=== PATIENT | female | born 1965 | race Hispanic/Latino ===

== ENCOUNTER 2018-09-07 14:42 | Emergency (ER) | payer SELFPAY ==
[2018-09-07] MEDS ORDERED: PREDNISONE 20 MG TABLET ONE (16:19)
[2018-09-07] MEDS ORDERED: DIPHENHYDRAMINE HCL 25 MG CAPSULE ONE (16:19)
[2018-09-07] MEDS ORDERED: FAMOTIDINE 20MG TAB 20 MG TAB ONE (16:19)
== END 2018-09-07 16:36 | disposition home or self-care (01) ==
LOC: EDH 14:42
DX: L25.9 Unspecified contact dermatitis, unspecified cause (principal); I10 Essential (primary) hypertension
CPT/HCPCS: 99284; Q0163

== ENCOUNTER 2018-09-09 21:36 | Emergency (ER) | payer SELFPAY ==
[2018-09-09] MEDS ORDERED: DEXAMETHASONE SOD PHOSPHATE 10MG/ML 1ML VIAL ONE (22:51)
== END 2018-09-09 23:24 | disposition home or self-care (01) ==
LOC: EDH 21:36
DX: L25.9 Unspecified contact dermatitis, unspecified cause (principal); I10 Essential (primary) hypertension; Z90.49 Acquired absence of other specified parts of digestive tract; Z98.51 Tubal ligation status
CPT/HCPCS: 96372; 99283; J1100

== ENCOUNTER 2019-02-10 00:59 | Emergency (ER) | payer SELFPAY ==
[2019-02-10 01:42] LABS: APPEARANCE,URINE Clear (CLEAR); BILIRUBIN,URINE Negative (NEGATIVE); COLOR,URINE Yellow (YELLOW); GLUCOSE, URINE (UA) Negative (NEGATIVE); KETONES,URINE Negative (NEGATIVE); LEUKOCYTE ESTERASE ,URINE Negative (NEGATIVE); NITRATE,URINE Negative (NEGATIVE); OCCULT BLOOD,URINE Negative (NEGATIVE); PH,URINE 6.5 (5.0-8.0); PROTEIN,URINE Negative (NEGATIVE)
[2019-02-10] MEDS ORDERED: LIDOCAINE HCL 2% VISCOUS 15 ML UDCUP ONE (02:09)
== END 2019-02-10 02:18 | disposition home or self-care (01) ==
LOC: EDH 00:59
DX: B37.3 Candidiasis of vulva and vagina (principal); I10 Essential (primary) hypertension; Z98.51 Tubal ligation status; Z90.49 Acquired absence of other specified parts of digestive tract; Z90.89 Acquired absence of other organs; Z98.890 Other specified postprocedural states
CPT/HCPCS: 81003

== ENCOUNTER 2019-02-27 20:01 | Emergency (ER) | payer SELFPAY ==
[2019-02-27] MEDS ORDERED: IBUPROFEN 600 MG TABLET ONE (20:35)
== END 2019-02-27 21:02 | disposition home or self-care (01) ==
LOC: EDH 20:01
DX: S83.8X2A Sprain of other specified parts of left knee, initial encounter (principal); I10 Essential (primary) hypertension; X50.0XXA Overexertion from strenuous movement or load, initial encounter; Y93.89 Activity, other specified; Y92.098 Other place in other non-institutional residence as the place of occurrence of the external cause; Y99.8 Other external cause status
CPT/HCPCS: 73562

== ENCOUNTER 2020-07-07 20:42 | Emergency (ER) | payer OTHER ==
[2020-07-07] MEDS ORDERED: HYDROCODONE/ACETAMINOPHEN 5/325 MG TAB ONE (22:41)
== END 2020-07-07 23:14 | disposition home or self-care (01) ==
LOC: EDH 20:42
DX: S20.219A Contusion of unspecified front wall of thorax, initial encounter (principal); I10 Essential (primary) hypertension; V49.49XA Driver injured in collision with other motor vehicles in traffic accident, initial encounter; Y93.89 Activity, other specified; Y92.488 Other paved roadways as the place of occurrence of the external cause; Y99.8 Other external cause status
CPT/HCPCS: 71045

== ENCOUNTER 2021-03-23 18:58 | Emergency (ER) | payer SELFPAY ==
[~2021-03-23] VITALS: Ht 157.5 cm; Wt 98.9 kg
[2021-03-23 21:14] LABS: BASOPHILS % (AUTO) 0.4 % (0.0-5.0); HEMATOCRIT 46.4 % (36-48); LYMPHOCYTES % (AUTO) 18.8 % (21.0-51.0); MEAN CORPUSCULAR HEMOGLOBIN 26.7 pg (27.0-33.0); MEAN CORPUSCULAR HGB CONC 31.9 g/dL (32.0-36.0); MEAN CORPUSCULAR VOLUME 83.8 fL (79-99); MONOCYTES % (AUTO) 4.8 % (3.0-13.0); NEUTROPHILS % (AUTO) 74.6 % (40.0-77.0); PLATELET COUNT (AUTO) 324 K/uL (130-400); RED BLOOD CELL COUNT(AUTO) 5.54 MIL/uL (4.00-5.50); RED CELL DISTRIBUTION WIDTH 13.8 % (11.0-15.5); WHITE BLOOD COUNT (AUTO) 14.1 K/uL (4.8-10.8)
[2021-03-23 21:24] LABS: CREATININE 0.8 mg/dL (0.5-1.5); POTASSIUM 4.1 mmol/L (3.5-5.1)
[2021-03-23 21:33] LABS: ALBUMIN 3.5 g/dL (3.5-5.0); BILIRUBIN,TOTAL 0.6 mg/dL (0.2-1.0); TOTAL PROTEIN, SERUM 8.8 g/dL (6.0-8.3)
[2021-03-23 22:00] VITALS: BP 128/82
[2021-03-23 22:15] LABS: APPEARANCE,URINE Clear (CLEAR); BILIRUBIN,URINE Negative (NEGATIVE); COLOR,URINE Yellow (YELLOW); GLUCOSE, URINE (UA) >=1000 mg/dL (NEGATIVE); KETONES,URINE 15 mg/dL (NEGATIVE); LEUKOCYTE ESTERASE ,URINE Small (NEGATIVE); NITRATE,URINE Negative (NEGATIVE); OCCULT BLOOD,URINE Negative (NEGATIVE); PH,URINE 7.5 (5.0-8.0); PROTEIN,URINE Negative (NEGATIVE)
[2021-03-23 22:27] LABS: BACTERIA,URINE None Seen /HPF (None Seen); RBC,URINE 0-1 /HPF (0-1); SQUAMOUS EPITHELIAL CELL,UR Moderate /HPF (0-2)
[2021-03-23] MEDS ORDERED: LIDOCAINE HCL 2% VISCOUS 15 ML UDCUP PO ONE (22:30)
[2021-03-23] MEDS ORDERED: MAG/ALUM/SIMETH 30 ML UDCUP PO ONE (22:30)
[2021-03-23] MEDS ORDERED: PANTOPRAZOLE 40 MG TAB DR PO SCH (22:30)
[2021-03-23] MEDS ORDERED: PANT40TA PO (22:49)
[2021-03-23] MEDS ORDERED: ONDA4TAB10 PO (22:49)
[2021-03-23] MEDS ORDERED: METO-296 PO (22:49)
[2021-03-23] MEDS ORDERED: DICY20TA2 PO (22:49)
== END 2021-03-23 23:07 | disposition home or self-care (01) ==
LOC: EDH 18:58
DX: K29.70 Gastritis, unspecified, without bleeding (principal); R10.13 Epigastric pain; I10 Essential (primary) hypertension; Z90.49 Acquired absence of other specified parts of digestive tract; Z98.890 Other specified postprocedural states
CPT/HCPCS: 36415; 74176; 80053; 81001; 83690; 84484; 85025

== ENCOUNTER 2021-04-19 10:59 | Inpatient (IN) | payer OTHER ==
[~2021-04-19] VITALS: Ht 162.6 cm; Wt 69.4 kg
[~2021-04-19 10:59] MED LIST: DICY20TA2 PO; METO-296 PO; ONDA4TAB10 PO; PANT40TA PO
[2021-04-19 11:50] LABS: BASOPHILS % (AUTO) 0.1 % (0.0-5.0); EOSINOPHILS % (AUTO) 0.1 % (0.0-8.0); HEMATOCRIT 43.2 % (36-48); LYMPHOCYTES % (AUTO) 7.2 % (21.0-51.0); MEAN CORPUSCULAR HEMOGLOBIN 26.2 pg (27.0-33.0); MEAN CORPUSCULAR HGB CONC 33.3 g/dL (32.0-36.0); MEAN CORPUSCULAR VOLUME 78.7 fL (79-99); MONOCYTES % (AUTO) 1.9 % (3.0-13.0); NEUTROPHILS % (AUTO) 90.4 % (40.0-77.0); PLATELET COUNT (AUTO) 156 K/uL (130-400); RED BLOOD CELL COUNT(AUTO) 5.49 MIL/uL (4.00-5.50); RED CELL DISTRIBUTION WIDTH 13.3 % (11.0-15.5); WHITE BLOOD COUNT (AUTO) 7.4 K/uL (4.8-10.8)
[2021-04-19 11:59] LABS: ALBUMIN 2.9 g/dL (3.5-5.0); CREATININE 0.9 mg/dL (0.5-1.5); POTASSIUM 3.4 mmol/L (3.5-5.1)
[2021-04-19 12:06] LABS: BILIRUBIN,TOTAL 0.8 mg/dL (0.2-1.0); TOTAL PROTEIN, SERUM 8.4 g/dL (6.0-8.3)
[2021-04-19 12:08] LABS: INR 0.99 (0.85-1.15); PROTHROMBIN TIME 10.8 SEC (9.6-11.6)
[2021-04-19 12:24] LABS: ABG BASE EXCESS 4.1 mmol/L (-2.0-3.0); ABG PCO2 28 mmHg (32-45)
[2021-04-19] MEDS ORDERED: INSULIN HUMULIN R 100 UNIT/ML 3ML IV ONE (12:30)
[2021-04-19] MEDS ORDERED: ACETAMINOPHEN WITH CODEINE 1 TAB TAB PO ONE (12:30)
[2021-04-19] MEDS ORDERED: 0.9%NACL 1000ML 1,000 ML IV SCH ×2 (12:30→18:30)
[2021-04-19] MEDS: ALBUTEROL INHALER 90MCG/INH IH PRN (13:09)
[2021-04-19 13:20] LABS: CRP QUANTITATIVE 239.5 mg/L (0.00-9.0)
[2021-04-19 14:00] VITALS: BP 130/82
[2021-04-19] MEDS ORDERED: PHARMACY COMMUNICATION**REMDESIVIR ORDER MISC SCH (14:30)
[2021-04-19] MEDS ORDERED: COMPOUND IV REFRIGERATED 1 EACH IVSOLN MISC PRN (15:00)
[2021-04-19 15:07] LABS: HEMOGLOBIN A1C 13.1 % (4.0-6.0)
[2021-04-19 15:19] LABS: APPEARANCE,URINE Clear (CLEAR); BILIRUBIN,URINE Negative (NEGATIVE); COLOR,URINE Yellow (YELLOW); GLUCOSE, URINE (UA) >=1000 mg/dL (NEGATIVE); KETONES,URINE Trace mg/dL (NEGATIVE); LEUKOCYTE ESTERASE ,URINE Trace (NEGATIVE); NITRATE,URINE Negative (NEGATIVE); OCCULT BLOOD,URINE Negative (NEGATIVE); PROTEIN,URINE Trace mg/dL (NEGATIVE)
[2021-04-19 15:21] LABS: SODIUM,URINE RANDOM 33 mmol/l (40-220)
[2021-04-19 15:31] LABS: BACTERIA,URINE Moderate /HPF (None Seen); RBC,URINE 0-1 /HPF (0-1)
[2021-04-19 15:32] LABS: SQUAMOUS EPITHELIAL CELL,UR Rare /HPF (0-2); YEAST,URINE BUDDING Rare /HPF (None Seen)
[2021-04-19] MEDS ORDERED: INSULIN GLARGINE 100 UNITS/ML 10 ML VIAL SQ ONE (16:00)
[2021-04-19] MEDS ORDERED: REMDESIVIR (EUA) 520 200 MG in 0.9% NACL 250ML 250 ML IV SCH (16:00)
[2021-04-19 17:15] VITALS: BP 132/80
[2021-04-19 17:32] LABS: CREATININE 0.6 mg/dL (0.5-1.5); POTASSIUM 3.4 mmol/L (3.5-5.1)
[2021-04-19] MEDS: INSULIN HUMULIN R 100 UNIT/ML 3ML SQ SCH (18:29)
[2021-04-19] MEDS ORDERED: DEXAMETHASONE SOD PHOSPHATE 4 MG/ML 1ML VIAL IVP SCH (18:30)
[2021-04-19] MEDS ORDERED: POTASSIUM CHLORIDE 20MEQ/100ML 100 ML IV PRN (18:30)
[2021-04-19] MEDS ORDERED: LIDOCAINE HCL-MPF 1% 2ML VIAL IV PRN (18:30)
[2021-04-19] MEDS ORDERED: MAGNESIUM 2GM PREMIX 50ML 50 ML IV PRN (18:30)
[2021-04-19 19:59] LABS: CREATININE 0.6 mg/dL (0.5-1.5); POTASSIUM 3.1 mmol/L (3.5-5.1)
[2021-04-19 20:00] VITALS: BP 130/74
[2021-04-19] MEDS ORDERED: 0.9%NACL 1000ML 1,000 ML IV ONE (20:00)
[2021-04-19] MEDS: ENOXAPARIN SODIUM 40 MG/0.4 ML SYRINGE SQ SCH (20:30)
[2021-04-19] MEDS ORDERED: FAMOTIDINE 20MG VIAL IV SCH (21:00)
[2021-04-19 22:59] LABS: CREATININE 0.5 mg/dL (0.5-1.5); POTASSIUM 3.2 mmol/L (3.5-5.1)
[2021-04-19 23:20] VITALS: BP 132/78
[2021-04-20] LABS: CHLORIDE,URINE RANDOM 53 mmol/L (110-250); POTASSIUM,URINE RANDOM 37 mmol/L (25-125); SODIUM,URINE RANDOM 33 mmol/l (40-220)
[2021-04-20] MEDS: INSULIN HUMULIN R 100 UNIT/ML 3ML SQ SCH ×8 (01:07→21:09)
[2021-04-20 03:37] VITALS: BP 129/61
[2021-04-20] MEDS: GUAIFENESIN SUGAR-FREE 100 MG/5 ML UDCUP PO PRN ×2 (03:37→10:49)
[2021-04-20] MEDS: REMDESIVIR LABS MISC SCH (06:00)
[2021-04-20 06:08] LABS: CREATININE 0.7 mg/dL (0.5-1.5)
[2021-04-20 08:00] VITALS: BP 114/68
[2021-04-20] MEDS ORDERED: ONDANSETRON 4MG INJ ONE (08:11)
[2021-04-20] MEDS ORDERED: ACETAMINOPHEN 500 MG TABLET ONE (08:11)
[2021-04-20] MEDS: PANTOPRAZOLE 40 MG TAB DR PO SCH (08:13)
[2021-04-20] MEDS: BARICITINIB (EUA) 2 MG TABLET PO SCH (08:13)
[2021-04-20] MEDS: ENOXAPARIN SODIUM 40 MG/0.4 ML SYRINGE SQ SCH ×2 (08:13→21:10)
[2021-04-20] MEDS ORDERED: ACETAMINOPHEN 500 MG TABLET PO ONE (08:30)
[2021-04-20] MEDS: ALBUTEROL INHALER 90MCG/INH IH PRN (08:45)
[2021-04-20 12:49] LABS: AMPHET/METH SCREEN,URINE NEGATIVE (NEGATIVE); BARBITURATE SCREEN, URINE NEGATIVE (NEGATIVE); BENZODIAZEPINES SCREEN,URINE NEGATIVE (NEGATIVE); CANNABINOID SCREEN,URINE NEGATIVE (NEGATIVE); COCAINE SCREEN,URINE NEGATIVE (NEGATIVE); OPIATE SCREEN,URINE POSITIVE (NEGATIVE); PHENCYCLIDINE SCREEN,URINE NEGATIVE (NEGATIVE)
[2021-04-20] MEDS: NYSTATIN 15 GM POWDER TP SCH ×2 (14:00→21:00)
[2021-04-20 14:30] LABS: CREATININE 0.7 mg/dL (0.5-1.5); POTASSIUM 3.5 mmol/L (3.5-5.1)
[2021-04-20 14:36] LABS: ALBUMIN 2.4 g/dL (3.5-5.0); BILIRUBIN,DIRECT 0.2 mg/dL (0.0-0.3); BILIRUBIN,TOTAL 0.6 mg/dL (0.2-1.0); TOTAL PROTEIN, SERUM 7.4 g/dL (6.0-8.3)
[2021-04-20] MEDS: TRAMADOL HCL 50 MG TABLET PO PRN (15:08)
[2021-04-20] MEDS ORDERED: ALBUTEROL INHALER 90MCG/INH IH PRN (15:30)
[2021-04-20] MEDS: REMDESIVIR (EUA) 520 100 MG in 0.9% NACL 250ML 250 ML IV SCH (16:25)
[2021-04-20] MEDS: LEVOFLOXACIN 500 MG TABLET PO SCH (16:25)
[2021-04-20] MEDS: DEXAMETHASONE SOD PHOSPHATE 4 MG/ML 1ML VIAL IVP SCH (17:39)
[2021-04-20 18:28] VITALS: BP 142/84
[2021-04-20 20:00] VITALS: BP 137/80
[2021-04-20 20:19] LABS: CREATININE 0.5 mg/dL (0.5-1.5); POTASSIUM 3.3 mmol/L (3.5-5.1)
[2021-04-20] MEDS ORDERED: INSULIN GLARGINE 100 UNITS/ML 10 ML VIAL SQ SCH (21:00)
[2021-04-20] MEDS: TEMAZEPAM 7.5 MG CAPSULE PO PRN (22:22)
[2021-04-20 22:45] LABS: CREATININE 0.6 mg/dL (0.5-1.5); POTASSIUM 3.4 mmol/L (3.5-5.1)
[2021-04-21] VITALS (9 sets, daily range): BP systolic 109–159; BP diastolic 48–86
[2021-04-21] MEDS: GUAIFENESIN SUGAR-FREE 100 MG/5 ML UDCUP PO PRN ×3 (02:02→15:44)
[2021-04-21] MEDS: TRAMADOL HCL 50 MG TABLET PO PRN ×2 (02:59→15:44)
[2021-04-21] MEDS: DEXAMETHASONE SOD PHOSPHATE 4 MG/ML 1ML VIAL IVP SCH ×2 (05:32→18:30)
[2021-04-21 06:05] LABS: ALBUMIN 2.4 g/dL (3.5-5.0); BILIRUBIN,TOTAL 0.5 mg/dL (0.2-1.0); CREATININE 0.6 mg/dL (0.5-1.5); MAGNESIUM 1.9 mg/dL (1.80-2.40); POTASSIUM 4.3 mmol/L (3.5-5.1); TOTAL PROTEIN, SERUM 7.5 g/dL (6.0-8.3)
[2021-04-21] MEDS: INSULIN HUMULIN R 100 UNIT/ML 3ML SQ SCH ×4 (08:36→20:49)
[2021-04-21] MEDS: LEVOFLOXACIN 500 MG TABLET PO SCH (08:47)
[2021-04-21] MEDS: PANTOPRAZOLE 40 MG TAB DR PO SCH (08:47)
[2021-04-21] MEDS: BARICITINIB (EUA) 2 MG TABLET PO SCH (08:47)
[2021-04-21] MEDS: ENOXAPARIN SODIUM 40 MG/0.4 ML SYRINGE SQ SCH ×2 (08:48→20:55)
[2021-04-21] MEDS ORDERED: LEVOFLOXACIN 500 MG TABLET PO SCH (09:00)
[2021-04-21] MEDS: NYSTATIN 15 GM POWDER TP SCH ×3 (10:03→20:55)
[2021-04-21] MEDS: ONDANSETRON 4MG INJ IVP PRN (15:44)
[2021-04-21] MEDS: REMDESIVIR (EUA) 520 100 MG in 0.9% NACL 250ML 250 ML IV SCH (16:00)
[2021-04-21] MEDS: REMDESIVIR LABS MISC SCH (16:00)
[2021-04-21] MEDS: INSULIN GLARGINE 100 UNITS/ML 10 ML VIAL SQ SCH (20:54)
[2021-04-21] MEDS: TEMAZEPAM 7.5 MG CAPSULE PO PRN (20:55)
[2021-04-21] MEDS: ACETAMINOPHEN 325 MG TAB PO PRN (20:56)
[2021-04-22 03:57] VITALS: BP 152/85
[2021-04-22] MEDS: TRAMADOL HCL 50 MG TABLET PO PRN ×2 (04:09→15:37)
[2021-04-22] MEDS: GUAIFENESIN SUGAR-FREE 100 MG/5 ML UDCUP PO PRN ×3 (04:09→21:12)
[2021-04-22 04:58] LABS: ALBUMIN 2.6 g/dL (3.5-5.0); BILIRUBIN,TOTAL 0.6 mg/dL (0.2-1.0); CREATININE 0.7 mg/dL (0.5-1.5); POTASSIUM 3.4 mmol/L (3.5-5.1); TOTAL PROTEIN, SERUM 7.7 g/dL (6.0-8.3)
[2021-04-22] MEDS: REMDESIVIR LABS MISC SCH (06:18)
[2021-04-22] MEDS: DEXAMETHASONE SOD PHOSPHATE 4 MG/ML 1ML VIAL IVP SCH (06:19)
[2021-04-22] MEDS: INSULIN HUMULIN R 100 UNIT/ML 3ML SQ SCH ×4 (06:21→21:00)
[2021-04-22] MEDS: KCL 20 MEQ ERTAB PO PRN ×2 (06:52→15:29)
[2021-04-22 07:51] VITALS: BP 156/80
[2021-04-22] MEDS: PANTOPRAZOLE 40 MG TAB DR PO SCH (09:07)
[2021-04-22] MEDS: LEVOFLOXACIN 500 MG TABLET PO SCH (09:07)
[2021-04-22] MEDS: ENOXAPARIN SODIUM 40 MG/0.4 ML SYRINGE SQ SCH ×2 (09:08→20:30)
[2021-04-22] MEDS: NYSTATIN 15 GM POWDER TP SCH ×3 (09:08→20:31)
[2021-04-22] MEDS: BARICITINIB (EUA) 2 MG TABLET PO SCH (10:30)
[2021-04-22] MEDS: ACETAMINOPHEN 325 MG TAB PO PRN ×2 (10:31→20:29)
[2021-04-22 11:51] VITALS: BP 129/84
[2021-04-22] MEDS: FLUOXETINE HCL 20 MG CAPSULE PO SCH (12:21)
[2021-04-22] MEDS: BUSPIRONE HCL 5 MG TABLET PO SCH ×3 (12:21→20:29)
[2021-04-22] MEDS: REMDESIVIR (EUA) 520 100 MG in 0.9% NACL 250ML 250 ML IV SCH (15:25)
[2021-04-22] MEDS: ONDANSETRON 4MG INJ IVP PRN (15:28)
[2021-04-22 16:17] VITALS: BP 117/78
[2021-04-22 19:39] VITALS: BP 157/74
[2021-04-22] MEDS: TEMAZEPAM 7.5 MG CAPSULE PO PRN (20:29)
[2021-04-22] MEDS: INSULIN GLARGINE 100 UNITS/ML 10 ML VIAL SQ SCH (20:31)
[2021-04-22 23:50] VITALS: BP 138/78
[2021-04-23 03:53] VITALS: BP 147/75
[2021-04-23] MEDS: GUAIFENESIN SUGAR-FREE 100 MG/5 ML UDCUP PO PRN ×3 (04:30→20:37)
[2021-04-23] MEDS: TRAMADOL HCL 50 MG TABLET PO PRN ×2 (04:40→17:05)
[2021-04-23 04:54] LABS: BASOPHILS % (AUTO) 0.3 % (0.0-5.0); EOSINOPHILS % (AUTO) 0.7 % (0.0-8.0); HEMATOCRIT 43.5 % (36-48); LYMPHOCYTES % (AUTO) 15.1 % (21.0-51.0); MEAN CORPUSCULAR HGB CONC 32.6 g/dL (32.0-36.0); MEAN CORPUSCULAR VOLUME 79.7 fL (79-99); MONOCYTES % (AUTO) 4.6 % (3.0-13.0); NEUTROPHILS % (AUTO) 78.6 % (40.0-77.0); PLATELET COUNT (AUTO) 279 K/uL (130-400); RED BLOOD CELL COUNT(AUTO) 5.46 MIL/uL (4.00-5.50); RED CELL DISTRIBUTION WIDTH 13.2 % (11.0-15.5); WHITE BLOOD COUNT (AUTO) 7.5 K/uL (4.8-10.8)
[2021-04-23 05:16] LABS: CRP QUANTITATIVE 30.3 mg/L (0.00-9.0)
[2021-04-23 05:27] LABS: ALBUMIN 2.5 g/dL (3.5-5.0); BILIRUBIN,TOTAL 0.5 mg/dL (0.2-1.0); CREATININE 0.7 mg/dL (0.5-1.5); POTASSIUM 3.7 mmol/L (3.5-5.1); TOTAL PROTEIN, SERUM 7.2 g/dL (6.0-8.3)
[2021-04-23] MEDS: REMDESIVIR LABS MISC SCH (06:00)
[2021-04-23] MEDS: INSULIN HUMULIN R 100 UNIT/ML 3ML SQ SCH ×4 (06:09→21:04)
[2021-04-23 08:00] VITALS: BP 130/76
[2021-04-23] MEDS: PANTOPRAZOLE 40 MG TAB DR PO SCH (08:31)
[2021-04-23] MEDS: FLUOXETINE HCL 20 MG CAPSULE PO SCH (08:31)
[2021-04-23] MEDS: BARICITINIB (EUA) 2 MG TABLET PO SCH (08:31)
[2021-04-23] MEDS: BUSPIRONE HCL 5 MG TABLET PO SCH ×3 (08:31→20:36)
[2021-04-23] MEDS: LEVOFLOXACIN 500 MG TABLET PO SCH (08:31)
[2021-04-23] MEDS: ENOXAPARIN SODIUM 40 MG/0.4 ML SYRINGE SQ SCH ×2 (08:32→20:38)
[2021-04-23] MEDS: DEXAMETHASONE SOD PHOSPHATE 4 MG/ML 1ML VIAL IVP SCH (08:32)
[2021-04-23] MEDS: NYSTATIN 15 GM POWDER TP SCH ×3 (08:32→20:38)
[2021-04-23] MEDS: PHARMACY COMMUNICATION MISC SCH ×5 (11:30→15:33)
[2021-04-23 11:47] VITALS: BP 156/86
[2021-04-23] MEDS ORDERED: PHARMACY COMMUNICATION MISC SCH (15:30)
[2021-04-23 16:16] VITALS: BP 136/75
[2021-04-23] MEDS: REMDESIVIR (EUA) 520 100 MG in 0.9% NACL 250ML 250 ML IV SCH (17:05)
[2021-04-23 19:39] VITALS: BP 130/74
[2021-04-23] MEDS: TEMAZEPAM 7.5 MG CAPSULE PO PRN (20:37)
[2021-04-23] MEDS: ACETAMINOPHEN 325 MG TAB PO PRN (20:39)
[2021-04-23] MEDS: INSULIN GLARGINE 100 UNITS/ML 10 ML VIAL SQ SCH (21:04)
[2021-04-23 23:29] VITALS: BP 135/83
[2021-04-24] MEDS: GUAIFENESIN SUGAR-FREE 100 MG/5 ML UDCUP PO PRN ×4 (00:36→18:37)
[2021-04-24 03:45] VITALS: BP 147/85
[2021-04-24 04:20] LABS: MEAN CORPUSCULAR HEMOGLOBIN 26.3 pg (27.0-33.0); MEAN CORPUSCULAR VOLUME 78.6 fL (79-99); RED BLOOD CELL COUNT(AUTO) 5.09 MIL/uL (4.00-5.50); WHITE BLOOD COUNT (AUTO) 8.5 K/uL (4.8-10.8)
[2021-04-24 04:21] LABS: BASOPHILS % (AUTO) 0.2 % (0.0-5.0); EOSINOPHILS % (AUTO) 1.1 % (0.0-8.0); LYMPHOCYTES % (AUTO) 12.6 % (21.0-51.0); MEAN CORPUSCULAR HGB CONC 33.5 g/dL (32.0-36.0); MONOCYTES % (AUTO) 3.2 % (3.0-13.0); NEUTROPHILS % (AUTO) 81.3 % (40.0-77.0); PLATELET COUNT (AUTO) 318 K/uL (130-400); RED CELL DISTRIBUTION WIDTH 13.1 % (11.0-15.5)
[2021-04-24] MEDS: TRAMADOL HCL 50 MG TABLET PO PRN (04:31)
[2021-04-24] MEDS: BENZONATATE 100 MG CAPSULE PO PRN (04:31)
[2021-04-24 04:34] LABS: ALBUMIN 2.5 g/dL (3.5-5.0); BILIRUBIN,TOTAL 0.6 mg/dL (0.2-1.0); CREATININE 0.6 mg/dL (0.5-1.5); TOTAL PROTEIN, SERUM 7.2 g/dL (6.0-8.3)
[2021-04-24 04:43] LABS: POTASSIUM 2.9 mmol/L (3.5-5.1)
[2021-04-24] MEDS: POTASSIUM CHLORIDE 10% ELIXIR 20 MEQ/15 ML UDCUP PO PRN (04:50)
[2021-04-24] MEDS: REMDESIVIR LABS MISC SCH (05:13)
[2021-04-24] MEDS: INSULIN HUMULIN R 100 UNIT/ML 3ML SQ SCH ×4 (05:13→20:51)
[2021-04-24] MEDS: FLUOXETINE HCL 20 MG CAPSULE PO SCH (06:47)
[2021-04-24 08:15] VITALS: BP 153/76
[2021-04-24] MEDS: DEXAMETHASONE SOD PHOSPHATE 4 MG/ML 1ML VIAL IVP SCH (09:02)
[2021-04-24] MEDS: LEVOFLOXACIN 500 MG TABLET PO SCH (09:02)
[2021-04-24] MEDS: BUSPIRONE HCL 5 MG TABLET PO SCH ×3 (09:03→20:46)
[2021-04-24] MEDS: BARICITINIB (EUA) 2 MG TABLET PO SCH (09:04)
[2021-04-24] MEDS: PANTOPRAZOLE 40 MG TAB DR PO SCH (09:04)
[2021-04-24] MEDS: ENOXAPARIN SODIUM 40 MG/0.4 ML SYRINGE SQ SCH (09:04)
[2021-04-24] MEDS: KCL 20 MEQ ERTAB PO PRN (09:04)
[2021-04-24] MEDS: NYSTATIN 15 GM POWDER TP SCH ×3 (09:05→21:38)
[2021-04-24 11:48] VITALS: BP 151/76
[2021-04-24] MEDS: REMDESIVIR (EUA) 520 100 MG in 0.9% NACL 250ML 250 ML IV SCH (14:46)
[2021-04-24] MEDS ORDERED: POTASSIUM CHLORIDE 10MEQ SR TAB PO STA (14:56)
[2021-04-24 15:14] LABS: CREATININE 0.5 mg/dL (0.5-1.5); MAGNESIUM 2.1 mg/dL (1.80-2.40); POTASSIUM 4.5 mmol/L (3.5-5.1)
[2021-04-24 15:59] VITALS: BP 138/76
[2021-04-24] MEDS ORDERED: NACL NASAL SPRAY 120 SPRAY/BOTTLE NS PRN (16:00)
[2021-04-24] MEDS: ALPRAZOLAM 1 MG TAB PO PRN (17:11)
[2021-04-24 19:56] VITALS: BP 149/87
[2021-04-24] MEDS: TRAZODONE HCL 50 MG TAB PO SCH (20:46)
[2021-04-24] MEDS: ENOXAPARIN SODIUM 100 MG/1 ML SQ SCH (20:47)
[2021-04-24] MEDS: INSULIN GLARGINE 100 UNITS/ML 10 ML VIAL SQ SCH (20:51)
[2021-04-24 23:36] VITALS: BP 123/69
[2021-04-25] MEDS: GUAIFENESIN SUGAR-FREE 100 MG/5 ML UDCUP PO PRN ×3 (00:48→16:28)
[2021-04-25 03:30] VITALS: BP 141/77
[2021-04-25 04:07] LABS: BASOPHILS % (AUTO) 0.3 % (0.0-5.0); EOSINOPHILS % (AUTO) 1.4 % (0.0-8.0); HEMATOCRIT 42.7 % (36-48); LYMPHOCYTES % (AUTO) 11.4 % (21.0-51.0); MEAN CORPUSCULAR HEMOGLOBIN 26.1 pg (27.0-33.0); MEAN CORPUSCULAR HGB CONC 32.8 g/dL (32.0-36.0); MEAN CORPUSCULAR VOLUME 79.7 fL (79-99); MONOCYTES % (AUTO) 3.5 % (3.0-13.0); NEUTROPHILS % (AUTO) 79.6 % (40.0-77.0); PLATELET COUNT (AUTO) 410 K/uL (130-400); RED BLOOD CELL COUNT(AUTO) 5.36 MIL/uL (4.00-5.50); RED CELL DISTRIBUTION WIDTH 13.5 % (11.0-15.5)
[2021-04-25 04:32] LABS: ALBUMIN 2.5 g/dL (3.5-5.0); BILIRUBIN,TOTAL 0.6 mg/dL (0.2-1.0); CREATININE 0.7 mg/dL (0.5-1.5); CRP QUANTITATIVE 174.1 mg/L (0.00-9.0); PHOSPHORUS 2.3 mg/dL (2.5-4.9); POTASSIUM 3.4 mmol/L (3.5-5.1); TOTAL PROTEIN, SERUM 7.4 g/dL (6.0-8.3)
[2021-04-25] MEDS: TRAMADOL HCL 50 MG TABLET PO PRN (05:10)
[2021-04-25] MEDS: REMDESIVIR LABS MISC SCH (06:00)
[2021-04-25] MEDS: INSULIN HUMULIN R 100 UNIT/ML 3ML SQ SCH ×4 (07:30→21:41)
[2021-04-25] MEDS: BUSPIRONE HCL 5 MG TABLET PO SCH ×3 (08:39→20:23)
[2021-04-25] MEDS: FLUOXETINE HCL 20 MG CAPSULE PO SCH (08:39)
[2021-04-25] MEDS: BARICITINIB (EUA) 2 MG TABLET PO SCH (08:39)
[2021-04-25] MEDS: PANTOPRAZOLE 40 MG TAB DR PO SCH (08:39)
[2021-04-25] MEDS: DEXAMETHASONE SOD PHOSPHATE 4 MG/ML 1ML VIAL IVP SCH (08:39)
[2021-04-25] MEDS: ENOXAPARIN SODIUM 100 MG/1 ML SQ SCH ×2 (08:40→20:24)
[2021-04-25] MEDS: NYSTATIN 15 GM POWDER TP SCH ×3 (08:40→20:24)
[2021-04-25] MEDS: KCL 20 MEQ ERTAB PO PRN ×2 (08:41→14:19)
[2021-04-25 08:59] VITALS: BP 107/59
[2021-04-25 12:26] VITALS: BP 146/79
[2021-04-25] MEDS: REMDESIVIR (EUA) 520 100 MG in 0.9% NACL 250ML 250 ML IV SCH (14:15)
[2021-04-25 16:30] VITALS: BP 139/74
[2021-04-25] MEDS: ACETAMINOPHEN 325 MG TAB PO PRN (17:29)
[2021-04-25 19:17] VITALS: BP 136/84
[2021-04-25] MEDS: SOLU-MEDROL 40MG VIAL IVP SCH (20:22)
[2021-04-25] MEDS: TRAZODONE HCL 50 MG TAB PO SCH (20:23)
[2021-04-25] MEDS ORDERED: GUAIFENESIN-CODEINE 5 ML SYRUP PO ONE (21:30)
[2021-04-25] MEDS: INSULIN GLARGINE 100 UNITS/ML 10 ML VIAL SQ SCH (21:41)
[2021-04-25] MEDS: TEMAZEPAM 7.5 MG CAPSULE PO PRN (21:50)
[2021-04-25 23:31] VITALS: BP 129/81
[2021-04-26 03:49] VITALS: BP 153/83
[2021-04-26] MEDS: REMDESIVIR LABS MISC SCH (06:00)
[2021-04-26] MEDS: INSULIN HUMULIN R 100 UNIT/ML 3ML SQ SCH ×4 (07:11→20:51)
[2021-04-26] MEDS: PANTOPRAZOLE 40 MG TAB DR PO SCH (07:57)
[2021-04-26] MEDS: BARICITINIB (EUA) 2 MG TABLET PO SCH (07:57)
[2021-04-26] MEDS: FLUOXETINE HCL 20 MG CAPSULE PO SCH (07:57)
[2021-04-26] MEDS: SOLU-MEDROL 40MG VIAL IVP SCH ×2 (07:58→21:23)
[2021-04-26] MEDS: BUSPIRONE HCL 5 MG TABLET PO SCH ×3 (07:58→21:22)
[2021-04-26] MEDS: NYSTATIN 15 GM POWDER TP SCH ×3 (07:58→21:24)
[2021-04-26] MEDS: ENOXAPARIN SODIUM 100 MG/1 ML SQ SCH ×2 (07:58→21:23)
[2021-04-26 08:00] VITALS: BP 148/80
[2021-04-26] MEDS: BENZONATATE 100 MG CAPSULE PO PRN (09:16)
[2021-04-26] MEDS: ALPRAZOLAM 1 MG TAB PO PRN ×2 (09:16→21:22)
[2021-04-26] MEDS: ACETAMINOPHEN 325 MG TAB PO PRN (09:16)
[2021-04-26 12:00] VITALS: BP 112/54
[2021-04-26 12:13] LABS: ALBUMIN 2.8 g/dL (3.5-5.0); BILIRUBIN,DIRECT 0.1 mg/dL (0.0-0.3); BILIRUBIN,TOTAL 0.4 mg/dL (0.2-1.0); TOTAL PROTEIN, SERUM 7.3 g/dL (6.0-8.3)
[2021-04-26] MEDS: REMDESIVIR (EUA) 520 100 MG in 0.9% NACL 250ML 250 ML IV SCH (13:45)
[2021-04-26 16:00] VITALS: BP 128/74
[2021-04-26] MEDS: GUAIFENESIN SUGAR-FREE 100 MG/5 ML UDCUP PO PRN (17:10)
[2021-04-26 19:43] VITALS: BP 130/96
[2021-04-26] MEDS: INSULIN GLARGINE 100 UNITS/ML 10 ML VIAL SQ SCH (20:50)
[2021-04-26] MEDS: TRAZODONE HCL 50 MG TAB PO SCH (21:22)
[2021-04-26] MEDS: GUAIFENESIN-CODEINE 5 ML SYRUP PO SCH (21:23)
[2021-04-26] MEDS: TEMAZEPAM 7.5 MG CAPSULE PO PRN (21:27)
[2021-04-26 23:16] VITALS: BP 148/72
[2021-04-27 04:14] LABS: BASOPHILS % (AUTO) 0.3 % (0.0-5.0); EOSINOPHILS % (AUTO) 0.5 % (0.0-8.0); HEMATOCRIT 44.6 % (36-48); LYMPHOCYTES % (AUTO) 6.3 % (21.0-51.0); MEAN CORPUSCULAR HEMOGLOBIN 25.9 pg (27.0-33.0); MEAN CORPUSCULAR HGB CONC 32.1 g/dL (32.0-36.0); MEAN CORPUSCULAR VOLUME 80.8 fL (79-99); MONOCYTES % (AUTO) 4.1 % (3.0-13.0); NEUTROPHILS % (AUTO) 87.2 % (40.0-77.0); PLATELET COUNT (AUTO) 537 K/uL (130-400); RED BLOOD CELL COUNT(AUTO) 5.52 MIL/uL (4.00-5.50); RED CELL DISTRIBUTION WIDTH 13.8 % (11.0-15.5); WHITE BLOOD COUNT (AUTO) 14.8 K/uL (4.8-10.8)
[2021-04-27 04:18] VITALS: BP 137/82
[2021-04-27 04:32] LABS: ALBUMIN 2.6 g/dL (3.5-5.0); BILIRUBIN,TOTAL 0.4 mg/dL (0.2-1.0); CREATININE 0.7 mg/dL (0.5-1.5); CRP QUANTITATIVE 39.1 mg/L (0.00-9.0); MAGNESIUM 2.3 mg/dL (1.80-2.40); PHOSPHORUS 3.9 mg/dL (2.5-4.9); POTASSIUM 4.6 mmol/L (3.5-5.1); TOTAL PROTEIN, SERUM 7.4 g/dL (6.0-8.3)
[2021-04-27 04:49] LABS: B-TYPE NATRIURETIC PEPTIDE 71 pg/mL (0-100)
[2021-04-27] MEDS: REMDESIVIR LABS MISC SCH (06:00)
[2021-04-27] MEDS: INSULIN HUMULIN R 100 UNIT/ML 3ML SQ SCH ×7 (06:41→21:32)
[2021-04-27] MEDS: GUAIFENESIN SUGAR-FREE 100 MG/5 ML UDCUP PO PRN ×2 (06:44→15:48)
[2021-04-27] MEDS ORDERED: DRONABINOL 2.5 MG CAP PO SCH (07:00)
[2021-04-27 08:00] VITALS: BP 135/68
[2021-04-27] MEDS: PANTOPRAZOLE 40 MG TAB DR PO SCH (09:01)
[2021-04-27] MEDS: ASCORBIC ACID 500 MG TAB PO SCH (09:01)
[2021-04-27] MEDS: BUSPIRONE HCL 5 MG TABLET PO SCH ×3 (09:01→20:10)
[2021-04-27] MEDS: METOPROLOL TARTRATE 25 MG TAB PO SCH ×2 (09:01→20:10)
[2021-04-27] MEDS: ZINC SULFATE 220 CAPSULE PO SCH (09:01)
[2021-04-27] MEDS: METOCLOPRAMIDE 5 MG TABLET PO SCH ×4 (09:01→20:10)
[2021-04-27] MEDS: FLUOXETINE HCL 20 MG CAPSULE PO SCH (09:01)
[2021-04-27] MEDS: BARICITINIB (EUA) 2 MG TABLET PO SCH (09:02)
[2021-04-27] MEDS: ENOXAPARIN SODIUM 100 MG/1 ML SQ SCH ×2 (09:03→20:11)
[2021-04-27] MEDS: SOLU-MEDROL 40MG VIAL IVP SCH ×2 (09:03→20:09)
[2021-04-27] MEDS: NYSTATIN 15 GM POWDER TP SCH ×4 (09:03→21:33)
[2021-04-27] MEDS: NEUTRA-PHOS PACKET 1 EACH PO SCH ×4 (09:05→21:30)
[2021-04-27] MEDS: ACETAMINOPHEN 325 MG TAB PO PRN (09:57)
[2021-04-27] MEDS: BENZONATATE 100 MG CAPSULE PO PRN (09:57)
[2021-04-27 11:45] VITALS: BP 138/71
[2021-04-27] MEDS: REMDESIVIR (EUA) 520 100 MG in 0.9% NACL 250ML 250 ML IV SCH (15:49)
[2021-04-27 16:00] VITALS: BP 136/79
[2021-04-27 19:58] VITALS: BP 136/70
[2021-04-27] MEDS: GUAIFENESIN-CODEINE 5 ML SYRUP PO SCH (20:09)
[2021-04-27] MEDS: TRAZODONE HCL 50 MG TAB PO SCH (20:10)
[2021-04-27] MEDS: INSULIN GLARGINE 100 UNITS/ML 10 ML VIAL SQ SCH (20:14)
[2021-04-27] MEDS: TEMAZEPAM 7.5 MG CAPSULE PO PRN (22:05)
[2021-04-27 23:49] VITALS: BP 115/65
[2021-04-28] MEDS: ALPRAZOLAM 1 MG TAB PO PRN ×2 (00:50→20:43)
[2021-04-28] MEDS ORDERED: HYDR25TA PO (00:58)
[2021-04-28 04:21] VITALS: BP 131/57
[2021-04-28 04:43] LABS: BASOPHILS % (AUTO) 0.3 % (0.0-5.0); EOSINOPHILS % (AUTO) 0.5 % (0.0-8.0); HEMATOCRIT 45.2 % (36-48); LYMPHOCYTES % (AUTO) 6.7 % (21.0-51.0); MEAN CORPUSCULAR HEMOGLOBIN 26.1 pg (27.0-33.0); MEAN CORPUSCULAR HGB CONC 31.9 g/dL (32.0-36.0); MEAN CORPUSCULAR VOLUME 81.9 fL (79-99); MONOCYTES % (AUTO) 5.6 % (3.0-13.0); NEUTROPHILS % (AUTO) 85.3 % (40.0-77.0); PLATELET COUNT (AUTO) 545 K/uL (130-400); RED BLOOD CELL COUNT(AUTO) 5.52 MIL/uL (4.00-5.50); RED CELL DISTRIBUTION WIDTH 13.9 % (11.0-15.5); WHITE BLOOD COUNT (AUTO) 11.9 K/uL (4.8-10.8)
[2021-04-28] MEDS: GUAIFENESIN SUGAR-FREE 100 MG/5 ML UDCUP PO PRN ×2 (04:52→18:48)
[2021-04-28 04:56] LABS: CRP QUANTITATIVE 25.6 mg/L (0.00-9.0)
[2021-04-28] MEDS: REMDESIVIR LABS MISC SCH (05:02)
[2021-04-28 05:09] LABS: ALBUMIN 2.6 g/dL (3.5-5.0); BILIRUBIN,TOTAL 0.3 mg/dL (0.2-1.0); CREATININE 0.7 mg/dL (0.5-1.5); POTASSIUM 4.5 mmol/L (3.5-5.1); TOTAL PROTEIN, SERUM 7.3 g/dL (6.0-8.3)
[2021-04-28] MEDS: METOCLOPRAMIDE 5 MG TABLET PO SCH ×2 (06:04→12:22)
[2021-04-28] MEDS: INSULIN HUMULIN R 100 UNIT/ML 3ML SQ SCH ×7 (06:20→20:33)
[2021-04-28 08:27] VITALS: BP 128/78
[2021-04-28] MEDS: NYSTATIN 15 GM POWDER TP SCH ×3 (09:00→20:34)
[2021-04-28] MEDS: BENZONATATE 100 MG CAPSULE PO PRN (10:46)
[2021-04-28] MEDS: ZINC SULFATE 220 CAPSULE PO SCH (10:46)
[2021-04-28] MEDS: METOPROLOL TARTRATE 25 MG TAB PO SCH ×2 (10:46→20:30)
[2021-04-28] MEDS: FLUOXETINE HCL 20 MG CAPSULE PO SCH (10:47)
[2021-04-28] MEDS: BUSPIRONE HCL 5 MG TABLET PO SCH ×2 (10:47→20:30)
[2021-04-28] MEDS: ENOXAPARIN SODIUM 100 MG/1 ML SQ SCH ×2 (10:47→20:31)
[2021-04-28] MEDS: ASCORBIC ACID 500 MG TAB PO SCH (10:47)
[2021-04-28] MEDS: SOLU-MEDROL 40MG VIAL IVP SCH ×2 (10:47→20:29)
[2021-04-28] MEDS: BARICITINIB (EUA) 2 MG TABLET PO SCH (10:47)
[2021-04-28] MEDS: PANTOPRAZOLE 40 MG TAB DR PO SCH (10:47)
[2021-04-28 11:25] VITALS: BP 141/80
[2021-04-28] MEDS: REMDESIVIR (EUA) 520 100 MG in 0.9% NACL 250ML 250 ML IV SCH (14:47)
[2021-04-28 15:20] VITALS: BP 139/80
[2021-04-28] MEDS: ACETAMINOPHEN 325 MG TAB PO PRN (16:57)
[2021-04-28 20:27] VITALS: BP 136/68
[2021-04-28] MEDS: GUAIFENESIN 600 MG TABLET.ER PO SCH (20:29)
[2021-04-28] MEDS: TRAZODONE HCL 50 MG TAB PO SCH (20:30)
[2021-04-28] MEDS: GUAIFENESIN-CODEINE 5 ML SYRUP PO SCH (20:31)
[2021-04-28] MEDS: INSULIN GLARGINE 100 UNITS/ML 10 ML VIAL SQ SCH (20:33)
[2021-04-28] MEDS: TEMAZEPAM 7.5 MG CAPSULE PO PRN (20:43)
[2021-04-28 23:48] VITALS: BP 140/69
[2021-04-29 03:59] VITALS: BP 151/76
[2021-04-29 04:18] LABS: BASOPHILS % (AUTO) 0.2 % (0.0-5.0); EOSINOPHILS % (AUTO) 0.2 % (0.0-8.0); HEMATOCRIT 44.7 % (36-48); LYMPHOCYTES % (AUTO) 7.9 % (21.0-51.0); MEAN CORPUSCULAR HEMOGLOBIN 26.2 pg (27.0-33.0); MEAN CORPUSCULAR VOLUME 81.9 fL (79-99); MONOCYTES % (AUTO) 5.2 % (3.0-13.0); NEUTROPHILS % (AUTO) 85.4 % (40.0-77.0); PLATELET COUNT (AUTO) 568 K/uL (130-400); RED BLOOD CELL COUNT(AUTO) 5.46 MIL/uL (4.00-5.50); RED CELL DISTRIBUTION WIDTH 14.1 % (11.0-15.5)
[2021-04-29 04:42] LABS: ALBUMIN 2.7 g/dL (3.5-5.0); BILIRUBIN,TOTAL 0.4 mg/dL (0.2-1.0); CREATININE 0.6 mg/dL (0.5-1.5); CRP QUANTITATIVE 20.5 mg/L (0.00-9.0); POTASSIUM 4.6 mmol/L (3.5-5.1); TOTAL PROTEIN, SERUM 7.5 g/dL (6.0-8.3)
[2021-04-29] MEDS: GUAIFENESIN SUGAR-FREE 100 MG/5 ML UDCUP PO PRN ×2 (04:46→17:50)
[2021-04-29] MEDS: BENZONATATE 100 MG CAPSULE PO PRN (04:46)
[2021-04-29] MEDS: INSULIN HUMULIN R 100 UNIT/ML 3ML SQ SCH ×7 (06:14→20:50)
[2021-04-29 07:38] VITALS: BP 132/84
[2021-04-29] MEDS: NYSTATIN 15 GM POWDER TP SCH ×3 (09:00→20:52)
[2021-04-29] MEDS: SOLU-MEDROL 40MG VIAL IVP SCH (09:38)
[2021-04-29] MEDS: GUAIFENESIN 600 MG TABLET.ER PO SCH ×2 (09:38→20:49)
[2021-04-29] MEDS: METOPROLOL TARTRATE 25 MG TAB PO SCH ×2 (09:38→20:49)
[2021-04-29] MEDS: ASCORBIC ACID 500 MG TAB PO SCH (09:43)
[2021-04-29] MEDS: BUSPIRONE HCL 5 MG TABLET PO SCH ×2 (09:43→20:49)
[2021-04-29] MEDS: BARICITINIB (EUA) 2 MG TABLET PO SCH (09:44)
[2021-04-29] MEDS: ENOXAPARIN SODIUM 100 MG/1 ML SQ SCH ×2 (09:44→20:50)
[2021-04-29] MEDS: FLUOXETINE HCL 20 MG CAPSULE PO SCH (09:44)
[2021-04-29] MEDS: ZINC SULFATE 220 CAPSULE PO SCH (09:44)
[2021-04-29] MEDS: ALPRAZOLAM 1 MG TAB PO PRN ×2 (09:44→20:48)
[2021-04-29] MEDS: PANTOPRAZOLE 40 MG TAB DR PO SCH (09:44)
[2021-04-29 11:56] VITALS: BP 104/62
[2021-04-29] MEDS ORDERED: PHARMACY COMMUNICATION MISC SCH (14:00)
[2021-04-29 15:46] VITALS: BP 102/63
[2021-04-29 20:07] VITALS: BP 136/75
[2021-04-29] MEDS: TEMAZEPAM 7.5 MG CAPSULE PO PRN (20:48)
[2021-04-29] MEDS: TRAZODONE HCL 50 MG TAB PO SCH (20:49)
[2021-04-29] MEDS: GUAIFENESIN-CODEINE 5 ML SYRUP PO SCH (20:49)
[2021-04-29] MEDS: INSULIN GLARGINE 100 UNITS/ML 10 ML VIAL SQ SCH (20:51)
[2021-04-29 23:43] VITALS: BP 116/74
[2021-04-30] MEDS: BENZONATATE 100 MG CAPSULE PO PRN (03:17)
[2021-04-30] MEDS: GUAIFENESIN SUGAR-FREE 100 MG/5 ML UDCUP PO PRN ×2 (03:17→14:15)
[2021-04-30 03:48] VITALS: BP 119/59
[2021-04-30] MEDS: INSULIN HUMULIN R 100 UNIT/ML 3ML SQ SCH ×7 (05:15→21:18)
[2021-04-30] MEDS: ACETAMINOPHEN 325 MG TAB PO PRN ×2 (06:33→14:18)
[2021-04-30 08:19] VITALS: BP 110/50
[2021-04-30] MEDS: FLUOXETINE HCL 20 MG CAPSULE PO SCH (11:00)
[2021-04-30] MEDS: ZINC SULFATE 220 CAPSULE PO SCH (11:00)
[2021-04-30] MEDS: BUSPIRONE HCL 5 MG TABLET PO SCH ×2 (11:00→21:10)
[2021-04-30] MEDS: ASCORBIC ACID 500 MG TAB PO SCH (11:00)
[2021-04-30] MEDS: GUAIFENESIN 600 MG TABLET.ER PO SCH ×2 (11:00→21:11)
[2021-04-30] MEDS: BARICITINIB (EUA) 2 MG TABLET PO SCH (11:00)
[2021-04-30] MEDS: ENOXAPARIN SODIUM 100 MG/1 ML SQ SCH (11:00)
[2021-04-30] MEDS: PANTOPRAZOLE 40 MG TAB DR PO SCH (11:00)
[2021-04-30] MEDS: METOPROLOL TARTRATE 25 MG TAB PO SCH ×2 (11:01→21:11)
[2021-04-30] MEDS: NYSTATIN 15 GM POWDER TP SCH ×3 (11:45→21:20)
[2021-04-30 11:48] VITALS: BP 90/49
[2021-04-30 16:15] VITALS: BP 97/53
[2021-04-30 20:41] VITALS: BP 96/53
[2021-04-30] MEDS ORDERED: ENOXAPARIN SODIUM 60 MG/0.6 ML SQ ONE (21:00)
[2021-04-30] MEDS: GUAIFENESIN-CODEINE 5 ML SYRUP PO SCH (21:10)
[2021-04-30] MEDS: TEMAZEPAM 7.5 MG CAPSULE PO PRN (21:11)
[2021-04-30] MEDS: TRAZODONE HCL 50 MG TAB PO SCH (21:11)
[2021-04-30] MEDS: ENOXAPARIN SODIUM 60 MG/0.6 ML SQ SCH (21:15)
[2021-04-30] MEDS: INSULIN GLARGINE 100 UNITS/ML 10 ML VIAL SQ SCH (21:19)
[2021-04-30 23:56] VITALS: BP 109/72
[2021-05-01 04:00] VITALS: BP 114/50
[2021-05-01] MEDS: ACETAMINOPHEN 325 MG TAB PO PRN ×2 (05:17→12:04)
[2021-05-01] MEDS: ALPRAZOLAM 1 MG TAB PO PRN (05:19)
[2021-05-01] MEDS: INSULIN HUMULIN R 100 UNIT/ML 3ML SQ SCH ×7 (07:30→20:23)
[2021-05-01 07:31] LABS: BASOPHILS % (AUTO) 0.1 % (0.0-5.0); EOSINOPHILS % (AUTO) 2.6 % (0.0-8.0); HEMATOCRIT 40.1 % (36-48); LYMPHOCYTES % (AUTO) 8.5 % (21.0-51.0); MEAN CORPUSCULAR HEMOGLOBIN 26.7 pg (27.0-33.0); MEAN CORPUSCULAR HGB CONC 31.9 g/dL (32.0-36.0); MEAN CORPUSCULAR VOLUME 83.7 fL (79-99); MONOCYTES % (AUTO) 6.5 % (3.0-13.0); NEUTROPHILS % (AUTO) 81.7 % (40.0-77.0); PLATELET COUNT (AUTO) 423 K/uL (130-400); RED BLOOD CELL COUNT(AUTO) 4.79 MIL/uL (4.00-5.50); RED CELL DISTRIBUTION WIDTH 14.4 % (11.0-15.5); WHITE BLOOD COUNT (AUTO) 18.7 K/uL (4.8-10.8)
[2021-05-01 07:46] LABS: CRP QUANTITATIVE 115.7 mg/L (0.00-9.0)
[2021-05-01 07:54] LABS: CREATININE 0.6 mg/dL (0.5-1.5)
[2021-05-01 08:33] VITALS: BP 100/59
[2021-05-01] MEDS: NYSTATIN 15 GM POWDER TP SCH ×3 (09:00→20:21)
[2021-05-01] MEDS: BARICITINIB (EUA) 2 MG TABLET PO SCH (10:05)
[2021-05-01] MEDS: FLUOXETINE HCL 20 MG CAPSULE PO SCH (10:05)
[2021-05-01] MEDS: BUSPIRONE HCL 5 MG TABLET PO SCH (10:05)
[2021-05-01] MEDS: ZINC SULFATE 220 CAPSULE PO SCH (10:05)
[2021-05-01] MEDS: GUAIFENESIN 600 MG TABLET.ER PO SCH ×2 (10:05→20:22)
[2021-05-01] MEDS: ASCORBIC ACID 500 MG TAB PO SCH (10:05)
[2021-05-01] MEDS: METOPROLOL TARTRATE 25 MG TAB PO SCH ×2 (10:06→20:20)
[2021-05-01] MEDS: PANTOPRAZOLE 40 MG TAB DR PO SCH (10:06)
[2021-05-01] MEDS: ENOXAPARIN SODIUM 60 MG/0.6 ML SQ SCH ×2 (10:07→20:21)
[2021-05-01] MEDS: BENZONATATE 100 MG CAPSULE PO PRN (12:04)
[2021-05-01] MEDS: DEXAMETHASONE SOD PHOSPHATE 4 MG/ML 1ML VIAL IVP SCH (12:05)
[2021-05-01 13:03] VITALS: BP 109/70
[2021-05-01 16:00] VITALS: BP 124/65
[2021-05-01] MEDS ORDERED: BUSPIRONE HCL 5 MG TABLET PO SCH (17:00)
[2021-05-01] MEDS: GUAIFENESIN SUGAR-FREE 100 MG/5 ML UDCUP PO PRN (17:07)
[2021-05-01 19:35] VITALS: BP 128/71
[2021-05-01] MEDS: GUAIFENESIN-CODEINE 5 ML SYRUP PO SCH (20:20)
[2021-05-01] MEDS: TRAZODONE HCL 50 MG TAB PO SCH (20:20)
[2021-05-01] MEDS: INSULIN GLARGINE 100 UNITS/ML 10 ML VIAL SQ SCH (20:21)
[2021-05-02] VITALS (7 sets, daily range): BP systolic 110–154; BP diastolic 63–83
[2021-05-02] MEDS: BENZONATATE 100 MG CAPSULE PO PRN ×2 (04:33→22:52)
[2021-05-02] MEDS: INSULIN HUMULIN R 100 UNIT/ML 3ML SQ SCH ×5 (06:01→21:12)
[2021-05-02] MEDS ORDERED: ENOXAPARIN SODIUM 60 MG/0.6 ML SQ SCH (09:00)
[2021-05-02] MEDS: BARICITINIB (EUA) 2 MG TABLET PO SCH (09:23)
[2021-05-02] MEDS: DEXAMETHASONE SOD PHOSPHATE 4 MG/ML 1ML VIAL IVP SCH (09:23)
[2021-05-02] MEDS: ASCORBIC ACID 500 MG TAB PO SCH (09:24)
[2021-05-02] MEDS: FLUOXETINE HCL 20 MG CAPSULE PO SCH (09:24)
[2021-05-02] MEDS: PANTOPRAZOLE 40 MG TAB DR PO SCH (09:24)
[2021-05-02] MEDS: ZINC SULFATE 220 CAPSULE PO SCH (09:24)
[2021-05-02] MEDS: METOPROLOL TARTRATE 25 MG TAB PO SCH ×2 (09:24→21:11)
[2021-05-02] MEDS: GUAIFENESIN 600 MG TABLET.ER PO SCH ×2 (09:25→21:11)
[2021-05-02] MEDS ORDERED: ENOXAPARIN SODIUM 100 MG/1 ML SQ SCH ×2 (09:43→10:30)
[2021-05-02 09:48] LABS: BASOPHILS % (AUTO) 0.2 % (0.0-5.0); EOSINOPHILS % (AUTO) 0.6 % (0.0-8.0); HEMATOCRIT 41.6 % (36-48); LYMPHOCYTES % (AUTO) 6.1 % (21.0-51.0); MEAN CORPUSCULAR HEMOGLOBIN 26.3 pg (27.0-33.0); MEAN CORPUSCULAR HGB CONC 31.7 g/dL (32.0-36.0); MEAN CORPUSCULAR VOLUME 82.9 fL (79-99); MONOCYTES % (AUTO) 5.6 % (3.0-13.0); PLATELET COUNT (AUTO) 437 K/uL (130-400); RED BLOOD CELL COUNT(AUTO) 5.02 MIL/uL (4.00-5.50); RED CELL DISTRIBUTION WIDTH 14.1 % (11.0-15.5); WHITE BLOOD COUNT (AUTO) 19.2 K/uL (4.8-10.8)
[2021-05-02 10:05] LABS: CREATININE 0.6 mg/dL (0.5-1.5); POTASSIUM 3.9 mmol/L (3.5-5.1)
[2021-05-02] MEDS: GLIPIZIDE 5 MG TABLET PO SCH ×2 (10:09→16:34)
[2021-05-02] MEDS: NYSTATIN 15 GM POWDER TP SCH ×3 (10:15→21:13)
[2021-05-02] MEDS: ACETAMINOPHEN 325 MG TAB PO PRN (12:32)
[2021-05-02] MEDS: METFORMIN HCL 500 MG TABLET PO SCH ×2 (12:32→17:57)
[2021-05-02] MEDS: BUSPIRONE HCL 5 MG TABLET PO SCH ×2 (14:47→21:11)
[2021-05-02] MEDS: GUAIFENESIN-CODEINE 5 ML SYRUP PO PRN ×2 (16:50→21:10)
[2021-05-02] MEDS: TRAZODONE HCL 50 MG TAB PO SCH (21:11)
[2021-05-02] MEDS: ENOXAPARIN SODIUM 100 MG/1 ML SQ SCH (21:13)
[2021-05-02] MEDS: INSULIN GLARGINE 100 UNITS/ML 10 ML VIAL SQ SCH (21:13)
[2021-05-03] VITALS (7 sets, daily range): BP systolic 130–139; BP diastolic 62–91
[2021-05-03] MEDS: GUAIFENESIN-CODEINE 5 ML SYRUP PO PRN ×8 (00:02→21:33)
[2021-05-03] MEDS: ACETAMINOPHEN 325 MG TAB PO PRN ×3 (00:03→12:23)
[2021-05-03] MEDS: GLIPIZIDE 5 MG TABLET PO SCH ×2 (06:31→16:37)
[2021-05-03] MEDS: INSULIN HUMULIN R 100 UNIT/ML 3ML SQ SCH ×4 (06:42→20:14)
[2021-05-03] MEDS: ASCORBIC ACID 500 MG TAB PO SCH (08:04)
[2021-05-03] MEDS: PANTOPRAZOLE 40 MG TAB DR PO SCH (08:05)
[2021-05-03] MEDS: FLUOXETINE HCL 20 MG CAPSULE PO SCH (08:05)
[2021-05-03] MEDS: DEXAMETHASONE SOD PHOSPHATE 4 MG/ML 1ML VIAL IVP SCH (08:05)
[2021-05-03] MEDS: ZINC SULFATE 220 CAPSULE PO SCH (08:05)
[2021-05-03] MEDS: GUAIFENESIN 600 MG TABLET.ER PO SCH ×2 (08:05→20:04)
[2021-05-03] MEDS: METFORMIN HCL 500 MG TABLET PO SCH ×3 (08:05→16:37)
[2021-05-03] MEDS: ENOXAPARIN SODIUM 100 MG/1 ML SQ SCH ×2 (08:08→20:05)
[2021-05-03] MEDS: BARICITINIB (EUA) 2 MG TABLET PO SCH (08:08)
[2021-05-03] MEDS: BUSPIRONE HCL 5 MG TABLET PO SCH ×3 (08:10→20:05)
[2021-05-03] MEDS: NYSTATIN 15 GM POWDER TP SCH ×3 (08:11→20:15)
[2021-05-03] MEDS: BENZONATATE 100 MG CAPSULE PO PRN (08:15)
[2021-05-03] MEDS: METOPROLOL TARTRATE 25 MG TAB PO SCH ×2 (09:22→20:04)
[2021-05-03] MEDS: INSULIN GLARGINE 100 UNITS/ML 10 ML VIAL SQ SCH (20:13)
[2021-05-03] MEDS ORDERED: TRAZODONE HCL 50 MG TAB PO SCH (21:00)
[2021-05-04] VITALS (10 sets, daily range): BP systolic 92–148; BP diastolic 52–90
[2021-05-04] MEDS: GUAIFENESIN-CODEINE 5 ML SYRUP PO PRN ×3 (01:03→08:19)
[2021-05-04] MEDS: ACETAMINOPHEN 325 MG TAB PO PRN ×2 (02:27→08:05)
[2021-05-04] MEDS ORDERED: LORAZEPAM 2 MG/ML 1 ML VIAL IM STA (03:41)
[2021-05-04] MEDS ORDERED: LORAZEPAM 2 MG/ML 1 ML VIAL ONE (03:46)
[2021-05-04] MEDS: GLIPIZIDE 5 MG TABLET PO SCH (06:26)
[2021-05-04] MEDS: INSULIN HUMULIN R 100 UNIT/ML 3ML SQ SCH ×4 (06:27→20:39)
[2021-05-04] MEDS: FLUOXETINE HCL 20 MG CAPSULE PO SCH (08:05)
[2021-05-04] MEDS: GUAIFENESIN 600 MG TABLET.ER PO SCH ×2 (08:05→20:23)
[2021-05-04] MEDS: ZINC SULFATE 220 CAPSULE PO SCH (08:05)
[2021-05-04] MEDS: METFORMIN HCL 500 MG TABLET PO SCH (08:05)
[2021-05-04] MEDS: ASCORBIC ACID 500 MG TAB PO SCH (08:05)
[2021-05-04] MEDS: METOPROLOL TARTRATE 25 MG TAB PO SCH ×2 (08:05→20:32)
[2021-05-04] MEDS: BUSPIRONE HCL 5 MG TABLET PO SCH ×3 (08:05→20:23)
[2021-05-04] MEDS: PANTOPRAZOLE 40 MG TAB DR PO SCH (08:05)
[2021-05-04] MEDS: DEXAMETHASONE SOD PHOSPHATE 4 MG/ML 1ML VIAL IVP SCH (08:06)
[2021-05-04] MEDS: ENOXAPARIN SODIUM 100 MG/1 ML SQ SCH ×2 (08:06→20:29)
[2021-05-04] MEDS: NYSTATIN 15 GM POWDER TP SCH ×3 (08:06→21:00)
[2021-05-04] MEDS: ONDANSETRON 4MG INJ IVP PRN (08:19)
[2021-05-04] MEDS ORDERED: DEXMEDETOMIDINE HCL 200 MCG in 0.9%NACL 50ML 50 ML IV SCH (11:00)
[2021-05-04 11:30] LABS: ABG BASE EXCESS 2.3 mmol/L (-2.0-3.0); ABG HCO3 29.2 mmol/L (21.0-28.0); ABG OXYGEN SATURATION 89.8 % (95.0-99.0); ABG PCO2 55 mmHg (32-45)
[2021-05-04] MEDS: SOLU-MEDROL 40MG VIAL IVP SCH ×2 (12:18→20:23)
[2021-05-04] MEDS: DEXMEDETOMIDINE HCL 400 MCG in 0.9%NACL 100ML 100 ML IV SCH (17:39)
[2021-05-04] MEDS ORDERED: TRAZODONE HCL 50 MG TAB PO PRN (20:00)
[2021-05-04] MEDS: INSULIN GLARGINE 100 UNITS/ML 10 ML VIAL SQ SCH (20:40)
[2021-05-05] VITALS (23 sets, daily range): BP systolic 87–140; BP diastolic 44–79
[2021-05-05] MEDS: DEXMEDETOMIDINE HCL 400 MCG in 0.9%NACL 100ML 100 ML IV SCH (03:17)
[2021-05-05 04:27] LABS: ABG BASE EXCESS 2.7 mmol/L (-2.0-3.0); ABG HCO3 28.6 mmol/L (21.0-28.0); ABG OXYGEN SATURATION 89.6 % (95.0-99.0); ABG PCO2 50 mmHg (32-45)
[2021-05-05] MEDS: INSULIN HUMULIN R 100 UNIT/ML 3ML SQ SCH ×5 (06:00→22:05)
[2021-05-05] MEDS: METOPROLOL TARTRATE 25 MG TAB PO SCH ×2 (09:00→22:23)
[2021-05-05] MEDS ORDERED: FUROSEMIDE 40MG VIAL IV SCH (09:00)
[2021-05-05] MEDS: GUAIFENESIN 600 MG TABLET.ER PO SCH ×2 (09:30→22:02)
[2021-05-05] MEDS: ZINC SULFATE 220 CAPSULE PO SCH (09:30)
[2021-05-05] MEDS: FLUOXETINE HCL 20 MG CAPSULE PO SCH (09:30)
[2021-05-05] MEDS: PANTOPRAZOLE 40 MG TAB DR PO SCH (09:31)
[2021-05-05] MEDS: ASCORBIC ACID 500 MG TAB PO SCH (09:31)
[2021-05-05] MEDS: SOLU-MEDROL 40MG VIAL IVP SCH ×3 (09:31→22:00)
[2021-05-05] MEDS: BUSPIRONE HCL 5 MG TABLET PO SCH ×3 (09:31→22:01)
[2021-05-05] MEDS: NYSTATIN 15 GM POWDER TP SCH ×3 (09:32→22:06)
[2021-05-05] MEDS: GUAIFENESIN-CODEINE 5 ML SYRUP PO PRN ×3 (09:35→17:48)
[2021-05-05] MEDS: ENOXAPARIN SODIUM 100 MG/1 ML SQ SCH ×2 (10:27→22:04)
[2021-05-05] MEDS: DEXMEDETOMIDINE 400MCG/NS100ML IV SCH ×2 (10:31→20:19)
[2021-05-05 12:10] LABS: BASOPHILS % (AUTO) 0.1 % (0.0-5.0); EOSINOPHILS % (AUTO) 0.1 % (0.0-8.0); HEMATOCRIT 41.1 % (36-48); LYMPHOCYTES % (AUTO) 2.2 % (21.0-51.0); MEAN CORPUSCULAR HEMOGLOBIN 26.7 pg (27.0-33.0); MEAN CORPUSCULAR HGB CONC 31.9 g/dL (32.0-36.0); MEAN CORPUSCULAR VOLUME 83.9 fL (79-99); MONOCYTES % (AUTO) 4.5 % (3.0-13.0); NEUTROPHILS % (AUTO) 92.5 % (40.0-77.0); PLATELET COUNT (AUTO) 357 K/uL (130-400); RED CELL DISTRIBUTION WIDTH 14.3 % (11.0-15.5); WHITE BLOOD COUNT (AUTO) 17.5 K/uL (4.8-10.8)
[2021-05-05 12:27] LABS: ALBUMIN 2.2 g/dL (3.5-5.0); BILIRUBIN,TOTAL 0.6 mg/dL (0.2-1.0); CREATININE 0.7 mg/dL (0.5-1.5); MAGNESIUM 2.2 mg/dL (1.80-2.40); PHOSPHORUS 3.9 mg/dL (2.5-4.9); POTASSIUM 4.2 mmol/L (3.5-5.1); TOTAL PROTEIN, SERUM 8.2 g/dL (6.0-8.3)
[2021-05-05 12:35] LABS: CRP QUANTITATIVE 353.7 mg/L (0.00-9.0)
[2021-05-05] MEDS: ALPRAZOLAM 1 MG TAB PO PRN ×2 (15:54→22:02)
[2021-05-05] MEDS: INSULIN GLARGINE 100 UNITS/ML 10 ML VIAL SQ SCH (22:06)
[2021-05-06] VITALS (29 sets, daily range): BP systolic 88–221; BP diastolic 27–76
[2021-05-06] MEDS: DEXMEDETOMIDINE 400MCG/NS100ML IV SCH ×2 (00:30→04:43)
[2021-05-06] MEDS: GUAIFENESIN-CODEINE 5 ML SYRUP PO PRN ×2 (01:08→04:56)
[2021-05-06 04:19] LABS: BASOPHILS % (AUTO) 0.1 % (0.0-5.0); HEMATOCRIT 37.4 % (36-48); LYMPHOCYTES % (AUTO) 3.1 % (21.0-51.0); MEAN CORPUSCULAR HEMOGLOBIN 26.6 pg (27.0-33.0); MEAN CORPUSCULAR HGB CONC 31.8 g/dL (32.0-36.0); MEAN CORPUSCULAR VOLUME 83.7 fL (79-99); MONOCYTES % (AUTO) 3.3 % (3.0-13.0); PLATELET COUNT (AUTO) 327 K/uL (130-400); RED BLOOD CELL COUNT(AUTO) 4.47 MIL/uL (4.00-5.50); RED CELL DISTRIBUTION WIDTH 14.2 % (11.0-15.5); WHITE BLOOD COUNT (AUTO) 12.9 K/uL (4.8-10.8)
[2021-05-06 04:37] LABS: ABG BASE EXCESS 3.5 mmol/L (-2.0-3.0); ABG HCO3 28.4 mmol/L (21.0-28.0); ABG PCO2 44 mmHg (32-45)
[2021-05-06 04:38] LABS: BILIRUBIN,TOTAL 0.5 mg/dL (0.2-1.0); CREATININE 0.6 mg/dL (0.5-1.5); MAGNESIUM 2.7 mg/dL (1.80-2.40); PHOSPHORUS 3.7 mg/dL (2.5-4.9); POTASSIUM 4.4 mmol/L (3.5-5.1); TOTAL PROTEIN, SERUM 7.4 g/dL (6.0-8.3)
[2021-05-06] MEDS: INSULIN HUMULIN R 100 UNIT/ML 3ML SQ SCH ×7 (05:09→23:43)
[2021-05-06 05:12] LABS: CRP QUANTITATIVE 299.7 mg/L (0.00-9.0)
[2021-05-06] MEDS: ZINC SULFATE 220 CAPSULE PO SCH (08:00)
[2021-05-06] MEDS: GUAIFENESIN 600 MG TABLET.ER PO SCH ×2 (08:02→20:36)
[2021-05-06] MEDS: ASCORBIC ACID 500 MG TAB PO SCH (08:03)
[2021-05-06] MEDS: FLUOXETINE HCL 20 MG CAPSULE PO SCH (08:03)
[2021-05-06] MEDS: PANTOPRAZOLE 40 MG/VIAL IVP SCH (08:04)
[2021-05-06] MEDS: METOPROLOL TARTRATE 25 MG TAB PO SCH ×3 (08:04→21:00)
[2021-05-06] MEDS: ENOXAPARIN SODIUM 100 MG/1 ML SQ SCH ×2 (08:04→20:35)
[2021-05-06] MEDS: BUSPIRONE HCL 5 MG TABLET PO SCH ×3 (08:10→20:36)
[2021-05-06] MEDS: SOLU-MEDROL 40MG VIAL IVP SCH ×3 (08:10→20:35)
[2021-05-06] MEDS ORDERED: MORPHINE 2 MG SYG ONE (08:50)
[2021-05-06] MEDS ORDERED: MORPHINE 2 MG SYG IM SCH (09:00)
[2021-05-06] MEDS: NYSTATIN 15 GM POWDER TP SCH ×3 (09:00→21:00)
[2021-05-06] MEDS ORDERED: PROPOFOL 1000 MG/100 ML 100 ML IV ONE (09:15)
[2021-05-06] MEDS ORDERED: PROPOFOL 1000 MG/100 ML 100 ML IV SCH (10:00)
[2021-05-06] MEDS ORDERED: PHARMACY COMMUNICATION MISC SCH ×3 (10:00)
[2021-05-06] MEDS ORDERED: KETAMINE 50MG/ML SYRINGE 50 MG/ML DISP.SYRIN IV ONE (10:15)
[2021-05-06] MEDS ORDERED: SUCCINYLCHOLINE 200MG/10ML SYR ONE (10:17)
[2021-05-06] MEDS ORDERED: ROCURONIUM 10MG/1ML SYR 10 MG/ML ML ONE (10:17)
[2021-05-06] MEDS ORDERED: FENTANYL CITRATE PF 50 MCG/1 ML 2ML VIAL ONE (10:17)
[2021-05-06] MEDS ORDERED: PROPOFOL 10 MG/ML 20ML VIAL IV ONE (10:18)
[2021-05-06] MEDS ORDERED: 0.9% NACL 500ML IV.SOLN 500 ML IV ONE (11:07)
[2021-05-06] MEDS: CISATRACURIUM BESYLATE 100 MG in 0.9%NACL 100ML 100 ML IV SCH ×3 (11:12→21:44)
[2021-05-06] MEDS: FENTANYL 2500MCG+NS 250ML 250 ML IV SCH (11:57)
[2021-05-06 14:59] LABS: ABG BASE EXCESS -2.9 mmol/L (-2.0-3.0); ABG HCO3 27.4 mmol/L (21.0-28.0); ABG PCO2 76 mmHg (32-45)
[2021-05-06] MEDS: PROPOFOL 1000 MG/100 ML 100 ML IV SCH ×3 (15:03→22:24)
[2021-05-06] MEDS ORDERED: NOREPINEPHRIN 4MG/NS 250ML 250 ML IV SCH (19:00)
[2021-05-06] MEDS: INSULIN GLARGINE 100 UNITS/ML 10 ML VIAL SQ SCH (23:43)
[2021-05-07] VITALS (35 sets, daily range): BP systolic 97–152; BP diastolic 55–87
[2021-05-07] MEDS: CISATRACURIUM BESYLATE 100 MG in 0.9%NACL 100ML 100 ML IV SCH ×4 (01:44→20:55)
[2021-05-07 04:19] LABS: BASOPHILS % (AUTO) 0.1 % (0.0-5.0); MEAN CORPUSCULAR HEMOGLOBIN 26.6 pg (27.0-33.0); MEAN CORPUSCULAR HGB CONC 31.7 g/dL (32.0-36.0); MEAN CORPUSCULAR VOLUME 84.1 fL (79-99); MONOCYTES % (AUTO) 4.2 % (3.0-13.0); NEUTROPHILS % (AUTO) 89.1 % (40.0-77.0); PLATELET COUNT (AUTO) 344 K/uL (130-400); RED BLOOD CELL COUNT(AUTO) 4.28 MIL/uL (4.00-5.50); RED CELL DISTRIBUTION WIDTH 14.3 % (11.0-15.5); WHITE BLOOD COUNT (AUTO) 9.3 K/uL (4.8-10.8)
[2021-05-07 04:45] LABS: ALBUMIN 1.9 g/dL (3.5-5.0); BILIRUBIN,TOTAL 0.4 mg/dL (0.2-1.0); CREATININE 0.6 mg/dL (0.5-1.5); MAGNESIUM 2.9 mg/dL (1.80-2.40); PHOSPHORUS 3.1 mg/dL (2.5-4.9); POTASSIUM 4.4 mmol/L (3.5-5.1)
[2021-05-07 05:03] LABS: CRP QUANTITATIVE 205.9 mg/L (0.00-9.0)
[2021-05-07] MEDS: PROPOFOL 1000 MG/100 ML 100 ML IV SCH ×2 (05:52→09:28)
[2021-05-07] MEDS: INSULIN HUMULIN R 100 UNIT/ML 3ML SQ SCH ×6 (06:25→18:33)
[2021-05-07] MEDS: FENTANYL 2500MCG+NS 250ML 250 ML IV SCH (07:04)
[2021-05-07] MEDS: NYSTATIN 15 GM POWDER TP SCH ×3 (08:07→21:00)
[2021-05-07] MEDS: BUSPIRONE HCL 5 MG TABLET PO SCH ×3 (10:07→20:58)
[2021-05-07] MEDS: METOPROLOL TARTRATE 25 MG TAB PO SCH ×2 (10:07→20:58)
[2021-05-07] MEDS: ASCORBIC ACID 500 MG TAB PO SCH (10:07)
[2021-05-07] MEDS: ENOXAPARIN SODIUM 100 MG/1 ML SQ SCH ×2 (10:07→20:57)
[2021-05-07] MEDS: PANTOPRAZOLE 40 MG/VIAL IVP SCH (10:07)
[2021-05-07] MEDS: ZINC SULFATE 220 CAPSULE PO SCH (10:07)
[2021-05-07] MEDS: FLUOXETINE HCL 20 MG CAPSULE PO SCH (10:07)
[2021-05-07] MEDS: GUAIFENESIN 600 MG TABLET.ER PO SCH ×2 (10:08→21:00)
[2021-05-07] MEDS: SOLU-MEDROL 40MG VIAL IVP SCH ×3 (10:11→20:57)
[2021-05-07] MEDS: INSULIN GLARGINE 100 UNITS/ML 10 ML VIAL SQ SCH (21:00)
[2021-05-08] VITALS (28 sets, daily range): BP systolic 95–154; BP diastolic 52–92
[2021-05-08] MEDS: PROPOFOL 1000 MG/100 ML 100 ML IV SCH ×3 (00:36→18:34)
[2021-05-08] MEDS: INSULIN HUMULIN R 100 UNIT/ML 3ML SQ SCH ×7 (00:59→21:00)
[2021-05-08] MEDS: FENTANYL 2500MCG+NS 250ML 250 ML IV SCH ×2 (02:13→18:33)
[2021-05-08] MEDS: CISATRACURIUM BESYLATE 100 MG in 0.9%NACL 100ML 100 ML IV SCH ×3 (03:00→19:09)
[2021-05-08 04:27] LABS: BASOPHILS % (AUTO) 0.1 % (0.0-5.0); HEMATOCRIT 38.1 % (36-48); MEAN CORPUSCULAR HEMOGLOBIN 26.6 pg (27.0-33.0); MEAN CORPUSCULAR HGB CONC 30.7 g/dL (32.0-36.0); MEAN CORPUSCULAR VOLUME 86.6 fL (79-99); MONOCYTES % (AUTO) 4.8 % (3.0-13.0); NEUTROPHILS % (AUTO) 89.4 % (40.0-77.0); PLATELET COUNT (AUTO) 347 K/uL (130-400); RED CELL DISTRIBUTION WIDTH 14.6 % (11.0-15.5); WHITE BLOOD COUNT (AUTO) 8.4 K/uL (4.8-10.8)
[2021-05-08 05:00] LABS: ALBUMIN 1.9 g/dL (3.5-5.0); BILIRUBIN,TOTAL 0.3 mg/dL (0.2-1.0); CREATININE 0.6 mg/dL (0.5-1.5); CRP QUANTITATIVE 105.8 mg/L (0.00-9.0); POTASSIUM 4.8 mmol/L (3.5-5.1); TOTAL PROTEIN, SERUM 6.8 g/dL (6.0-8.3)
[2021-05-08] MEDS: METOPROLOL TARTRATE 25 MG TAB PO SCH ×3 (08:09→21:00)
[2021-05-08] MEDS: ENOXAPARIN SODIUM 100 MG/1 ML SQ SCH ×2 (08:09→21:12)
[2021-05-08] MEDS: PANTOPRAZOLE 40 MG/VIAL IVP SCH (08:09)
[2021-05-08] MEDS: FLUOXETINE HCL 20 MG CAPSULE PO SCH (08:09)
[2021-05-08] MEDS: ZINC SULFATE 220 CAPSULE PO SCH (08:09)
[2021-05-08 08:10] LABS: ABG BASE EXCESS 2.3 mmol/L (-2.0-3.0); ABG HCO3 29.5 mmol/L (21.0-28.0); ABG OXYGEN SATURATION 93.9 % (95.0-99.0); ABG PCO2 57 mmHg (32-45)
[2021-05-08] MEDS: NYSTATIN 15 GM POWDER TP SCH ×3 (08:10→21:12)
[2021-05-08] MEDS: BUSPIRONE HCL 5 MG TABLET PO SCH ×3 (08:11→21:06)
[2021-05-08] MEDS: SOLU-MEDROL 40MG VIAL IVP SCH ×3 (08:17→21:05)
[2021-05-08] MEDS: ASCORBIC ACID 500 MG TAB PO SCH (08:17)
[2021-05-08] MEDS: GUAIFENESIN 600 MG TABLET.ER PO SCH ×2 (08:18→21:06)
[2021-05-08 17:35] LABS: ABG BASE EXCESS 6.3 mmol/L (-2.0-3.0); ABG HCO3 33.2 mmol/L (21.0-28.0); ABG OXYGEN SATURATION 92.5 % (95.0-99.0); ABG PCO2 59 mmHg (32-45)
[2021-05-08] MEDS: INSULIN GLARGINE 100 UNITS/ML 10 ML VIAL SQ SCH (21:07)
[2021-05-09] VITALS (28 sets, daily range): BP systolic 91–140; BP diastolic 51–78
[2021-05-09] MEDS: CISATRACURIUM BESYLATE 100 MG in 0.9%NACL 100ML 100 ML IV SCH ×3 (00:28→22:13)
[2021-05-09] MEDS: INSULIN HUMULIN R 100 UNIT/ML 3ML SQ SCH ×6 (00:46→20:17)
[2021-05-09] MEDS: PROPOFOL 1000 MG/100 ML 100 ML IV SCH ×4 (01:01→22:39)
[2021-05-09 04:13] LABS: BASOPHILS % (AUTO) 0.3 % (0.0-5.0); EOSINOPHILS % (AUTO) 0.1 % (0.0-8.0); MEAN CORPUSCULAR HEMOGLOBIN 26.4 pg (27.0-33.0); MEAN CORPUSCULAR HGB CONC 30.3 g/dL (32.0-36.0); MEAN CORPUSCULAR VOLUME 87.2 fL (79-99); MONOCYTES % (AUTO) 5.9 % (3.0-13.0); NEUTROPHILS % (AUTO) 84.5 % (40.0-77.0); PLATELET COUNT (AUTO) 317 K/uL (130-400); RED BLOOD CELL COUNT(AUTO) 4.13 MIL/uL (4.00-5.50); RED CELL DISTRIBUTION WIDTH 14.5 % (11.0-15.5); WHITE BLOOD COUNT (AUTO) 7.6 K/uL (4.8-10.8)
[2021-05-09 04:39] LABS: ALBUMIN 1.9 g/dL (3.5-5.0); BILIRUBIN,TOTAL 0.3 mg/dL (0.2-1.0); CREATININE 0.6 mg/dL (0.5-1.5); MAGNESIUM 2.6 mg/dL (1.80-2.40); POTASSIUM 4.9 mmol/L (3.5-5.1); TOTAL PROTEIN, SERUM 6.5 g/dL (6.0-8.3)
[2021-05-09 07:15] LABS: ABG BASE EXCESS 3.7 mmol/L (-2.0-3.0); ABG HCO3 30.2 mmol/L (21.0-28.0); ABG OXYGEN SATURATION 92.1 % (95.0-99.0); ABG PCO2 54 mmHg (32-45)
[2021-05-09] MEDS: FLUOXETINE HCL 20 MG CAPSULE PO SCH (07:57)
[2021-05-09] MEDS: PANTOPRAZOLE 40 MG/VIAL IVP SCH (07:57)
[2021-05-09] MEDS: ASCORBIC ACID 500 MG TAB PO SCH (07:57)
[2021-05-09] MEDS: ZINC SULFATE 220 CAPSULE PO SCH (07:57)
[2021-05-09] MEDS: GUAIFENESIN 600 MG TABLET.ER PO SCH ×2 (07:58→20:18)
[2021-05-09] MEDS: METOPROLOL TARTRATE 25 MG TAB PO SCH ×3 (08:00→20:14)
[2021-05-09] MEDS: ENOXAPARIN SODIUM 100 MG/1 ML SQ SCH ×2 (08:00→20:15)
[2021-05-09] MEDS: BUSPIRONE HCL 5 MG TABLET PO SCH ×3 (08:00→20:14)
[2021-05-09] MEDS: SOLU-MEDROL 40MG VIAL IVP SCH ×3 (08:01→20:13)
[2021-05-09] MEDS: NYSTATIN 15 GM POWDER TP SCH ×3 (09:00→20:14)
[2021-05-09] MEDS: FENTANYL 2500MCG+NS 250ML 250 ML IV SCH ×2 (09:11→22:37)
[2021-05-09 10:06] LABS: CHOLESTEROL 187 mg/dL (<200); CREATINE KINASE, TOTAL 79 U/L (21-232); HDL CHOLESTEROL 31 mg/dL (35-85); LDL DIRECT 121 mg/dL (0-99); LIPASE 99 U/L (114-286); MYOGLOBIN 68 ng/mL (10-92); TRIGLYCERIDES 262 mg/dL (30-200)
[2021-05-09] MEDS: INSULIN GLARGINE 100 UNITS/ML 10 ML VIAL SQ SCH (20:17)
[2021-05-10] VITALS (27 sets, daily range): BP systolic 98–172; BP diastolic 51–83
[2021-05-10] MEDS: PROPOFOL 1000 MG/100 ML 100 ML IV SCH ×4 (03:37→18:02)
[2021-05-10 06:01] LABS: BASOPHILS % (AUTO) 0.3 % (0.0-5.0); EOSINOPHILS % (AUTO) 0.1 % (0.0-8.0); HEMATOCRIT 35.9 % (36-48); LYMPHOCYTES % (AUTO) 6.4 % (21.0-51.0); MEAN CORPUSCULAR HEMOGLOBIN 26.5 pg (27.0-33.0); MEAN CORPUSCULAR HGB CONC 29.8 g/dL (32.0-36.0); MEAN CORPUSCULAR VOLUME 88.9 fL (79-99); MONOCYTES % (AUTO) 5.2 % (3.0-13.0); NEUTROPHILS % (AUTO) 84.9 % (40.0-77.0); NUCLEATED RED BLOOD CELLS 0.3 % (0.0-0.19); PLATELET COUNT (AUTO) 306 K/uL (130-400); RED BLOOD CELL COUNT(AUTO) 4.04 MIL/uL (4.00-5.50); RED CELL DISTRIBUTION WIDTH 14.6 % (11.0-15.5); WHITE BLOOD COUNT (AUTO) 7.7 K/uL (4.8-10.8)
[2021-05-10 06:17] LABS: ALBUMIN 2.1 g/dL (3.5-5.0); BILIRUBIN,TOTAL 0.3 mg/dL (0.2-1.0); CREATININE 0.5 mg/dL (0.5-1.5); CRP QUANTITATIVE 34.3 mg/L (0.00-9.0); POTASSIUM 4.5 mmol/L (3.5-5.1); TOTAL PROTEIN, SERUM 6.4 g/dL (6.0-8.3)
[2021-05-10 06:53] LABS: ABG BASE EXCESS 6.7 mmol/L (-2.0-3.0); ABG HCO3 33.4 mmol/L (21.0-28.0); ABG PCO2 58 mmHg (32-45)
[2021-05-10] MEDS: INSULIN HUMULIN R 100 UNIT/ML 3ML SQ SCH ×3 (09:34→18:28)
[2021-05-10] MEDS: PANTOPRAZOLE 40 MG/VIAL IVP SCH (09:48)
[2021-05-10] MEDS: FLUOXETINE HCL 20 MG CAPSULE PO SCH (09:49)
[2021-05-10] MEDS: SOLU-MEDROL 40MG VIAL IVP SCH ×3 (09:49→21:44)
[2021-05-10] MEDS: BUSPIRONE HCL 5 MG TABLET PO SCH ×3 (09:49→21:44)
[2021-05-10] MEDS: METOPROLOL TARTRATE 25 MG TAB PO SCH ×3 (09:49→21:43)
[2021-05-10] MEDS: GUAIFENESIN 600 MG TABLET.ER PO SCH ×2 (09:49→21:44)
[2021-05-10] MEDS: NYSTATIN 15 GM POWDER TP SCH ×3 (09:50→21:45)
[2021-05-10] MEDS: ENOXAPARIN SODIUM 100 MG/1 ML SQ SCH ×2 (09:50→21:44)
[2021-05-10] MEDS: CISATRACURIUM BESYLATE 100 MG in 0.9%NACL 100ML 100 ML IV SCH ×3 (10:52→21:35)
[2021-05-10] MEDS ORDERED: VANCOMYCIN PROTOCOL PER PHARMACY IV SCH (13:00)
[2021-05-10] MEDS ORDERED: COMPOUND IV REFRIGERATED 1 EACH IVSOLN MISC PRN (13:30)
[2021-05-10] MEDS: VANCOMYCIN 1.25GM/NS 250ML IVPB SCH ×2 (15:10)
[2021-05-10] MEDS: FENTANYL 2500MCG+NS 250ML 250 ML IV SCH (15:50)
[2021-05-10] MEDS: INSULIN GLARGINE 100 UNITS/ML 10 ML VIAL SQ SCH (22:32)
[2021-05-11] VITALS (43 sets, daily range): BP systolic 99–193; BP diastolic 53–101
[2021-05-11] MEDS: INSULIN HUMULIN R 100 UNIT/ML 3ML SQ SCH ×4 (01:08→18:17)
[2021-05-11] MEDS: VANCOMYCIN 1.25GM/NS 250ML IVPB SCH ×4 (01:36→14:10)
[2021-05-11] MEDS: PROPOFOL 1000 MG/100 ML 100 ML IV SCH ×4 (01:47→20:43)
[2021-05-11 04:33] LABS: BASOPHILS % (AUTO) 0.3 % (0.0-5.0); EOSINOPHILS % (AUTO) 0.1 % (0.0-8.0); HEMATOCRIT 33.2 % (36-48); MEAN CORPUSCULAR HEMOGLOBIN 26.7 pg (27.0-33.0); MEAN CORPUSCULAR HGB CONC 30.4 g/dL (32.0-36.0); MEAN CORPUSCULAR VOLUME 87.8 fL (79-99); MONOCYTES % (AUTO) 4.6 % (3.0-13.0); NEUTROPHILS % (AUTO) 84.2 % (40.0-77.0); NUCLEATED RED BLOOD CELLS 0.3 % (0.0-0.19); PLATELET COUNT (AUTO) 265 K/uL (130-400); RED BLOOD CELL COUNT(AUTO) 3.78 MIL/uL (4.00-5.50); RED CELL DISTRIBUTION WIDTH 14.6 % (11.0-15.5); WHITE BLOOD COUNT (AUTO) 7.1 K/uL (4.8-10.8)
[2021-05-11 04:47] LABS: BILIRUBIN,TOTAL 0.3 mg/dL (0.2-1.0); CREATININE 0.4 mg/dL (0.5-1.5); POTASSIUM 4.6 mmol/L (3.5-5.1); TOTAL PROTEIN, SERUM 6.1 g/dL (6.0-8.3)
[2021-05-11] MEDS: FENTANYL 2500MCG+NS 250ML 250 ML IV SCH (05:58)
[2021-05-11] MEDS: CISATRACURIUM BESYLATE 100 MG in 0.9%NACL 100ML 100 ML IV SCH (08:01)
[2021-05-11] MEDS: PANTOPRAZOLE 40 MG/VIAL IVP SCH (08:37)
[2021-05-11] MEDS: SOLU-MEDROL 40MG VIAL IVP SCH ×3 (08:37→20:00)
[2021-05-11] MEDS: GUAIFENESIN 600 MG TABLET.ER PO SCH ×2 (08:37→20:01)
[2021-05-11] MEDS: FLUOXETINE HCL 20 MG CAPSULE PO SCH (08:38)
[2021-05-11] MEDS: METOPROLOL TARTRATE 25 MG TAB PO SCH ×3 (08:38→20:01)
[2021-05-11] MEDS: BUSPIRONE HCL 5 MG TABLET PO SCH ×3 (08:38→20:01)
[2021-05-11] MEDS: ENOXAPARIN SODIUM 100 MG/1 ML SQ SCH ×2 (08:39→20:01)
[2021-05-11] MEDS: NYSTATIN 15 GM POWDER TP SCH ×3 (08:39→20:03)
[2021-05-11] MEDS ORDERED: FUROSEMIDE 20MG VIAL IV ONE (16:00)
[2021-05-11] MEDS ORDERED: LACTULOSE 20 GM/30 ML UDCUP PO ONE (20:00)
[2021-05-11] MEDS: INSULIN GLARGINE 100 UNITS/ML 10 ML VIAL SQ SCH (20:03)
[2021-05-11] MEDS ORDERED: FENTANYL 2500MCG+NS 250ML 250 ML IV ONE (20:35)
[2021-05-12] VITALS (34 sets, daily range): BP systolic 103–190; BP diastolic 54–94
[2021-05-12] MEDS: INSULIN HUMULIN R 100 UNIT/ML 3ML SQ SCH ×4 (01:31→18:00)
[2021-05-12] MEDS: CISATRACURIUM BESYLATE 100 MG in 0.9%NACL 100ML 100 ML IV SCH ×3 (01:36→16:04)
[2021-05-12] MEDS: PROPOFOL 1000 MG/100 ML 100 ML IV SCH ×5 (02:01→21:06)
[2021-05-12] MEDS: VANCOMYCIN 1.25GM/NS 250ML IVPB SCH ×4 (02:05→13:46)
[2021-05-12 02:07] LABS: APPEARANCE,URINE Turbid (CLEAR); BILIRUBIN,URINE Negative (NEGATIVE); COLOR,URINE Yellow (YELLOW); GLUCOSE, URINE (UA) 500 mg/dL (NEGATIVE); KETONES,URINE 15 mg/dL (NEGATIVE); LEUKOCYTE ESTERASE ,URINE Trace (NEGATIVE); NITRATE,URINE Positive (NEGATIVE); OCCULT BLOOD,URINE Large (NEGATIVE); PROTEIN,URINE POS 1+ mg/dL (NEGATIVE)
[2021-05-12 02:11] LABS: PROTEIN,URINE RANDOM 109.3 mg/dL (0-11.9)
[2021-05-12 02:17] LABS: AMORPHOUS SEDIMENT,UR Few /LPF (None Seen); BACTERIA,URINE Many /HPF (None Seen); MUCUS,URINE Rare LPF (None Seen); RBC,URINE 26-50 /HPF (0-1); SQUAMOUS EPITHELIAL CELL,UR Rare /HPF (0-2); YEAST,URINE BUDDING None Seen /HPF (None Seen)
[2021-05-12 04:05] LABS: HEMATOCRIT 35.3 % (36-48); MEAN CORPUSCULAR HGB CONC 30.3 g/dL (32.0-36.0); MEAN CORPUSCULAR VOLUME 89.1 fL (79-99); PLATELET COUNT (AUTO) 294 K/uL (130-400); RED BLOOD CELL COUNT(AUTO) 3.96 MIL/uL (4.00-5.50); WHITE BLOOD COUNT (AUTO) 7.6 K/uL (4.8-10.8)
[2021-05-12 04:12] LABS: ALBUMIN 2.1 g/dL (3.5-5.0); BILIRUBIN,TOTAL 0.4 mg/dL (0.2-1.0); CREATININE 0.4 mg/dL (0.5-1.5); POTASSIUM 4.4 mmol/L (3.5-5.1); TOTAL PROTEIN, SERUM 6.2 g/dL (6.0-8.3)
[2021-05-12 04:28] LABS: BAND NEUTROPHILS % (MANUAL) 5 % (0-2); LYMPHOCYTES % (MANUAL) 9 % (22-44); MONOCYTES % (MANUAL) 8 % (2-9); SEGMENTED NEUTROPHILS % 78 % (40-70)
[2021-05-12 04:29] LABS: MAN.DIFF COMMENT-IMPRESSION MANUAL DIFFERENTIAL; PLATELET MORPHOLOGY COMMENT ADEQUATE
[2021-05-12 06:57] LABS: ABG BASE EXCESS 8.6 mmol/L (-2.0-3.0); ABG HCO3 35.3 mmol/L (21.0-28.0); ABG OXYGEN SATURATION 90.5 % (95.0-99.0); ABG PCO2 60 mmHg (32-45)
[2021-05-12] MEDS: SOLU-MEDROL 40MG VIAL IVP SCH ×3 (07:58→21:09)
[2021-05-12] MEDS: PANTOPRAZOLE 40 MG/VIAL IVP SCH (07:58)
[2021-05-12] MEDS: METOPROLOL TARTRATE 25 MG TAB PO SCH ×2 (07:59→21:12)
[2021-05-12] MEDS: GUAIFENESIN 600 MG TABLET.ER PO SCH ×2 (07:59→21:11)
[2021-05-12] MEDS: BUSPIRONE HCL 5 MG TABLET PO SCH ×3 (07:59→21:10)
[2021-05-12] MEDS: ENOXAPARIN SODIUM 100 MG/1 ML SQ SCH (07:59)
[2021-05-12] MEDS: FLUOXETINE HCL 20 MG CAPSULE PO SCH (08:00)
[2021-05-12] MEDS: NYSTATIN 15 GM POWDER TP SCH ×3 (08:00→21:15)
[2021-05-12] MEDS: FENTANYL 2500MCG+NS 250ML 250 ML IV PRN ×2 (10:57→23:04)
[2021-05-12] MEDS: INSULIN GLARGINE 100 UNITS/ML 10 ML VIAL SQ SCH (21:08)
[2021-05-13] VITALS (62 sets, daily range): BP systolic 92–156; BP diastolic 46–76
[2021-05-13] MEDS: INSULIN HUMULIN R 100 UNIT/ML 3ML SQ SCH ×4 (01:29→18:24)
[2021-05-13] MEDS: VANCOMYCIN 1.25GM/NS 250ML IVPB SCH ×4 (02:31→14:13)
[2021-05-13] MEDS: PROPOFOL 1000 MG/100 ML 100 ML IV SCH ×3 (04:22→23:00)
[2021-05-13 05:28] LABS: ABG BASE EXCESS 6.7 mmol/L (-2.0-3.0); ABG OXYGEN SATURATION 87.4 % (95.0-99.0); ABG PCO2 53 mmHg (32-45)
[2021-05-13 06:57] LABS: BASOPHILS % (AUTO) 0.3 % (0.0-5.0); LYMPHOCYTES % (AUTO) 9.7 % (21.0-51.0); MEAN CORPUSCULAR HEMOGLOBIN 26.5 pg (27.0-33.0); MEAN CORPUSCULAR HGB CONC 30.3 g/dL (32.0-36.0); MEAN CORPUSCULAR VOLUME 87.4 fL (79-99); NEUTROPHILS % (AUTO) 78.3 % (40.0-77.0); PLATELET COUNT (AUTO) 288 K/uL (130-400); RED BLOOD CELL COUNT(AUTO) 3.66 MIL/uL (4.00-5.50); RED CELL DISTRIBUTION WIDTH 15.3 % (11.0-15.5); WHITE BLOOD COUNT (AUTO) 7.9 K/uL (4.8-10.8)
[2021-05-13 07:11] LABS: BILIRUBIN,TOTAL 0.3 mg/dL (0.2-1.0); CREATININE 0.4 mg/dL (0.5-1.5); CRP QUANTITATIVE 21.6 mg/L (0.00-9.0); MAGNESIUM 2.1 mg/dL (1.80-2.40); PHOSPHORUS 3.3 mg/dL (2.5-4.9); POTASSIUM 4.2 mmol/L (3.5-5.1); TOTAL PROTEIN, SERUM 5.6 g/dL (6.0-8.3)
[2021-05-13] MEDS: PANTOPRAZOLE 40 MG/VIAL IVP SCH (08:15)
[2021-05-13] MEDS: METOPROLOL TARTRATE 25 MG TAB PO SCH ×2 (08:16→21:38)
[2021-05-13] MEDS: GUAIFENESIN 600 MG TABLET.ER PO SCH ×2 (08:16→21:43)
[2021-05-13] MEDS: FLUOXETINE HCL 20 MG CAPSULE PO SCH (08:16)
[2021-05-13] MEDS: CISATRACURIUM BESYLATE 100 MG in 0.9%NACL 100ML 100 ML IV SCH ×3 (08:16→23:59)
[2021-05-13] MEDS: BUSPIRONE HCL 5 MG TABLET PO SCH ×3 (08:16→21:38)
[2021-05-13] MEDS: NYSTATIN 15 GM POWDER TP SCH ×3 (08:17→21:43)
[2021-05-13] MEDS: SOLU-MEDROL 40MG VIAL IVP SCH ×3 (08:17→21:37)
[2021-05-13] MEDS: ENOXAPARIN SODIUM 40 MG/0.4 ML SYRINGE SQ SCH ×3 (08:17→21:00)
[2021-05-13] MEDS ORDERED: ENOXAPARIN SODIUM 0.5 MG/KG EACH SQ SCH (11:00)
[2021-05-13] MEDS ORDERED: ENOXAPARIN SODIUM 80 MG/0.8 ML SQ SCH (11:00)
[2021-05-13] MEDS: CEFTRIAXONE 1G VIAL IV SCH (14:12)
[2021-05-13] MEDS: INSULIN GLARGINE 100 UNITS/ML 10 ML VIAL SQ SCH (21:32)
[2021-05-14] VITALS (26 sets, daily range): BP systolic 95–132; BP diastolic 49–66
[2021-05-14] MEDS: VANCOMYCIN 1.25GM/NS 250ML IVPB SCH ×4 (01:21→16:19)
[2021-05-14] MEDS: INSULIN HUMULIN R 100 UNIT/ML 3ML SQ SCH ×5 (01:24→23:55)
[2021-05-14] MEDS: FENTANYL 2500MCG+NS 250ML 250 ML IV PRN ×2 (03:43→17:30)
[2021-05-14] MEDS: PROPOFOL 1000 MG/100 ML 100 ML IV SCH ×4 (03:44→22:40)
[2021-05-14] MEDS: CISATRACURIUM BESYLATE 100 MG in 0.9%NACL 100ML 100 ML IV SCH ×3 (05:21→21:01)
[2021-05-14 05:27] LABS: ABG HCO3 33.5 mmol/L (21.0-28.0); ABG OXYGEN SATURATION 97.1 % (95.0-99.0); ABG PCO2 57 mmHg (32-45)
[2021-05-14 06:45] LABS: BASOPHILS % (AUTO) 0.2 % (0.0-5.0); EOSINOPHILS % (AUTO) 0.6 % (0.0-8.0); HEMATOCRIT 34.4 % (36-48); LYMPHOCYTES % (AUTO) 6.5 % (21.0-51.0); MEAN CORPUSCULAR HEMOGLOBIN 26.7 pg (27.0-33.0); MEAN CORPUSCULAR HGB CONC 30.2 g/dL (32.0-36.0); MEAN CORPUSCULAR VOLUME 88.4 fL (79-99); MONOCYTES % (AUTO) 6.9 % (3.0-13.0); NEUTROPHILS % (AUTO) 83.2 % (40.0-77.0); PLATELET COUNT (AUTO) 318 K/uL (130-400); RED BLOOD CELL COUNT(AUTO) 3.89 MIL/uL (4.00-5.50); RED CELL DISTRIBUTION WIDTH 15.6 % (11.0-15.5); WHITE BLOOD COUNT (AUTO) 8.1 K/uL (4.8-10.8)
[2021-05-14 07:12] LABS: ALBUMIN 2.1 g/dL (3.5-5.0); BILIRUBIN,TOTAL 0.3 mg/dL (0.2-1.0); CREATININE 0.3 mg/dL (0.5-1.5); CRP QUANTITATIVE 35.7 mg/L (0.00-9.0); MAGNESIUM 2.2 mg/dL (1.80-2.40); POTASSIUM 4.4 mmol/L (3.5-5.1); TOTAL PROTEIN, SERUM 5.5 g/dL (6.0-8.3)
[2021-05-14] MEDS: PANTOPRAZOLE 40 MG/VIAL IVP SCH (09:21)
[2021-05-14] MEDS: SOLU-MEDROL 40MG VIAL IVP SCH ×3 (09:22→21:08)
[2021-05-14] MEDS: BUSPIRONE HCL 5 MG TABLET PO SCH ×3 (09:25→21:08)
[2021-05-14] MEDS: FLUOXETINE HCL 20 MG CAPSULE PO SCH (09:25)
[2021-05-14] MEDS: METOPROLOL TARTRATE 25 MG TAB PO SCH ×2 (09:25→21:08)
[2021-05-14] MEDS: GUAIFENESIN 600 MG TABLET.ER PO SCH ×2 (09:26→21:08)
[2021-05-14] MEDS: NYSTATIN 15 GM POWDER TP SCH ×3 (09:30→21:20)
[2021-05-14] MEDS: CEFTRIAXONE 1G VIAL IV SCH (11:23)
[2021-05-14] MEDS: ENOXAPARIN SODIUM 40 MG/0.4 ML SYRINGE SQ SCH (11:57)
[2021-05-14 13:01] LABS: INR 1.04 (0.85-1.15); PROTHROMBIN TIME 11.3 SEC (9.6-11.6)
[2021-05-14 13:03] LABS: PARTIAL THROMBOPLASTIN TIME 25.3 SEC (26.3-35.5)
[2021-05-14] MEDS: INSULIN GLARGINE 100 UNITS/ML 10 ML VIAL SQ SCH (21:23)
[2021-05-15] VITALS (49 sets, daily range): BP systolic 92–182; BP diastolic 52–110
[2021-05-15] MEDS: CISATRACURIUM BESYLATE 100 MG in 0.9%NACL 100ML 100 ML IV SCH ×5 (03:23→22:51)
[2021-05-15] MEDS: VANCOMYCIN 1.25GM/NS 250ML IVPB SCH ×4 (03:24→14:33)
[2021-05-15 03:25] LABS: ABG BASE EXCESS 5.1 mmol/L (-2.0-3.0); ABG HCO3 30.3 mmol/L (21.0-28.0); ABG OXYGEN SATURATION 89.8 % (95.0-99.0); ABG PCO2 47 mmHg (32-45)
[2021-05-15] MEDS: PROPOFOL 1000 MG/100 ML 100 ML IV SCH ×4 (03:34→22:51)
[2021-05-15] MEDS: INSULIN HUMULIN R 100 UNIT/ML 3ML SQ SCH ×3 (06:00→18:04)
[2021-05-15 06:30] LABS: BASOPHILS % (AUTO) 0.2 % (0.0-5.0); EOSINOPHILS % (AUTO) 0.6 % (0.0-8.0); MEAN CORPUSCULAR HEMOGLOBIN 26.6 pg (27.0-33.0); MEAN CORPUSCULAR HGB CONC 31.2 g/dL (32.0-36.0); MEAN CORPUSCULAR VOLUME 85.4 fL (79-99); MONOCYTES % (AUTO) 5.4 % (3.0-13.0); NEUTROPHILS % (AUTO) 84.9 % (40.0-77.0); PLATELET COUNT (AUTO) 339 K/uL (130-400); RED BLOOD CELL COUNT(AUTO) 3.98 MIL/uL (4.00-5.50); RED CELL DISTRIBUTION WIDTH 15.9 % (11.0-15.5); WHITE BLOOD COUNT (AUTO) 8.3 K/uL (4.8-10.8)
[2021-05-15 06:49] LABS: BILIRUBIN,TOTAL 0.4 mg/dL (0.2-1.0); CREATININE 0.4 mg/dL (0.5-1.5); CRP QUANTITATIVE 27.3 mg/L (0.00-9.0); POTASSIUM 3.7 mmol/L (3.5-5.1); TOTAL PROTEIN, SERUM 5.7 g/dL (6.0-8.3)
[2021-05-15] MEDS: GUAIFENESIN 600 MG TABLET.ER PO SCH ×2 (08:09→20:39)
[2021-05-15] MEDS: FLUOXETINE HCL 20 MG CAPSULE PO SCH (08:13)
[2021-05-15] MEDS: PANTOPRAZOLE 40 MG/VIAL IVP SCH (08:13)
[2021-05-15] MEDS: METOPROLOL TARTRATE 25 MG TAB PO SCH ×2 (08:13→20:39)
[2021-05-15] MEDS: BUSPIRONE HCL 5 MG TABLET PO SCH ×3 (08:13→20:39)
[2021-05-15] MEDS: ENOXAPARIN SODIUM 30 MG/0.3 ML SQ SCH (08:14)
[2021-05-15] MEDS: NYSTATIN 15 GM POWDER TP SCH ×3 (08:18→20:43)
[2021-05-15] MEDS: SOLU-MEDROL 40MG VIAL IVP SCH ×3 (08:18→20:42)
[2021-05-15] MEDS: CEFTRIAXONE 1G VIAL IV SCH (10:08)
[2021-05-15] MEDS ORDERED: [UNRECOGNIZED DRUG - REMARK] MISC SCH (14:30)
[2021-05-15] MEDS: INSULIN GLARGINE 100 UNITS/ML 10 ML VIAL SQ SCH (20:40)
[2021-05-16] VITALS (73 sets, daily range): BP systolic 106–190; BP diastolic 55–107
[2021-05-16] MEDS: INSULIN HUMULIN R 100 UNIT/ML 3ML SQ SCH ×4 (00:51→17:18)
[2021-05-16] MEDS: VANCOMYCIN 1.25GM/NS 250ML IVPB SCH ×4 (02:34→13:44)
[2021-05-16] MEDS: CISATRACURIUM BESYLATE 100 MG in 0.9%NACL 100ML 100 ML IV SCH ×4 (04:33→20:37)
[2021-05-16] MEDS ORDERED: FENTANYL CITRATE IVPB SCH (05:00)
[2021-05-16] MEDS ORDERED: NACL 0.9% IVPB SCH (05:00)
[2021-05-16] MEDS: PROPOFOL 1000 MG/100 ML 100 ML IV SCH ×4 (05:21→20:42)
[2021-05-16 06:23] LABS: BASOPHILS % (AUTO) 0.1 % (0.0-5.0); EOSINOPHILS % (AUTO) 0.3 % (0.0-8.0); HEMATOCRIT 36.8 % (36-48); LYMPHOCYTES % (AUTO) 5.8 % (21.0-51.0); MEAN CORPUSCULAR HEMOGLOBIN 26.8 pg (27.0-33.0); MEAN CORPUSCULAR VOLUME 86.4 fL (79-99); MONOCYTES % (AUTO) 5.3 % (3.0-13.0); NEUTROPHILS % (AUTO) 86.7 % (40.0-77.0); PLATELET COUNT (AUTO) 377 K/uL (130-400); RED BLOOD CELL COUNT(AUTO) 4.26 MIL/uL (4.00-5.50); RED CELL DISTRIBUTION WIDTH 16.3 % (11.0-15.5); WHITE BLOOD COUNT (AUTO) 10.1 K/uL (4.8-10.8)
[2021-05-16 06:40] LABS: ALBUMIN 2.2 g/dL (3.5-5.0); BILIRUBIN,TOTAL 0.4 mg/dL (0.2-1.0); CREATININE 0.3 mg/dL (0.5-1.5); CRP QUANTITATIVE 29.1 mg/L (0.00-9.0); POTASSIUM 3.9 mmol/L (3.5-5.1); TOTAL PROTEIN, SERUM 6.1 g/dL (6.0-8.3)
[2021-05-16] MEDS: FLUOXETINE HCL 20 MG CAPSULE PO SCH (08:01)
[2021-05-16] MEDS: PANTOPRAZOLE 40 MG/VIAL IVP SCH (08:01)
[2021-05-16] MEDS: METOPROLOL TARTRATE 25 MG TAB PO SCH ×2 (08:01→20:11)
[2021-05-16] MEDS: GUAIFENESIN 600 MG TABLET.ER PO SCH ×2 (08:01→20:12)
[2021-05-16] MEDS: ENOXAPARIN SODIUM 30 MG/0.3 ML SQ SCH (08:03)
[2021-05-16] MEDS: NYSTATIN 15 GM POWDER TP SCH ×3 (08:04→20:12)
[2021-05-16] MEDS: BUSPIRONE HCL 5 MG TABLET PO SCH ×3 (08:04→20:11)
[2021-05-16] MEDS: SOLU-MEDROL 40MG VIAL IVP SCH ×3 (08:07→20:11)
[2021-05-16] MEDS ORDERED: FENTANYL 2500MCG+NS 250ML 250 ML IV ONE (08:52)
[2021-05-16] MEDS ORDERED: FENTANYL 1000MCG+NS 100ML 100 ML IV SCH (09:00)
[2021-05-16 09:28] LABS: ABG BASE EXCESS 4.8 mmol/L (-2.0-3.0); ABG HCO3 29.4 mmol/L (21.0-28.0); ABG OXYGEN SATURATION 93.6 % (95.0-99.0); ABG PCO2 44 mmHg (32-45)
[2021-05-16] MEDS: CEFTRIAXONE 1G VIAL IV SCH (10:30)
[2021-05-16] MEDS: INSULIN GLARGINE 100 UNITS/ML 10 ML VIAL SQ SCH (20:41)
[2021-05-17] VITALS (66 sets, daily range): BP systolic 90–177; BP diastolic 52–101
[2021-05-17] MEDS: INSULIN HUMULIN R 100 UNIT/ML 3ML SQ SCH ×4 (00:27→18:12)
[2021-05-17] MEDS: CISATRACURIUM BESYLATE 100 MG in 0.9%NACL 100ML 100 ML IV SCH ×5 (01:15→22:35)
[2021-05-17] MEDS: PROPOFOL 1000 MG/100 ML 100 ML IV SCH ×5 (01:21→20:16)
[2021-05-17] MEDS: VANCOMYCIN 1.25GM/NS 250ML IVPB SCH ×4 (01:22→13:22)
[2021-05-17] MEDS ORDERED: FENTANYL 2500MCG+NS 250ML 250 ML IV ONE (02:46)
[2021-05-17 03:55] LABS: ABG HCO3 30.2 mmol/L (21.0-28.0); ABG OXYGEN SATURATION 92.6 % (95.0-99.0); ABG PCO2 47 mmHg (32-45)
[2021-05-17 06:33] LABS: BASOPHILS % (AUTO) 0.2 % (0.0-5.0); HEMATOCRIT 38.2 % (36-48); MEAN CORPUSCULAR HEMOGLOBIN 26.8 pg (27.0-33.0); MEAN CORPUSCULAR HGB CONC 31.4 g/dL (32.0-36.0); MEAN CORPUSCULAR VOLUME 85.5 fL (79-99); MONOCYTES % (AUTO) 4.1 % (3.0-13.0); NEUTROPHILS % (AUTO) 87.5 % (40.0-77.0); PLATELET COUNT (AUTO) 417 K/uL (130-400); RED BLOOD CELL COUNT(AUTO) 4.47 MIL/uL (4.00-5.50); RED CELL DISTRIBUTION WIDTH 16.6 % (11.0-15.5)
[2021-05-17 06:50] LABS: ALBUMIN 2.4 g/dL (3.5-5.0); BILIRUBIN,TOTAL 0.5 mg/dL (0.2-1.0); CREATININE 0.3 mg/dL (0.5-1.5); CRP QUANTITATIVE 36.7 mg/L (0.00-9.0); POTASSIUM 3.6 mmol/L (3.5-5.1); TOTAL PROTEIN, SERUM 6.3 g/dL (6.0-8.3)
[2021-05-17] MEDS: ENOXAPARIN SODIUM 30 MG/0.3 ML SQ SCH (08:00)
[2021-05-17] MEDS: FLUOXETINE HCL 20 MG CAPSULE PO SCH (08:00)
[2021-05-17] MEDS: POTASSIUM CHLORIDE 10% ELIXIR 20 MEQ/15 ML UDCUP PO PRN ×2 (08:00→10:27)
[2021-05-17] MEDS: PANTOPRAZOLE 40 MG/VIAL IVP SCH (08:00)
[2021-05-17] MEDS: GUAIFENESIN 600 MG TABLET.ER PO SCH ×2 (08:01→17:21)
[2021-05-17] MEDS: METOPROLOL TARTRATE 25 MG TAB PO SCH ×2 (08:01→20:19)
[2021-05-17] MEDS: SOLU-MEDROL 40MG VIAL IVP SCH ×3 (08:02→20:19)
[2021-05-17] MEDS: BUSPIRONE HCL 5 MG TABLET PO SCH (08:02)
[2021-05-17] MEDS: NYSTATIN 15 GM POWDER TP SCH ×3 (08:03→21:12)
[2021-05-17] MEDS: CEFTRIAXONE 1G VIAL IV SCH (10:27)
[2021-05-17] MEDS ORDERED: VANCOMYCIN IVPB SCH ×4 (14:00→21:00)
[2021-05-17] MEDS ORDERED: SODIUM CHLORIDE IVPB SCH ×4 (14:00→21:00)
[2021-05-17] MEDS: ALBUTEROL INHALER 90MCG/INH IH SCH ×2 (16:34→21:00)
[2021-05-17] MEDS: INSULIN GLARGINE 100 UNITS/ML 10 ML VIAL SQ SCH (21:14)
[2021-05-18] VITALS (39 sets, daily range): BP systolic 86–180; BP diastolic 44–91
[2021-05-18] MEDS: GUAIFENESIN 600 MG TABLET.ER PO SCH ×5 (00:14→23:30)
[2021-05-18] MEDS: INSULIN HUMULIN R 100 UNIT/ML 3ML SQ SCH ×5 (00:14→23:40)
[2021-05-18] MEDS: VANCOMYCIN IVPB SCH ×4 (01:34→12:28)
[2021-05-18] MEDS: SODIUM CHLORIDE IVPB SCH ×4 (01:34→12:28)
[2021-05-18] MEDS: PROPOFOL 1000 MG/100 ML 100 ML IV SCH ×4 (01:35→19:57)
[2021-05-18] MEDS: ALBUTEROL INHALER 90MCG/INH IH SCH ×4 (02:21→21:40)
[2021-05-18] MEDS: CISATRACURIUM BESYLATE 100 MG in 0.9%NACL 100ML 100 ML IV SCH ×4 (03:00→23:29)
[2021-05-18 03:30] LABS: ABG BASE EXCESS 5.5 mmol/L (-2.0-3.0); ABG OXYGEN SATURATION 92.9 % (95.0-99.0); ABG PCO2 56 mmHg (32-45)
[2021-05-18 04:47] LABS: BASOPHILS % (AUTO) 0.3 % (0.0-5.0); EOSINOPHILS % (AUTO) 0.4 % (0.0-8.0); HEMATOCRIT 39.7 % (36-48); LYMPHOCYTES % (AUTO) 4.4 % (21.0-51.0); MEAN CORPUSCULAR HEMOGLOBIN 26.5 pg (27.0-33.0); MEAN CORPUSCULAR HGB CONC 30.2 g/dL (32.0-36.0); MEAN CORPUSCULAR VOLUME 87.6 fL (79-99); NEUTROPHILS % (AUTO) 89.1 % (40.0-77.0); PLATELET COUNT (AUTO) 412 K/uL (130-400); RED BLOOD CELL COUNT(AUTO) 4.53 MIL/uL (4.00-5.50); RED CELL DISTRIBUTION WIDTH 16.3 % (11.0-15.5); WHITE BLOOD COUNT (AUTO) 10.7 K/uL (4.8-10.8)
[2021-05-18 05:22] LABS: ALBUMIN 2.4 g/dL (3.5-5.0); BILIRUBIN,TOTAL 0.6 mg/dL (0.2-1.0); CREATININE 0.3 mg/dL (0.5-1.5); CRP QUANTITATIVE 39.7 mg/L (0.00-9.0); POTASSIUM 4.5 mmol/L (3.5-5.1); TOTAL PROTEIN, SERUM 6.5 g/dL (6.0-8.3)
[2021-05-18] MEDS: PANTOPRAZOLE 40 MG/VIAL IVP SCH (08:48)
[2021-05-18] MEDS: NYSTATIN 15 GM POWDER TP SCH ×3 (08:50→21:19)
[2021-05-18] MEDS: METOPROLOL TARTRATE 25 MG TAB PO SCH ×2 (08:50→21:19)
[2021-05-18] MEDS: SOLU-MEDROL 40MG VIAL IVP SCH ×3 (08:50→21:19)
[2021-05-18] MEDS: ENOXAPARIN SODIUM 30 MG/0.3 ML SQ SCH (08:54)
[2021-05-18] MEDS: CEFTRIAXONE 1G VIAL IV SCH (10:56)
[2021-05-18] MEDS ORDERED: FENTANYL 2500MCG+NS 250ML 250 ML IV ONE (20:10)
[2021-05-18] MEDS: INSULIN GLARGINE 100 UNITS/ML 10 ML VIAL SQ SCH (20:47)
[2021-05-19] VITALS (32 sets, daily range): BP systolic 95–179; BP diastolic 46–93
[2021-05-19] MEDS: PROPOFOL 1000 MG/100 ML 100 ML IV SCH ×5 (00:35→21:01)
[2021-05-19] MEDS: SODIUM CHLORIDE IVPB SCH ×4 (01:41→12:26)
[2021-05-19] MEDS: VANCOMYCIN IVPB SCH ×4 (01:41→12:26)
[2021-05-19] MEDS: CISATRACURIUM BESYLATE 100 MG in 0.9%NACL 100ML 100 ML IV SCH ×2 (01:41→07:41)
[2021-05-19] MEDS: ALBUTEROL INHALER 90MCG/INH IH SCH ×4 (02:28→20:58)
[2021-05-19 04:33] LABS: ABG BASE EXCESS 3.3 mmol/L (-2.0-3.0); ABG HCO3 29.2 mmol/L (21.0-28.0); ABG OXYGEN SATURATION 95.3 % (95.0-99.0); ABG PCO2 50 mmHg (32-45)
[2021-05-19] MEDS: INSULIN HUMULIN R 100 UNIT/ML 3ML SQ SCH ×4 (05:12→23:58)
[2021-05-19] MEDS: GUAIFENESIN 600 MG TABLET.ER PO SCH ×4 (06:00→23:59)
[2021-05-19 06:49] LABS: CRP QUANTITATIVE 21.4 mg/L (0.00-9.0)
[2021-05-19 07:05] LABS: HEMATOCRIT 37.7 % (36-48); MEAN CORPUSCULAR HGB CONC 31.6 g/dL (32.0-36.0); MEAN CORPUSCULAR VOLUME 85.7 fL (79-99); RED BLOOD CELL COUNT(AUTO) 4.4 MIL/uL (4.00-5.50); RED CELL DISTRIBUTION WIDTH 16.3 % (11.0-15.5); WHITE BLOOD COUNT (AUTO) 10.2 K/uL (4.8-10.8)
[2021-05-19 07:17] LABS: ALBUMIN 2.4 g/dL (3.5-5.0); CREATININE 0.2 mg/dL (0.5-1.5); PHOSPHORUS 3.4 mg/dL (2.5-4.9); POTASSIUM 3.8 mmol/L (3.5-5.1)
[2021-05-19 07:20] LABS: BILIRUBIN,TOTAL 0.4 mg/dL (0.2-1.0); MAGNESIUM 2.1 mg/dL (1.80-2.40); TOTAL PROTEIN, SERUM 5.7 g/dL (6.0-8.3)
[2021-05-19] MEDS ORDERED: FENTANYL 2500MCG+NS 250ML 250 ML IV ONE (07:37)
[2021-05-19] MEDS: PANTOPRAZOLE 40 MG/VIAL IVP SCH (07:42)
[2021-05-19] MEDS: ENOXAPARIN SODIUM 30 MG/0.3 ML SQ SCH (07:42)
[2021-05-19] MEDS: METOPROLOL TARTRATE 25 MG TAB PO SCH ×2 (07:45→20:54)
[2021-05-19] MEDS: SOLU-MEDROL 40MG VIAL IVP SCH ×3 (07:45→20:53)
[2021-05-19] MEDS ORDERED: CISATRACURIUM BESYLATE IV SCH (08:30)
[2021-05-19] MEDS ORDERED: NACL 0.9% IV SCH (08:30)
[2021-05-19] MEDS: NYSTATIN 15 GM POWDER TP SCH ×3 (08:31→20:58)
[2021-05-19] MEDS: CEFTRIAXONE 1G VIAL IV SCH (08:56)
[2021-05-19] MEDS ORDERED: LABETALOL 20MG SYG IV ONE (17:07)
[2021-05-19 18:22] LABS: ABG BASE EXCESS 2.9 mmol/L (-2.0-3.0); ABG HCO3 30.8 mmol/L (21.0-28.0); ABG OXYGEN SATURATION 97.4 % (95.0-99.0); ABG PCO2 61 mmHg (32-45)
[2021-05-19] MEDS: INSULIN GLARGINE 100 UNITS/ML 10 ML VIAL SQ SCH (20:57)
[2021-05-20] VITALS (59 sets, daily range): BP systolic 101–185; BP diastolic 52–96
[2021-05-20] MEDS: VANCOMYCIN IVPB SCH ×2 (02:00)
[2021-05-20] MEDS: SODIUM CHLORIDE IVPB SCH ×2 (02:00)
[2021-05-20] MEDS: ALBUTEROL INHALER 90MCG/INH IH SCH ×4 (03:06→21:03)
[2021-05-20 03:30] LABS: ABG BASE EXCESS 2.6 mmol/L (-2.0-3.0); ABG HCO3 31.2 mmol/L (21.0-28.0); ABG OXYGEN SATURATION 92.2 % (95.0-99.0); ABG PCO2 66 mmHg (32-45)
[2021-05-20] MEDS: PROPOFOL 1000 MG/100 ML 100 ML IV SCH ×4 (03:33→21:00)
[2021-05-20] MEDS: GUAIFENESIN 600 MG TABLET.ER PO SCH ×4 (04:50→23:35)
[2021-05-20] MEDS: INSULIN HUMULIN R 100 UNIT/ML 3ML SQ SCH ×3 (05:22→18:00)
[2021-05-20 06:42] LABS: BASOPHILS % (AUTO) 0.2 % (0.0-5.0); EOSINOPHILS % (AUTO) 0.9 % (0.0-8.0); HEMATOCRIT 38.2 % (36-48); LYMPHOCYTES % (AUTO) 4.4 % (21.0-51.0); MEAN CORPUSCULAR HEMOGLOBIN 26.9 pg (27.0-33.0); MEAN CORPUSCULAR HGB CONC 31.4 g/dL (32.0-36.0); MEAN CORPUSCULAR VOLUME 85.7 fL (79-99); NEUTROPHILS % (AUTO) 89.5 % (40.0-77.0); PLATELET COUNT (AUTO) 402 K/uL (130-400); RED BLOOD CELL COUNT(AUTO) 4.46 MIL/uL (4.00-5.50); WHITE BLOOD COUNT (AUTO) 10.6 K/uL (4.8-10.8)
[2021-05-20] MEDS ORDERED: RENAL DOSE IV PRN (07:00)
[2021-05-20 07:04] LABS: ALBUMIN 2.3 g/dL (3.5-5.0); BILIRUBIN,TOTAL 0.4 mg/dL (0.2-1.0); CREATININE 0.2 mg/dL (0.5-1.5); CRP QUANTITATIVE 29.4 mg/L (0.00-9.0); POTASSIUM 3.6 mmol/L (3.5-5.1); TOTAL PROTEIN, SERUM 6.2 g/dL (6.0-8.3)
[2021-05-20] MEDS: ENOXAPARIN SODIUM 30 MG/0.3 ML SQ SCH (08:39)
[2021-05-20] MEDS: CEFTRIAXONE 1G VIAL IV SCH (08:39)
[2021-05-20] MEDS: NYSTATIN 15 GM POWDER TP SCH (08:39)
[2021-05-20] MEDS: PANTOPRAZOLE 40 MG/VIAL IVP SCH (08:39)
[2021-05-20] MEDS: SOLU-MEDROL 40MG VIAL IVP SCH ×3 (08:39→20:59)
[2021-05-20] MEDS: METOPROLOL TARTRATE 25 MG TAB PO SCH ×2 (08:39→20:59)
[2021-05-20] MEDS ORDERED: SUCRALFATE 1 GM TABLET PO SCH (10:00)
[2021-05-20] MEDS ORDERED: RENAL DOSE IV SCH (12:30)
[2021-05-20] MEDS ORDERED: VANCOMYCIN IVPB ONE ×2 (13:00)
[2021-05-20] MEDS ORDERED: SODIUM CHLORIDE IVPB ONE ×2 (13:00)
[2021-05-20] MEDS: CISATRACURIUM BESYLATE 100 MG in 0.9%NACL 100ML 100 ML IV SCH ×2 (15:44→23:34)
[2021-05-20] MEDS: INSULIN GLARGINE 100 UNITS/ML 10 ML VIAL SQ SCH (21:02)
[2021-05-21] VITALS (54 sets, daily range): BP systolic 91–169; BP diastolic 43–96
[2021-05-21] MEDS ORDERED: SODIUM CHLORIDE IVPB ONE ×2 (01:00)
[2021-05-21] MEDS ORDERED: VANCOMYCIN IVPB ONE ×2 (01:00)
[2021-05-21] MEDS: INSULIN HUMULIN R 100 UNIT/ML 3ML SQ SCH ×4 (02:02→17:29)
[2021-05-21 03:53] LABS: ABG BASE EXCESS 6.5 mmol/L (-2.0-3.0); ABG HCO3 34.8 mmol/L (21.0-28.0); ABG OXYGEN SATURATION 93.5 % (95.0-99.0); ABG PCO2 70 mmHg (32-45)
[2021-05-21] MEDS: CISATRACURIUM BESYLATE 100 MG in 0.9%NACL 100ML 100 ML IV SCH ×4 (05:33→22:04)
[2021-05-21] MEDS: ALBUTEROL INHALER 90MCG/INH IH SCH ×4 (05:36→23:27)
[2021-05-21] MEDS: GUAIFENESIN 600 MG TABLET.ER PO SCH ×4 (05:36→23:58)
[2021-05-21 06:41] LABS: BASOPHILS % (AUTO) 0.2 % (0.0-5.0); LYMPHOCYTES % (AUTO) 3.9 % (21.0-51.0); MEAN CORPUSCULAR HGB CONC 31.6 g/dL (32.0-36.0); MEAN CORPUSCULAR VOLUME 85.4 fL (79-99); MONOCYTES % (AUTO) 3.8 % (3.0-13.0); PLATELET COUNT (AUTO) 314 K/uL (130-400); RED BLOOD CELL COUNT(AUTO) 4.45 MIL/uL (4.00-5.50); WHITE BLOOD COUNT (AUTO) 9.2 K/uL (4.8-10.8)
[2021-05-21 07:07] LABS: ALBUMIN 2.2 g/dL (3.5-5.0); BILIRUBIN,TOTAL 0.4 mg/dL (0.2-1.0); CREATININE 0.2 mg/dL (0.5-1.5); CRP QUANTITATIVE 43.7 mg/L (0.00-9.0); POTASSIUM 3.4 mmol/L (3.5-5.1); TOTAL PROTEIN, SERUM 6.2 g/dL (6.0-8.3)
[2021-05-21] MEDS ORDERED: FENTANYL 2500MCG+NS 250ML 250 ML IV ONE (07:50)
[2021-05-21] MEDS: CEFTRIAXONE 1G VIAL IV SCH (08:08)
[2021-05-21] MEDS: METOPROLOL TARTRATE 25 MG TAB PO SCH ×2 (08:08→21:13)
[2021-05-21] MEDS: PANTOPRAZOLE 40 MG/VIAL IVP SCH (08:08)
[2021-05-21] MEDS: ENOXAPARIN SODIUM 30 MG/0.3 ML SQ SCH (08:09)
[2021-05-21] MEDS: SOLU-MEDROL 40MG VIAL IVP SCH ×3 (08:13→21:13)
[2021-05-21] MEDS: PROPOFOL 1000 MG/100 ML 100 ML IV SCH ×4 (08:16→23:27)
[2021-05-21] MEDS ORDERED: KCL 20 MEQ ERTAB PO PRN (15:00)
[2021-05-21] MEDS: POTASSIUM CHLORIDE 10% ELIXIR 20 MEQ/15 ML UDCUP PO PRN (15:03)
[2021-05-21] MEDS: POTASSIUM CHLORIDE 20MEQ/100ML 100 ML IV PRN (15:04)
[2021-05-21] MEDS: LACTULOSE 20 GM/30 ML UDCUP PO PRN (17:34)
[2021-05-21] MEDS: INSULIN GLARGINE 100 UNITS/ML 10 ML VIAL SQ SCH (21:15)
[2021-05-22] VITALS (35 sets, daily range): BP systolic 85–197; BP diastolic 35–141
[2021-05-22] MEDS: INSULIN HUMULIN R 100 UNIT/ML 3ML SQ SCH ×4 (00:26→18:18)
[2021-05-22 02:55] LABS: ABG BASE EXCESS 15.4 mmol/L (-2.0-3.0); ABG HCO3 41.8 mmol/L (21.0-28.0); ABG OXYGEN SATURATION 94.7 % (95.0-99.0); ABG PCO2 59 mmHg (32-45)
[2021-05-22] MEDS: CISATRACURIUM BESYLATE 100 MG in 0.9%NACL 100ML 100 ML IV SCH ×3 (03:27→18:54)
[2021-05-22] MEDS: ALBUTEROL INHALER 90MCG/INH IH SCH ×4 (03:33→21:00)
[2021-05-22] MEDS: FENTANYL 2500MCG+NS 250ML 250 ML IVPB SCH ×2 (04:00→20:46)
[2021-05-22] MEDS: GUAIFENESIN 600 MG TABLET.ER PO SCH ×3 (05:15→18:12)
[2021-05-22] MEDS: PROPOFOL 1000 MG/100 ML 100 ML IV SCH ×5 (05:25→20:47)
[2021-05-22 06:26] LABS: BASOPHILS % (AUTO) 0.1 % (0.0-5.0); EOSINOPHILS % (AUTO) 0.4 % (0.0-8.0); HEMATOCRIT 35.1 % (36-48); LYMPHOCYTES % (AUTO) 7.9 % (21.0-51.0); MEAN CORPUSCULAR HEMOGLOBIN 26.8 pg (27.0-33.0); MEAN CORPUSCULAR HGB CONC 31.1 g/dL (32.0-36.0); MEAN CORPUSCULAR VOLUME 86.2 fL (79-99); MONOCYTES % (AUTO) 5.7 % (3.0-13.0); NEUTROPHILS % (AUTO) 85.1 % (40.0-77.0); PLATELET COUNT (AUTO) 253 K/uL (130-400); RED BLOOD CELL COUNT(AUTO) 4.07 MIL/uL (4.00-5.50); RED CELL DISTRIBUTION WIDTH 16.2 % (11.0-15.5); WHITE BLOOD COUNT (AUTO) 7.2 K/uL (4.8-10.8)
[2021-05-22 06:48] LABS: ALBUMIN 2.1 g/dL (3.5-5.0); BILIRUBIN,TOTAL 0.4 mg/dL (0.2-1.0); CREATININE 0.2 mg/dL (0.5-1.5); CRP QUANTITATIVE 24.1 mg/L (0.00-9.0); POTASSIUM 3.1 mmol/L (3.5-5.1); TOTAL PROTEIN, SERUM 5.7 g/dL (6.0-8.3)
[2021-05-22] MEDS: CEFTRIAXONE 1G VIAL IV SCH (09:10)
[2021-05-22] MEDS: METOPROLOL TARTRATE 25 MG TAB PO SCH ×2 (09:10→20:44)
[2021-05-22] MEDS: PANTOPRAZOLE 40 MG/VIAL IVP SCH (09:10)
[2021-05-22] MEDS: SOLU-MEDROL 40MG VIAL IVP SCH ×3 (09:10→20:42)
[2021-05-22] MEDS: ENOXAPARIN SODIUM 30 MG/0.3 ML SQ SCH (09:11)
[2021-05-22] MEDS ORDERED: NOREPINEPHRIN 4MG/NS 250ML 250 ML IV SCH (11:30)
[2021-05-22] MEDS: METOCLOPRAMIDE 10 MG/2 ML VIAL IVP SCH (18:12)
[2021-05-22] MEDS: INSULIN GLARGINE 100 UNITS/ML 10 ML VIAL SQ SCH (20:56)
[2021-05-23] VITALS (32 sets, daily range): BP systolic 94–183; BP diastolic 41–92
[2021-05-23] MEDS: CISATRACURIUM BESYLATE 100 MG in 0.9%NACL 100ML 100 ML IV SCH ×6 (01:20→22:19)
[2021-05-23] MEDS: METOCLOPRAMIDE 10 MG/2 ML VIAL IVP SCH ×3 (01:20→18:32)
[2021-05-23] MEDS: GUAIFENESIN 600 MG TABLET.ER PO SCH ×5 (01:20→23:32)
[2021-05-23] MEDS: PROPOFOL 1000 MG/100 ML 100 ML IV SCH ×5 (01:35→19:33)
[2021-05-23] MEDS: ALBUTEROL INHALER 90MCG/INH IH SCH ×4 (03:00→20:17)
[2021-05-23 03:41] LABS: ABG BASE EXCESS 11.1 mmol/L (-2.0-3.0); ABG HCO3 41.4 mmol/L (21.0-28.0); ABG OXYGEN SATURATION 99.5 % (95.0-99.0); ABG PCO2 87 mmHg (32-45)
[2021-05-23] MEDS: INSULIN HUMULIN R 100 UNIT/ML 3ML SQ SCH ×5 (06:25→23:42)
[2021-05-23 06:36] LABS: BASOPHILS % (AUTO) 0.2 % (0.0-5.0); EOSINOPHILS % (AUTO) 0.1 % (0.0-8.0); HEMATOCRIT 38.4 % (36-48); LYMPHOCYTES % (AUTO) 4.7 % (21.0-51.0); MEAN CORPUSCULAR HEMOGLOBIN 26.9 pg (27.0-33.0); MEAN CORPUSCULAR VOLUME 86.9 fL (79-99); MONOCYTES % (AUTO) 5.2 % (3.0-13.0); PLATELET COUNT (AUTO) 296 K/uL (130-400); RED BLOOD CELL COUNT(AUTO) 4.42 MIL/uL (4.00-5.50); RED CELL DISTRIBUTION WIDTH 16.4 % (11.0-15.5); WHITE BLOOD COUNT (AUTO) 11.9 K/uL (4.8-10.8)
[2021-05-23 07:17] LABS: ALBUMIN 2.3 g/dL (3.5-5.0); BILIRUBIN,TOTAL 0.4 mg/dL (0.2-1.0); CREATININE 0.3 mg/dL (0.5-1.5); CRP QUANTITATIVE 19.9 mg/L (0.00-9.0); POTASSIUM 3.3 mmol/L (3.5-5.1); TOTAL PROTEIN, SERUM 6.3 g/dL (6.0-8.3)
[2021-05-23] MEDS: METOPROLOL TARTRATE 25 MG TAB PO SCH ×2 (09:00→20:17)
[2021-05-23] MEDS: FENTANYL 2500MCG+NS 250ML 250 ML IVPB SCH ×2 (09:29→20:30)
[2021-05-23] MEDS: FLUCONAZOLE 200 MG/NS 100 ML 100 ML IV SCH (09:30)
[2021-05-23] MEDS: PANTOPRAZOLE 40 MG/VIAL IVP SCH (09:31)
[2021-05-23] MEDS: CEFTRIAXONE 1G VIAL IV SCH (09:31)
[2021-05-23] MEDS: ENOXAPARIN SODIUM 30 MG/0.3 ML SQ SCH ×2 (09:31→20:17)
[2021-05-23] MEDS: SOLU-MEDROL 40MG VIAL IVP SCH ×2 (09:31→14:41)
[2021-05-23] MEDS ORDERED: METOPROLOL TARTRATE 25 MG TAB PO SCH (11:30)
[2021-05-23 15:38] LABS: INR 0.98 (0.85-1.15); PROTHROMBIN TIME 10.7 SEC (9.6-11.6)
[2021-05-23 15:39] LABS: PARTIAL THROMBOPLASTIN TIME 25.4 SEC (26.3-35.5)
[2021-05-23] MEDS: INSULIN GLARGINE 100 UNITS/ML 10 ML VIAL SQ SCH (20:27)
[2021-05-24] VITALS (49 sets, daily range): BP systolic 81–183; BP diastolic 39–95
[2021-05-24] MEDS: INSULIN GLARGINE 100 UNITS/ML 10 ML VIAL SQ SCH
[2021-05-24] MEDS: METOCLOPRAMIDE 10 MG/2 ML VIAL IVP SCH ×3 (01:27→18:29)
[2021-05-24] MEDS: SOLU-MEDROL 40MG VIAL IVP SCH ×2 (01:28→14:01)
[2021-05-24] MEDS: PROPOFOL 1000 MG/100 ML 100 ML IV SCH ×5 (01:35→19:51)
[2021-05-24] MEDS: CISATRACURIUM BESYLATE 100 MG in 0.9%NACL 100ML 100 ML IV SCH ×3 (03:28→18:32)
[2021-05-24] MEDS: ALBUTEROL INHALER 90MCG/INH IH SCH ×4 (03:28→21:00)
[2021-05-24 05:04] LABS: BASOPHILS % (AUTO) 0.1 % (0.0-5.0); HEMATOCRIT 32.4 % (36-48); LYMPHOCYTES % (AUTO) 3.6 % (21.0-51.0); MEAN CORPUSCULAR HGB CONC 30.2 g/dL (32.0-36.0); MEAN CORPUSCULAR VOLUME 89.3 fL (79-99); MONOCYTES % (AUTO) 3.7 % (3.0-13.0); NEUTROPHILS % (AUTO) 91.4 % (40.0-77.0); PLATELET COUNT (AUTO) 198 K/uL (130-400); RED BLOOD CELL COUNT(AUTO) 3.63 MIL/uL (4.00-5.50); RED CELL DISTRIBUTION WIDTH 16.4 % (11.0-15.5); WHITE BLOOD COUNT (AUTO) 6.8 K/uL (4.8-10.8)
[2021-05-24 05:18] LABS: ALBUMIN 2.1 g/dL (3.5-5.0); BILIRUBIN,TOTAL 0.3 mg/dL (0.2-1.0); CREATININE 0.2 mg/dL (0.5-1.5); POTASSIUM 3.5 mmol/L (3.5-5.1); TOTAL PROTEIN, SERUM 5.4 g/dL (6.0-8.3)
[2021-05-24] MEDS: GUAIFENESIN 600 MG TABLET.ER PO SCH ×3 (05:29→18:29)
[2021-05-24] MEDS: INSULIN HUMULIN R 100 UNIT/ML 3ML SQ SCH ×3 (05:37→18:29)
[2021-05-24] MEDS: POTASSIUM CHLORIDE 10% ELIXIR 20 MEQ/15 ML UDCUP PO PRN (05:37)
[2021-05-24 07:11] LABS: ABG BASE EXCESS 13.1 mmol/L (-2.0-3.0); ABG HCO3 41.2 mmol/L (21.0-28.0); ABG OXYGEN SATURATION 91.8 % (95.0-99.0); ABG PCO2 72 mmHg (32-45)
[2021-05-24] MEDS: FLUCONAZOLE 200 MG/NS 100 ML 100 ML IV SCH (08:22)
[2021-05-24] MEDS: PANTOPRAZOLE 40 MG/VIAL IVP SCH (08:22)
[2021-05-24] MEDS: CEFTRIAXONE 1G VIAL IV SCH (08:22)
[2021-05-24] MEDS: METOPROLOL TARTRATE 25 MG TAB PO SCH ×3 (08:22→20:10)
[2021-05-24] MEDS: ENOXAPARIN SODIUM 30 MG/0.3 ML SQ SCH ×2 (08:23→20:12)
[2021-05-24] MEDS: FENTANYL 2500MCG+NS 250ML 250 ML IVPB SCH ×2 (10:11→21:27)
[2021-05-24] MEDS ORDERED: SODIUM CHLORIDE 7% INHALATION 4 ML VIAL.NEB IH SCH (19:00)
[2021-05-24] MEDS: ALBUTEROL 0.042% 1.25MG/3ML IH SCH ×2 (19:00→22:00)
[2021-05-25] VITALS (43 sets, daily range): BP systolic 81–188; BP diastolic 35–104
[2021-05-25] MEDS: METOCLOPRAMIDE 10 MG/2 ML VIAL IVP SCH ×3 (01:52→18:08)
[2021-05-25] MEDS: GUAIFENESIN 600 MG TABLET.ER PO SCH ×4 (01:52→18:08)
[2021-05-25] MEDS: SOLU-MEDROL 40MG VIAL IVP SCH ×2 (01:52→12:35)
[2021-05-25] MEDS: INSULIN HUMULIN R 100 UNIT/ML 3ML SQ SCH ×4 (01:52→18:09)
[2021-05-25] MEDS: ALBUTEROL 0.042% 1.25MG/3ML IH SCH ×4 (02:26→18:00)
[2021-05-25 03:19] LABS: ABG BASE EXCESS 10.7 mmol/L (-2.0-3.0); ABG HCO3 37.8 mmol/L (21.0-28.0); ABG OXYGEN SATURATION 95.8 % (95.0-99.0); ABG PCO2 65 mmHg (32-45)
[2021-05-25] MEDS: ALBUTEROL INHALER 90MCG/INH IH SCH ×4 (04:23→21:51)
[2021-05-25] MEDS: PROPOFOL 1000 MG/100 ML 100 ML IV SCH ×5 (04:24→22:34)
[2021-05-25 04:40] LABS: BASOPHILS % (AUTO) 0.2 % (0.0-5.0); EOSINOPHILS % (AUTO) 0.2 % (0.0-8.0); HEMATOCRIT 31.6 % (36-48); LYMPHOCYTES % (AUTO) 6.7 % (21.0-51.0); MEAN CORPUSCULAR HEMOGLOBIN 27.7 pg (27.0-33.0); MEAN CORPUSCULAR HGB CONC 31.3 g/dL (32.0-36.0); MEAN CORPUSCULAR VOLUME 88.3 fL (79-99); MONOCYTES % (AUTO) 3.9 % (3.0-13.0); NEUTROPHILS % (AUTO) 87.8 % (40.0-77.0); PLATELET COUNT (AUTO) 193 K/uL (130-400); RED BLOOD CELL COUNT(AUTO) 3.58 MIL/uL (4.00-5.50); RED CELL DISTRIBUTION WIDTH 16.3 % (11.0-15.5); WHITE BLOOD COUNT (AUTO) 5.8 K/uL (4.8-10.8)
[2021-05-25 04:54] LABS: BILIRUBIN,TOTAL 0.5 mg/dL (0.2-1.0); CREATININE 0.1 mg/dL (0.5-1.5); MAGNESIUM 2.1 mg/dL (1.80-2.40); POTASSIUM 4.1 mmol/L (3.5-5.1); TOTAL PROTEIN, SERUM 5.5 g/dL (6.0-8.3)
[2021-05-25] MEDS: CISATRACURIUM BESYLATE 100 MG in 0.9%NACL 100ML 100 ML IV SCH ×3 (06:12→23:52)
[2021-05-25] MEDS: CEFTRIAXONE 1G VIAL IV SCH (08:16)
[2021-05-25] MEDS: PANTOPRAZOLE 40 MG/VIAL IVP SCH (08:16)
[2021-05-25] MEDS: METOPROLOL TARTRATE 25 MG TAB PO SCH ×2 (08:16→21:51)
[2021-05-25] MEDS: LACTULOSE 20 GM/30 ML UDCUP PO SCH (08:16)
[2021-05-25] MEDS: FLUCONAZOLE 200 MG/NS 100 ML 100 ML IV SCH (08:17)
[2021-05-25] MEDS: ENOXAPARIN SODIUM 30 MG/0.3 ML SQ SCH ×2 (08:17→21:58)
[2021-05-25] MEDS: FENTANYL 2500MCG+NS 250ML 250 ML IVPB SCH ×2 (08:18→22:35)
[2021-05-25] MEDS: SODIUM CHLORIDE 7% INHALATION 4 ML VIAL.NEB IH SCH ×2 (13:00→18:00)
[2021-05-25] MEDS: INSULIN GLARGINE 100 UNITS/ML 10 ML VIAL SQ SCH (21:58)
[2021-05-26] VITALS (44 sets, daily range): BP systolic 77–191; BP diastolic 38–105
[2021-05-26] MEDS: GUAIFENESIN 600 MG TABLET.ER PO SCH ×4 (00:47→17:26)
[2021-05-26] MEDS: ALBUTEROL 0.042% 1.25MG/3ML IH SCH ×4 (00:47→18:59)
[2021-05-26] MEDS: SODIUM CHLORIDE 7% INHALATION 4 ML VIAL.NEB IH SCH ×4 (00:47→18:59)
[2021-05-26] MEDS: SOLU-MEDROL 40MG VIAL IVP SCH ×2 (01:35→12:26)
[2021-05-26] MEDS: METOCLOPRAMIDE 10 MG/2 ML VIAL IVP SCH ×3 (01:35→17:26)
[2021-05-26] MEDS: ALBUTEROL INHALER 90MCG/INH IH SCH ×2 (03:00→10:38)
[2021-05-26 05:36] LABS: BASOPHILS % (AUTO) 0.3 % (0.0-5.0); HEMATOCRIT 35.8 % (36-48); LYMPHOCYTES % (AUTO) 3.6 % (21.0-51.0); MEAN CORPUSCULAR HEMOGLOBIN 27.7 pg (27.0-33.0); MEAN CORPUSCULAR HGB CONC 30.2 g/dL (32.0-36.0); MEAN CORPUSCULAR VOLUME 91.8 fL (79-99); NEUTROPHILS % (AUTO) 91.7 % (40.0-77.0); PLATELET COUNT (AUTO) 170 K/uL (130-400); WHITE BLOOD COUNT (AUTO) 7.7 K/uL (4.8-10.8)
[2021-05-26 05:52] LABS: ALBUMIN 2.2 g/dL (3.5-5.0); BILIRUBIN,TOTAL 0.6 mg/dL (0.2-1.0); CREATININE 0.2 mg/dL (0.5-1.5); CRP QUANTITATIVE 14.1 mg/L (0.00-9.0); MAGNESIUM 2.1 mg/dL (1.80-2.40); PHOSPHORUS 3.5 mg/dL (2.5-4.9); POTASSIUM 4.1 mmol/L (3.5-5.1); TOTAL PROTEIN, SERUM 5.8 g/dL (6.0-8.3)
[2021-05-26] MEDS: CISATRACURIUM BESYLATE 100 MG in 0.9%NACL 100ML 100 ML IV SCH ×2 (06:07→12:55)
[2021-05-26] MEDS: INSULIN HUMULIN R 100 UNIT/ML 3ML SQ SCH ×4 (06:07→17:14)
[2021-05-26] MEDS: PROPOFOL 1000 MG/100 ML 100 ML IV SCH ×4 (06:08→17:43)
[2021-05-26] MEDS: FENTANYL 2500MCG+NS 250ML 250 ML IVPB SCH (06:09)
[2021-05-26] MEDS: LABETALOL 20MG VIAL IV PRN (06:10)
[2021-05-26 07:29] LABS: ABG BASE EXCESS 9.9 mmol/L (-2.0-3.0); ABG HCO3 36.8 mmol/L (21.0-28.0); ABG OXYGEN SATURATION 90.5 % (95.0-99.0); ABG PCO2 61 mmHg (32-45)
[2021-05-26] MEDS: PANTOPRAZOLE 40 MG/VIAL IVP SCH (09:12)
[2021-05-26] MEDS: FLUCONAZOLE 200 MG/NS 100 ML 100 ML IV SCH (09:12)
[2021-05-26] MEDS: CEFTRIAXONE 1G VIAL IV SCH (09:12)
[2021-05-26] MEDS: METOPROLOL TARTRATE 25 MG TAB PO SCH (09:13)
[2021-05-26] MEDS: ENOXAPARIN SODIUM 30 MG/0.3 ML SQ SCH ×2 (09:13→20:43)
[2021-05-26] MEDS: LACTULOSE 20 GM/30 ML UDCUP PO SCH ×3 (09:13→20:36)
[2021-05-26] MEDS: FUROSEMIDE 20MG VIAL IV SCH ×2 (10:37→17:26)
[2021-05-26] MEDS ORDERED: FENTANYL 2500MCG+NS 250ML 250 ML IV ONE ×2 (17:39→17:41)
[2021-05-26] MEDS: METOPROLOL TARTRATE 50 MG TAB PO SCH (20:36)
[2021-05-26] MEDS: INSULIN GLARGINE 100 UNITS/ML 10 ML VIAL SQ SCH (20:43)
[2021-05-27] VITALS (44 sets, daily range): BP systolic 78–165; BP diastolic 41–89
[2021-05-27] MEDS: SODIUM CHLORIDE 7% INHALATION 4 ML VIAL.NEB IH SCH ×5 (00:52→23:39)
[2021-05-27] MEDS: ALBUTEROL 0.042% 1.25MG/3ML IH SCH ×3 (00:52→11:27)
[2021-05-27] MEDS: METOCLOPRAMIDE 10 MG/2 ML VIAL IVP SCH ×3 (02:35→17:51)
[2021-05-27] MEDS: SOLU-MEDROL 40MG VIAL IVP SCH ×2 (02:35→13:43)
[2021-05-27] MEDS: PROPOFOL 1000 MG/100 ML 100 ML IV SCH ×3 (03:51→20:57)
[2021-05-27] MEDS: FUROSEMIDE 20MG VIAL IV SCH ×4 (03:55→15:32)
[2021-05-27 05:00] LABS: BASOPHILS % (AUTO) 0.2 % (0.0-5.0); EOSINOPHILS % (AUTO) 1.3 % (0.0-8.0); HEMATOCRIT 36.6 % (36-48); LYMPHOCYTES % (AUTO) 2.8 % (21.0-51.0); MEAN CORPUSCULAR HEMOGLOBIN 27.8 pg (27.0-33.0); MEAN CORPUSCULAR HGB CONC 30.6 g/dL (32.0-36.0); MEAN CORPUSCULAR VOLUME 90.8 fL (79-99); MONOCYTES % (AUTO) 2.6 % (3.0-13.0); NEUTROPHILS % (AUTO) 92.3 % (40.0-77.0); PLATELET COUNT (AUTO) 203 K/uL (130-400); RED BLOOD CELL COUNT(AUTO) 4.03 MIL/uL (4.00-5.50); RED CELL DISTRIBUTION WIDTH 17.1 % (11.0-15.5); WHITE BLOOD COUNT (AUTO) 11.6 K/uL (4.8-10.8)
[2021-05-27 05:22] LABS: ALBUMIN 2.3 g/dL (3.5-5.0); BILIRUBIN,TOTAL 0.6 mg/dL (0.2-1.0); CREATININE 0.2 mg/dL (0.5-1.5); CRP QUANTITATIVE 34.9 mg/L (0.00-9.0); MAGNESIUM 1.9 mg/dL (1.80-2.40); PHOSPHORUS 3.7 mg/dL (2.5-4.9); POTASSIUM 3.5 mmol/L (3.5-5.1); TOTAL PROTEIN, SERUM 6.1 g/dL (6.0-8.3); URIC ACID 1.1 mg/dL (2.6-7.2)
[2021-05-27] MEDS: GUAIFENESIN 600 MG TABLET.ER PO SCH ×4 (06:07→17:51)
[2021-05-27] MEDS: INSULIN HUMULIN R 100 UNIT/ML 3ML SQ SCH ×4 (06:08→18:45)
[2021-05-27] MEDS: POTASSIUM CHLORIDE 10% ELIXIR 20 MEQ/15 ML UDCUP PO PRN ×3 (06:18→15:30)
[2021-05-27] MEDS ORDERED: FENTANYL 2500MCG+NS 250ML 250 ML IV ONE ×2 (06:33→17:49)
[2021-05-27] MEDS: DEXMEDETOMIDINE 400MCG/NS100ML IV SCH (08:23)
[2021-05-27] MEDS: METOPROLOL TARTRATE 50 MG TAB PO SCH ×3 (09:00→20:54)
[2021-05-27] MEDS: PANTOPRAZOLE 40 MG/VIAL IVP SCH (10:39)
[2021-05-27] MEDS: CEFTRIAXONE 1G VIAL IV SCH (10:39)
[2021-05-27] MEDS: LACTULOSE 20 GM/30 ML UDCUP PO SCH ×2 (10:39→21:03)
[2021-05-27] MEDS: FLUCONAZOLE 200 MG/NS 100 ML 100 ML IV SCH (10:40)
[2021-05-27] MEDS: ENOXAPARIN SODIUM 30 MG/0.3 ML SQ SCH ×2 (10:42→21:02)
[2021-05-27] MEDS: IPRATROPIUM 0.5 MG/2.5 ML INH IH SCH ×3 (12:30→23:39)
[2021-05-27] MEDS: CISATRACURIUM BESYLATE 100 MG in 0.9%NACL 100ML 100 ML IV SCH (17:57)
[2021-05-27] MEDS ORDERED: ALBUTEROL 0.083% 2.5 MG/3 ML INH IH SCH (18:00)
[2021-05-27] MEDS: INSULIN GLARGINE 100 UNITS/ML 10 ML VIAL SQ SCH (20:58)
[2021-05-27] MEDS: NOREPINEPHRINE 16MG/NS 250ML 250 ML IV SCH (22:35)
[2021-05-28] VITALS (70 sets, daily range): BP systolic 85–186; BP diastolic 44–102
[2021-05-28] MEDS: INSULIN HUMULIN R 100 UNIT/ML 3ML SQ SCH ×4 (01:21→23:47)
[2021-05-28] MEDS: GUAIFENESIN 600 MG TABLET.ER PO SCH ×5 (01:23→23:46)
[2021-05-28] MEDS: PROPOFOL 1000 MG/100 ML 100 ML IV SCH ×5 (01:26→19:18)
[2021-05-28] MEDS: CISATRACURIUM BESYLATE 100 MG in 0.9%NACL 100ML 100 ML IV SCH ×5 (01:27→23:35)
[2021-05-28] MEDS: METOCLOPRAMIDE 10 MG/2 ML VIAL IVP SCH ×3 (01:30→18:20)
[2021-05-28] MEDS: SOLU-MEDROL 40MG VIAL IVP SCH ×2 (02:00→15:05)
[2021-05-28 03:51] LABS: BASOPHILS % (AUTO) 0.1 % (0.0-5.0); EOSINOPHILS % (AUTO) 0.1 % (0.0-8.0); HEMATOCRIT 33.1 % (36-48); LYMPHOCYTES % (AUTO) 8.1 % (21.0-51.0); MEAN CORPUSCULAR HEMOGLOBIN 27.7 pg (27.0-33.0); MEAN CORPUSCULAR HGB CONC 29.9 g/dL (32.0-36.0); MEAN CORPUSCULAR VOLUME 92.7 fL (79-99); MONOCYTES % (AUTO) 3.5 % (3.0-13.0); NEUTROPHILS % (AUTO) 87.4 % (40.0-77.0); PLATELET COUNT (AUTO) 204 K/uL (130-400); RED BLOOD CELL COUNT(AUTO) 3.57 MIL/uL (4.00-5.50); RED CELL DISTRIBUTION WIDTH 16.4 % (11.0-15.5); WHITE BLOOD COUNT (AUTO) 7.7 K/uL (4.8-10.8)
[2021-05-28] MEDS ORDERED: PHARMACY COMMUNICATION MISC SCH ×2 (04:00)
[2021-05-28 04:16] LABS: BILIRUBIN,TOTAL 0.5 mg/dL (0.2-1.0); CREATININE 0.2 mg/dL (0.5-1.5); CRP QUANTITATIVE 56.4 mg/L (0.00-9.0); POTASSIUM 4.5 mmol/L (3.5-5.1); TOTAL PROTEIN, SERUM 5.5 g/dL (6.0-8.3)
[2021-05-28 04:17] LABS: PLATELET MORPHOLOGY PLT CLUMPS PRESENT
[2021-05-28] MEDS: FUROSEMIDE 20MG VIAL IV SCH ×2 (04:55→15:05)
[2021-05-28] MEDS: DEXMEDETOMIDINE 400MCG/NS100ML IV SCH ×5 (04:57→22:53)
[2021-05-28] MEDS: SODIUM CHLORIDE 7% INHALATION 4 ML VIAL.NEB IH SCH ×3 (07:28→23:37)
[2021-05-28] MEDS: IPRATROPIUM 0.5 MG/2.5 ML INH IH SCH ×3 (07:28→23:37)
[2021-05-28 07:38] LABS: ABG BASE EXCESS 19.9 mmol/L (-2.0-3.0); ABG HCO3 49.8 mmol/L (21.0-28.0); ABG OXYGEN SATURATION 95.2 % (95.0-99.0); ABG PCO2 81 mmHg (32-45)
[2021-05-28] MEDS: FLUCONAZOLE 200 MG/NS 100 ML 100 ML IV SCH (09:18)
[2021-05-28] MEDS: PANTOPRAZOLE 40 MG/VIAL IVP SCH (09:18)
[2021-05-28] MEDS: CEFTRIAXONE 1G VIAL IV SCH (09:18)
[2021-05-28] MEDS: ENOXAPARIN SODIUM 30 MG/0.3 ML SQ SCH ×2 (09:19→20:43)
[2021-05-28] MEDS: METOPROLOL TARTRATE 50 MG TAB PO SCH ×2 (09:22→21:00)
[2021-05-28] MEDS: FENTANYL 2500MCG+NS 250ML 250 ML IV SCH (12:46)
[2021-05-28] MEDS ORDERED: INSULIN HUMULIN R 100 UNIT/ML 3ML ONE (18:39)
[2021-05-28] MEDS: INSULIN GLARGINE 100 UNITS/ML 10 ML VIAL SQ SCH (20:44)
[2021-05-29] VITALS (63 sets, daily range): BP systolic 92–196; BP diastolic 52–100
[2021-05-29] MEDS: PROPOFOL 1000 MG/100 ML 100 ML IV SCH ×6 (00:34→20:29)
[2021-05-29] MEDS: SOLU-MEDROL 40MG VIAL IVP SCH ×2 (02:13→13:59)
[2021-05-29] MEDS: FENTANYL 2500MCG+NS 250ML 250 ML IV SCH ×2 (02:15→14:11)
[2021-05-29] MEDS: CISATRACURIUM BESYLATE 100 MG in 0.9%NACL 100ML 100 ML IV SCH ×4 (03:00→20:30)
[2021-05-29] MEDS: DEXMEDETOMIDINE 400MCG/NS100ML IV SCH ×5 (04:08→22:25)
[2021-05-29] MEDS: FUROSEMIDE 20MG VIAL IV SCH ×2 (04:08→13:58)
[2021-05-29] MEDS: GUAIFENESIN 600 MG TABLET.ER PO SCH ×4 (06:15→23:26)
[2021-05-29] MEDS: INSULIN HUMULIN R 100 UNIT/ML 3ML SQ SCH ×3 (06:16→18:12)
[2021-05-29 06:40] LABS: EOSINOPHILS % (AUTO) 0.2 % (0.0-8.0); HEMATOCRIT 32.6 % (36-48); LYMPHOCYTES % (AUTO) 10.1 % (21.0-51.0); MEAN CORPUSCULAR HEMOGLOBIN 28.1 pg (27.0-33.0); MEAN CORPUSCULAR HGB CONC 30.4 g/dL (32.0-36.0); MEAN CORPUSCULAR VOLUME 92.6 fL (79-99); MONOCYTES % (AUTO) 3.7 % (3.0-13.0); PLATELET COUNT (AUTO) 143 K/uL (130-400); RED BLOOD CELL COUNT(AUTO) 3.52 MIL/uL (4.00-5.50); RED CELL DISTRIBUTION WIDTH 16.2 % (11.0-15.5); WHITE BLOOD COUNT (AUTO) 6.2 K/uL (4.8-10.8)
[2021-05-29] MEDS: SODIUM CHLORIDE 7% INHALATION 4 ML VIAL.NEB IH SCH ×2 (07:11→18:58)
[2021-05-29] MEDS: IPRATROPIUM 0.5 MG/2.5 ML INH IH SCH ×2 (07:11→18:58)
[2021-05-29 07:14] LABS: ALBUMIN 1.9 g/dL (3.5-5.0); BILIRUBIN,TOTAL 0.6 mg/dL (0.2-1.0); CARBON DIOXIDE 43 mmol/L (21-32); CHLORIDE 95 mmol/L (101-111); GLUCOSE,RANDOM 219 mg/dL (70-105); POTASSIUM 3.9 mmol/L (3.5-5.1); SODIUM SERUM 136 mmol/L (136-145); TOTAL PROTEIN, SERUM 5.5 g/dL (6.0-8.3); UREA NITROGEN, BLOOD 14 mg/dL (7-18)
[2021-05-29 07:26] LABS: ALANINE AMINOTRANSFERASE 268 U/L (12-78); ASPARTATE AMINOTRANSFERASE 103 U/L (10-37)
[2021-05-29 07:29] LABS: CREATININE < 0.2 mg/dL (0.5-1.5); GLOMERULAR FILTR. RATE CALC 388 mL/min (>60)
[2021-05-29 07:54] LABS: ABG BASE EXCESS 17.8 mmol/L (-2.0-3.0); ABG HCO3 47.1 mmol/L (21.0-28.0); ABG OXYGEN SATURATION 95.9 % (95.0-99.0); ABG PCO2 85 mmHg (32-45)
[2021-05-29 07:57] LABS: ABG BASE EXCESS 18.8 mmol/L (-2.0-3.0); ABG HCO3 47.9 mmol/L (21.0-28.0); ABG OXYGEN SATURATION 96.4 % (95.0-99.0); ABG PCO2 83 mmHg (32-45)
[2021-05-29] MEDS ORDERED: METOPROLOL TARTRATE 25 MG TAB PO SCH (08:30)
[2021-05-29] MEDS: FLUCONAZOLE 200 MG/NS 100 ML 100 ML IV SCH (09:05)
[2021-05-29] MEDS: CEFTRIAXONE 1G VIAL IV SCH (09:05)
[2021-05-29] MEDS: PANTOPRAZOLE 40 MG/VIAL IVP SCH (09:06)
[2021-05-29] MEDS: METOCLOPRAMIDE 10 MG/2 ML VIAL IVP SCH ×2 (09:06→20:24)
[2021-05-29] MEDS: ENOXAPARIN SODIUM 30 MG/0.3 ML SQ SCH ×2 (09:06→20:31)
[2021-05-29] MEDS: METOPROLOL TARTRATE 25 MG TAB PO SCH ×2 (13:59→22:25)
[2021-05-29] MEDS: INSULIN GLARGINE 100 UNITS/ML 10 ML VIAL SQ SCH (20:32)
[2021-05-30] VITALS (37 sets, daily range): BP systolic 87–175; BP diastolic 47–99
[2021-05-30] MEDS: INSULIN HUMULIN R 100 UNIT/ML 3ML SQ SCH ×4 (00:02→18:00)
[2021-05-30] MEDS: SOLU-MEDROL 40MG VIAL IVP SCH ×2 (01:10→14:05)
[2021-05-30] MEDS: FENTANYL 2500MCG+NS 250ML 250 ML IV SCH ×2 (01:12→12:37)
[2021-05-30] MEDS: PROPOFOL 1000 MG/100 ML 100 ML IV SCH ×3 (01:12→14:05)
[2021-05-30 03:22] LABS: ABG BASE EXCESS 14.4 mmol/L (-2.0-3.0); ABG HCO3 44.8 mmol/L (21.0-28.0); ABG PCO2 86 mmHg (32-45)
[2021-05-30] MEDS: FUROSEMIDE 20MG VIAL IV SCH ×2 (03:34→14:50)
[2021-05-30] MEDS: DEXMEDETOMIDINE 400MCG/NS100ML IV SCH ×3 (03:35→17:33)
[2021-05-30] MEDS: CISATRACURIUM BESYLATE 100 MG in 0.9%NACL 100ML 100 ML IV SCH ×3 (04:02→16:42)
[2021-05-30] MEDS: GUAIFENESIN 600 MG TABLET.ER PO SCH ×2 (05:02→12:00)
[2021-05-30] MEDS: METOPROLOL TARTRATE 25 MG TAB PO SCH ×3 (05:02→22:00)
[2021-05-30] MEDS: SODIUM CHLORIDE 7% INHALATION 4 ML VIAL.NEB IH SCH ×4 (06:52→18:59)
[2021-05-30] MEDS: IPRATROPIUM 0.5 MG/2.5 ML INH IH SCH ×4 (06:52→18:59)
[2021-05-30 07:12] LABS: BASOPHILS % (AUTO) 0.2 % (0.0-5.0); HEMATOCRIT 33.1 % (36-48); LYMPHOCYTES % (AUTO) 6.5 % (21.0-51.0); MEAN CORPUSCULAR HEMOGLOBIN 26.4 pg (27.0-33.0); MEAN CORPUSCULAR HGB CONC 29.3 g/dL (32.0-36.0); MEAN CORPUSCULAR VOLUME 90.2 fL (79-99); MONOCYTES % (AUTO) 4.2 % (3.0-13.0); NEUTROPHILS % (AUTO) 88.1 % (40.0-77.0); PLATELET COUNT (AUTO) 190 K/uL (130-400); RED BLOOD CELL COUNT(AUTO) 3.67 MIL/uL (4.00-5.50); RED CELL DISTRIBUTION WIDTH 16.1 % (11.0-15.5); WHITE BLOOD COUNT (AUTO) 5.7 K/uL (4.8-10.8)
[2021-05-30 07:35] LABS: ALBUMIN 2.1 g/dL (3.5-5.0); BILIRUBIN,TOTAL 0.4 mg/dL (0.2-1.0); CREATININE 0.2 mg/dL (0.5-1.5); CRP QUANTITATIVE 13.3 mg/L (0.00-9.0); POTASSIUM 4.2 mmol/L (3.5-5.1); TOTAL PROTEIN, SERUM 5.8 g/dL (6.0-8.3)
[2021-05-30] MEDS: ENOXAPARIN SODIUM 30 MG/0.3 ML SQ SCH ×2 (10:10→22:19)
[2021-05-30] MEDS: PANTOPRAZOLE 40 MG/VIAL IVP SCH (10:17)
[2021-05-30] MEDS: METOCLOPRAMIDE 10 MG/2 ML VIAL IVP SCH ×2 (10:18→21:58)
[2021-05-30] MEDS: CLINDAMYCIN IVPB 600MG/50ML 50 ML IV SCH ×2 (12:38→18:44)
[2021-05-30] MEDS: LACTULOSE 20 GM/30 ML UDCUP PO PRN (14:50)
[2021-05-30] MEDS ORDERED: NOREPINEPHRIN 4MG/NS 250ML 0 ML IV ONE (16:51)
[2021-05-30] MEDS: MIDAZOLAM 100MG-0.9% NS 100ML 100ML BAG IV PRN (19:44)
[2021-05-30] MEDS ORDERED: NOREPINEPHRIN 8MG/250ML NS PMX 250 ML IV ONE (20:30)
[2021-05-30] MEDS: INSULIN GLARGINE 100 UNITS/ML 10 ML VIAL SQ SCH (22:18)
[2021-05-31] VITALS (52 sets, daily range): BP systolic 83–150; BP diastolic 48–77
[2021-05-31] MEDS: FENTANYL 2500MCG+NS 250ML 250 ML IV SCH ×2 (00:13→14:13)
[2021-05-31] MEDS: PROPOFOL 1000 MG/100 ML 100 ML IV SCH ×5 (00:14→21:13)
[2021-05-31] MEDS: CISATRACURIUM BESYLATE 100 MG in 0.9%NACL 100ML 100 ML IV SCH ×3 (00:15→13:58)
[2021-05-31] MEDS: IPRATROPIUM 0.5 MG/2.5 ML INH IH SCH ×2 (00:19→06:43)
[2021-05-31] MEDS: SODIUM CHLORIDE 7% INHALATION 4 ML VIAL.NEB IH SCH ×2 (00:19→06:43)
[2021-05-31] MEDS: INSULIN HUMULIN R 100 UNIT/ML 3ML SQ SCH ×4 (00:22→18:15)
[2021-05-31] MEDS: DEXMEDETOMIDINE 400MCG/NS100ML IV SCH ×5 (02:55→21:50)
[2021-05-31] MEDS: SOLU-MEDROL 40MG VIAL IVP SCH ×2 (02:57→13:59)
[2021-05-31] MEDS: CLINDAMYCIN IVPB 600MG/50ML 50 ML IV SCH ×3 (02:57→17:50)
[2021-05-31 04:01] LABS: ABG HCO3 42.5 mmol/L (21.0-28.0); ABG OXYGEN SATURATION 98.5 % (95.0-99.0); ABG PCO2 70 mmHg (32-45)
[2021-05-31 04:28] LABS: HEMATOCRIT 32.9 % (36-48); LYMPHOCYTES % (AUTO) 9.6 % (21.0-51.0); MEAN CORPUSCULAR HEMOGLOBIN 27.6 pg (27.0-33.0); MEAN CORPUSCULAR HGB CONC 30.7 g/dL (32.0-36.0); MEAN CORPUSCULAR VOLUME 89.9 fL (79-99); MONOCYTES % (AUTO) 5.8 % (3.0-13.0); NEUTROPHILS % (AUTO) 83.5 % (40.0-77.0); PLATELET COUNT (AUTO) 245 K/uL (130-400); RED BLOOD CELL COUNT(AUTO) 3.66 MIL/uL (4.00-5.50); RED CELL DISTRIBUTION WIDTH 16.4 % (11.0-15.5); WHITE BLOOD COUNT (AUTO) 6.6 K/uL (4.8-10.8)
[2021-05-31] MEDS: FUROSEMIDE 20MG VIAL IV SCH ×2 (04:40→15:56)
[2021-05-31] MEDS: MIDAZOLAM 100MG-0.9% NS 100ML 100ML BAG IV PRN ×3 (04:46→22:02)
[2021-05-31 05:06] LABS: ALBUMIN 2.1 g/dL (3.5-5.0); BILIRUBIN,TOTAL 0.3 mg/dL (0.2-1.0); CREATININE 0.2 mg/dL (0.5-1.5); CRP QUANTITATIVE 15.3 mg/L (0.00-9.0); POTASSIUM 3.6 mmol/L (3.5-5.1); TOTAL PROTEIN, SERUM 5.8 g/dL (6.0-8.3)
[2021-05-31] MEDS: METOPROLOL TARTRATE 25 MG TAB PO SCH ×3 (06:00→21:38)
[2021-05-31] MEDS: POTASSIUM CHLORIDE 10% ELIXIR 20 MEQ/15 ML UDCUP PO PRN ×2 (06:25→10:23)
[2021-05-31] MEDS: ENOXAPARIN SODIUM 30 MG/0.3 ML SQ SCH ×2 (10:22→21:52)
[2021-05-31] MEDS: METOCLOPRAMIDE 10 MG/2 ML VIAL IVP SCH ×2 (10:23→21:52)
[2021-05-31] MEDS: PANTOPRAZOLE 40 MG/VIAL IVP SCH (10:23)
[2021-05-31] MEDS ORDERED: IPRATROPIUM 0.5 MG/2.5 ML INH IH ONE (18:39)
[2021-05-31] MEDS ORDERED: ACETYLCYSTEINE 10% 100MG/ML 4ML VIAL ONE (18:39)
[2021-05-31] MEDS ORDERED: SODIUM CHLORIDE 7% INHALATION 4 ML VIAL.NEB IH ONE (18:40)
[2021-05-31] MEDS: INSULIN GLARGINE 100 UNITS/ML 10 ML VIAL SQ SCH (21:52)
[2021-06-01] VITALS (52 sets, daily range): BP systolic 82–139; BP diastolic 46–77
[2021-06-01] MEDS: INSULIN HUMULIN R 100 UNIT/ML 3ML SQ SCH ×4 (01:40→17:54)
[2021-06-01] MEDS: CISATRACURIUM BESYLATE 100 MG in 0.9%NACL 100ML 100 ML IV SCH ×5 (01:41→21:00)
[2021-06-01] MEDS: DEXMEDETOMIDINE 400MCG/NS100ML IV SCH ×6 (01:45→20:59)
[2021-06-01] MEDS: PROPOFOL 1000 MG/100 ML 100 ML IV SCH ×6 (01:46→20:59)
[2021-06-01] MEDS: CLINDAMYCIN IVPB 600MG/50ML 50 ML IV SCH ×3 (01:46→17:52)
[2021-06-01] MEDS: SOLU-MEDROL 40MG VIAL IVP SCH ×2 (01:46→14:07)
[2021-06-01 03:34] LABS: ABG BASE EXCESS 14.8 mmol/L (-2.0-3.0); ABG HCO3 40.6 mmol/L (21.0-28.0); ABG OXYGEN SATURATION 95.4 % (95.0-99.0); ABG PCO2 56 mmHg (32-45)
[2021-06-01] MEDS: FUROSEMIDE 20MG VIAL IV SCH ×2 (04:00→15:03)
[2021-06-01] MEDS: METOPROLOL TARTRATE 25 MG TAB PO SCH ×3 (06:00→22:00)
[2021-06-01 06:31] LABS: BASOPHILS % (AUTO) 0.2 % (0.0-5.0); EOSINOPHILS % (AUTO) 0.2 % (0.0-8.0); HEMATOCRIT 35.8 % (36-48); LYMPHOCYTES % (AUTO) 6.9 % (21.0-51.0); MEAN CORPUSCULAR HEMOGLOBIN 26.8 pg (27.0-33.0); MEAN CORPUSCULAR HGB CONC 30.4 g/dL (32.0-36.0); MEAN CORPUSCULAR VOLUME 88.2 fL (79-99); MONOCYTES % (AUTO) 4.3 % (3.0-13.0); NEUTROPHILS % (AUTO) 87.6 % (40.0-77.0); PLATELET COUNT (AUTO) 237 K/uL (130-400); RED BLOOD CELL COUNT(AUTO) 4.06 MIL/uL (4.00-5.50); RED CELL DISTRIBUTION WIDTH 16.3 % (11.0-15.5); WHITE BLOOD COUNT (AUTO) 6.5 K/uL (4.8-10.8)
[2021-06-01 06:50] LABS: ALBUMIN 2.3 g/dL (3.5-5.0); BILIRUBIN,TOTAL 0.4 mg/dL (0.2-1.0); CREATININE 0.2 mg/dL (0.5-1.5); CRP QUANTITATIVE 20.5 mg/L (0.00-9.0); POTASSIUM 3.6 mmol/L (3.5-5.1); TOTAL PROTEIN, SERUM 6.2 g/dL (6.0-8.3)
[2021-06-01] MEDS: POTASSIUM CHLORIDE 10% ELIXIR 20 MEQ/15 ML UDCUP PO PRN ×2 (08:34→14:07)
[2021-06-01] MEDS: PANTOPRAZOLE 40 MG/VIAL IVP SCH (08:35)
[2021-06-01] MEDS: METOCLOPRAMIDE 10 MG/2 ML VIAL IVP SCH ×2 (08:35→21:11)
[2021-06-01] MEDS: ENOXAPARIN SODIUM 30 MG/0.3 ML SQ SCH ×2 (08:35→21:04)
[2021-06-01] MEDS: MIDAZOLAM 100MG-0.9% NS 100ML 100ML BAG IV PRN ×2 (10:38→14:06)
[2021-06-01] MEDS: FENTANYL 2500MCG+NS 250ML 250 ML IV SCH (15:04)
[2021-06-01] MEDS: INSULIN GLARGINE 100 UNITS/ML 10 ML VIAL SQ SCH (21:03)
[2021-06-02] VITALS (43 sets, daily range): BP systolic 85–143; BP diastolic 33–99
[2021-06-02] MEDS: SOLU-MEDROL 40MG VIAL IVP SCH ×2 (00:37→15:30)
[2021-06-02] MEDS: FENTANYL 2500MCG+NS 250ML 250 ML IV SCH (00:38)
[2021-06-02] MEDS: CLINDAMYCIN IVPB 600MG/50ML 50 ML IV SCH ×3 (01:24→18:49)
[2021-06-02] MEDS: PROPOFOL 1000 MG/100 ML 100 ML IV SCH ×3 (01:25→12:00)
[2021-06-02] MEDS: DEXMEDETOMIDINE 400MCG/NS100ML IV SCH ×4 (01:26→21:56)
[2021-06-02] MEDS: MIDAZOLAM 100MG-0.9% NS 100ML 100ML BAG IV PRN ×3 (01:27→12:03)
[2021-06-02] MEDS: FUROSEMIDE 20MG VIAL IV SCH ×2 (04:00→15:30)
[2021-06-02 04:40] LABS: ABG BASE EXCESS 8.5 mmol/L (-2.0-3.0); ABG HCO3 35.3 mmol/L (21.0-28.0); ABG OXYGEN SATURATION 89.7 % (95.0-99.0); ABG PCO2 60 mmHg (32-45)
[2021-06-02] MEDS: METOPROLOL TARTRATE 25 MG TAB PO SCH ×3 (06:00→22:00)
[2021-06-02] MEDS: INSULIN HUMULIN R 100 UNIT/ML 3ML SQ SCH ×7 (07:30→22:03)
[2021-06-02 10:26] LABS: HEMATOCRIT 34.8 % (36-48); MEAN CORPUSCULAR HEMOGLOBIN 27.3 pg (27.0-33.0); MEAN CORPUSCULAR HGB CONC 30.2 g/dL (32.0-36.0); MEAN CORPUSCULAR VOLUME 90.6 fL (79-99); PLATELET COUNT (AUTO) 334 K/uL (130-400); RED BLOOD CELL COUNT(AUTO) 3.84 MIL/uL (4.00-5.50); RED CELL DISTRIBUTION WIDTH 17.1 % (11.0-15.5); WHITE BLOOD COUNT (AUTO) 7.7 K/uL (4.8-10.8)
[2021-06-02] MEDS: PANTOPRAZOLE 40 MG/VIAL IVP SCH (10:33)
[2021-06-02] MEDS: ENOXAPARIN SODIUM 30 MG/0.3 ML SQ SCH ×2 (10:34→21:57)
[2021-06-02] MEDS: METOCLOPRAMIDE 10 MG/2 ML VIAL IVP SCH ×2 (10:34→21:58)
[2021-06-02 10:37] LABS: CREATININE 0.2 mg/dL (0.5-1.5); POTASSIUM 4.4 mmol/L (3.5-5.1)
[2021-06-02] MEDS: NOREPINEPHRINE 16MG/NS 250ML 250 ML IV SCH (10:42)
[2021-06-02 10:46] LABS: BAND NEUTROPHILS % (MANUAL) 3 % (0-2); EOSINOPHILS % (MANUAL) 1 % (1-6); LYMPHOCYTES % (MANUAL) 14 % (22-44); MAN.DIFF COMMENT-IMPRESSION MANUAL DIFFERENTIAL; MONOCYTES % (MANUAL) 6 % (2-9); PLATELET MORPHOLOGY COMMENT ADEQUATE; SEGMENTED NEUTROPHILS % 76 % (40-70)
[2021-06-02] MEDS: FENTANYL 2500MCG+NS 250ML 250 ML IVPB SCH ×2 (11:28→11:59)
[2021-06-02] MEDS: INSULIN GLARGINE 100 UNITS/ML 10 ML VIAL SQ SCH (22:02)
[2021-06-03] VITALS (52 sets, daily range): BP systolic 76–130; BP diastolic 34–71
[2021-06-03] MEDS: INSULIN HUMULIN R 100 UNIT/ML 3ML SQ SCH ×8 (00:59→17:51)
[2021-06-03] MEDS: CLINDAMYCIN IVPB 600MG/50ML 50 ML IV SCH ×3 (02:04→17:02)
[2021-06-03] MEDS: SOLU-MEDROL 40MG VIAL IVP SCH ×2 (02:04→12:40)
[2021-06-03] MEDS: DEXMEDETOMIDINE 400MCG/NS100ML IV SCH ×6 (02:04→21:48)
[2021-06-03] MEDS: MIDAZOLAM 100MG-0.9% NS 100ML 100ML BAG IV PRN ×2 (02:06→13:17)
[2021-06-03] MEDS: PROPOFOL 1000 MG/100 ML 100 ML IV SCH ×4 (03:02→20:28)
[2021-06-03] MEDS: FUROSEMIDE 20MG VIAL IV SCH ×2 (03:02→17:02)
[2021-06-03] MEDS: METOPROLOL TARTRATE 25 MG TAB PO SCH ×3 (03:03→22:00)
[2021-06-03 03:46] LABS: APPEARANCE,URINE CLEAR (CLEAR); BILIRUBIN,URINE NEGATIVE (NEGATIVE); COLOR,URINE YELLOW (YELLOW); GLUCOSE, URINE (UA) NEGATIVE (NEGATIVE); KETONES,URINE NEGATIVE (NEGATIVE); LEUKOCYTE ESTERASE ,URINE LARGE (NEGATIVE); NITRATE,URINE NEGATIVE (NEGATIVE); OCCULT BLOOD,URINE SMALL (NEGATIVE); PROTEIN,URINE NEGATIVE (NEGATIVE); UROBILINOGEN,URINE 0.2 mg/dL (0.2-1.0)
[2021-06-03 03:46] LABS: BASOPHILS % (AUTO) 0.2 % (0.0-5.0); EOSINOPHILS % (AUTO) 0.4 % (0.0-8.0); HEMATOCRIT 32.3 % (36-48); LYMPHOCYTES % (AUTO) 12.7 % (21.0-51.0); MEAN CORPUSCULAR HEMOGLOBIN 28.6 pg (27.0-33.0); MEAN CORPUSCULAR HGB CONC 31.9 g/dL (32.0-36.0); MEAN CORPUSCULAR VOLUME 89.7 fL (79-99); MONOCYTES % (AUTO) 5.4 % (3.0-13.0); NEUTROPHILS % (AUTO) 80.1 % (40.0-77.0); PLATELET COUNT (AUTO) 280 K/uL (130-400); RED CELL DISTRIBUTION WIDTH 16.7 % (11.0-15.5); WHITE BLOOD COUNT (AUTO) 9.3 K/uL (4.8-10.8)
[2021-06-03 04:01] LABS: ALBUMIN 2.5 g/dL (3.5-5.0); BILIRUBIN,TOTAL 0.5 mg/dL (0.2-1.0); CREATININE 0.2 mg/dL (0.5-1.5); CRP QUANTITATIVE 17.8 mg/L (0.00-9.0); TOTAL PROTEIN, SERUM 5.8 g/dL (6.0-8.3)
[2021-06-03 04:03] LABS: ABG BASE EXCESS 10.7 mmol/L (-2.0-3.0); ABG HCO3 37.1 mmol/L (21.0-28.0); ABG OXYGEN SATURATION 93.5 % (95.0-99.0); ABG PCO2 59 mmHg (32-45)
[2021-06-03 04:12] LABS: BACTERIA,URINE None Seen /HPF (None Seen); SQUAMOUS EPITHELIAL CELL,UR Few /HPF (0-2); YEAST,URINE BUDDING Moderate /HPF (None Seen)
[2021-06-03 04:20] LABS: POTASSIUM 2.9 mmol/L (3.5-5.1)
[2021-06-03] MEDS: POTASSIUM CHLORIDE 10% ELIXIR 20 MEQ/15 ML UDCUP PO PRN (04:55)
[2021-06-03] MEDS: POTASSIUM CHLORIDE 20MEQ/100ML 100 ML IV PRN (04:55)
[2021-06-03] MEDS: FENTANYL 2500MCG+NS 250ML 250 ML IVPB SCH ×2 (05:47→13:16)
[2021-06-03 08:10] LABS: MAGNESIUM 1.9 mg/dL (1.80-2.40); POTASSIUM 4.8 mmol/L (3.5-5.1)
[2021-06-03] MEDS: METOCLOPRAMIDE 10 MG/2 ML VIAL IVP SCH ×2 (08:16→20:30)
[2021-06-03] MEDS: PANTOPRAZOLE 40 MG/VIAL IVP SCH (08:16)
[2021-06-03] MEDS: ENOXAPARIN SODIUM 30 MG/0.3 ML SQ SCH ×2 (08:18→20:29)
[2021-06-03] MEDS: LACTULOSE 20 GM/30 ML UDCUP PO SCH (10:03)
[2021-06-03] MEDS ORDERED: PHARMACY COMMUNICATION MISC SCH (15:00)
[2021-06-03] MEDS ORDERED: FUROSEMIDE 20MG VIAL IVP ONE (16:00)
[2021-06-03] MEDS: INSULIN GLARGINE 100 UNITS/ML 10 ML VIAL SQ SCH (20:30)
[2021-06-04] VITALS (80 sets, daily range): BP systolic 61–162; BP diastolic 36–105
[2021-06-04] MEDS: PROPOFOL 1000 MG/100 ML 100 ML IV SCH ×7 (00:15→23:38)
[2021-06-04] MEDS: DEXMEDETOMIDINE 400MCG/NS100ML IV SCH ×7 (01:05→23:56)
[2021-06-04] MEDS: INSULIN HUMULIN R 100 UNIT/ML 3ML SQ SCH ×6 (01:06→12:38)
[2021-06-04] MEDS: FENTANYL 2500MCG+NS 250ML 250 ML IVPB SCH ×2 (01:12→16:57)
[2021-06-04] MEDS: CLINDAMYCIN IVPB 600MG/50ML 50 ML IV SCH ×2 (01:12→12:41)
[2021-06-04] MEDS: SOLU-MEDROL 40MG VIAL IVP SCH (01:12)
[2021-06-04] MEDS: MIDAZOLAM 100MG-0.9% NS 100ML 100ML BAG IV PRN ×3 (02:27→20:36)
[2021-06-04 03:02] LABS: ABG BASE EXCESS 10.8 mmol/L (-2.0-3.0); ABG HCO3 36.4 mmol/L (21.0-28.0); ABG OXYGEN SATURATION 96.1 % (95.0-99.0); ABG PCO2 53 mmHg (32-45)
[2021-06-04] MEDS: FUROSEMIDE 20MG VIAL IV SCH ×2 (03:05→16:00)
[2021-06-04] MEDS: METOPROLOL TARTRATE 25 MG TAB PO SCH ×3 (06:00→22:00)
[2021-06-04 06:40] LABS: BASOPHILS % (AUTO) 0.2 % (0.0-5.0); EOSINOPHILS % (AUTO) 0.2 % (0.0-8.0); HEMATOCRIT 37.3 % (36-48); LYMPHOCYTES % (AUTO) 7.1 % (21.0-51.0); MEAN CORPUSCULAR HEMOGLOBIN 27.2 pg (27.0-33.0); MEAN CORPUSCULAR HGB CONC 31.4 g/dL (32.0-36.0); MEAN CORPUSCULAR VOLUME 86.7 fL (79-99); MONOCYTES % (AUTO) 3.3 % (3.0-13.0); NEUTROPHILS % (AUTO) 87.9 % (40.0-77.0); PLATELET COUNT (AUTO) 329 K/uL (130-400); RED CELL DISTRIBUTION WIDTH 16.9 % (11.0-15.5); WHITE BLOOD COUNT (AUTO) 9.9 K/uL (4.8-10.8)
[2021-06-04 07:14] LABS: ALBUMIN 2.8 g/dL (3.5-5.0); BILIRUBIN,TOTAL 0.5 mg/dL (0.2-1.0); CREATININE 0.2 mg/dL (0.5-1.5); CRP QUANTITATIVE 27.8 mg/L (0.00-9.0); POTASSIUM 3.6 mmol/L (3.5-5.1); TOTAL PROTEIN, SERUM 6.6 g/dL (6.0-8.3)
[2021-06-04] MEDS: PANTOPRAZOLE 40 MG/VIAL IVP SCH (08:42)
[2021-06-04] MEDS: METOCLOPRAMIDE 10 MG/2 ML VIAL IVP SCH ×2 (08:44→20:36)
[2021-06-04] MEDS: ENOXAPARIN SODIUM 30 MG/0.3 ML SQ SCH ×2 (08:44→20:36)
[2021-06-04] MEDS: LACTULOSE 20 GM/30 ML UDCUP PO SCH (08:45)
[2021-06-04] MEDS: INSULIN GLARGINE 100 UNITS/ML 10 ML VIAL SQ SCH (20:37)
[2021-06-05] VITALS (26 sets, daily range): BP systolic 84–173; BP diastolic 48–83
[2021-06-05] MEDS: INSULIN HUMULIN R 100 UNIT/ML 3ML SQ SCH ×10 (00:31→23:49)
[2021-06-05] MEDS: CLINDAMYCIN IVPB 600MG/50ML 50 ML IV SCH ×3 (02:00→18:09)
[2021-06-05] MEDS: FENTANYL 2500MCG+NS 250ML 250 ML IVPB SCH ×2 (02:00→11:33)
[2021-06-05] MEDS: SOLU-MEDROL 40MG VIAL IVP SCH ×2 (02:00→13:17)
[2021-06-05] MEDS: PROPOFOL 1000 MG/100 ML 100 ML IV SCH ×2 (03:32→07:18)
[2021-06-05] MEDS: FUROSEMIDE 20MG VIAL IV SCH ×2 (03:32→15:54)
[2021-06-05] MEDS: DEXMEDETOMIDINE 400MCG/NS100ML IV SCH ×6 (03:33→23:50)
[2021-06-05 04:29] LABS: BASOPHILS % (AUTO) 0.2 % (0.0-5.0); EOSINOPHILS % (AUTO) 1.2 % (0.0-8.0); MEAN CORPUSCULAR HEMOGLOBIN 26.8 pg (27.0-33.0); MEAN CORPUSCULAR HGB CONC 30.7 g/dL (32.0-36.0); MEAN CORPUSCULAR VOLUME 87.2 fL (79-99); MONOCYTES % (AUTO) 3.8 % (3.0-13.0); NEUTROPHILS % (AUTO) 84.3 % (40.0-77.0); PLATELET COUNT (AUTO) 401 K/uL (130-400); WHITE BLOOD COUNT (AUTO) 16.5 K/uL (4.8-10.8)
[2021-06-05 04:48] LABS: ALBUMIN 2.8 g/dL (3.5-5.0); BILIRUBIN,TOTAL 0.6 mg/dL (0.2-1.0); CREATININE 0.2 mg/dL (0.5-1.5); CRP QUANTITATIVE 79.8 mg/L (0.00-9.0); TOTAL PROTEIN, SERUM 6.7 g/dL (6.0-8.3)
[2021-06-05 04:49] LABS: POTASSIUM 2.7 mmol/L (3.5-5.1)
[2021-06-05 04:50] LABS: ABG BASE EXCESS 9.6 mmol/L (-2.0-3.0); ABG HCO3 36.2 mmol/L (21.0-28.0); ABG OXYGEN SATURATION 90.2 % (95.0-99.0); ABG PCO2 57 mmHg (32-45)
[2021-06-05] MEDS: POTASSIUM CHLORIDE 20MEQ/100ML 100 ML IV PRN ×2 (04:59→06:51)
[2021-06-05] MEDS: METOPROLOL TARTRATE 25 MG TAB PO SCH ×2 (05:40→13:17)
[2021-06-05] MEDS: MIDAZOLAM 100MG-0.9% NS 100ML 100ML BAG IV PRN ×2 (06:11→16:52)
[2021-06-05] MEDS: PANTOPRAZOLE 40 MG/VIAL IVP SCH (09:17)
[2021-06-05] MEDS: POTASSIUM CHLORIDE 10% ELIXIR 20 MEQ/15 ML UDCUP PO PRN (09:17)
[2021-06-05] MEDS: METOCLOPRAMIDE 10 MG/2 ML VIAL IVP SCH ×2 (09:17→19:50)
[2021-06-05] MEDS: ENOXAPARIN SODIUM 30 MG/0.3 ML SQ SCH ×2 (09:18→19:51)
[2021-06-05] MEDS: INSULIN GLARGINE 100 UNITS/ML 10 ML VIAL SQ SCH ×2 (09:37→19:51)
[2021-06-05] MEDS: LACTULOSE 20 GM/30 ML UDCUP PO SCH (09:38)
[2021-06-05] MEDS: POTASSIUM CHLORIDE 10% ELIXIR 20 MEQ/15 ML UDCUP PO SCH (10:55)
[2021-06-05] MEDS ORDERED: KETAMINE 50MG/ML SYRINGE 100 MG in 0.9%NACL 100ML 100 ML IV SCH (11:00)
[2021-06-05] MEDS: KETAMINE 50MG/ML SYRINGE 500 MG in 0.9% NACL 500ML IV.SOLN 500 ML IV SCH (17:19)
[2021-06-05] MEDS: ATORVASTATIN 40 MG TABLET PO SCH (19:50)
[2021-06-06] VITALS (17 sets, daily range): BP systolic 93–155; BP diastolic 45–93
[2021-06-06] MEDS: FENTANYL 2500MCG+NS 250ML 250 ML IVPB SCH ×3 (01:07→19:48)
[2021-06-06] MEDS: CLINDAMYCIN IVPB 600MG/50ML 50 ML IV SCH ×3 (02:12→17:18)
[2021-06-06] MEDS: MIDAZOLAM 100MG-0.9% NS 100ML 100ML BAG IV PRN ×3 (02:12→22:11)
[2021-06-06] MEDS: SOLU-MEDROL 40MG VIAL IVP SCH ×2 (02:12→13:01)
[2021-06-06] MEDS: DEXMEDETOMIDINE 400MCG/NS100ML IV SCH ×6 (02:17→20:11)
[2021-06-06] MEDS: KETAMINE 50MG/ML SYRINGE 500 MG in 0.9% NACL 500ML IV.SOLN 500 ML IV SCH ×3 (04:03→22:11)
[2021-06-06] MEDS: CISATRACURIUM BESYLATE 100 MG in 0.9%NACL 100ML 100 ML IV SCH (04:03)
[2021-06-06] MEDS: FUROSEMIDE 20MG VIAL IV SCH ×2 (04:13→16:51)
[2021-06-06 04:47] LABS: ABG BASE EXCESS 8.5 mmol/L (-2.0-3.0); ABG HCO3 35.6 mmol/L (21.0-28.0); ABG OXYGEN SATURATION 94.9 % (95.0-99.0); ABG PCO2 63 mmHg (32-45)
[2021-06-06 05:17] LABS: BASOPHILS % (AUTO) 0.1 % (0.0-5.0); EOSINOPHILS % (AUTO) 0.2 % (0.0-8.0); MEAN CORPUSCULAR HEMOGLOBIN 27.1 pg (27.0-33.0); MEAN CORPUSCULAR HGB CONC 30.3 g/dL (32.0-36.0); MEAN CORPUSCULAR VOLUME 89.4 fL (79-99); MONOCYTES % (AUTO) 3.8 % (3.0-13.0); PLATELET COUNT (AUTO) 350 K/uL (130-400); RED BLOOD CELL COUNT(AUTO) 4.25 MIL/uL (4.00-5.50); RED CELL DISTRIBUTION WIDTH 17.2 % (11.0-15.5); WHITE BLOOD COUNT (AUTO) 13.6 K/uL (4.8-10.8)
[2021-06-06 05:38] LABS: ALBUMIN 2.5 g/dL (3.5-5.0); BILIRUBIN,TOTAL 0.4 mg/dL (0.2-1.0); CREATININE 0.2 mg/dL (0.5-1.5); CRP QUANTITATIVE 153.6 mg/L (0.00-9.0); MAGNESIUM 2.1 mg/dL (1.80-2.40); POTASSIUM 3.9 mmol/L (3.5-5.1); TOTAL PROTEIN, SERUM 6.7 g/dL (6.0-8.3)
[2021-06-06] MEDS: INSULIN HUMULIN R 100 UNIT/ML 3ML SQ SCH ×8 (06:19→23:35)
[2021-06-06] MEDS: PANTOPRAZOLE 40 MG/VIAL IVP SCH (08:49)
[2021-06-06] MEDS: POTASSIUM CHLORIDE 10% ELIXIR 20 MEQ/15 ML UDCUP PO SCH (08:49)
[2021-06-06] MEDS: METOCLOPRAMIDE 10 MG/2 ML VIAL IVP SCH ×2 (08:49→19:48)
[2021-06-06] MEDS: LACTULOSE 20 GM/30 ML UDCUP PO SCH (08:49)
[2021-06-06] MEDS: ENOXAPARIN SODIUM 30 MG/0.3 ML SQ SCH ×2 (08:56→19:49)
[2021-06-06] MEDS: INSULIN GLARGINE 100 UNITS/ML 10 ML VIAL SQ SCH ×2 (08:58→20:01)
[2021-06-06] MEDS: MIDODRINE HCL 5 MG TABLET PO SCH ×2 (13:29→17:18)
[2021-06-06] MEDS: LABETALOL 20MG VIAL IV PRN (16:50)
[2021-06-06] MEDS: ATORVASTATIN 40 MG TABLET PO SCH (19:49)
[2021-06-07] VITALS (56 sets, daily range): BP systolic 77–173; BP diastolic 46–96
[2021-06-07] MEDS: DEXMEDETOMIDINE 400MCG/NS100ML IV SCH ×7 (00:18→21:09)
[2021-06-07] MEDS: CLINDAMYCIN IVPB 600MG/50ML 50 ML IV SCH ×3 (01:31→17:25)
[2021-06-07] MEDS: KETAMINE 50MG/ML SYRINGE 500 MG in 0.9% NACL 500ML IV.SOLN 500 ML IV SCH ×2 (01:31→14:01)
[2021-06-07] MEDS: SOLU-MEDROL 40MG VIAL IVP SCH ×2 (01:31→12:38)
[2021-06-07] MEDS: MIDODRINE HCL 5 MG TABLET PO SCH ×3 (01:31→16:55)
[2021-06-07] MEDS: FUROSEMIDE 20MG VIAL IV SCH ×2 (04:38→16:51)
[2021-06-07] MEDS: CISATRACURIUM BESYLATE 100 MG in 0.9%NACL 100ML 100 ML IV SCH ×2 (04:40→10:50)
[2021-06-07 05:18] LABS: BASOPHILS % (AUTO) 0.1 % (0.0-5.0); EOSINOPHILS % (AUTO) 0.5 % (0.0-8.0); HEMATOCRIT 36.3 % (36-48); LYMPHOCYTES % (AUTO) 5.7 % (21.0-51.0); MEAN CORPUSCULAR HEMOGLOBIN 27.5 pg (27.0-33.0); MEAN CORPUSCULAR VOLUME 91.4 fL (79-99); MONOCYTES % (AUTO) 3.8 % (3.0-13.0); NEUTROPHILS % (AUTO) 88.5 % (40.0-77.0); PLATELET COUNT (AUTO) 284 K/uL (130-400); RED BLOOD CELL COUNT(AUTO) 3.97 MIL/uL (4.00-5.50); RED CELL DISTRIBUTION WIDTH 17.3 % (11.0-15.5); WHITE BLOOD COUNT (AUTO) 7.9 K/uL (4.8-10.8)
[2021-06-07 05:37] LABS: ALBUMIN 2.5 g/dL (3.5-5.0); BILIRUBIN,TOTAL 0.4 mg/dL (0.2-1.0); CREATININE 0.2 mg/dL (0.5-1.5); CRP QUANTITATIVE 60.6 mg/L (0.00-9.0); MAGNESIUM 1.9 mg/dL (1.80-2.40); TOTAL PROTEIN, SERUM 6.5 g/dL (6.0-8.3)
[2021-06-07] MEDS: INSULIN HUMULIN R 100 UNIT/ML 3ML SQ SCH ×6 (05:51→16:52)
[2021-06-07] MEDS: FENTANYL 2500MCG+NS 250ML 250 ML IVPB SCH (06:05)
[2021-06-07] MEDS: MIDAZOLAM 100MG-0.9% NS 100ML 100ML BAG IV PRN ×2 (06:05→17:26)
[2021-06-07 06:32] LABS: ABG BASE EXCESS 11.2 mmol/L (-2.0-3.0); ABG OXYGEN SATURATION 91.3 % (95.0-99.0); ABG PCO2 56 mmHg (32-45)
[2021-06-07] MEDS: LIDOCAINE 1%-EPI 1:100,000 20 ML VIAL IJ SCH ×2 (07:30→07:51)
[2021-06-07] MEDS ORDERED: ROCURONIUM 10MG/1ML SYR 10 MG/ML ML ONE (07:44)
[2021-06-07] MEDS: LACTULOSE 20 GM/30 ML UDCUP PO SCH (09:00)
[2021-06-07] MEDS: INSULIN GLARGINE 100 UNITS/ML 10 ML VIAL SQ SCH ×2 (09:00→21:08)
[2021-06-07] MEDS: POTASSIUM CHLORIDE 10% ELIXIR 20 MEQ/15 ML UDCUP PO SCH (09:00)
[2021-06-07] MEDS: ENOXAPARIN SODIUM 30 MG/0.3 ML SQ SCH ×2 (09:00→21:00)
[2021-06-07] MEDS: PANTOPRAZOLE 40 MG/VIAL IVP SCH (10:14)
[2021-06-07] MEDS: METOCLOPRAMIDE 10 MG/2 ML VIAL IVP SCH ×2 (10:14→21:08)
[2021-06-07 10:53] LABS: ABG BASE EXCESS 15.8 mmol/L (-2.0-3.0); ABG HCO3 40.1 mmol/L (21.0-28.0); ABG PCO2 48 mmHg (32-45)
[2021-06-07] MEDS: ATORVASTATIN 40 MG TABLET PO SCH (21:08)
[2021-06-08] VITALS (72 sets, daily range): BP systolic 76–196; BP diastolic 48–102
[2021-06-08] MEDS: DEXMEDETOMIDINE 400MCG/NS100ML IV SCH ×6 (01:17→21:00)
[2021-06-08] MEDS: INSULIN HUMULIN R 100 UNIT/ML 3ML SQ SCH ×8 (01:23→17:49)
[2021-06-08] MEDS: SOLU-MEDROL 40MG VIAL IVP SCH ×2 (01:24→14:31)
[2021-06-08] MEDS: CLINDAMYCIN IVPB 600MG/50ML 50 ML IV SCH ×3 (01:24→17:47)
[2021-06-08] MEDS: MIDODRINE HCL 5 MG TABLET PO SCH ×3 (01:24→17:49)
[2021-06-08] MEDS ORDERED: FENTANYL CITRATE PF 0.05 MG/ML 2,500 MCG in 0.9%NACL 100ML 250 ML IVPB SCH (03:30)
[2021-06-08 04:04] LABS: BASOPHILS % (AUTO) 0.1 % (0.0-5.0); EOSINOPHILS % (AUTO) 0.2 % (0.0-8.0); HEMATOCRIT 33.3 % (36-48); MEAN CORPUSCULAR HEMOGLOBIN 27.1 pg (27.0-33.0); MEAN CORPUSCULAR HGB CONC 30.9 g/dL (32.0-36.0); MEAN CORPUSCULAR VOLUME 87.6 fL (79-99); MONOCYTES % (AUTO) 4.1 % (3.0-13.0); NEUTROPHILS % (AUTO) 88.8 % (40.0-77.0); PLATELET COUNT (AUTO) 346 K/uL (130-400); RED CELL DISTRIBUTION WIDTH 17.4 % (11.0-15.5); WHITE BLOOD COUNT (AUTO) 10.6 K/uL (4.8-10.8)
[2021-06-08 04:15] LABS: ALBUMIN 2.4 g/dL (3.5-5.0); BILIRUBIN,TOTAL 0.5 mg/dL (0.2-1.0); CREATININE 0.2 mg/dL (0.5-1.5); TOTAL PROTEIN, SERUM 6.2 g/dL (6.0-8.3)
[2021-06-08] MEDS ORDERED: FENTANYL 2500MCG+NS 250ML 250 ML IV ONE ×2 (04:23→22:42)
[2021-06-08] MEDS ORDERED: MIDAZOLAM 100MG-0.9% NS 100ML 100 ML IV ONE (04:27)
[2021-06-08] MEDS: FUROSEMIDE 20MG VIAL IV SCH ×2 (04:32→16:31)
[2021-06-08] MEDS: POTASSIUM CHLORIDE 20MEQ/100ML 100 ML IV PRN ×2 (06:23→06:24)
[2021-06-08 07:09] LABS: ABG OXYGEN SATURATION 95.1 % (95.0-99.0); ABG PCO2 44 mmHg (32-45)
[2021-06-08] MEDS: METOCLOPRAMIDE 10 MG/2 ML VIAL IVP SCH ×2 (08:30→21:21)
[2021-06-08] MEDS: PANTOPRAZOLE 40 MG/VIAL IVP SCH (08:30)
[2021-06-08] MEDS: POTASSIUM CHLORIDE 10% ELIXIR 20 MEQ/15 ML UDCUP PO SCH (08:31)
[2021-06-08] MEDS: INSULIN GLARGINE 100 UNITS/ML 10 ML VIAL SQ SCH ×2 (08:32→21:25)
[2021-06-08] MEDS: ENOXAPARIN SODIUM 30 MG/0.3 ML SQ SCH ×2 (08:33→21:27)
[2021-06-08] MEDS: LACTULOSE 20 GM/30 ML UDCUP PO SCH (08:33)
[2021-06-08] MEDS: CISATRACURIUM BESYLATE 100 MG in 0.9%NACL 100ML 100 ML IV SCH (08:34)
[2021-06-08] MEDS: KETAMINE 50MG/ML SYRINGE 500 MG in 0.9% NACL 500ML IV.SOLN 500 ML IV SCH (09:59)
[2021-06-08] MEDS ORDERED: MIDAZOLAM 100MG-0.9% NS 100ML 100ML BAG IV SCH (14:30)
[2021-06-08 17:18] LABS: ABG BASE EXCESS 6.7 mmol/L (-2.0-3.0); ABG OXYGEN SATURATION 92.7 % (95.0-99.0); ABG PCO2 49 mmHg (32-45)
[2021-06-08] MEDS: DIAZEPAM 5 MG TABLET PO SCH (17:47)
[2021-06-08] MEDS: METHADONE HCL 10 MG TABLET PO SCH (19:00)
[2021-06-08] MEDS: ATORVASTATIN 40 MG TABLET PO SCH (21:21)
[2021-06-09] VITALS (62 sets, daily range): BP systolic 73–203; BP diastolic 41–107
[2021-06-09] MEDS: DEXMEDETOMIDINE 400MCG/NS100ML IV SCH ×7 (00:15→21:55)
[2021-06-09] MEDS: INSULIN HUMULIN R 100 UNIT/ML 3ML SQ SCH ×8 (00:40→17:47)
[2021-06-09] MEDS: METHADONE HCL 10 MG TABLET PO SCH ×3 (02:12→16:30)
[2021-06-09] MEDS: MIDODRINE HCL 5 MG TABLET PO SCH ×3 (02:13→16:19)
[2021-06-09] MEDS: SOLU-MEDROL 40MG VIAL IVP SCH ×2 (02:13→13:54)
[2021-06-09] MEDS: CLINDAMYCIN IVPB 600MG/50ML 50 ML IV SCH ×3 (02:13→16:30)
[2021-06-09] MEDS: DIAZEPAM 5 MG TABLET PO SCH ×3 (02:13→16:31)
[2021-06-09] MEDS: FUROSEMIDE 20MG VIAL IV SCH ×2 (03:55→16:30)
[2021-06-09 05:50] LABS: BASOPHILS % (AUTO) 0.2 % (0.0-5.0); HEMATOCRIT 38.8 % (36-48); LYMPHOCYTES % (AUTO) 3.6 % (21.0-51.0); MEAN CORPUSCULAR HEMOGLOBIN 27.3 pg (27.0-33.0); MEAN CORPUSCULAR HGB CONC 30.9 g/dL (32.0-36.0); MEAN CORPUSCULAR VOLUME 88.2 fL (79-99); MONOCYTES % (AUTO) 2.8 % (3.0-13.0); NEUTROPHILS % (AUTO) 91.7 % (40.0-77.0); PLATELET COUNT (AUTO) 352 K/uL (130-400); RED CELL DISTRIBUTION WIDTH 17.6 % (11.0-15.5); WHITE BLOOD COUNT (AUTO) 13.7 K/uL (4.8-10.8)
[2021-06-09 06:18] LABS: ALBUMIN 2.6 g/dL (3.5-5.0); BILIRUBIN,TOTAL 0.5 mg/dL (0.2-1.0); CREATININE 0.3 mg/dL (0.5-1.5); MAGNESIUM 1.9 mg/dL (1.80-2.40); POTASSIUM 3.3 mmol/L (3.5-5.1); TOTAL PROTEIN, SERUM 7.2 g/dL (6.0-8.3)
[2021-06-09 06:44] LABS: CRP QUANTITATIVE 300.3 mg/L (0.00-9.0)
[2021-06-09 07:12] LABS: ABG BASE EXCESS 11.3 mmol/L (-2.0-3.0); ABG HCO3 37.2 mmol/L (21.0-28.0); ABG OXYGEN SATURATION 94.7 % (95.0-99.0); ABG PCO2 55 mmHg (32-45)
[2021-06-09] MEDS: LACTULOSE 20 GM/30 ML UDCUP PO SCH (09:00)
[2021-06-09] MEDS: POTASSIUM CHLORIDE 10% ELIXIR 20 MEQ/15 ML UDCUP PO SCH (09:03)
[2021-06-09] MEDS: ENOXAPARIN SODIUM 30 MG/0.3 ML SQ SCH ×2 (09:03→20:13)
[2021-06-09] MEDS: METOCLOPRAMIDE 10 MG/2 ML VIAL IVP SCH ×2 (09:03→20:12)
[2021-06-09] MEDS: INSULIN GLARGINE 100 UNITS/ML 10 ML VIAL SQ SCH ×2 (09:04→20:13)
[2021-06-09] MEDS: PANTOPRAZOLE 40 MG/VIAL IVP SCH (09:05)
[2021-06-09] MEDS: LABETALOL 20MG VIAL IV PRN ×2 (09:26→15:50)
[2021-06-09] MEDS: ARTIFICIAL TEARS 3.5 GM OINTMENT OD SCH ×3 (11:40→20:14)
[2021-06-09] MEDS: KETAMINE 50MG/ML SYRINGE 500 MG in 0.9% NACL 500ML IV.SOLN 500 ML IV SCH (11:45)
[2021-06-09] MEDS: ATORVASTATIN 40 MG TABLET PO SCH (20:12)
[2021-06-10] VITALS (56 sets, daily range): BP systolic 69–152; BP diastolic 42–94
[2021-06-10] MEDS: INSULIN HUMULIN R 100 UNIT/ML 3ML SQ SCH ×10 (01:25→23:53)
[2021-06-10] MEDS: DIAZEPAM 5 MG TABLET PO SCH ×3 (01:26→16:23)
[2021-06-10] MEDS: MIDODRINE HCL 5 MG TABLET PO SCH ×3 (01:27→16:24)
[2021-06-10] MEDS: METHADONE HCL 10 MG TABLET PO SCH ×3 (01:27→16:23)
[2021-06-10] MEDS: SOLU-MEDROL 40MG VIAL IVP SCH ×2 (01:27→13:13)
[2021-06-10] MEDS: CLINDAMYCIN IVPB 600MG/50ML 50 ML IV SCH ×3 (01:35→16:23)
[2021-06-10] MEDS: FUROSEMIDE 20MG VIAL IV SCH ×2 (03:20→16:23)
[2021-06-10] MEDS: DEXMEDETOMIDINE 400MCG/NS100ML IV SCH ×7 (03:20→23:13)
[2021-06-10] MEDS: ARTIFICIAL TEARS 3.5 GM OINTMENT OD SCH ×4 (03:21→20:13)
[2021-06-10 04:37] LABS: BASOPHILS % (AUTO) 0.5 % (0.0-5.0); EOSINOPHILS % (AUTO) 0.7 % (0.0-8.0); HEMATOCRIT 34.1 % (36-48); LYMPHOCYTES % (AUTO) 3.3 % (21.0-51.0); MEAN CORPUSCULAR HEMOGLOBIN 26.8 pg (27.0-33.0); MEAN CORPUSCULAR HGB CONC 30.2 g/dL (32.0-36.0); MEAN CORPUSCULAR VOLUME 88.8 fL (79-99); MONOCYTES % (AUTO) 2.5 % (3.0-13.0); NEUTROPHILS % (AUTO) 92.4 % (40.0-77.0); PLATELET COUNT (AUTO) 325 K/uL (130-400); RED BLOOD CELL COUNT(AUTO) 3.84 MIL/uL (4.00-5.50); RED CELL DISTRIBUTION WIDTH 17.3 % (11.0-15.5); WHITE BLOOD COUNT (AUTO) 14.4 K/uL (4.8-10.8)
[2021-06-10 05:02] LABS: BILIRUBIN,TOTAL 0.6 mg/dL (0.2-1.0); CREATININE 0.2 mg/dL (0.5-1.5); MAGNESIUM 1.7 mg/dL (1.80-2.40); POTASSIUM 3.4 mmol/L (3.5-5.1); THYROID STIMULATING HORMONE 0.28 uIU/mL (0.36-3.74); TOTAL PROTEIN, SERUM 6.3 g/dL (6.0-8.3)
[2021-06-10 05:57] LABS: CRP QUANTITATIVE 517.1 mg/L (0.00-9.0)
[2021-06-10] MEDS: METOPROLOL TARTRATE 25 MG TAB PO SCH ×2 (06:00→09:22)
[2021-06-10] MEDS: ENOXAPARIN SODIUM 30 MG/0.3 ML SQ SCH ×2 (09:10→20:05)
[2021-06-10] MEDS: INSULIN GLARGINE 100 UNITS/ML 10 ML VIAL SQ SCH ×2 (09:11→20:37)
[2021-06-10] MEDS: POTASSIUM CHLORIDE 10% ELIXIR 20 MEQ/15 ML UDCUP PO SCH (09:12)
[2021-06-10] MEDS: METOCLOPRAMIDE 10 MG/2 ML VIAL IVP SCH ×2 (09:13→20:06)
[2021-06-10] MEDS: LACTULOSE 20 GM/30 ML UDCUP PO SCH (09:13)
[2021-06-10] MEDS: PANTOPRAZOLE 40 MG/VIAL IVP SCH (09:13)
[2021-06-10] MEDS: ATORVASTATIN 40 MG TABLET PO SCH (20:05)
[2021-06-10] MEDS: FENTANYL 2500MCG+NS 250ML 250 ML IV SCH (20:13)
[2021-06-11] VITALS (64 sets, daily range): BP systolic 74–157; BP diastolic 39–89
[2021-06-11] MEDS: MIDODRINE HCL 5 MG TABLET PO SCH ×3 (00:22→17:01)
[2021-06-11] MEDS: SOLU-MEDROL 40MG VIAL IVP SCH ×2 (00:22→12:56)
[2021-06-11] MEDS: CLINDAMYCIN IVPB 600MG/50ML 50 ML IV SCH (00:22)
[2021-06-11] MEDS: DIAZEPAM 5 MG TABLET PO SCH ×3 (00:27→17:02)
[2021-06-11] MEDS: METHADONE HCL 10 MG TABLET PO SCH ×3 (00:27→17:01)
[2021-06-11] MEDS: FUROSEMIDE 20MG VIAL IV SCH (04:00)
[2021-06-11] MEDS: ARTIFICIAL TEARS 3.5 GM OINTMENT OD SCH ×4 (04:51→21:18)
[2021-06-11] MEDS: INSULIN HUMULIN R 100 UNIT/ML 3ML SQ SCH ×8 (04:51→23:40)
[2021-06-11] MEDS: METOPROLOL TARTRATE 25 MG TAB PO SCH (04:51)
[2021-06-11] MEDS ORDERED: 0.9% NACL 500ML IV.SOLN 500 ML IV ONE ×2 (05:00→05:09)
[2021-06-11 05:23] LABS: HEMATOCRIT 31.8 % (36-48); MEAN CORPUSCULAR HGB CONC 29.2 g/dL (32.0-36.0); MEAN CORPUSCULAR VOLUME 92.4 fL (79-99); RED BLOOD CELL COUNT(AUTO) 3.44 MIL/uL (4.00-5.50); RED CELL DISTRIBUTION WIDTH 17.2 % (11.0-15.5); WHITE BLOOD COUNT (AUTO) 24.2 K/uL (4.8-10.8)
[2021-06-11 05:55] LABS: ALBUMIN 1.8 g/dL (3.5-5.0); BILIRUBIN,TOTAL 0.8 mg/dL (0.2-1.0); CREATININE 0.4 mg/dL (0.5-1.5); MAGNESIUM 1.8 mg/dL (1.80-2.40); PHOSPHORUS 4.5 mg/dL (2.5-4.9); POTASSIUM 3.9 mmol/L (3.5-5.1); TOTAL PROTEIN, SERUM 6.8 g/dL (6.0-8.3)
[2021-06-11] MEDS: DEXMEDETOMIDINE 400MCG/NS100ML IV SCH ×5 (06:59→21:34)
[2021-06-11] MEDS: ENOXAPARIN SODIUM 30 MG/0.3 ML SQ SCH ×2 (09:07→21:18)
[2021-06-11] MEDS: PANTOPRAZOLE 40 MG/VIAL IVP SCH (09:07)
[2021-06-11] MEDS: LACTULOSE 20 GM/30 ML UDCUP PO SCH (09:08)
[2021-06-11] MEDS: METOCLOPRAMIDE 10 MG/2 ML VIAL IVP SCH ×2 (09:08→20:43)
[2021-06-11] MEDS: POTASSIUM CHLORIDE 10% ELIXIR 20 MEQ/15 ML UDCUP PO SCH (09:08)
[2021-06-11 09:41] LABS: ABG BASE EXCESS 9.5 mmol/L (-2.0-3.0); ABG HCO3 40.1 mmol/L (21.0-28.0); ABG OXYGEN SATURATION 91.2 % (95.0-99.0); ABG PCO2 102 mmHg (32-45)
[2021-06-11] MEDS: INSULIN GLARGINE 100 UNITS/ML 10 ML VIAL SQ SCH ×2 (09:41→21:38)
[2021-06-11] MEDS ORDERED: SOLU-MEDROL 40MG VIAL IVP SCH (10:00)
[2021-06-11 11:35] LABS: ABG BASE EXCESS 7.8 mmol/L (-2.0-3.0); ABG HCO3 38.6 mmol/L (21.0-28.0); ABG PCO2 87 mmHg (32-45)
[2021-06-11] MEDS ORDERED: ZOSYN 3.375GM+NS 50ML 3.38 GM in 0.9%NACL 50ML 50 ML IV SCH (12:00)
[2021-06-11] MEDS ORDERED: VANCOMYCIN PROTOCOL PER PHARMACY IV SCH (12:00)
[2021-06-11] MEDS ORDERED: COMPOUND IV REFRIGERATED 1 EACH IVSOLN MISC PRN (12:30)
[2021-06-11] MEDS: ZOSYN 3.375GM+NS 50ML 50 ML IV SCH ×2 (12:55→20:43)
[2021-06-11] MEDS: MEROPENEM 1 GM VIAL IVP SCH ×2 (12:55→20:43)
[2021-06-11] MEDS: VANCOMYCIN 1.25GM/NS 250ML IVPB SCH ×2 (14:38)
[2021-06-11] MEDS: FUROSEMIDE 40MG VIAL IV SCH (17:01)
[2021-06-11] MEDS: ATORVASTATIN 40 MG TABLET PO SCH (20:43)
[2021-06-11] MEDS: KETAMINE 50MG/ML SYRINGE 500 MG in 0.9% NACL 500ML IV.SOLN 500 ML IV SCH (20:43)
[2021-06-11] MEDS: NOREPINEPHRINE 16MG/NS 250ML 250 ML IV SCH (20:55)
[2021-06-12] VITALS (61 sets, daily range): BP systolic 113–169; BP diastolic 52–98
[2021-06-12] MEDS: VANCOMYCIN 1.25GM/NS 250ML IVPB SCH ×2 (01:21)
[2021-06-12] MEDS: SOLU-MEDROL 40MG VIAL IVP SCH ×2 (01:22→13:18)
[2021-06-12] MEDS: METHADONE HCL 10 MG TABLET PO SCH ×3 (01:22→16:53)
[2021-06-12] MEDS: DIAZEPAM 5 MG TABLET PO SCH ×3 (01:22→16:53)
[2021-06-12] MEDS: MIDODRINE HCL 5 MG TABLET PO SCH ×3 (01:22→17:41)
[2021-06-12] MEDS: ARTIFICIAL TEARS 3.5 GM OINTMENT OD SCH ×4 (03:05→20:23)
[2021-06-12] MEDS: MEROPENEM 1 GM VIAL IVP SCH ×3 (03:27→20:20)
[2021-06-12] MEDS: ZOSYN 3.375GM+NS 50ML 50 ML IV SCH (03:28)
[2021-06-12] MEDS: FUROSEMIDE 40MG VIAL IV SCH ×2 (03:28→16:52)
[2021-06-12] MEDS: INSULIN HUMULIN R 100 UNIT/ML 3ML SQ SCH ×6 (04:46→17:55)
[2021-06-12] MEDS: METOPROLOL TARTRATE 25 MG TAB PO SCH (04:58)
[2021-06-12] MEDS: DEXMEDETOMIDINE 400MCG/NS100ML IV SCH ×4 (05:16→22:41)
[2021-06-12] MEDS: FENTANYL 2500MCG+NS 250ML 250 ML IV SCH (05:16)
[2021-06-12 05:33] LABS: HEMATOCRIT 34.3 % (36-48); MEAN CORPUSCULAR HEMOGLOBIN 26.8 pg (27.0-33.0); MEAN CORPUSCULAR HGB CONC 28.3 g/dL (32.0-36.0); MEAN CORPUSCULAR VOLUME 94.8 fL (79-99); NUCLEATED RED BLOOD CELLS 0.2 % (0.0-0.19); RED BLOOD CELL COUNT(AUTO) 3.62 MIL/uL (4.00-5.50); RED CELL DISTRIBUTION WIDTH 16.8 % (11.0-15.5); WHITE BLOOD COUNT (AUTO) 8.4 K/uL (4.8-10.8)
[2021-06-12 06:12] LABS: ALBUMIN 1.8 g/dL (3.5-5.0); BILIRUBIN,TOTAL 0.6 mg/dL (0.2-1.0); CREATININE 0.4 mg/dL (0.5-1.5); MAGNESIUM 1.8 mg/dL (1.80-2.40); TOTAL PROTEIN, SERUM 7.6 g/dL (6.0-8.3)
[2021-06-12 06:27] LABS: CRP QUANTITATIVE 676.4 mg/L (0.00-9.0)
[2021-06-12 07:11] LABS: ABG BASE EXCESS 23.2 mmol/L (-2.0-3.0); ABG HCO3 54.6 mmol/L (21.0-28.0); ABG OXYGEN SATURATION 95.1 % (95.0-99.0); ABG PCO2 117 mmHg (32-45)
[2021-06-12] MEDS: LACTULOSE 20 GM/30 ML UDCUP PO SCH (09:00)
[2021-06-12] MEDS: POTASSIUM CHLORIDE 20MEQ/100ML 100 ML IV PRN (10:25)
[2021-06-12] MEDS: METOLAZONE 2.5 MG TABLET PO SCH (10:26)
[2021-06-12] MEDS: POTASSIUM CHLORIDE 10% ELIXIR 20 MEQ/15 ML UDCUP PO SCH (10:26)
[2021-06-12] MEDS: PANTOPRAZOLE 40 MG/VIAL IVP SCH (10:26)
[2021-06-12] MEDS: METOCLOPRAMIDE 10 MG/2 ML VIAL IVP SCH ×2 (10:26→20:23)
[2021-06-12] MEDS: INSULIN GLARGINE 100 UNITS/ML 10 ML VIAL SQ SCH ×2 (10:28→20:21)
[2021-06-12] MEDS: POTASSIUM CHLORIDE 10% ELIXIR 20 MEQ/15 ML UDCUP PO PRN ×3 (16:51→23:19)
[2021-06-12] MEDS: MAGNESIUM 2GM PREMIX 50ML 50 ML IV PRN (16:52)
[2021-06-12 20:08] LABS: ABG BASE EXCESS 25.9 mmol/L (-2.0-3.0); ABG HCO3 51.7 mmol/L (21.0-28.0); ABG OXYGEN SATURATION 90.7 % (95.0-99.0); ABG PCO2 59 mmHg (32-45)
[2021-06-12] MEDS: ENOXAPARIN SODIUM 40 MG/0.4 ML SYRINGE SQ SCH (20:20)
[2021-06-12] MEDS: ATORVASTATIN 40 MG TABLET PO SCH (20:23)
[2021-06-12] MEDS ORDERED: ENOXAPARIN SODIUM 0.5 MG/KG EACH SQ SCH (21:00)
[2021-06-13] VITALS (89 sets, daily range): BP systolic 54–179; BP diastolic 31–110
[2021-06-13] MEDS: SOLU-MEDROL 40MG VIAL IVP SCH ×2 (01:44→13:32)
[2021-06-13] MEDS: DIAZEPAM 5 MG TABLET PO SCH ×3 (01:44→17:29)
[2021-06-13] MEDS: METHADONE HCL 10 MG TABLET PO SCH ×2 (01:44→08:43)
[2021-06-13] MEDS: MIDODRINE HCL 5 MG TABLET PO SCH ×5 (01:44→17:28)
[2021-06-13] MEDS: FENTANYL 2500MCG+NS 250ML 250 ML IV SCH (03:20)
[2021-06-13] MEDS: DEXMEDETOMIDINE 400MCG/NS100ML IV SCH ×4 (03:20→13:32)
[2021-06-13] MEDS: FUROSEMIDE 40MG VIAL IV SCH ×2 (03:21→17:28)
[2021-06-13] MEDS: ARTIFICIAL TEARS 3.5 GM OINTMENT OD SCH ×4 (03:21→20:49)
[2021-06-13 04:15] LABS: ABG HCO3 44.6 mmol/L (21.0-28.0); ABG OXYGEN SATURATION 87.6 % (95.0-99.0); ABG PCO2 46 mmHg (32-45)
[2021-06-13 04:50] LABS: BASOPHILS % (AUTO) 0.6 % (0.0-5.0); EOSINOPHILS % (AUTO) 0.3 % (0.0-8.0); HEMATOCRIT 34.1 % (36-48); LYMPHOCYTES % (AUTO) 9.5 % (21.0-51.0); MEAN CORPUSCULAR HEMOGLOBIN 26.7 pg (27.0-33.0); MEAN CORPUSCULAR HGB CONC 29.3 g/dL (32.0-36.0); MEAN CORPUSCULAR VOLUME 91.2 fL (79-99); MONOCYTES % (AUTO) 3.5 % (3.0-13.0); NEUTROPHILS % (AUTO) 84.1 % (40.0-77.0); PLATELET COUNT (AUTO) 344 K/uL (130-400); RED BLOOD CELL COUNT(AUTO) 3.74 MIL/uL (4.00-5.50); WHITE BLOOD COUNT (AUTO) 11.7 K/uL (4.8-10.8)
[2021-06-13] MEDS: METOPROLOL TARTRATE 25 MG TAB PO SCH (04:58)
[2021-06-13 05:23] LABS: BILIRUBIN,TOTAL 0.9 mg/dL (0.2-1.0); CREATININE 0.4 mg/dL (0.5-1.5); MAGNESIUM 2.3 mg/dL (1.80-2.40); POTASSIUM 4.4 mmol/L (3.5-5.1)
[2021-06-13] MEDS: MEROPENEM 1 GM VIAL IVP SCH ×3 (05:33→20:25)
[2021-06-13] MEDS: INSULIN HUMULIN R 100 UNIT/ML 3ML SQ SCH ×8 (06:34→18:25)
[2021-06-13 07:11] LABS: ABG BASE EXCESS 20.6 mmol/L (-2.0-3.0); ABG HCO3 45.9 mmol/L (21.0-28.0); ABG OXYGEN SATURATION 93.5 % (95.0-99.0); ABG PCO2 55 mmHg (32-45)
[2021-06-13] MEDS: METOLAZONE 2.5 MG TABLET PO SCH (08:42)
[2021-06-13] MEDS: METOCLOPRAMIDE 10 MG/2 ML VIAL IVP SCH ×2 (08:42→20:25)
[2021-06-13] MEDS: PANTOPRAZOLE 40 MG/VIAL IVP SCH (08:42)
[2021-06-13] MEDS: LACTULOSE 20 GM/30 ML UDCUP PO SCH (08:44)
[2021-06-13] MEDS: INSULIN GLARGINE 100 UNITS/ML 10 ML VIAL SQ SCH ×2 (08:44→20:26)
[2021-06-13] MEDS: POTASSIUM CHLORIDE 10% ELIXIR 20 MEQ/15 ML UDCUP PO SCH (08:44)
[2021-06-13] MEDS: ENOXAPARIN SODIUM 40 MG/0.4 ML SYRINGE SQ SCH ×2 (08:45→20:25)
[2021-06-13] MEDS: ATORVASTATIN 40 MG TABLET PO SCH (20:25)
[2021-06-14] VITALS (94 sets, daily range): BP systolic 109–152; BP diastolic 61–111
[2021-06-14] MEDS: MIDODRINE HCL 5 MG TABLET PO SCH ×3 (02:00→17:32)
[2021-06-14] MEDS: INSULIN HUMULIN R 100 UNIT/ML 3ML SQ SCH ×10 (02:06→23:59)
[2021-06-14] MEDS: SOLU-MEDROL 40MG VIAL IVP SCH ×2 (02:39→14:02)
[2021-06-14] MEDS: DIAZEPAM 5 MG TABLET PO SCH ×3 (02:39→17:32)
[2021-06-14] MEDS: FUROSEMIDE 40MG VIAL IV SCH (02:40)
[2021-06-14] MEDS: FENTANYL 2500MCG+NS 250ML 250 ML IV SCH ×2 (03:43→09:31)
[2021-06-14] MEDS: ARTIFICIAL TEARS 3.5 GM OINTMENT OD SCH ×4 (03:59→23:31)
[2021-06-14 04:08] LABS: BASOPHILS % (AUTO) 0.7 % (0.0-5.0); EOSINOPHILS % (AUTO) 0.4 % (0.0-8.0); HEMATOCRIT 34.5 % (36-48); LYMPHOCYTES % (AUTO) 8.4 % (21.0-51.0); MEAN CORPUSCULAR HEMOGLOBIN 26.9 pg (27.0-33.0); MEAN CORPUSCULAR HGB CONC 31.6 g/dL (32.0-36.0); MEAN CORPUSCULAR VOLUME 85.2 fL (79-99); MONOCYTES % (AUTO) 2.3 % (3.0-13.0); NEUTROPHILS % (AUTO) 85.4 % (40.0-77.0); NUCLEATED RED BLOOD CELLS 0.2 % (0.0-0.19); PLATELET COUNT (AUTO) 456 K/uL (130-400); RED BLOOD CELL COUNT(AUTO) 4.05 MIL/uL (4.00-5.50); RED CELL DISTRIBUTION WIDTH 16.6 % (11.0-15.5); WHITE BLOOD COUNT (AUTO) 16.6 K/uL (4.8-10.8)
[2021-06-14 04:25] LABS: ALBUMIN 2.1 g/dL (3.5-5.0); BILIRUBIN,TOTAL 0.7 mg/dL (0.2-1.0); CREATININE 0.6 mg/dL (0.5-1.5); POTASSIUM 3.8 mmol/L (3.5-5.1); TOTAL PROTEIN, SERUM 8.2 g/dL (6.0-8.3)
[2021-06-14] MEDS: MEROPENEM 1 GM VIAL IVP SCH ×3 (04:36→19:59)
[2021-06-14] MEDS: METOPROLOL TARTRATE 25 MG TAB PO SCH ×2 (06:36→20:02)
[2021-06-14] MEDS: INSULIN GLARGINE 100 UNITS/ML 10 ML VIAL SQ SCH ×2 (09:33→20:05)
[2021-06-14] MEDS: PANTOPRAZOLE 40 MG/VIAL IVP SCH (09:34)
[2021-06-14] MEDS: POTASSIUM CHLORIDE 10% ELIXIR 20 MEQ/15 ML UDCUP PO SCH (09:34)
[2021-06-14] MEDS: METOCLOPRAMIDE 10 MG/2 ML VIAL IVP SCH ×2 (09:34→20:02)
[2021-06-14] MEDS: METOLAZONE 2.5 MG TABLET PO SCH (09:34)
[2021-06-14] MEDS: LACTULOSE 20 GM/30 ML UDCUP PO SCH (09:35)
[2021-06-14] MEDS: ENOXAPARIN SODIUM 40 MG/0.4 ML SYRINGE SQ SCH ×2 (09:35→20:06)
[2021-06-14] MEDS: ACETAMINOPHEN 650 MG/20.3 ML UDCUP PEG PRN (20:01)
[2021-06-14] MEDS: ATORVASTATIN 40 MG TABLET PO SCH (20:02)
[2021-06-15] VITALS (75 sets, daily range): BP systolic 95–175; BP diastolic 48–102
[2021-06-15] MEDS: DIAZEPAM 5 MG TABLET PO SCH ×3 (00:29→18:07)
[2021-06-15] MEDS: SOLU-MEDROL 40MG VIAL IVP SCH ×2 (03:05→14:19)
[2021-06-15] MEDS: MEROPENEM 1 GM VIAL IVP SCH ×3 (04:56→20:27)
[2021-06-15] MEDS: ARTIFICIAL TEARS 3.5 GM OINTMENT OD SCH ×4 (04:57→21:10)
[2021-06-15] MEDS: MIDODRINE HCL 5 MG TABLET PO SCH ×3 (05:00→18:00)
[2021-06-15 05:01] LABS: BASOPHILS % (AUTO) 0.6 % (0.0-5.0); EOSINOPHILS % (AUTO) 0.5 % (0.0-8.0); HEMATOCRIT 34.4 % (36-48); MEAN CORPUSCULAR HEMOGLOBIN 26.8 pg (27.0-33.0); MEAN CORPUSCULAR HGB CONC 30.8 g/dL (32.0-36.0); MEAN CORPUSCULAR VOLUME 86.9 fL (79-99); MONOCYTES % (AUTO) 2.1 % (3.0-13.0); NUCLEATED RED BLOOD CELLS 0.8 % (0.0-0.19); PLATELET COUNT (AUTO) 433 K/uL (130-400); RED BLOOD CELL COUNT(AUTO) 3.96 MIL/uL (4.00-5.50); RED CELL DISTRIBUTION WIDTH 16.9 % (11.0-15.5); WHITE BLOOD COUNT (AUTO) 19.7 K/uL (4.8-10.8)
[2021-06-15] MEDS: INSULIN HUMULIN R 100 UNIT/ML 3ML SQ SCH ×6 (05:44→18:09)
[2021-06-15 06:39] LABS: ALBUMIN 2.2 g/dL (3.5-5.0); BILIRUBIN,TOTAL 0.5 mg/dL (0.2-1.0); CREATININE 0.7 mg/dL (0.5-1.5); CRP QUANTITATIVE 156.3 mg/L (0.00-9.0); POTASSIUM 4.2 mmol/L (3.5-5.1)
[2021-06-15] MEDS: ENOXAPARIN SODIUM 40 MG/0.4 ML SYRINGE SQ SCH ×2 (08:37→20:29)
[2021-06-15] MEDS: POTASSIUM CHLORIDE 10% ELIXIR 20 MEQ/15 ML UDCUP PO SCH (08:38)
[2021-06-15] MEDS: METOPROLOL TARTRATE 25 MG TAB PO SCH ×2 (08:38→20:28)
[2021-06-15] MEDS: PANTOPRAZOLE 40 MG/VIAL IVP SCH (08:38)
[2021-06-15] MEDS: METOCLOPRAMIDE 10 MG/2 ML VIAL IVP SCH ×2 (08:39→20:27)
[2021-06-15] MEDS: INSULIN GLARGINE 100 UNITS/ML 10 ML VIAL SQ SCH ×2 (08:40→20:24)
[2021-06-15] MEDS: LACTULOSE 20 GM/30 ML UDCUP PO SCH (08:42)
[2021-06-15] MEDS: ATORVASTATIN 40 MG TABLET PO SCH (20:27)
[2021-06-16] VITALS (42 sets, daily range): BP systolic 84–153; BP diastolic 55–105
[2021-06-16] MEDS ORDERED: ALTEPLASE 2MG VIAL 2 MG/VIAL VIAL IVCATH ONE
[2021-06-16] MEDS: ACETAMINOPHEN 650 MG/20.3 ML UDCUP PEG PRN (00:05)
[2021-06-16] MEDS: INSULIN HUMULIN R 100 UNIT/ML 3ML SQ SCH ×8 (00:09→17:25)
[2021-06-16] MEDS: SOLU-MEDROL 40MG VIAL IVP SCH ×2 (01:38→13:10)
[2021-06-16] MEDS: DIAZEPAM 5 MG TABLET PO SCH ×3 (01:38→17:24)
[2021-06-16] MEDS: MIDODRINE HCL 5 MG TABLET PO SCH ×3 (01:38→16:42)
[2021-06-16 04:06] LABS: BASOPHILS % (AUTO) 0.3 % (0.0-5.0); EOSINOPHILS % (AUTO) 0.7 % (0.0-8.0); HEMATOCRIT 34.7 % (36-48); LYMPHOCYTES % (AUTO) 8.6 % (21.0-51.0); MEAN CORPUSCULAR HEMOGLOBIN 26.8 pg (27.0-33.0); MEAN CORPUSCULAR HGB CONC 31.4 g/dL (32.0-36.0); MEAN CORPUSCULAR VOLUME 85.5 fL (79-99); MONOCYTES % (AUTO) 2.3 % (3.0-13.0); NEUTROPHILS % (AUTO) 83.3 % (40.0-77.0); NUCLEATED RED BLOOD CELLS 0.4 % (0.0-0.19); PLATELET COUNT (AUTO) 495 K/uL (130-400); RED BLOOD CELL COUNT(AUTO) 4.06 MIL/uL (4.00-5.50); RED CELL DISTRIBUTION WIDTH 17.4 % (11.0-15.5); WHITE BLOOD COUNT (AUTO) 18.2 K/uL (4.8-10.8)
[2021-06-16 04:32] LABS: ALBUMIN 2.4 g/dL (3.5-5.0); BILIRUBIN,TOTAL 0.6 mg/dL (0.2-1.0); CREATININE 0.5 mg/dL (0.5-1.5); CRP QUANTITATIVE 63.6 mg/L (0.00-9.0); POTASSIUM 3.7 mmol/L (3.5-5.1); TOTAL PROTEIN, SERUM 8.2 g/dL (6.0-8.3)
[2021-06-16] MEDS: MEROPENEM 1 GM VIAL IVP SCH ×3 (04:46→21:00)
[2021-06-16] MEDS: ARTIFICIAL TEARS 3.5 GM OINTMENT OD SCH ×4 (04:46→20:50)
[2021-06-16] MEDS: LACTULOSE 20 GM/30 ML UDCUP PO SCH (09:00)
[2021-06-16] MEDS: INSULIN GLARGINE 100 UNITS/ML 10 ML VIAL SQ SCH ×2 (09:36→21:04)
[2021-06-16] MEDS: ENOXAPARIN SODIUM 40 MG/0.4 ML SYRINGE SQ SCH ×2 (09:37→21:01)
[2021-06-16] MEDS: METOPROLOL TARTRATE 25 MG TAB PO SCH ×2 (09:37→21:00)
[2021-06-16] MEDS: POTASSIUM CHLORIDE 10% ELIXIR 20 MEQ/15 ML UDCUP PO SCH (09:39)
[2021-06-16] MEDS: PANTOPRAZOLE 40 MG/VIAL IVP SCH (09:39)
[2021-06-16] MEDS: METOCLOPRAMIDE 10 MG/2 ML VIAL IVP SCH ×2 (09:41→21:00)
[2021-06-16] MEDS: ATORVASTATIN 40 MG TABLET PO SCH (21:00)
[2021-06-17] VITALS (41 sets, daily range): BP systolic 97–134; BP diastolic 22–93
[2021-06-17] MEDS: INSULIN HUMULIN R 100 UNIT/ML 3ML SQ SCH ×10 (00:32→23:57)
[2021-06-17] MEDS: SOLU-MEDROL 40MG VIAL IVP SCH ×2 (00:55→15:14)
[2021-06-17] MEDS: DIAZEPAM 5 MG TABLET PO SCH ×3 (00:55→17:28)
[2021-06-17] MEDS: MIDODRINE HCL 5 MG TABLET PO SCH ×3 (00:55→17:27)
[2021-06-17] MEDS: ARTIFICIAL TEARS 3.5 GM OINTMENT OD SCH ×4 (04:56→21:23)
[2021-06-17] MEDS: MEROPENEM 1 GM VIAL IVP SCH ×3 (05:14→21:22)
[2021-06-17 05:26] LABS: BASOPHILS % (AUTO) 0.3 % (0.0-5.0); EOSINOPHILS % (AUTO) 1.5 % (0.0-8.0); HEMATOCRIT 34.9 % (36-48); MEAN CORPUSCULAR HEMOGLOBIN 27.3 pg (27.0-33.0); MEAN CORPUSCULAR HGB CONC 31.5 g/dL (32.0-36.0); MEAN CORPUSCULAR VOLUME 86.6 fL (79-99); MONOCYTES % (AUTO) 2.5 % (3.0-13.0); NUCLEATED RED BLOOD CELLS 0.2 % (0.0-0.19); PLATELET COUNT (AUTO) 465 K/uL (130-400); RED BLOOD CELL COUNT(AUTO) 4.03 MIL/uL (4.00-5.50); RED CELL DISTRIBUTION WIDTH 17.2 % (11.0-15.5); WHITE BLOOD COUNT (AUTO) 20.3 K/uL (4.8-10.8)
[2021-06-17 06:06] LABS: ALBUMIN 2.6 g/dL (3.5-5.0); BILIRUBIN,TOTAL 0.5 mg/dL (0.2-1.0); CREATININE 0.4 mg/dL (0.5-1.5); CRP QUANTITATIVE 26.2 mg/L (0.00-9.0); POTASSIUM 3.6 mmol/L (3.5-5.1); TOTAL PROTEIN, SERUM 7.9 g/dL (6.0-8.3)
[2021-06-17] MEDS ORDERED: IOHEXOL 350 MG/ML 100ML INFUS..BTL IV ONE (06:57)
[2021-06-17] MEDS: LACTULOSE 20 GM/30 ML UDCUP PO SCH (07:58)
[2021-06-17] MEDS: METOCLOPRAMIDE 10 MG/2 ML VIAL IVP SCH ×2 (07:59→21:00)
[2021-06-17] MEDS: METOPROLOL TARTRATE 25 MG TAB PO SCH ×2 (09:00→21:23)
[2021-06-17] MEDS: INSULIN GLARGINE 100 UNITS/ML 10 ML VIAL SQ SCH ×2 (09:00→21:00)
[2021-06-17] MEDS: PANTOPRAZOLE 40 MG/VIAL IVP SCH (10:24)
[2021-06-17] MEDS: ENOXAPARIN SODIUM 40 MG/0.4 ML SYRINGE SQ SCH ×2 (10:29→21:23)
[2021-06-17] MEDS: POTASSIUM CHLORIDE 10% ELIXIR 20 MEQ/15 ML UDCUP PO SCH (10:33)
[2021-06-17] MEDS ORDERED: METOPROLOL TARTRATE 25 MG TAB PO SCH (11:00)
[2021-06-17] MEDS: ASPIRIN 81MG CHEW TAB PO SCH (15:14)
[2021-06-17] MEDS: ATORVASTATIN 40 MG TABLET PO SCH (21:22)
[2021-06-18] VITALS (34 sets, daily range): BP systolic 67–129; BP diastolic 48–71
[2021-06-18] MEDS: DIAZEPAM 5 MG TABLET PO SCH ×3 (01:38→17:06)
[2021-06-18] MEDS: SOLU-MEDROL 40MG VIAL IVP SCH ×2 (01:38→13:19)
[2021-06-18] MEDS: MIDODRINE HCL 5 MG TABLET PO SCH ×3 (01:38→17:07)
[2021-06-18 04:18] LABS: BASOPHILS % (AUTO) 0.3 % (0.0-5.0); EOSINOPHILS % (AUTO) 0.5 % (0.0-8.0); HEMATOCRIT 32.8 % (36-48); LYMPHOCYTES % (AUTO) 4.3 % (21.0-51.0); MEAN CORPUSCULAR HEMOGLOBIN 27.2 pg (27.0-33.0); MEAN CORPUSCULAR HGB CONC 31.7 g/dL (32.0-36.0); MEAN CORPUSCULAR VOLUME 85.9 fL (79-99); MONOCYTES % (AUTO) 1.6 % (3.0-13.0); NEUTROPHILS % (AUTO) 90.7 % (40.0-77.0); NUCLEATED RED BLOOD CELLS 0.2 % (0.0-0.19); PLATELET COUNT (AUTO) 484 K/uL (130-400); RED BLOOD CELL COUNT(AUTO) 3.82 MIL/uL (4.00-5.50); RED CELL DISTRIBUTION WIDTH 17.6 % (11.0-15.5); WHITE BLOOD COUNT (AUTO) 19.8 K/uL (4.8-10.8)
[2021-06-18 04:37] LABS: ALBUMIN 2.5 g/dL (3.5-5.0); BILIRUBIN,TOTAL 0.7 mg/dL (0.2-1.0); CREATININE 0.4 mg/dL (0.5-1.5); CRP QUANTITATIVE 49.5 mg/L (0.00-9.0); POTASSIUM 3.9 mmol/L (3.5-5.1); TOTAL PROTEIN, SERUM 7.6 g/dL (6.0-8.3)
[2021-06-18] MEDS: ARTIFICIAL TEARS 3.5 GM OINTMENT OD SCH ×4 (04:56→20:20)
[2021-06-18] MEDS: MEROPENEM 1 GM VIAL IVP SCH ×3 (05:17→20:19)
[2021-06-18] MEDS: INSULIN HUMULIN R 100 UNIT/ML 3ML SQ SCH ×6 (05:18→17:23)
[2021-06-18] MEDS ORDERED: 0.9%NACL 1000ML 1,000 ML IV ONE (07:24)
[2021-06-18] MEDS: METOCLOPRAMIDE 10 MG/2 ML VIAL IVP SCH ×2 (08:02→20:12)
[2021-06-18] MEDS: METOPROLOL TARTRATE 25 MG TAB PO SCH ×3 (08:03→22:47)
[2021-06-18] MEDS: ENOXAPARIN SODIUM 40 MG/0.4 ML SYRINGE SQ SCH ×2 (08:45→20:20)
[2021-06-18] MEDS: ASPIRIN 81MG CHEW TAB PO SCH (08:47)
[2021-06-18] MEDS: POTASSIUM CHLORIDE 10% ELIXIR 20 MEQ/15 ML UDCUP PO SCH (09:04)
[2021-06-18] MEDS: PANTOPRAZOLE 40 MG/VIAL IVP SCH (09:04)
[2021-06-18] MEDS: INSULIN GLARGINE 100 UNITS/ML 10 ML VIAL SQ SCH ×2 (09:08→20:19)
[2021-06-18] MEDS: LACTULOSE 20 GM/30 ML UDCUP PO SCH (09:48)
[2021-06-18] MEDS: HONEY 1 APPL/ML TUBE TP SCH (20:20)
[2021-06-19] VITALS (41 sets, daily range): BP systolic 93–158; BP diastolic 55–88
[2021-06-19] MEDS ORDERED: ACETAMINOPHEN 325 MG/10.15ML UDCUP ONE (00:06)
[2021-06-19] MEDS: INSULIN HUMULIN R 100 UNIT/ML 3ML SQ SCH ×9 (00:07→23:50)
[2021-06-19] MEDS: DIAZEPAM 5 MG TABLET PO SCH ×2 (00:08→17:30)
[2021-06-19] MEDS: MIDODRINE HCL 5 MG TABLET PO SCH ×2 (01:32→10:00)
[2021-06-19] MEDS: SOLU-MEDROL 40MG VIAL IVP SCH ×2 (02:08→21:31)
[2021-06-19] MEDS: ARTIFICIAL TEARS 3.5 GM OINTMENT OD SCH ×4 (04:11→21:25)
[2021-06-19 04:15] LABS: BASOPHILS % (AUTO) 0.2 % (0.0-5.0); EOSINOPHILS % (AUTO) 1.4 % (0.0-8.0); HEMATOCRIT 30.7 % (36-48); LYMPHOCYTES % (AUTO) 5.5 % (21.0-51.0); MEAN CORPUSCULAR HEMOGLOBIN 26.8 pg (27.0-33.0); MEAN CORPUSCULAR HGB CONC 30.9 g/dL (32.0-36.0); MEAN CORPUSCULAR VOLUME 86.5 fL (79-99); MONOCYTES % (AUTO) 2.5 % (3.0-13.0); NEUTROPHILS % (AUTO) 88.7 % (40.0-77.0); PLATELET COUNT (AUTO) 451 K/uL (130-400); RED BLOOD CELL COUNT(AUTO) 3.55 MIL/uL (4.00-5.50); RED CELL DISTRIBUTION WIDTH 17.7 % (11.0-15.5); WHITE BLOOD COUNT (AUTO) 16.1 K/uL (4.8-10.8)
[2021-06-19] MEDS: MEROPENEM 1 GM VIAL IVP SCH ×3 (04:36→21:31)
[2021-06-19 04:38] LABS: ALBUMIN 2.5 g/dL (3.5-5.0); BILIRUBIN,TOTAL 0.5 mg/dL (0.2-1.0); CREATININE 0.4 mg/dL (0.5-1.5); CRP QUANTITATIVE 21.7 mg/L (0.00-9.0); TOTAL PROTEIN, SERUM 7.2 g/dL (6.0-8.3)
[2021-06-19 04:57] LABS: POTASSIUM 2.8 mmol/L (3.5-5.1)
[2021-06-19] MEDS: POTASSIUM CHLORIDE 20MEQ/100ML 100 ML IV PRN (05:03)
[2021-06-19] MEDS: POTASSIUM CHLORIDE 10% ELIXIR 20 MEQ/15 ML UDCUP PO SCH (05:10)
[2021-06-19] MEDS: HONEY 1 APPL/ML TUBE TP SCH ×2 (08:22→21:06)
[2021-06-19] MEDS: LACTULOSE 20 GM/30 ML UDCUP PO SCH (08:34)
[2021-06-19] MEDS: ENOXAPARIN SODIUM 40 MG/0.4 ML SYRINGE SQ SCH ×2 (08:34→21:32)
[2021-06-19] MEDS: METOPROLOL TARTRATE 25 MG TAB PO SCH ×3 (08:35→21:31)
[2021-06-19] MEDS: PANTOPRAZOLE 40 MG/VIAL IVP SCH (08:35)
[2021-06-19] MEDS: ASPIRIN 81MG CHEW TAB PO SCH (08:35)
[2021-06-19] MEDS: INSULIN GLARGINE 100 UNITS/ML 10 ML VIAL SQ SCH ×2 (08:43→21:00)
[2021-06-19] MEDS ORDERED: DIAZEPAM 5 MG TABLET ONE (10:42)
[2021-06-19] MEDS ORDERED: MIDODRINE HCL 5 MG TABLET PO PRN (11:00)
[2021-06-19] MEDS ORDERED: SOLU-MEDROL 40MG VIAL IVP SCH (12:00)
[2021-06-19] MEDS: METOCLOPRAMIDE 10 MG/2 ML VIAL IVP SCH (21:00)
[2021-06-19] MEDS: BALSAM PERU/CASTOR OIL 60 GM TUBE TP SCH (21:06)
[2021-06-20] VITALS (48 sets, daily range): BP systolic 90–153; BP diastolic 52–97
[2021-06-20] MEDS: INSULIN GLARGINE 100 UNITS/ML 10 ML VIAL SQ SCH ×3 (00:08→21:00)
[2021-06-20] MEDS: DIAZEPAM 5 MG TABLET PO SCH ×3 (00:14→17:24)
[2021-06-20] MEDS: ARTIFICIAL TEARS 3.5 GM OINTMENT OD SCH ×4 (02:39→20:38)
[2021-06-20 04:21] LABS: HEMATOCRIT 35.7 % (36-48); MEAN CORPUSCULAR HEMOGLOBIN 26.8 pg (27.0-33.0); MEAN CORPUSCULAR VOLUME 89.5 fL (79-99); PLATELET COUNT (AUTO) 630 K/uL (130-400); RED BLOOD CELL COUNT(AUTO) 3.99 MIL/uL (4.00-5.50); RED CELL DISTRIBUTION WIDTH 18.1 % (11.0-15.5); WHITE BLOOD COUNT (AUTO) 17.7 K/uL (4.8-10.8)
[2021-06-20] MEDS: PHARMACY COMMUNICATION MISC SCH ×4 (04:30→20:30)
[2021-06-20] MEDS: MEROPENEM 1 GM VIAL IVP SCH ×2 (04:32→11:20)
[2021-06-20 04:41] LABS: ALBUMIN 2.8 g/dL (3.5-5.0); BILIRUBIN,TOTAL 0.5 mg/dL (0.2-1.0); CREATININE 0.3 mg/dL (0.5-1.5); MAGNESIUM 2.6 mg/dL (1.80-2.40); POTASSIUM 4.3 mmol/L (3.5-5.1); TOTAL PROTEIN, SERUM 7.8 g/dL (6.0-8.3)
[2021-06-20 05:31] LABS: LYMPHOCYTES % (MANUAL) 5 % (22-44); MONOCYTES % (MANUAL) 1 % (2-9); SEGMENTED NEUTROPHILS % 94 % (40-70)
[2021-06-20 05:32] LABS: MAN.DIFF COMMENT-IMPRESSION MANUAL DIFFERENTIAL; PLATELET MORPHOLOGY COMMENT INCREASED
[2021-06-20] MEDS: INSULIN HUMULIN R 100 UNIT/ML 3ML SQ SCH ×7 (06:05→17:59)
[2021-06-20] MEDS: ASPIRIN 81MG CHEW TAB PO SCH (08:31)
[2021-06-20] MEDS: PANTOPRAZOLE 40 MG/VIAL IVP SCH (08:31)
[2021-06-20] MEDS: LACTULOSE 20 GM/30 ML UDCUP PO SCH (08:31)
[2021-06-20] MEDS: METOCLOPRAMIDE 10 MG/2 ML VIAL IVP SCH ×2 (08:32→20:57)
[2021-06-20] MEDS: METOPROLOL TARTRATE 25 MG TAB PO SCH ×2 (08:32→20:58)
[2021-06-20] MEDS: SOLU-MEDROL 40MG VIAL IVP SCH (08:32)
[2021-06-20] MEDS: POTASSIUM CHLORIDE 10% ELIXIR 20 MEQ/15 ML UDCUP PO SCH (08:32)
[2021-06-20] MEDS: ENOXAPARIN SODIUM 40 MG/0.4 ML SYRINGE SQ SCH ×2 (08:33→21:00)
[2021-06-20] MEDS: HONEY 1 APPL/ML TUBE TP SCH ×2 (08:33→20:37)
[2021-06-20] MEDS: BALSAM PERU/CASTOR OIL 60 GM TUBE TP SCH ×3 (08:34→20:37)
[2021-06-20 13:18] LABS: ABG BASE EXCESS 5.7 mmol/L (-2.0-3.0); ABG HCO3 30.6 mmol/L (21.0-28.0); ABG OXYGEN SATURATION 97.6 % (95.0-99.0); ABG PCO2 46 mmHg (32-45)
[2021-06-20] MEDS ORDERED: ZOSYN 3.375GM+NS 50ML 3.38 GM in 0.9%NACL 50ML 50 ML IV SCH (17:00)
[2021-06-20] MEDS: ZOSYN 3.375GM +NS 50ML IV SCH (17:42)
[2021-06-20] MEDS: 0.9%NACL 50ML 50 ML IV SCH (17:42)
[2021-06-20] MEDS ORDERED: DEXAMETHASONE SOD PHOSPHATE 4 MG/ML 1ML VIAL IVP SCH (21:00)
[2021-06-21] VITALS (47 sets, daily range): BP systolic 93–147; BP diastolic 50–97
[2021-06-21] MEDS: DIAZEPAM 5 MG TABLET PO SCH ×3 (01:17→17:07)
[2021-06-21] MEDS: ZOSYN 3.375GM +NS 50ML IV SCH ×3 (01:17→17:07)
[2021-06-21] MEDS: PHARMACY COMMUNICATION MISC SCH ×4 (04:30→21:25)
[2021-06-21 04:38] LABS: BASOPHILS % (AUTO) 0.2 % (0.0-5.0); EOSINOPHILS % (AUTO) 2.2 % (0.0-8.0); HEMATOCRIT 31.6 % (36-48); LYMPHOCYTES % (AUTO) 8.5 % (21.0-51.0); MEAN CORPUSCULAR HEMOGLOBIN 26.8 pg (27.0-33.0); MEAN CORPUSCULAR HGB CONC 30.4 g/dL (32.0-36.0); MEAN CORPUSCULAR VOLUME 88.3 fL (79-99); MONOCYTES % (AUTO) 4.1 % (3.0-13.0); NEUTROPHILS % (AUTO) 83.7 % (40.0-77.0); PLATELET COUNT (AUTO) 442 K/uL (130-400); RED BLOOD CELL COUNT(AUTO) 3.58 MIL/uL (4.00-5.50); RED CELL DISTRIBUTION WIDTH 17.8 % (11.0-15.5); WHITE BLOOD COUNT (AUTO) 12.3 K/uL (4.8-10.8)
[2021-06-21] MEDS: ARTIFICIAL TEARS 3.5 GM OINTMENT OD SCH ×4 (04:46→21:05)
[2021-06-21 05:10] LABS: ALBUMIN 2.5 g/dL (3.5-5.0); BILIRUBIN,TOTAL 0.5 mg/dL (0.2-1.0); CREATININE 0.3 mg/dL (0.5-1.5); POTASSIUM 3.6 mmol/L (3.5-5.1)
[2021-06-21] MEDS: INSULIN HUMULIN R 100 UNIT/ML 3ML SQ SCH ×8 (05:29→17:23)
[2021-06-21 07:34] LABS: ABG BASE EXCESS 6.7 mmol/L (-2.0-3.0); ABG HCO3 30.2 mmol/L (21.0-28.0); ABG OXYGEN SATURATION 92.1 % (95.0-99.0); ABG PCO2 39 mmHg (32-45)
[2021-06-21] MEDS: 0.9%NACL 50ML 50 ML IV SCH ×2 (08:17→17:07)
[2021-06-21] MEDS: ENOXAPARIN SODIUM 40 MG/0.4 ML SYRINGE SQ SCH ×2 (08:18→21:05)
[2021-06-21] MEDS: ASPIRIN 81MG CHEW TAB PO SCH (08:18)
[2021-06-21] MEDS: PANTOPRAZOLE 40 MG/VIAL IVP SCH (08:19)
[2021-06-21] MEDS: POTASSIUM CHLORIDE 10% ELIXIR 20 MEQ/15 ML UDCUP PO SCH (08:19)
[2021-06-21] MEDS: LACTULOSE 20 GM/30 ML UDCUP PO SCH (08:19)
[2021-06-21] MEDS: METOCLOPRAMIDE 10 MG/2 ML VIAL IVP SCH ×2 (08:20→21:02)
[2021-06-21] MEDS: METOPROLOL TARTRATE 25 MG TAB PO SCH ×2 (08:21→21:02)
[2021-06-21] MEDS: INSULIN GLARGINE 100 UNITS/ML 10 ML VIAL SQ SCH ×2 (08:32→21:00)
[2021-06-21] MEDS: BALSAM PERU/CASTOR OIL 60 GM TUBE TP SCH ×3 (08:33→21:05)
[2021-06-21] MEDS: HONEY 1 APPL/ML TUBE TP SCH ×2 (08:33→21:05)
[2021-06-21] MEDS ORDERED: DEXAMETHASONE SOD PHOSPHATE 4 MG/ML 1ML VIAL IVP SCH (09:00)
[2021-06-21] MEDS: ACETAMINOPHEN 650 MG/20.3 ML UDCUP PEG PRN (23:07)
[2021-06-22] VITALS (41 sets, daily range): BP systolic 95–153; BP diastolic 52–103
[2021-06-22] MEDS: DIAZEPAM 5 MG TABLET PO SCH ×3 (01:38→16:20)
[2021-06-22] MEDS: 0.9%NACL 50ML 50 ML IV SCH ×3 (01:38→16:19)
[2021-06-22] MEDS: ZOSYN 3.375GM +NS 50ML IV SCH ×3 (01:38→16:19)
[2021-06-22] MEDS: ARTIFICIAL TEARS 3.5 GM OINTMENT OD SCH ×4 (04:34→21:12)
[2021-06-22] MEDS: PHARMACY COMMUNICATION MISC SCH ×2 (04:35→08:05)
[2021-06-22 04:40] LABS: BASOPHILS % (AUTO) 0.1 % (0.0-5.0); HEMATOCRIT 28.8 % (36-48); LYMPHOCYTES % (AUTO) 12.1 % (21.0-51.0); MEAN CORPUSCULAR HEMOGLOBIN 27.2 pg (27.0-33.0); MEAN CORPUSCULAR HGB CONC 30.6 g/dL (32.0-36.0); MEAN CORPUSCULAR VOLUME 89.2 fL (79-99); MONOCYTES % (AUTO) 4.2 % (3.0-13.0); NEUTROPHILS % (AUTO) 79.5 % (40.0-77.0); PLATELET COUNT (AUTO) 395 K/uL (130-400); RED BLOOD CELL COUNT(AUTO) 3.23 MIL/uL (4.00-5.50); WHITE BLOOD COUNT (AUTO) 7.9 K/uL (4.8-10.8)
[2021-06-22 04:59] LABS: CREATININE 0.2 mg/dL (0.5-1.5); POTASSIUM 3.6 mmol/L (3.5-5.1)
[2021-06-22] MEDS: INSULIN HUMULIN R 100 UNIT/ML 3ML SQ SCH ×8 (06:00→17:26)
[2021-06-22 06:14] LABS: ALBUMIN 2.4 g/dL (3.5-5.0); BILIRUBIN,DIRECT 0.1 mg/dL (0.0-0.3); BILIRUBIN,TOTAL 0.5 mg/dL (0.2-1.0); CRP QUANTITATIVE 2.8 mg/L (0.00-9.0); TOTAL PROTEIN, SERUM 6.5 g/dL (6.0-8.3)
[2021-06-22 06:52] LABS: ABG BASE EXCESS 5.5 mmol/L (-2.0-3.0); ABG HCO3 29.1 mmol/L (21.0-28.0); ABG OXYGEN SATURATION 92.4 % (95.0-99.0); ABG PCO2 39 mmHg (32-45)
[2021-06-22] MEDS: METOPROLOL TARTRATE 25 MG TAB PO SCH ×2 (07:59→21:10)
[2021-06-22] MEDS: PANTOPRAZOLE 40 MG/VIAL IVP SCH (07:59)
[2021-06-22] MEDS: METOCLOPRAMIDE 10 MG/2 ML VIAL IVP SCH ×2 (08:00→21:10)
[2021-06-22] MEDS: ENOXAPARIN SODIUM 40 MG/0.4 ML SYRINGE SQ SCH ×2 (08:01→21:11)
[2021-06-22] MEDS: LACTULOSE 20 GM/30 ML UDCUP PO SCH (08:02)
[2021-06-22] MEDS: DEXAMETHASONE SOD PHOSPHATE 4 MG/ML 1ML VIAL IVP SCH (08:02)
[2021-06-22] MEDS: ASPIRIN 81MG CHEW TAB PO SCH (08:02)
[2021-06-22] MEDS: POTASSIUM CHLORIDE 10% ELIXIR 20 MEQ/15 ML UDCUP PO SCH (08:03)
[2021-06-22] MEDS: INSULIN GLARGINE 100 UNITS/ML 10 ML VIAL SQ SCH ×2 (08:04→21:15)
[2021-06-22] MEDS: BALSAM PERU/CASTOR OIL 60 GM TUBE TP SCH ×3 (08:05→21:12)
[2021-06-22] MEDS: HONEY 1 APPL/ML TUBE TP SCH ×2 (08:05→21:12)
[2021-06-22] MEDS ORDERED: LACTULOSE 20 GM/30 ML UDCUP PO PRN (11:00)
[2021-06-23] VITALS (46 sets, daily range): BP systolic 78–148; BP diastolic 36–87
[2021-06-23] MEDS: 0.9%NACL 50ML 50 ML IV SCH ×3 (01:30→17:23)
[2021-06-23] MEDS: ZOSYN 3.375GM +NS 50ML IV SCH ×3 (01:30→17:23)
[2021-06-23] MEDS: DIAZEPAM 5 MG TABLET PO SCH ×3 (01:30→17:52)
[2021-06-23] MEDS: ARTIFICIAL TEARS 3.5 GM OINTMENT OD SCH ×4 (04:00→21:34)
[2021-06-23] MEDS: INSULIN HUMULIN R 100 UNIT/ML 3ML SQ SCH ×8 (05:12→17:22)
[2021-06-23] MEDS: PHARMACY COMMUNICATION MISC SCH ×3 (05:12→20:30)
[2021-06-23 06:33] LABS: HEMATOCRIT 29.9 % (36-48); MEAN CORPUSCULAR HEMOGLOBIN 26.7 pg (27.0-33.0); MEAN CORPUSCULAR HGB CONC 30.4 g/dL (32.0-36.0); MEAN CORPUSCULAR VOLUME 87.7 fL (79-99); RED BLOOD CELL COUNT(AUTO) 3.41 MIL/uL (4.00-5.50); RED CELL DISTRIBUTION WIDTH 17.5 % (11.0-15.5); WHITE BLOOD COUNT (AUTO) 8.9 K/uL (4.8-10.8)
[2021-06-23 06:34] LABS: BASOPHILS % (AUTO) 0.1 % (0.0-5.0); EOSINOPHILS % (AUTO) 2.3 % (0.0-8.0); LYMPHOCYTES % (AUTO) 10.5 % (21.0-51.0); MONOCYTES % (AUTO) 4.4 % (3.0-13.0); NEUTROPHILS % (AUTO) 81.8 % (40.0-77.0); PLATELET COUNT (AUTO) 393 K/uL (130-400)
[2021-06-23] MEDS: HONEY 1 APPL/ML TUBE TP SCH ×2 (09:00→20:34)
[2021-06-23] MEDS: BALSAM PERU/CASTOR OIL 60 GM TUBE TP SCH ×3 (09:00→20:34)
[2021-06-23 09:26] LABS: CREATININE 0.2 mg/dL (0.5-1.5); POTASSIUM 3.4 mmol/L (3.5-5.1)
[2021-06-23] MEDS: INSULIN GLARGINE 100 UNITS/ML 10 ML VIAL SQ SCH ×2 (09:57→21:00)
[2021-06-23] MEDS: POTASSIUM CHLORIDE 10% ELIXIR 20 MEQ/15 ML UDCUP PO SCH (10:03)
[2021-06-23] MEDS: METOPROLOL TARTRATE 25 MG TAB PO SCH ×2 (10:03→20:33)
[2021-06-23] MEDS: DEXAMETHASONE SOD PHOSPHATE 4 MG/ML 1ML VIAL IVP SCH (10:04)
[2021-06-23] MEDS: PANTOPRAZOLE 40 MG/VIAL IVP SCH (10:04)
[2021-06-23] MEDS: ASPIRIN 81MG CHEW TAB PO SCH (10:04)
[2021-06-23] MEDS: METOCLOPRAMIDE 10 MG/2 ML VIAL IVP SCH ×2 (10:04→20:33)
[2021-06-23] MEDS: ENOXAPARIN SODIUM 40 MG/0.4 ML SYRINGE SQ SCH ×2 (10:05→20:34)
[2021-06-23 10:23] LABS: CREATININE 0.2 mg/dL (0.5-1.5); POTASSIUM 3.3 mmol/L (3.5-5.1)
[2021-06-24] VITALS (38 sets, daily range): BP systolic 85–156; BP diastolic 52–94
[2021-06-24] MEDS: ZOSYN 3.375GM +NS 50ML IV SCH ×3 (01:30→16:59)
[2021-06-24] MEDS: DIAZEPAM 5 MG TABLET PO SCH ×3 (01:30→17:28)
[2021-06-24] MEDS: 0.9%NACL 50ML 50 ML IV SCH ×3 (01:30→16:59)
[2021-06-24] MEDS: ARTIFICIAL TEARS 3.5 GM OINTMENT OD SCH ×4 (04:00→20:46)
[2021-06-24 04:01] LABS: BASOPHILS % (AUTO) 0.2 % (0.0-5.0); EOSINOPHILS % (AUTO) 2.2 % (0.0-8.0); HEMATOCRIT 29.5 % (36-48); LYMPHOCYTES % (AUTO) 9.3 % (21.0-51.0); MEAN CORPUSCULAR HEMOGLOBIN 27.1 pg (27.0-33.0); MEAN CORPUSCULAR HGB CONC 30.5 g/dL (32.0-36.0); MEAN CORPUSCULAR VOLUME 88.9 fL (79-99); MONOCYTES % (AUTO) 3.8 % (3.0-13.0); NEUTROPHILS % (AUTO) 83.8 % (40.0-77.0); PLATELET COUNT (AUTO) 305 K/uL (130-400); RED BLOOD CELL COUNT(AUTO) 3.32 MIL/uL (4.00-5.50); RED CELL DISTRIBUTION WIDTH 17.2 % (11.0-15.5); WHITE BLOOD COUNT (AUTO) 10.2 K/uL (4.8-10.8)
[2021-06-24] MEDS: PHARMACY COMMUNICATION MISC SCH ×3 (04:30→19:58)
[2021-06-24 04:35] LABS: ALBUMIN 2.4 g/dL (3.5-5.0); BILIRUBIN,TOTAL 0.5 mg/dL (0.2-1.0); CREATININE 0.2 mg/dL (0.5-1.5); POTASSIUM 3.3 mmol/L (3.5-5.1); TOTAL PROTEIN, SERUM 6.5 g/dL (6.0-8.3)
[2021-06-24] MEDS: POTASSIUM CHLORIDE 10% ELIXIR 20 MEQ/15 ML UDCUP PO PRN (05:47)
[2021-06-24] MEDS: INSULIN HUMULIN R 100 UNIT/ML 3ML SQ SCH ×8 (06:00→17:25)
[2021-06-24] MEDS: INSULIN GLARGINE 100 UNITS/ML 10 ML VIAL SQ SCH ×2 (08:57→20:45)
[2021-06-24] MEDS: ASPIRIN 81MG CHEW TAB PO SCH (10:07)
[2021-06-24] MEDS: METOCLOPRAMIDE 10 MG/2 ML VIAL IVP SCH ×2 (10:07→20:43)
[2021-06-24] MEDS: HONEY 1 APPL/ML TUBE TP SCH ×2 (10:08→20:46)
[2021-06-24] MEDS: PANTOPRAZOLE 40 MG/VIAL IVP SCH (10:08)
[2021-06-24] MEDS: DEXAMETHASONE SOD PHOSPHATE 4 MG/ML 1ML VIAL IVP SCH (10:08)
[2021-06-24] MEDS: BALSAM PERU/CASTOR OIL 60 GM TUBE TP SCH ×3 (10:08→20:46)
[2021-06-24] MEDS: ENOXAPARIN SODIUM 40 MG/0.4 ML SYRINGE SQ SCH ×2 (10:09→20:45)
[2021-06-24] MEDS: METOPROLOL TARTRATE 25 MG TAB PO SCH ×2 (10:10→20:43)
[2021-06-24] MEDS: POTASSIUM CHLORIDE 10% ELIXIR 20 MEQ/15 ML UDCUP PO SCH (10:10)
[2021-06-25] VITALS (28 sets, daily range): BP systolic 95–137; BP diastolic 48–91
[2021-06-25] MEDS: DIAZEPAM 5 MG TABLET PO SCH ×3 (00:48→17:46)
[2021-06-25] MEDS: ZOSYN 3.375GM +NS 50ML IV SCH ×3 (00:48→17:45)
[2021-06-25] MEDS: 0.9%NACL 50ML 50 ML IV SCH ×3 (00:48→17:46)
[2021-06-25] MEDS: PHARMACY COMMUNICATION MISC SCH ×3 (04:30→20:26)
[2021-06-25] MEDS: ARTIFICIAL TEARS 3.5 GM OINTMENT OD SCH ×4 (04:32→20:27)
[2021-06-25] MEDS: INSULIN HUMULIN R 100 UNIT/ML 3ML SQ SCH ×10 (06:00→23:37)
[2021-06-25 06:30] LABS: BASOPHILS % (AUTO) 0.2 % (0.0-5.0); EOSINOPHILS % (AUTO) 2.8 % (0.0-8.0); HEMATOCRIT 28.9 % (36-48); LYMPHOCYTES % (AUTO) 12.4 % (21.0-51.0); MEAN CORPUSCULAR HEMOGLOBIN 26.9 pg (27.0-33.0); MEAN CORPUSCULAR HGB CONC 30.8 g/dL (32.0-36.0); MEAN CORPUSCULAR VOLUME 87.3 fL (79-99); MONOCYTES % (AUTO) 4.2 % (3.0-13.0); NEUTROPHILS % (AUTO) 79.6 % (40.0-77.0); PLATELET COUNT (AUTO) 378 K/uL (130-400); RED BLOOD CELL COUNT(AUTO) 3.31 MIL/uL (4.00-5.50); RED CELL DISTRIBUTION WIDTH 17.1 % (11.0-15.5); WHITE BLOOD COUNT (AUTO) 8.3 K/uL (4.8-10.8)
[2021-06-25 06:44] LABS: ALBUMIN 2.4 g/dL (3.5-5.0); BILIRUBIN,TOTAL 0.5 mg/dL (0.2-1.0); CREATININE 0.2 mg/dL (0.5-1.5); CRP QUANTITATIVE 56.5 mg/L (0.00-9.0); POTASSIUM 3.1 mmol/L (3.5-5.1); TOTAL PROTEIN, SERUM 6.6 g/dL (6.0-8.3)
[2021-06-25 07:42] LABS: ABG BASE EXCESS 4.1 mmol/L (-2.0-3.0); ABG HCO3 28.2 mmol/L (21.0-28.0); ABG OXYGEN SATURATION 85.9 % (95.0-99.0); ABG PCO2 41 mmHg (32-45)
[2021-06-25] MEDS: ENOXAPARIN SODIUM 40 MG/0.4 ML SYRINGE SQ SCH ×2 (08:47→20:55)
[2021-06-25] MEDS: METOPROLOL TARTRATE 25 MG TAB PO SCH ×2 (08:47→20:52)
[2021-06-25] MEDS: PANTOPRAZOLE 40 MG/VIAL IVP SCH (08:48)
[2021-06-25] MEDS: ASPIRIN 81MG CHEW TAB PO SCH (08:48)
[2021-06-25] MEDS: POTASSIUM CHLORIDE 10% ELIXIR 20 MEQ/15 ML UDCUP PO SCH (08:48)
[2021-06-25] MEDS: HONEY 1 APPL/ML TUBE TP SCH ×2 (08:49→20:27)
[2021-06-25] MEDS: METOCLOPRAMIDE 10 MG/2 ML VIAL IVP SCH (08:49)
[2021-06-25] MEDS: BALSAM PERU/CASTOR OIL 60 GM TUBE TP SCH ×3 (08:49→20:27)
[2021-06-25] MEDS: DEXAMETHASONE SOD PHOSPHATE 4 MG/ML 1ML VIAL IVP SCH (08:50)
[2021-06-25] MEDS: INSULIN GLARGINE 100 UNITS/ML 10 ML VIAL SQ SCH ×2 (08:53→20:56)
[2021-06-25] MEDS ORDERED: LIDOCAINE HCL-MPF 1% 2ML VIAL IV PRN (09:30)
[2021-06-25] MEDS ORDERED: MAGNESIUM 2GM PREMIX 50ML 50 ML IV PRN (09:30)
[2021-06-25] MEDS: POTASSIUM CHLORIDE 10% ELIXIR 20 MEQ/15 ML UDCUP PO PRN ×2 (11:27→13:25)
[2021-06-25] MEDS: MAGNESIUM 2GM PREMIX 50ML 50 ML IV PRN (11:28)
[2021-06-25] MEDS: ACETAMINOPHEN 325 MG TAB PO PRN (15:50)
[2021-06-26] VITALS (30 sets, daily range): BP systolic 83–139; BP diastolic 51–94
[2021-06-26] MEDS: ZOSYN 3.375GM +NS 50ML IV SCH ×3 (01:48→17:30)
[2021-06-26] MEDS: 0.9%NACL 50ML 50 ML IV SCH ×3 (01:49→17:30)
[2021-06-26] MEDS: PHARMACY COMMUNICATION MISC SCH ×2 (03:54→12:31)
[2021-06-26] MEDS: ARTIFICIAL TEARS 3.5 GM OINTMENT OD SCH ×4 (04:03→20:34)
[2021-06-26] MEDS: DIAZEPAM 5 MG TABLET PO SCH ×2 (04:04→04:57)
[2021-06-26 05:40] LABS: BASOPHILS % (AUTO) 0.4 % (0.0-5.0); EOSINOPHILS % (AUTO) 2.9 % (0.0-8.0); MEAN CORPUSCULAR HEMOGLOBIN 27.1 pg (27.0-33.0); MEAN CORPUSCULAR HGB CONC 30.7 g/dL (32.0-36.0); MEAN CORPUSCULAR VOLUME 88.5 fL (79-99); NEUTROPHILS % (AUTO) 77.8 % (40.0-77.0); PLATELET COUNT (AUTO) 356 K/uL (130-400); RED BLOOD CELL COUNT(AUTO) 3.39 MIL/uL (4.00-5.50); RED CELL DISTRIBUTION WIDTH 17.1 % (11.0-15.5)
[2021-06-26] MEDS: INSULIN HUMULIN R 100 UNIT/ML 3ML SQ SCH ×6 (06:00→17:31)
[2021-06-26 06:06] LABS: ALBUMIN 2.5 g/dL (3.5-5.0); BILIRUBIN,TOTAL 0.7 mg/dL (0.2-1.0); CREATININE 0.2 mg/dL (0.5-1.5); MAGNESIUM 2.1 mg/dL (1.80-2.40); POTASSIUM 3.3 mmol/L (3.5-5.1); TOTAL PROTEIN, SERUM 6.8 g/dL (6.0-8.3)
[2021-06-26] MEDS: POTASSIUM CHLORIDE 20MEQ/100ML 100 ML IV PRN (06:43)
[2021-06-26] MEDS: POTASSIUM CHLORIDE 10% ELIXIR 20 MEQ/15 ML UDCUP PO PRN (06:44)
[2021-06-26] MEDS ORDERED: PANTOPRAZOLE 40 MG TAB DR PO SCH (09:45)
[2021-06-26] MEDS: ENOXAPARIN SODIUM 40 MG/0.4 ML SYRINGE SQ SCH ×2 (10:02→20:33)
[2021-06-26] MEDS: BALSAM PERU/CASTOR OIL 60 GM TUBE TP SCH ×3 (10:03→20:34)
[2021-06-26] MEDS: HONEY 1 APPL/ML TUBE TP SCH ×2 (10:03→20:34)
[2021-06-26] MEDS: INSULIN GLARGINE 100 UNITS/ML 10 ML VIAL SQ SCH ×2 (10:04→20:34)
[2021-06-26] MEDS: ACETAMINOPHEN 325 MG TAB PO PRN (10:06)
[2021-06-26] MEDS: ASPIRIN 81MG CHEW TAB PO SCH (10:07)
[2021-06-26] MEDS: DEXAMETHASONE SOD PHOSPHATE 4 MG/ML 1ML VIAL IVP SCH (10:07)
[2021-06-26] MEDS: POTASSIUM CHLORIDE 10% ELIXIR 20 MEQ/15 ML UDCUP PO SCH (10:07)
[2021-06-26] MEDS: METOPROLOL TARTRATE 25 MG TAB PO SCH ×2 (10:07→20:33)
[2021-06-26] MEDS ORDERED: CLONAZEPAM 1MG TAB ONE (10:18)
[2021-06-26] MEDS: CLONAZEPAM 1MG TAB PO SCH ×2 (10:19→20:33)
[2021-06-26] MEDS ORDERED: DEXMEDETOMIDINE 400MCG/NS100ML IV ONE (13:21)
[2021-06-26] MEDS ORDERED: 0.9%NACL 100ML 100 ML ONE (17:29)
[2021-06-26] MEDS: DEXMEDETOMIDINE 400MCG/NS100ML IV SCH (18:51)
[2021-06-27] VITALS (39 sets, daily range): BP systolic 73–145; BP diastolic 39–101
[2021-06-27] MEDS: ZOSYN 3.375GM +NS 50ML IV SCH ×3 (00:52→16:55)
[2021-06-27] MEDS: ARTIFICIAL TEARS 3.5 GM OINTMENT OD SCH ×4 (03:53→20:46)
[2021-06-27 04:14] LABS: BASOPHILS % (AUTO) 0.1 % (0.0-5.0); EOSINOPHILS % (AUTO) 2.8 % (0.0-8.0); HEMATOCRIT 27.9 % (36-48); LYMPHOCYTES % (AUTO) 12.5 % (21.0-51.0); MEAN CORPUSCULAR HEMOGLOBIN 26.9 pg (27.0-33.0); MEAN CORPUSCULAR HGB CONC 30.5 g/dL (32.0-36.0); MEAN CORPUSCULAR VOLUME 88.3 fL (79-99); MONOCYTES % (AUTO) 4.3 % (3.0-13.0); NEUTROPHILS % (AUTO) 79.6 % (40.0-77.0); PLATELET COUNT (AUTO) 313 K/uL (130-400); RED BLOOD CELL COUNT(AUTO) 3.16 MIL/uL (4.00-5.50); RED CELL DISTRIBUTION WIDTH 17.1 % (11.0-15.5); WHITE BLOOD COUNT (AUTO) 7.1 K/uL (4.8-10.8)
[2021-06-27 04:40] LABS: ALBUMIN 2.4 g/dL (3.5-5.0); BILIRUBIN,TOTAL 0.4 mg/dL (0.2-1.0); CREATININE 0.2 mg/dL (0.5-1.5); POTASSIUM 3.8 mmol/L (3.5-5.1); TOTAL PROTEIN, SERUM 6.6 g/dL (6.0-8.3)
[2021-06-27] MEDS: INSULIN HUMULIN R 100 UNIT/ML 3ML SQ SCH ×8 (05:52→17:45)
[2021-06-27] MEDS: POTASSIUM CHLORIDE 10% ELIXIR 20 MEQ/15 ML UDCUP PO SCH ×2 (06:19→17:23)
[2021-06-27] MEDS: CLONAZEPAM 1MG TAB PO SCH ×4 (07:38→21:36)
[2021-06-27] MEDS: ASPIRIN 81MG CHEW TAB PO SCH (08:25)
[2021-06-27] MEDS: 0.9%NACL 50ML 50 ML IV SCH ×2 (08:26→16:55)
[2021-06-27] MEDS: ENOXAPARIN SODIUM 40 MG/0.4 ML SYRINGE SQ SCH ×2 (08:26→21:36)
[2021-06-27] MEDS: DEXAMETHASONE SOD PHOSPHATE 4 MG/ML 1ML VIAL IVP SCH (08:26)
[2021-06-27] MEDS: LANSOPRAZOLE 15 MG SOLU TAB PEG SCH (08:26)
[2021-06-27] MEDS: HONEY 1 APPL/ML TUBE TP SCH ×2 (08:27→20:46)
[2021-06-27] MEDS: BALSAM PERU/CASTOR OIL 60 GM TUBE TP SCH ×3 (08:27→20:46)
[2021-06-27] MEDS: METOPROLOL TARTRATE 25 MG TAB PO SCH ×2 (08:27→20:45)
[2021-06-27] MEDS: INSULIN GLARGINE 100 UNITS/ML 10 ML VIAL SQ SCH ×2 (08:27→21:39)
[2021-06-27] MEDS: DEXMEDETOMIDINE 400MCG/NS100ML IV SCH ×3 (08:36→20:48)
[2021-06-27] MEDS ORDERED: VASOPRESSIN 20 UNITS in 0.9%NACL 100ML 100 ML IV SCH (16:00)
[2021-06-28] VITALS (45 sets, daily range): BP systolic 90–171; BP diastolic 54–109
[2021-06-28] MEDS: 0.9%NACL 50ML 50 ML IV SCH (01:01)
[2021-06-28] MEDS: ZOSYN 3.375GM +NS 50ML IV SCH ×2 (01:01→08:33)
[2021-06-28] MEDS: ARTIFICIAL TEARS 3.5 GM OINTMENT OD SCH ×4 (04:00→20:02)
[2021-06-28 04:25] LABS: BASOPHILS % (AUTO) 0.3 % (0.0-5.0); EOSINOPHILS % (AUTO) 3.1 % (0.0-8.0); LYMPHOCYTES % (AUTO) 11.7 % (21.0-51.0); MEAN CORPUSCULAR HEMOGLOBIN 26.8 pg (27.0-33.0); MEAN CORPUSCULAR HGB CONC 29.7 g/dL (32.0-36.0); MEAN CORPUSCULAR VOLUME 90.3 fL (79-99); MONOCYTES % (AUTO) 3.4 % (3.0-13.0); NEUTROPHILS % (AUTO) 80.9 % (40.0-77.0); PLATELET COUNT (AUTO) 265 K/uL (130-400); RED BLOOD CELL COUNT(AUTO) 3.21 MIL/uL (4.00-5.50); RED CELL DISTRIBUTION WIDTH 16.8 % (11.0-15.5)
[2021-06-28 04:34] LABS: ALBUMIN 2.3 g/dL (3.5-5.0); BILIRUBIN,TOTAL 0.4 mg/dL (0.2-1.0); CREATININE 0.2 mg/dL (0.5-1.5); MAGNESIUM 1.9 mg/dL (1.80-2.40); PHOSPHORUS 3.9 mg/dL (2.5-4.9); POTASSIUM 3.3 mmol/L (3.5-5.1); TOTAL PROTEIN, SERUM 6.5 g/dL (6.0-8.3)
[2021-06-28] MEDS: INSULIN HUMULIN R 100 UNIT/ML 3ML SQ SCH ×10 (06:00→23:14)
[2021-06-28] MEDS: CLONAZEPAM 1MG TAB PO SCH ×4 (06:29→20:02)
[2021-06-28] MEDS: POTASSIUM CHLORIDE 20MEQ/100ML 100 ML IV PRN ×2 (06:30→14:48)
[2021-06-28] MEDS: POTASSIUM CHLORIDE 10% ELIXIR 20 MEQ/15 ML UDCUP PO PRN (06:30)
[2021-06-28] MEDS: ENOXAPARIN SODIUM 40 MG/0.4 ML SYRINGE SQ SCH ×2 (08:33→20:00)
[2021-06-28] MEDS: LANSOPRAZOLE 15 MG SOLU TAB PEG SCH (08:34)
[2021-06-28] MEDS: ASPIRIN 81MG CHEW TAB PO SCH (08:36)
[2021-06-28] MEDS: DEXAMETHASONE SOD PHOSPHATE 4 MG/ML 1ML VIAL IVP SCH (08:37)
[2021-06-28] MEDS: BALSAM PERU/CASTOR OIL 60 GM TUBE TP SCH ×3 (09:08→20:01)
[2021-06-28] MEDS: HONEY 1 APPL/ML TUBE TP SCH ×2 (09:08→20:01)
[2021-06-28] MEDS: INSULIN GLARGINE 100 UNITS/ML 10 ML VIAL SQ SCH ×2 (10:25→20:01)
[2021-06-28] MEDS: METOPROLOL TARTRATE 25 MG TAB PO SCH ×2 (10:27→20:00)
[2021-06-28] MEDS ORDERED: KETOROLAC 60 MG VIAL (30MG/ML) IV PRN (12:30)
[2021-06-28] MEDS ORDERED: HYDROXYZINE 25 MG TABLET PO ONE (22:30)
[2021-06-29] VITALS (41 sets, daily range): BP systolic 129–167; BP diastolic 74–105
[2021-06-29] MEDS ORDERED: LORAZEPAM 2 MG/ML 1 ML VIAL IVP ONE (01:00)
[2021-06-29] MEDS: ARTIFICIAL TEARS 3.5 GM OINTMENT OD SCH ×4 (04:35→20:56)
[2021-06-29 04:47] LABS: ALBUMIN 2.6 g/dL (3.5-5.0); BILIRUBIN,TOTAL 0.5 mg/dL (0.2-1.0); CREATININE 0.2 mg/dL (0.5-1.5); MAGNESIUM 2.4 mg/dL (1.80-2.40); POTASSIUM 3.7 mmol/L (3.5-5.1); TOTAL PROTEIN, SERUM 7.2 g/dL (6.0-8.3)
[2021-06-29] MEDS: CLONAZEPAM 1MG TAB PO SCH ×3 (05:02→20:54)
[2021-06-29] MEDS: INSULIN HUMULIN R 100 UNIT/ML 3ML SQ SCH ×8 (05:17→23:54)
[2021-06-29] MEDS: POTASSIUM CHLORIDE 20MEQ/100ML 100 ML IV PRN (05:27)
[2021-06-29] MEDS: SERTRALINE HCL 50 MG TABLET PO SCH (08:12)
[2021-06-29] MEDS: LANSOPRAZOLE 15 MG SOLU TAB PEG SCH (08:13)
[2021-06-29] MEDS: ASPIRIN 81MG CHEW TAB PO SCH (08:13)
[2021-06-29] MEDS: METOPROLOL TARTRATE 25 MG TAB PO SCH ×2 (08:14→20:54)
[2021-06-29] MEDS: POTASSIUM CHLORIDE 10% ELIXIR 20 MEQ/15 ML UDCUP PO SCH (08:15)
[2021-06-29] MEDS: DEXAMETHASONE SOD PHOSPHATE 4 MG/ML 1ML VIAL IVP SCH (08:15)
[2021-06-29] MEDS ORDERED: PHARMACY COMMUNICATION MISC SCH (09:00)
[2021-06-29] MEDS: ENOXAPARIN SODIUM 40 MG/0.4 ML SYRINGE SQ SCH ×2 (09:13→20:55)
[2021-06-29] MEDS: INSULIN GLARGINE 100 UNITS/ML 10 ML VIAL SQ SCH ×2 (09:13→20:56)
[2021-06-29] MEDS: BALSAM PERU/CASTOR OIL 60 GM TUBE TP SCH ×3 (09:13→20:56)
[2021-06-29] MEDS: HONEY 1 APPL/ML TUBE TP SCH (09:13)
[2021-06-29] MEDS: TRAZODONE HCL 50 MG TAB PO SCH (20:54)
[2021-06-30] VITALS (22 sets, daily range): BP systolic 101–162; BP diastolic 45–95
[2021-06-30 03:55] LABS: ABG BASE EXCESS 9.1 mmol/L (-2.0-3.0); ABG HCO3 35.6 mmol/L (21.0-28.0); ABG OXYGEN SATURATION 91.7 % (95.0-99.0); ABG PCO2 60 mmHg (32-45)
[2021-06-30] MEDS: ARTIFICIAL TEARS 3.5 GM OINTMENT OD SCH ×4 (04:00→20:16)
[2021-06-30 04:07] LABS: ALBUMIN 2.6 g/dL (3.5-5.0); BILIRUBIN,TOTAL 0.5 mg/dL (0.2-1.0); CREATININE 0.2 mg/dL (0.5-1.5); MAGNESIUM 2.1 mg/dL (1.80-2.40); PHOSPHORUS 3.6 mg/dL (2.5-4.9); POTASSIUM 3.9 mmol/L (3.5-5.1); TOTAL PROTEIN, SERUM 7.2 g/dL (6.0-8.3)
[2021-06-30] MEDS: INSULIN HUMULIN R 100 UNIT/ML 3ML SQ SCH ×6 (06:00→17:19)
[2021-06-30] MEDS: CLONAZEPAM 1MG TAB PO SCH ×3 (06:26→20:14)
[2021-06-30] MEDS: HONEY 1 APPL/ML TUBE TP SCH ×3 (09:00→20:15)
[2021-06-30] MEDS: SERTRALINE HCL 50 MG TABLET PO SCH (09:09)
[2021-06-30] MEDS: POTASSIUM CHLORIDE 10% ELIXIR 20 MEQ/15 ML UDCUP PO SCH (09:09)
[2021-06-30] MEDS: DEXAMETHASONE SOD PHOSPHATE 4 MG/ML 1ML VIAL IVP SCH (09:09)
[2021-06-30] MEDS: LANSOPRAZOLE 15 MG SOLU TAB PEG SCH (09:09)
[2021-06-30] MEDS: METOPROLOL TARTRATE 25 MG TAB PO SCH ×2 (09:09→20:14)
[2021-06-30] MEDS: ASPIRIN 81MG CHEW TAB PO SCH (09:10)
[2021-06-30] MEDS: ENOXAPARIN SODIUM 40 MG/0.4 ML SYRINGE SQ SCH ×2 (09:10→20:14)
[2021-06-30] MEDS: BALSAM PERU/CASTOR OIL 60 GM TUBE TP SCH ×3 (09:12→20:16)
[2021-06-30] MEDS: INSULIN GLARGINE 100 UNITS/ML 10 ML VIAL SQ SCH ×2 (09:12→20:15)
[2021-06-30] MEDS: ACETAMINOPHEN 650 MG/20.3 ML UDCUP PEG PRN (13:52)
[2021-06-30] MEDS: TRAZODONE HCL 50 MG TAB PO SCH (20:14)
[2021-07-01] VITALS (29 sets, daily range): BP systolic 93–142; BP diastolic 38–86
[2021-07-01] MEDS: INSULIN HUMULIN R 100 UNIT/ML 3ML SQ SCH ×9 (00:42→23:53)
[2021-07-01] MEDS: CLONAZEPAM 1MG TAB PO SCH ×3 (05:27→21:56)
[2021-07-01] MEDS: ARTIFICIAL TEARS 3.5 GM OINTMENT OD SCH ×4 (05:29→21:08)
[2021-07-01] MEDS: LANSOPRAZOLE 15 MG SOLU TAB PEG SCH (08:19)
[2021-07-01] MEDS: INSULIN GLARGINE 100 UNITS/ML 10 ML VIAL SQ SCH ×2 (08:19→21:07)
[2021-07-01] MEDS: POTASSIUM CHLORIDE 10% ELIXIR 20 MEQ/15 ML UDCUP PO SCH (08:20)
[2021-07-01] MEDS: DEXAMETHASONE SOD PHOSPHATE 4 MG/ML 1ML VIAL IVP SCH (08:20)
[2021-07-01] MEDS: ENOXAPARIN SODIUM 40 MG/0.4 ML SYRINGE SQ SCH ×2 (08:21→21:05)
[2021-07-01] MEDS: METOPROLOL TARTRATE 25 MG TAB PO SCH ×2 (08:22→21:04)
[2021-07-01] MEDS: ASPIRIN 81MG CHEW TAB PO SCH (08:22)
[2021-07-01] MEDS: SERTRALINE HCL 50 MG TABLET PO SCH (08:22)
[2021-07-01] MEDS: HONEY 1 APPL/ML TUBE TP SCH ×2 (09:12→21:07)
[2021-07-01] MEDS: BALSAM PERU/CASTOR OIL 60 GM TUBE TP SCH ×3 (09:13→21:07)
[2021-07-01] MEDS: MEROPENEM 1 GM VIAL IVP SCH ×3 (09:59→23:57)
[2021-07-01] MEDS: FENTANYL CITRATE PF 50 MCG/1 ML 2ML VIAL IVP PRN (16:48)
[2021-07-01] MEDS: ACETAMINOPHEN 650 MG/20.3 ML UDCUP PEG PRN (17:49)
[2021-07-01] MEDS: TRAZODONE HCL 50 MG TAB PO SCH (21:05)
[2021-07-02] VITALS (26 sets, daily range): BP systolic 89–138; BP diastolic 48–90
[2021-07-02] MEDS: ARTIFICIAL TEARS 3.5 GM OINTMENT OD SCH ×4 (03:40→21:21)
[2021-07-02] MEDS: FENTANYL CITRATE PF 50 MCG/1 ML 2ML VIAL IVP PRN (04:42)
[2021-07-02] MEDS: CLONAZEPAM 1MG TAB PO SCH ×3 (05:49→21:19)
[2021-07-02] MEDS: INSULIN HUMULIN R 100 UNIT/ML 3ML SQ SCH ×7 (05:50→18:06)
[2021-07-02 06:30] LABS: BASOPHILS % (AUTO) 0.3 % (0.0-5.0); EOSINOPHILS % (AUTO) 2.2 % (0.0-8.0); HEMATOCRIT 29.8 % (36-48); LYMPHOCYTES % (AUTO) 11.9 % (21.0-51.0); MEAN CORPUSCULAR HEMOGLOBIN 26.5 pg (27.0-33.0); MEAN CORPUSCULAR HGB CONC 29.9 g/dL (32.0-36.0); MEAN CORPUSCULAR VOLUME 88.7 fL (79-99); MONOCYTES % (AUTO) 4.9 % (3.0-13.0); NEUTROPHILS % (AUTO) 80.2 % (40.0-77.0); PLATELET COUNT (AUTO) 247 K/uL (130-400); RED BLOOD CELL COUNT(AUTO) 3.36 MIL/uL (4.00-5.50); RED CELL DISTRIBUTION WIDTH 16.1 % (11.0-15.5); WHITE BLOOD COUNT (AUTO) 5.9 K/uL (4.8-10.8)
[2021-07-02 07:01] LABS: ALBUMIN 2.6 g/dL (3.5-5.0); BILIRUBIN,TOTAL 0.5 mg/dL (0.2-1.0); CREATININE 0.2 mg/dL (0.5-1.5); POTASSIUM 4.2 mmol/L (3.5-5.1); TOTAL PROTEIN, SERUM 6.9 g/dL (6.0-8.3)
[2021-07-02] MEDS: POTASSIUM CHLORIDE 10% ELIXIR 20 MEQ/15 ML UDCUP PO SCH (09:00)
[2021-07-02] MEDS: ASPIRIN 81MG CHEW TAB PO SCH (09:28)
[2021-07-02] MEDS: DEXAMETHASONE SOD PHOSPHATE 4 MG/ML 1ML VIAL IVP SCH (09:28)
[2021-07-02] MEDS: LANSOPRAZOLE 15 MG SOLU TAB PEG SCH (09:28)
[2021-07-02] MEDS: MEROPENEM 1 GM VIAL IVP SCH ×2 (09:28→17:58)
[2021-07-02] MEDS: METOPROLOL TARTRATE 25 MG TAB PO SCH ×2 (09:29→21:00)
[2021-07-02] MEDS: SERTRALINE HCL 50 MG TABLET PO SCH (09:31)
[2021-07-02] MEDS: HONEY 1 APPL/ML TUBE TP SCH ×2 (09:32→21:20)
[2021-07-02] MEDS: ENOXAPARIN SODIUM 40 MG/0.4 ML SYRINGE SQ SCH ×2 (09:33→21:19)
[2021-07-02] MEDS: BALSAM PERU/CASTOR OIL 60 GM TUBE TP SCH ×3 (09:33→21:21)
[2021-07-02] MEDS: INSULIN GLARGINE 100 UNITS/ML 10 ML VIAL SQ SCH ×2 (09:44→21:20)
[2021-07-02] MEDS: TRAZODONE HCL 50 MG TAB PO SCH (21:19)
[2021-07-03] VITALS (23 sets, daily range): BP systolic 108–161; BP diastolic 56–84
[2021-07-03] MEDS: MEROPENEM 1 GM VIAL IVP SCH ×3 (00:09→17:44)
[2021-07-03] MEDS: ARTIFICIAL TEARS 3.5 GM OINTMENT OD SCH ×4 (04:00→20:50)
[2021-07-03 05:28] LABS: BASOPHILS % (AUTO) 0.3 % (0.0-5.0); EOSINOPHILS % (AUTO) 4.9 % (0.0-8.0); HEMATOCRIT 29.1 % (36-48); LYMPHOCYTES % (AUTO) 18.8 % (21.0-51.0); MEAN CORPUSCULAR HEMOGLOBIN 26.7 pg (27.0-33.0); MEAN CORPUSCULAR HGB CONC 29.9 g/dL (32.0-36.0); MEAN CORPUSCULAR VOLUME 89.3 fL (79-99); MONOCYTES % (AUTO) 5.6 % (3.0-13.0); NEUTROPHILS % (AUTO) 69.4 % (40.0-77.0); PLATELET COUNT (AUTO) 214 K/uL (130-400); RED BLOOD CELL COUNT(AUTO) 3.26 MIL/uL (4.00-5.50); RED CELL DISTRIBUTION WIDTH 16.3 % (11.0-15.5); WHITE BLOOD COUNT (AUTO) 7.3 K/uL (4.8-10.8)
[2021-07-03 05:48] LABS: ALBUMIN 2.5 g/dL (3.5-5.0); BILIRUBIN,TOTAL 0.5 mg/dL (0.2-1.0); CREATININE 0.3 mg/dL (0.5-1.5); POTASSIUM 3.3 mmol/L (3.5-5.1); TOTAL PROTEIN, SERUM 6.9 g/dL (6.0-8.3)
[2021-07-03] MEDS: INSULIN HUMULIN R 100 UNIT/ML 3ML SQ SCH ×5 (06:00→17:57)
[2021-07-03] MEDS: CLONAZEPAM 1MG TAB PO SCH ×3 (06:19→20:49)
[2021-07-03] MEDS: POTASSIUM CHLORIDE 10% ELIXIR 20 MEQ/15 ML UDCUP PO PRN (06:19)
[2021-07-03] MEDS: POTASSIUM CHLORIDE 10% ELIXIR 20 MEQ/15 ML UDCUP PO SCH (08:35)
[2021-07-03] MEDS: DEXAMETHASONE SOD PHOSPHATE 4 MG/ML 1ML VIAL IVP SCH (11:17)
[2021-07-03] MEDS: LANSOPRAZOLE 15 MG SOLU TAB PEG SCH (11:17)
[2021-07-03] MEDS: METOPROLOL TARTRATE 25 MG TAB PO SCH ×2 (11:18→22:00)
[2021-07-03] MEDS: ASPIRIN 81MG CHEW TAB PO SCH (11:20)
[2021-07-03] MEDS: SERTRALINE HCL 50 MG TABLET PO SCH (11:20)
[2021-07-03] MEDS: BALSAM PERU/CASTOR OIL 60 GM TUBE TP SCH ×3 (11:21→20:50)
[2021-07-03] MEDS: HONEY 1 APPL/ML TUBE TP SCH ×2 (11:21→21:00)
[2021-07-03] MEDS: ENOXAPARIN SODIUM 40 MG/0.4 ML SYRINGE SQ SCH ×2 (11:22→20:49)
[2021-07-03] MEDS: INSULIN GLARGINE 100 UNITS/ML 10 ML VIAL SQ SCH ×2 (11:34→20:48)
[2021-07-03] MEDS: TRAZODONE HCL 50 MG TAB PO SCH (20:48)
[2021-07-03] MEDS: ZOLPIDEM TARTRATE 5 MG TAB PO SCH (20:49)
[2021-07-04] VITALS (22 sets, daily range): BP systolic 108–140; BP diastolic 55–89
[2021-07-04] MEDS: MEROPENEM 1 GM VIAL IVP SCH ×3 (01:04→16:37)
[2021-07-04] MEDS: ARTIFICIAL TEARS 3.5 GM OINTMENT OD SCH ×4 (04:00→20:09)
[2021-07-04 05:08] LABS: BASOPHILS % (AUTO) 0.4 % (0.0-5.0); EOSINOPHILS % (AUTO) 4.6 % (0.0-8.0); HEMATOCRIT 29.3 % (36-48); LYMPHOCYTES % (AUTO) 22.9 % (21.0-51.0); MEAN CORPUSCULAR HEMOGLOBIN 26.6 pg (27.0-33.0); MEAN CORPUSCULAR HGB CONC 30.4 g/dL (32.0-36.0); MEAN CORPUSCULAR VOLUME 87.5 fL (79-99); MONOCYTES % (AUTO) 6.8 % (3.0-13.0); NEUTROPHILS % (AUTO) 64.3 % (40.0-77.0); PLATELET COUNT (AUTO) 250 K/uL (130-400); RED BLOOD CELL COUNT(AUTO) 3.35 MIL/uL (4.00-5.50); RED CELL DISTRIBUTION WIDTH 16.3 % (11.0-15.5); WHITE BLOOD COUNT (AUTO) 6.9 K/uL (4.8-10.8)
[2021-07-04] MEDS: CLONAZEPAM 1MG TAB PO SCH ×3 (05:56→20:06)
[2021-07-04] MEDS: INSULIN HUMULIN R 100 UNIT/ML 3ML SQ SCH ×4 (06:00→18:37)
[2021-07-04 06:25] LABS: ALBUMIN 2.6 g/dL (3.5-5.0); BILIRUBIN,TOTAL 0.6 mg/dL (0.2-1.0); CREATININE 0.2 mg/dL (0.5-1.5); CRP QUANTITATIVE 71.8 mg/L (0.00-9.0); MAGNESIUM 2.1 mg/dL (1.80-2.40); POTASSIUM 3.5 mmol/L (3.5-5.1)
[2021-07-04] MEDS: POTASSIUM CHLORIDE 10% ELIXIR 20 MEQ/15 ML UDCUP PO SCH (09:37)
[2021-07-04] MEDS: LANSOPRAZOLE 15 MG SOLU TAB PEG SCH (09:37)
[2021-07-04] MEDS: METOPROLOL TARTRATE 25 MG TAB PO SCH ×2 (09:38→20:07)
[2021-07-04] MEDS: ENOXAPARIN SODIUM 40 MG/0.4 ML SYRINGE SQ SCH ×2 (09:38→20:08)
[2021-07-04] MEDS: ASPIRIN 81MG CHEW TAB PO SCH (09:39)
[2021-07-04] MEDS: SERTRALINE HCL 50 MG TABLET PO SCH (09:39)
[2021-07-04] MEDS: DEXAMETHASONE SOD PHOSPHATE 4 MG/ML 1ML VIAL IVP SCH (09:39)
[2021-07-04] MEDS: HONEY 1 APPL/ML TUBE TP SCH ×2 (09:41→20:08)
[2021-07-04] MEDS: BALSAM PERU/CASTOR OIL 60 GM TUBE TP SCH ×3 (09:42→20:09)
[2021-07-04] MEDS: INSULIN GLARGINE 100 UNITS/ML 10 ML VIAL SQ SCH ×2 (09:45→20:11)
[2021-07-04] MEDS: ZOLPIDEM TARTRATE 5 MG TAB PO SCH (20:06)
[2021-07-04] MEDS: TRAZODONE HCL 50 MG TAB PO SCH (20:06)
[2021-07-05] VITALS (23 sets, daily range): BP systolic 90–136; BP diastolic 34–98
[2021-07-05] MEDS: MEROPENEM 1 GM VIAL IVP SCH ×4 (00:42→23:52)
[2021-07-05 04:22] LABS: CREATININE 0.2 mg/dL (0.5-1.5); POTASSIUM 3.5 mmol/L (3.5-5.1)
[2021-07-05] MEDS: ARTIFICIAL TEARS 3.5 GM OINTMENT OD SCH ×4 (04:27→20:31)
[2021-07-05] MEDS: INSULIN HUMULIN R 100 UNIT/ML 3ML SQ SCH ×4 (06:00→17:46)
[2021-07-05] MEDS: CLONAZEPAM 1MG TAB PO SCH ×3 (06:06→20:31)
[2021-07-05] MEDS: POTASSIUM CHLORIDE 20MEQ/100ML 100 ML IV PRN (06:22)
[2021-07-05] MEDS: FENTANYL CITRATE PF 50 MCG/1 ML 2ML VIAL IVP PRN (06:24)
[2021-07-05] MEDS: SERTRALINE HCL 50 MG TABLET PO SCH (08:16)
[2021-07-05] MEDS: METOPROLOL TARTRATE 25 MG TAB PO SCH ×2 (08:16→20:31)
[2021-07-05] MEDS: DEXAMETHASONE SOD PHOSPHATE 4 MG/ML 1ML VIAL IVP SCH (08:17)
[2021-07-05] MEDS: LANSOPRAZOLE 15 MG SOLU TAB PEG SCH (08:17)
[2021-07-05] MEDS: POTASSIUM CHLORIDE 10% ELIXIR 20 MEQ/15 ML UDCUP PO SCH (08:17)
[2021-07-05] MEDS: ENOXAPARIN SODIUM 40 MG/0.4 ML SYRINGE SQ SCH ×2 (08:18→20:32)
[2021-07-05] MEDS: ASPIRIN 81MG CHEW TAB PO SCH (08:19)
[2021-07-05] MEDS: INSULIN GLARGINE 100 UNITS/ML 10 ML VIAL SQ SCH ×2 (08:22→20:51)
[2021-07-05] MEDS: HONEY 1 APPL/ML TUBE TP SCH ×2 (08:25→20:31)
[2021-07-05] MEDS: BALSAM PERU/CASTOR OIL 60 GM TUBE TP SCH ×3 (08:25→20:31)
[2021-07-05] MEDS: ZOLPIDEM TARTRATE 5 MG TAB PO SCH (20:31)
[2021-07-05] MEDS: TRAZODONE HCL 50 MG TAB PO SCH (20:31)
[2021-07-06] VITALS (22 sets, daily range): BP systolic 100–153; BP diastolic 56–94
[2021-07-06] MEDS: FENTANYL CITRATE PF 50 MCG/1 ML 2ML VIAL IVP PRN (03:48)
[2021-07-06] MEDS: ARTIFICIAL TEARS 3.5 GM OINTMENT OD SCH ×4 (04:22→21:05)
[2021-07-06] MEDS: CLONAZEPAM 1MG TAB PO SCH ×3 (05:52→21:14)
[2021-07-06] MEDS: INSULIN HUMULIN R 100 UNIT/ML 3ML SQ SCH ×4 (06:00→18:31)
[2021-07-06 08:19] LABS: BASOPHILS % (AUTO) 0.5 % (0.0-5.0); EOSINOPHILS % (AUTO) 4.9 % (0.0-8.0); HEMATOCRIT 29.2 % (36-48); LYMPHOCYTES % (AUTO) 16.9 % (21.0-51.0); MEAN CORPUSCULAR HEMOGLOBIN 27.2 pg (27.0-33.0); MEAN CORPUSCULAR HGB CONC 31.2 g/dL (32.0-36.0); MEAN CORPUSCULAR VOLUME 87.2 fL (79-99); MONOCYTES % (AUTO) 6.7 % (3.0-13.0); NEUTROPHILS % (AUTO) 70.1 % (40.0-77.0); NUCLEATED RED BLOOD CELLS 0.2 % (0.0-0.19); PLATELET COUNT (AUTO) 238 K/uL (130-400); RED BLOOD CELL COUNT(AUTO) 3.35 MIL/uL (4.00-5.50); RED CELL DISTRIBUTION WIDTH 16.2 % (11.0-15.5); WHITE BLOOD COUNT (AUTO) 8.2 K/uL (4.8-10.8)
[2021-07-06 08:31] LABS: ALBUMIN 2.6 g/dL (3.5-5.0); BILIRUBIN,TOTAL 0.6 mg/dL (0.2-1.0); CREATININE 0.2 mg/dL (0.5-1.5); POTASSIUM 3.5 mmol/L (3.5-5.1); TOTAL PROTEIN, SERUM 6.8 g/dL (6.0-8.3)
[2021-07-06] MEDS: MEROPENEM 1 GM VIAL IVP SCH ×2 (08:49→15:58)
[2021-07-06] MEDS: DEXAMETHASONE SOD PHOSPHATE 4 MG/ML 1ML VIAL IVP SCH (08:51)
[2021-07-06] MEDS: ASPIRIN 81MG CHEW TAB PO SCH (08:51)
[2021-07-06] MEDS: LANSOPRAZOLE 15 MG SOLU TAB PEG SCH (08:56)
[2021-07-06] MEDS: POTASSIUM CHLORIDE 10% ELIXIR 20 MEQ/15 ML UDCUP PO SCH (08:59)
[2021-07-06] MEDS: SERTRALINE HCL 50 MG TABLET PO SCH (08:59)
[2021-07-06] MEDS: METOPROLOL TARTRATE 25 MG TAB PO SCH ×2 (08:59→21:14)
[2021-07-06] MEDS: ENOXAPARIN SODIUM 40 MG/0.4 ML SYRINGE SQ SCH ×2 (09:01→21:16)
[2021-07-06] MEDS: INSULIN GLARGINE 100 UNITS/ML 10 ML VIAL SQ SCH ×2 (09:03→21:15)
[2021-07-06] MEDS: HONEY 1 APPL/ML TUBE TP SCH ×2 (09:04→21:05)
[2021-07-06] MEDS: BALSAM PERU/CASTOR OIL 60 GM TUBE TP SCH ×3 (09:06→21:05)
[2021-07-06] MEDS ORDERED: ALBUTEROL 0.083% 2.5 MG/3 ML INH IH PRN (14:00)
[2021-07-06] MEDS ORDERED: ALBUTEROL 0.083% 2.5 MG/3 ML INH IH SCH (14:00)
[2021-07-06] MEDS: ACETAMINOPHEN 650 MG/20.3 ML UDCUP PEG PRN (15:59)
[2021-07-06] MEDS: TRAZODONE HCL 50 MG TAB PO SCH (21:13)
[2021-07-06] MEDS: ZOLPIDEM TARTRATE 5 MG TAB PO SCH (21:14)
[2021-07-07] VITALS (23 sets, daily range): BP systolic 52–144; BP diastolic 24–89
[2021-07-07] MEDS: MEROPENEM 1 GM VIAL IVP SCH ×3 (01:31→15:29)
[2021-07-07] MEDS: ARTIFICIAL TEARS 3.5 GM OINTMENT OD SCH ×4 (03:53→21:14)
[2021-07-07 04:58] LABS: BASOPHILS % (AUTO) 0.6 % (0.0-5.0); EOSINOPHILS % (AUTO) 3.4 % (0.0-8.0); HEMATOCRIT 31.5 % (36-48); MEAN CORPUSCULAR HEMOGLOBIN 26.3 pg (27.0-33.0); MEAN CORPUSCULAR HGB CONC 29.8 g/dL (32.0-36.0); MONOCYTES % (AUTO) 6.6 % (3.0-13.0); NEUTROPHILS % (AUTO) 71.6 % (40.0-77.0); NUCLEATED RED BLOOD CELLS 0.2 % (0.0-0.19); PLATELET COUNT (AUTO) 306 K/uL (130-400); RED BLOOD CELL COUNT(AUTO) 3.58 MIL/uL (4.00-5.50); WHITE BLOOD COUNT (AUTO) 10.8 K/uL (4.8-10.8)
[2021-07-07 05:22] LABS: ALBUMIN 2.7 g/dL (3.5-5.0); BILIRUBIN,TOTAL 0.6 mg/dL (0.2-1.0); CREATININE 0.3 mg/dL (0.5-1.5); POTASSIUM 3.6 mmol/L (3.5-5.1); TOTAL PROTEIN, SERUM 7.2 g/dL (6.0-8.3)
[2021-07-07] MEDS: POTASSIUM CHLORIDE 10% ELIXIR 20 MEQ/15 ML UDCUP PO PRN (06:15)
[2021-07-07] MEDS: CLONAZEPAM 1MG TAB PO SCH ×3 (06:15→21:24)
[2021-07-07] MEDS: INSULIN HUMULIN R 100 UNIT/ML 3ML SQ SCH ×4 (06:16→17:57)
[2021-07-07] MEDS: LANSOPRAZOLE 15 MG SOLU TAB PEG SCH (08:51)
[2021-07-07] MEDS: ASPIRIN 81MG CHEW TAB PO SCH (08:51)
[2021-07-07] MEDS: SERTRALINE HCL 50 MG TABLET PO SCH (08:51)
[2021-07-07] MEDS: ENOXAPARIN SODIUM 40 MG/0.4 ML SYRINGE SQ SCH ×2 (08:52→21:26)
[2021-07-07] MEDS: HONEY 1 APPL/ML TUBE TP SCH ×2 (08:52→21:13)
[2021-07-07] MEDS: METOPROLOL TARTRATE 25 MG TAB PO SCH (08:52)
[2021-07-07] MEDS: POTASSIUM CHLORIDE 10% ELIXIR 20 MEQ/15 ML UDCUP PO SCH (08:52)
[2021-07-07] MEDS: BALSAM PERU/CASTOR OIL 60 GM TUBE TP SCH ×3 (08:53→21:13)
[2021-07-07] MEDS: INSULIN GLARGINE 100 UNITS/ML 10 ML VIAL SQ SCH ×2 (09:08→21:53)
[2021-07-07] MEDS: ZOLPIDEM TARTRATE 5 MG TAB PO SCH (21:24)
[2021-07-07] MEDS: TRAZODONE HCL 50 MG TAB PO SCH (21:24)
[2021-07-08] VITALS (23 sets, daily range): BP systolic 97–130; BP diastolic 40–97
[2021-07-08] MEDS: MEROPENEM 1 GM VIAL IVP SCH ×3 (00:40→14:02)
[2021-07-08] MEDS: METOPROLOL TARTRATE 25 MG TAB PO SCH ×3 (00:40→20:35)
[2021-07-08] MEDS: INSULIN HUMULIN R 100 UNIT/ML 3ML SQ SCH ×4 (01:01→17:55)
[2021-07-08] MEDS: ARTIFICIAL TEARS 3.5 GM OINTMENT OD SCH ×4 (02:57→20:29)
[2021-07-08] MEDS: CLONAZEPAM 1MG TAB PO SCH ×3 (05:09→20:39)
[2021-07-08] MEDS: POTASSIUM CHLORIDE 10% ELIXIR 20 MEQ/15 ML UDCUP PO SCH (08:42)
[2021-07-08] MEDS: ASPIRIN 81MG CHEW TAB PO SCH (08:43)
[2021-07-08] MEDS: LANSOPRAZOLE 15 MG SOLU TAB PEG SCH (08:44)
[2021-07-08] MEDS: ACETAMINOPHEN 500 MG TABLET PO PRN (08:44)
[2021-07-08] MEDS: SERTRALINE HCL 50 MG TABLET PO SCH (08:45)
[2021-07-08] MEDS: ENOXAPARIN SODIUM 40 MG/0.4 ML SYRINGE SQ SCH ×2 (08:45→20:34)
[2021-07-08] MEDS: INSULIN GLARGINE 100 UNITS/ML 10 ML VIAL SQ SCH ×2 (08:48→20:34)
[2021-07-08] MEDS: HONEY 1 APPL/ML TUBE TP SCH ×2 (08:52→20:28)
[2021-07-08] MEDS: BALSAM PERU/CASTOR OIL 60 GM TUBE TP SCH ×3 (08:52→20:28)
[2021-07-08] MEDS ORDERED: PHARMACY COMMUNICATION MISC SCH (20:00)
[2021-07-08] MEDS: TRAZODONE HCL 50 MG TAB PO SCH (20:35)
[2021-07-08] MEDS: ZOLPIDEM TARTRATE 5 MG TAB PO SCH (20:35)
[2021-07-09] VITALS (41 sets, daily range): BP systolic 95–135; BP diastolic 48–90
[2021-07-09] MEDS: MEROPENEM 1 GM VIAL IVP SCH ×3 (00:02→15:52)
[2021-07-09] MEDS: ACETAMINOPHEN 500 MG TABLET PO PRN ×2 (02:06→11:00)
[2021-07-09 04:02] LABS: BASOPHILS % (AUTO) 0.5 % (0.0-5.0); EOSINOPHILS % (AUTO) 4.2 % (0.0-8.0); LYMPHOCYTES % (AUTO) 12.6 % (21.0-51.0); MEAN CORPUSCULAR VOLUME 86.7 fL (79-99); MONOCYTES % (AUTO) 7.2 % (3.0-13.0); NEUTROPHILS % (AUTO) 73.3 % (40.0-77.0); NUCLEATED RED BLOOD CELLS 0.2 % (0.0-0.19); PLATELET COUNT (AUTO) 311 K/uL (130-400); RED BLOOD CELL COUNT(AUTO) 3.23 MIL/uL (4.00-5.50); WHITE BLOOD COUNT (AUTO) 9.4 K/uL (4.8-10.8)
[2021-07-09 04:16] LABS: ALBUMIN 2.4 g/dL (3.5-5.0); BILIRUBIN,TOTAL 0.6 mg/dL (0.2-1.0); CREATININE 0.2 mg/dL (0.5-1.5); POTASSIUM 3.8 mmol/L (3.5-5.1); TOTAL PROTEIN, SERUM 6.6 g/dL (6.0-8.3)
[2021-07-09] MEDS: INSULIN HUMULIN R 100 UNIT/ML 3ML SQ SCH ×3 (05:23→18:00)
[2021-07-09] MEDS: ARTIFICIAL TEARS 3.5 GM OINTMENT OD SCH (05:23)
[2021-07-09] MEDS: POTASSIUM CHLORIDE 10% ELIXIR 20 MEQ/15 ML UDCUP PO PRN (05:32)
[2021-07-09] MEDS: CLONAZEPAM 1MG TAB PO SCH ×2 (05:32→15:53)
[2021-07-09] MEDS: FENTANYL CITRATE PF 50 MCG/1 ML 2ML VIAL IVP PRN (06:32)
[2021-07-09] MEDS: HONEY 1 APPL/ML TUBE TP SCH ×2 (08:34→20:26)
[2021-07-09] MEDS: SERTRALINE HCL 50 MG TABLET PO SCH (08:34)
[2021-07-09] MEDS: ENOXAPARIN SODIUM 40 MG/0.4 ML SYRINGE SQ SCH ×2 (08:34→20:41)
[2021-07-09] MEDS: BALSAM PERU/CASTOR OIL 60 GM TUBE TP SCH ×3 (08:34→20:26)
[2021-07-09] MEDS: INSULIN GLARGINE 100 UNITS/ML 10 ML VIAL SQ SCH ×2 (08:34→20:25)
[2021-07-09] MEDS: POTASSIUM CHLORIDE 10% ELIXIR 20 MEQ/15 ML UDCUP PO SCH (08:35)
[2021-07-09] MEDS: LANSOPRAZOLE 15 MG SOLU TAB PEG SCH (08:36)
[2021-07-09] MEDS: ASPIRIN 81MG CHEW TAB PO SCH (08:37)
[2021-07-09] MEDS: METOPROLOL TARTRATE 25 MG TAB PO SCH ×2 (08:54→20:41)
[2021-07-09] MEDS ORDERED: CLONAZEPAM 1MG TAB ONE (15:51)
[2021-07-09] MEDS ORDERED: INSULIN HUMULIN R 100 UNIT/ML 3ML SQ SCH (16:30)
[2021-07-09] MEDS: FLUTICASONE PROPIONATE 50MCG/SPRAY 16 GM BOTTLE EN SCH ×2 (16:32→20:42)
[2021-07-09] MEDS ORDERED: NACL NASAL SPRAY 120 SPRAY/BOTTLE NS ONE (18:00)
[2021-07-09] MEDS: ZOLPIDEM TARTRATE 5 MG TAB PO SCH (20:41)
[2021-07-09] MEDS: TRAZODONE HCL 50 MG TAB PO SCH (20:41)
[2021-07-09] MEDS: MELATONIN 10 MG PO PRN (21:14)
[2021-07-10] VITALS (29 sets, daily range): BP systolic 110–155; BP diastolic 67–91
[2021-07-10] MEDS ORDERED: CLONAZEPAM 1MG TAB PEG ONE
[2021-07-10] MEDS: FENTANYL CITRATE PF 50 MCG/1 ML 2ML VIAL IVP PRN ×4 (03:09→23:52)
[2021-07-10] MEDS: ACETAMINOPHEN 500 MG TABLET PO PRN (04:09)
[2021-07-10 04:11] LABS: BASOPHILS % (AUTO) 0.6 % (0.0-5.0); EOSINOPHILS % (AUTO) 3.9 % (0.0-8.0); LYMPHOCYTES % (AUTO) 12.8 % (21.0-51.0); MEAN CORPUSCULAR HEMOGLOBIN 25.5 pg (27.0-33.0); MEAN CORPUSCULAR HGB CONC 29.7 g/dL (32.0-36.0); MEAN CORPUSCULAR VOLUME 86.1 fL (79-99); MONOCYTES % (AUTO) 5.9 % (3.0-13.0); NEUTROPHILS % (AUTO) 74.4 % (40.0-77.0); PLATELET COUNT (AUTO) 344 K/uL (130-400); RED BLOOD CELL COUNT(AUTO) 3.37 MIL/uL (4.00-5.50); WHITE BLOOD COUNT (AUTO) 9.7 K/uL (4.8-10.8)
[2021-07-10] MEDS: CLONAZEPAM 1MG TAB PO SCH ×3 (04:19→20:23)
[2021-07-10 04:28] LABS: INR 0.99 (0.85-1.15); PROTHROMBIN TIME 10.8 SEC (9.6-11.6)
[2021-07-10 04:30] LABS: PARTIAL THROMBOPLASTIN TIME 31.1 SEC (26.3-35.5)
[2021-07-10 04:31] LABS: % IRON SATURATION 15.1 % (22-44)
[2021-07-10 04:50] LABS: ALBUMIN 2.2 g/dL (3.5-5.0); BILIRUBIN,TOTAL 0.6 mg/dL (0.2-1.0); CREATININE 0.2 mg/dL (0.5-1.5); POTASSIUM 3.9 mmol/L (3.5-5.1); TOTAL PROTEIN, SERUM 6.5 g/dL (6.0-8.3)
[2021-07-10] MEDS: INSULIN HUMULIN R 100 UNIT/ML 3ML SQ SCH ×4 (05:34→17:38)
[2021-07-10] MEDS: INSULIN GLARGINE 100 UNITS/ML 10 ML VIAL SQ SCH (07:36)
[2021-07-10] MEDS: ENOXAPARIN SODIUM 40 MG/0.4 ML SYRINGE SQ SCH ×2 (08:41→20:22)
[2021-07-10] MEDS: SERTRALINE HCL 50 MG TABLET PO SCH (08:42)
[2021-07-10] MEDS: ASPIRIN 81MG CHEW TAB PO SCH (08:42)
[2021-07-10] MEDS: LANSOPRAZOLE 15 MG SOLU TAB PEG SCH (08:42)
[2021-07-10] MEDS: POTASSIUM CHLORIDE 10% ELIXIR 20 MEQ/15 ML UDCUP PO SCH (08:42)
[2021-07-10] MEDS: FLUTICASONE PROPIONATE 50MCG/SPRAY 16 GM BOTTLE EN SCH ×2 (08:43→20:21)
[2021-07-10] MEDS: BALSAM PERU/CASTOR OIL 60 GM TUBE TP SCH ×3 (08:43→19:57)
[2021-07-10] MEDS: HONEY 1 APPL/ML TUBE TP SCH ×2 (08:43→19:57)
[2021-07-10] MEDS: ZOLPIDEM TARTRATE 5 MG TAB PO SCH (20:21)
[2021-07-10] MEDS: TRAZODONE HCL 50 MG TAB PO SCH (20:21)
[2021-07-10] MEDS: MELATONIN 10 MG PO PRN (23:22)
[2021-07-11] VITALS (25 sets, daily range): BP systolic 89–152; BP diastolic 51–93
[2021-07-11] MEDS: ACETAMINOPHEN 500 MG TABLET PO PRN (01:46)
[2021-07-11] MEDS: INSULIN HUMULIN R 100 UNIT/ML 3ML SQ SCH ×5 (06:00→23:37)
[2021-07-11 06:31] LABS: BASOPHILS % (AUTO) 0.5 % (0.0-5.0); EOSINOPHILS % (AUTO) 3.2 % (0.0-8.0); HEMATOCRIT 29.5 % (36-48); LYMPHOCYTES % (AUTO) 12.7 % (21.0-51.0); MEAN CORPUSCULAR HEMOGLOBIN 25.4 pg (27.0-33.0); MEAN CORPUSCULAR HGB CONC 29.8 g/dL (32.0-36.0); MEAN CORPUSCULAR VOLUME 85.3 fL (79-99); NUCLEATED RED BLOOD CELLS 0.3 % (0.0-0.19); PLATELET COUNT (AUTO) 382 K/uL (130-400); RED BLOOD CELL COUNT(AUTO) 3.46 MIL/uL (4.00-5.50); RED CELL DISTRIBUTION WIDTH 16.1 % (11.0-15.5); WHITE BLOOD COUNT (AUTO) 10.2 K/uL (4.8-10.8)
[2021-07-11 06:38] LABS: ALANINE AMINOTRANSFERASE 42 U/L (12-78); ALBUMIN 2.4 g/dL (3.5-5.0); ASPARTATE AMINOTRANSFERASE 29 U/L (10-37); BILIRUBIN,TOTAL 0.7 mg/dL (0.2-1.0); CARBON DIOXIDE 35 mmol/L (21-32); CHLORIDE 99 mmol/L (101-111); GLOMERULAR FILTR. RATE CALC 863 mL/min (>60); GLUCOSE,RANDOM 106 mg/dL (70-105); POTASSIUM 3.6 mmol/L (3.5-5.1); SODIUM SERUM 140 mmol/L (136-145); TOTAL PROTEIN, SERUM 6.8 g/dL (6.0-8.3); UREA NITROGEN, BLOOD 10 mg/dL (7-18)
[2021-07-11 07:02] LABS: CREATININE < 0.2 mg/dL (0.5-1.5)
[2021-07-11] MEDS: POTASSIUM CHLORIDE 20MEQ/100ML 100 ML IV PRN (07:03)
[2021-07-11] MEDS: CLONAZEPAM 1MG TAB PO SCH ×2 (08:38→20:18)
[2021-07-11] MEDS: LANSOPRAZOLE 15 MG SOLU TAB PEG SCH (08:38)
[2021-07-11] MEDS: POTASSIUM CHLORIDE 10% ELIXIR 20 MEQ/15 ML UDCUP PO SCH (08:39)
[2021-07-11] MEDS: HONEY 1 APPL/ML TUBE TP SCH ×2 (08:40→20:17)
[2021-07-11] MEDS: BALSAM PERU/CASTOR OIL 60 GM TUBE TP SCH ×3 (08:40→20:17)
[2021-07-11] MEDS: FLUTICASONE PROPIONATE 50MCG/SPRAY 16 GM BOTTLE EN SCH ×2 (08:40→22:21)
[2021-07-11] MEDS: ENOXAPARIN SODIUM 40 MG/0.4 ML SYRINGE SQ SCH ×2 (08:40→20:17)
[2021-07-11] MEDS: SERTRALINE HCL 50 MG TABLET PO SCH (08:48)
[2021-07-11] MEDS: ASPIRIN 81MG CHEW TAB PO SCH (08:48)
[2021-07-11] MEDS: METOPROLOL TARTRATE 25 MG TAB PO SCH ×2 (08:48→21:00)
[2021-07-11] MEDS: INSULIN GLARGINE 100 UNITS/ML 10 ML VIAL SQ SCH (08:49)
[2021-07-11] MEDS: ZOLPIDEM TARTRATE 5 MG TAB PO SCH (20:16)
[2021-07-11] MEDS: DEXMEDETOMIDINE 400MCG/NS100ML IV SCH (20:18)
[2021-07-12] VITALS (25 sets, daily range): BP systolic 87–149; BP diastolic 52–94
[2021-07-12] MEDS: DEXMEDETOMIDINE 400MCG/NS100ML IV SCH ×2 (03:10→19:38)
[2021-07-12] MEDS: INSULIN HUMULIN R 100 UNIT/ML 3ML SQ SCH ×3 (06:00→17:28)
[2021-07-12 06:40] LABS: ALBUMIN 2.2 g/dL (3.5-5.0); BILIRUBIN,TOTAL 0.5 mg/dL (0.2-1.0); CREATININE 0.2 mg/dL (0.5-1.5); POTASSIUM 4.2 mmol/L (3.5-5.1); TOTAL PROTEIN, SERUM 6.7 g/dL (6.0-8.3)
[2021-07-12 06:43] LABS: BASOPHILS % (AUTO) 0.5 % (0.0-5.0); EOSINOPHILS % (AUTO) 2.8 % (0.0-8.0); HEMATOCRIT 30.6 % (36-48); MEAN CORPUSCULAR HEMOGLOBIN 25.4 pg (27.0-33.0); MEAN CORPUSCULAR HGB CONC 29.4 g/dL (32.0-36.0); MEAN CORPUSCULAR VOLUME 86.2 fL (79-99); MONOCYTES % (AUTO) 5.6 % (3.0-13.0); NEUTROPHILS % (AUTO) 78.6 % (40.0-77.0); NUCLEATED RED BLOOD CELLS 0.4 % (0.0-0.19); PLATELET COUNT (AUTO) 411 K/uL (130-400); RED BLOOD CELL COUNT(AUTO) 3.55 MIL/uL (4.00-5.50); RED CELL DISTRIBUTION WIDTH 16.2 % (11.0-15.5); WHITE BLOOD COUNT (AUTO) 11.1 K/uL (4.8-10.8)
[2021-07-12] MEDS: POTASSIUM CHLORIDE 10% ELIXIR 20 MEQ/15 ML UDCUP PO SCH (07:55)
[2021-07-12] MEDS: METOPROLOL TARTRATE 25 MG TAB PO SCH ×2 (07:56→21:00)
[2021-07-12] MEDS: SERTRALINE HCL 50 MG TABLET PO SCH (07:56)
[2021-07-12] MEDS: LANSOPRAZOLE 15 MG SOLU TAB PEG SCH (07:56)
[2021-07-12] MEDS: ASPIRIN 81MG CHEW TAB PO SCH (07:56)
[2021-07-12] MEDS: BALSAM PERU/CASTOR OIL 60 GM TUBE TP SCH ×3 (07:57→19:39)
[2021-07-12] MEDS: ENOXAPARIN SODIUM 40 MG/0.4 ML SYRINGE SQ SCH ×2 (07:57→19:38)
[2021-07-12] MEDS: HONEY 1 APPL/ML TUBE TP SCH ×2 (07:57→19:39)
[2021-07-12] MEDS: FLUTICASONE PROPIONATE 50MCG/SPRAY 16 GM BOTTLE EN SCH ×2 (07:57→19:39)
[2021-07-12] MEDS: INSULIN GLARGINE 100 UNITS/ML 10 ML VIAL SQ SCH (08:00)
[2021-07-12] MEDS: CLONAZEPAM 1MG TAB PO SCH ×2 (09:11→19:38)
[2021-07-12] MEDS: FENTANYL CITRATE PF 50 MCG/1 ML 2ML VIAL IVP PRN (15:29)
[2021-07-12] MEDS: ZOLPIDEM TARTRATE 5 MG TAB PO SCH (19:38)
[2021-07-13] VITALS (19 sets, daily range): BP systolic 80–162; BP diastolic 47–106
[2021-07-13] MEDS: DEXMEDETOMIDINE 400MCG/NS100ML IV SCH ×4 (00:04→22:19)
[2021-07-13] MEDS: INSULIN HUMULIN R 100 UNIT/ML 3ML SQ SCH ×5 (00:04→23:21)
[2021-07-13] MEDS: ACETAMINOPHEN 500 MG TABLET PO PRN ×2 (01:03→19:30)
[2021-07-13 06:22] LABS: HEMATOCRIT 30.1 % (36-48); MEAN CORPUSCULAR HEMOGLOBIN 25.6 pg (27.0-33.0); MEAN CORPUSCULAR HGB CONC 29.9 g/dL (32.0-36.0); MEAN CORPUSCULAR VOLUME 85.5 fL (79-99); NUCLEATED RED BLOOD CELLS 0.2 % (0.0-0.19); RED BLOOD CELL COUNT(AUTO) 3.52 MIL/uL (4.00-5.50); RED CELL DISTRIBUTION WIDTH 16.2 % (11.0-15.5); WHITE BLOOD COUNT (AUTO) 13.1 K/uL (4.8-10.8)
[2021-07-13 06:32] LABS: CREATININE 0.2 mg/dL (0.5-1.5); POTASSIUM 4.2 mmol/L (3.5-5.1)
[2021-07-13] MEDS: LANSOPRAZOLE 15 MG SOLU TAB PEG SCH (08:50)
[2021-07-13] MEDS: SERTRALINE HCL 50 MG TABLET PO SCH (08:50)
[2021-07-13] MEDS: ASPIRIN 81MG CHEW TAB PO SCH (08:51)
[2021-07-13] MEDS: FLUTICASONE PROPIONATE 50MCG/SPRAY 16 GM BOTTLE EN SCH ×2 (08:51→19:33)
[2021-07-13] MEDS: POTASSIUM CHLORIDE 10% ELIXIR 20 MEQ/15 ML UDCUP PO SCH (08:52)
[2021-07-13] MEDS: INSULIN GLARGINE 100 UNITS/ML 10 ML VIAL SQ SCH (08:55)
[2021-07-13] MEDS: ENOXAPARIN SODIUM 40 MG/0.4 ML SYRINGE SQ SCH ×2 (08:56→19:35)
[2021-07-13] MEDS: METOPROLOL TARTRATE 25 MG TAB PO SCH ×2 (11:19→19:34)
[2021-07-13] MEDS: CLONAZEPAM 1MG TAB PO SCH ×2 (11:21→19:36)
[2021-07-13] MEDS: HONEY 1 APPL/ML TUBE TP SCH ×2 (11:24→19:35)
[2021-07-13] MEDS: BALSAM PERU/CASTOR OIL 60 GM TUBE TP SCH ×3 (11:24→19:36)
[2021-07-13] MEDS: ZOLPIDEM TARTRATE 5 MG TAB PO SCH (19:34)
[2021-07-14] VITALS (25 sets, daily range): BP systolic 76–159; BP diastolic 48–108
[2021-07-14] MEDS: DEXMEDETOMIDINE 400MCG/NS100ML IV SCH ×4 (03:31→21:46)
[2021-07-14] MEDS: INSULIN HUMULIN R 100 UNIT/ML 3ML SQ SCH ×4 (06:00→23:49)
[2021-07-14 06:46] LABS: HEMATOCRIT 28.3 % (36-48); MEAN CORPUSCULAR HEMOGLOBIN 25.8 pg (27.0-33.0); MEAN CORPUSCULAR HGB CONC 29.3 g/dL (32.0-36.0); MEAN CORPUSCULAR VOLUME 87.9 fL (79-99); NUCLEATED RED BLOOD CELLS 0.3 % (0.0-0.19); PLATELET COUNT (AUTO) 367 K/uL (130-400); RED BLOOD CELL COUNT(AUTO) 3.22 MIL/uL (4.00-5.50); RED CELL DISTRIBUTION WIDTH 16.4 % (11.0-15.5); WHITE BLOOD COUNT (AUTO) 10.3 K/uL (4.8-10.8)
[2021-07-14 07:01] LABS: CARBON DIOXIDE 36 mmol/L (21-32); CHLORIDE 102 mmol/L (101-111); CREATININE < 2.0 mg/dL (0.5-1.5); GLOMERULAR FILTR. RATE CALC 27 mL/min (>60); GLUCOSE,RANDOM 153 mg/dL (70-105); POTASSIUM 4.3 mmol/L (3.5-5.1); SODIUM SERUM 141 mmol/L (136-145); UREA NITROGEN, BLOOD 17 mg/dL (7-18)
[2021-07-14] MEDS: POTASSIUM CHLORIDE 10% ELIXIR 20 MEQ/15 ML UDCUP PO SCH (09:00)
[2021-07-14] MEDS: LACTOBACILLUS RHAMNOSUS GG 1 EACH CAP.SPRINK PO SCH (09:26)
[2021-07-14] MEDS: METOPROLOL TARTRATE 25 MG TAB PO SCH ×2 (09:27→19:41)
[2021-07-14] MEDS: LANSOPRAZOLE 15 MG SOLU TAB PEG SCH (09:27)
[2021-07-14] MEDS: ASPIRIN 81MG CHEW TAB PO SCH (09:27)
[2021-07-14] MEDS: SERTRALINE HCL 50 MG TABLET PO SCH ×2 (09:27→20:34)
[2021-07-14] MEDS: CLONAZEPAM 1MG TAB PO SCH ×2 (09:27→20:34)
[2021-07-14] MEDS: ENOXAPARIN SODIUM 40 MG/0.4 ML SYRINGE SQ SCH ×2 (09:28→20:35)
[2021-07-14] MEDS: HONEY 1 APPL/ML TUBE TP SCH ×2 (09:31→19:41)
[2021-07-14] MEDS: BALSAM PERU/CASTOR OIL 60 GM TUBE TP SCH ×3 (09:31→19:41)
[2021-07-14] MEDS: INSULIN GLARGINE 100 UNITS/ML 10 ML VIAL SQ SCH (09:31)
[2021-07-14] MEDS: FLUTICASONE PROPIONATE 50MCG/SPRAY 16 GM BOTTLE EN SCH ×2 (09:31→19:41)
[2021-07-14 09:38] LABS: THYROID STIMULATING HORMONE 1.3 uIU/mL (0.36-3.74)
[2021-07-14] MEDS: FENTANYL CITRATE PF 50 MCG/1 ML 2ML VIAL IVP PRN (13:42)
[2021-07-14] MEDS: ZOLPIDEM TARTRATE 5 MG TAB PO SCH (20:34)
[2021-07-15] VITALS (24 sets, daily range): BP systolic 77–137; BP diastolic 46–90
[2021-07-15] MEDS: DEXMEDETOMIDINE 400MCG/NS100ML IV SCH ×5 (01:12→20:57)
[2021-07-15] MEDS: ACETAMINOPHEN 500 MG TABLET PO PRN (01:25)
[2021-07-15] MEDS: INSULIN HUMULIN R 100 UNIT/ML 3ML SQ SCH ×4 (06:00→23:55)
[2021-07-15 06:56] LABS: HEMATOCRIT 26.9 % (36-48); MEAN CORPUSCULAR HEMOGLOBIN 25.5 pg (27.0-33.0); MEAN CORPUSCULAR HGB CONC 29.7 g/dL (32.0-36.0); MEAN CORPUSCULAR VOLUME 85.7 fL (79-99); RED BLOOD CELL COUNT(AUTO) 3.14 MIL/uL (4.00-5.50); RED CELL DISTRIBUTION WIDTH 16.2 % (11.0-15.5); WHITE BLOOD COUNT (AUTO) 12.8 K/uL (4.8-10.8)
[2021-07-15 07:03] LABS: CREATININE 0.2 mg/dL (0.5-1.5); POTASSIUM 4.6 mmol/L (3.5-5.1)
[2021-07-15] MEDS: BALSAM PERU/CASTOR OIL 60 GM TUBE TP SCH ×3 (08:51→20:07)
[2021-07-15] MEDS: HONEY 1 APPL/ML TUBE TP SCH ×2 (08:51→20:07)
[2021-07-15] MEDS: ENOXAPARIN SODIUM 40 MG/0.4 ML SYRINGE SQ SCH ×2 (08:51→20:43)
[2021-07-15] MEDS: INSULIN GLARGINE 100 UNITS/ML 10 ML VIAL SQ SCH (08:53)
[2021-07-15] MEDS: LANSOPRAZOLE 15 MG SOLU TAB PEG SCH (08:54)
[2021-07-15] MEDS: LACTOBACILLUS RHAMNOSUS GG 1 EACH CAP.SPRINK PO SCH (08:54)
[2021-07-15] MEDS: ASPIRIN 81MG CHEW TAB PO SCH (08:54)
[2021-07-15] MEDS: CLONAZEPAM 1MG TAB PO SCH ×2 (08:55→20:42)
[2021-07-15] MEDS: FLUTICASONE PROPIONATE 50MCG/SPRAY 16 GM BOTTLE EN SCH ×2 (08:55→20:06)
[2021-07-15] MEDS: SERTRALINE HCL 50 MG TABLET PO SCH ×2 (08:55→20:42)
[2021-07-15] MEDS: METOPROLOL TARTRATE 25 MG TAB PO SCH ×2 (08:55→20:07)
[2021-07-15] MEDS: ZOLPIDEM TARTRATE 5 MG TAB PO SCH (20:42)
[2021-07-16] VITALS (27 sets, daily range): BP systolic 79–170; BP diastolic 44–91
[2021-07-16] MEDS: DEXMEDETOMIDINE 400MCG/NS100ML IV SCH ×5 (00:42→20:33)
[2021-07-16] MEDS: INSULIN HUMULIN R 100 UNIT/ML 3ML SQ SCH ×3 (06:00→18:00)
[2021-07-16 06:31] LABS: BASOPHILS % (AUTO) 0.5 % (0.0-5.0); EOSINOPHILS % (AUTO) 3.5 % (0.0-8.0); LYMPHOCYTES % (AUTO) 11.6 % (21.0-51.0); MEAN CORPUSCULAR HEMOGLOBIN 25.7 pg (27.0-33.0); MEAN CORPUSCULAR HGB CONC 29.6 g/dL (32.0-36.0); MEAN CORPUSCULAR VOLUME 86.7 fL (79-99); NUCLEATED RED BLOOD CELLS 0.2 % (0.0-0.19); PLATELET COUNT (AUTO) 347 K/uL (130-400); RED CELL DISTRIBUTION WIDTH 16.3 % (11.0-15.5); WHITE BLOOD COUNT (AUTO) 12.8 K/uL (4.8-10.8)
[2021-07-16 06:49] LABS: CREATININE 0.2 mg/dL (0.5-1.5); POTASSIUM 4.7 mmol/L (3.5-5.1)
[2021-07-16] MEDS: FLUTICASONE PROPIONATE 50MCG/SPRAY 16 GM BOTTLE EN SCH ×2 (08:35→21:00)
[2021-07-16] MEDS: LANSOPRAZOLE 15 MG SOLU TAB PEG SCH (08:35)
[2021-07-16] MEDS: METOPROLOL TARTRATE 25 MG TAB PO SCH ×2 (08:36→20:12)
[2021-07-16] MEDS: ASPIRIN 81MG CHEW TAB PO SCH (08:36)
[2021-07-16] MEDS: SERTRALINE HCL 50 MG TABLET PO SCH ×2 (08:36→20:25)
[2021-07-16] MEDS: BALSAM PERU/CASTOR OIL 60 GM TUBE TP SCH ×3 (08:36→19:36)
[2021-07-16] MEDS: LACTOBACILLUS RHAMNOSUS GG 1 EACH CAP.SPRINK PO SCH (08:36)
[2021-07-16] MEDS: HONEY 1 APPL/ML TUBE TP SCH ×2 (08:37→19:36)
[2021-07-16] MEDS: INSULIN GLARGINE 100 UNITS/ML 10 ML VIAL SQ SCH (08:39)
[2021-07-16] MEDS: CLONAZEPAM 1MG TAB PO SCH ×2 (10:09→20:25)
[2021-07-16] MEDS: CEFEPIME HCL 2 GM VIAL IVP SCH ×2 (11:44→20:25)
[2021-07-16] MEDS: ZOLPIDEM TARTRATE 5 MG TAB PO SCH (20:25)
[2021-07-17] VITALS (42 sets, daily range): BP systolic 81–171; BP diastolic 46–99
[2021-07-17] MEDS: METOPROLOL TARTRATE 25 MG TAB PO SCH ×3 (00:37→20:06)
[2021-07-17] MEDS: DEXMEDETOMIDINE 400MCG/NS100ML IV SCH ×6 (00:43→21:56)
[2021-07-17] MEDS: CEFEPIME HCL 2 GM VIAL IVP SCH ×3 (03:17→20:06)
[2021-07-17] MEDS ORDERED: LORAZEPAM 2 MG/ML 1 ML VIAL IVP ONE (04:00)
[2021-07-17 04:43] LABS: BASOPHILS % (AUTO) 0.5 % (0.0-5.0); EOSINOPHILS % (AUTO) 3.9 % (0.0-8.0); HEMATOCRIT 26.4 % (36-48); LYMPHOCYTES % (AUTO) 9.8 % (21.0-51.0); MEAN CORPUSCULAR HEMOGLOBIN 25.8 pg (27.0-33.0); MEAN CORPUSCULAR HGB CONC 29.5 g/dL (32.0-36.0); MEAN CORPUSCULAR VOLUME 87.4 fL (79-99); MONOCYTES % (AUTO) 4.2 % (3.0-13.0); NEUTROPHILS % (AUTO) 79.7 % (40.0-77.0); NUCLEATED RED BLOOD CELLS 0.2 % (0.0-0.19); PLATELET COUNT (AUTO) 328 K/uL (130-400); RED BLOOD CELL COUNT(AUTO) 3.02 MIL/uL (4.00-5.50); RED CELL DISTRIBUTION WIDTH 16.4 % (11.0-15.5); WHITE BLOOD COUNT (AUTO) 12.9 K/uL (4.8-10.8)
[2021-07-17 04:59] LABS: CREATININE 0.2 mg/dL (0.5-1.5); POTASSIUM 4.4 mmol/L (3.5-5.1)
[2021-07-17] MEDS: INSULIN HUMULIN R 100 UNIT/ML 3ML SQ SCH ×4 (05:24→18:00)
[2021-07-17] MEDS: ACETAMINOPHEN 500 MG TABLET PO PRN ×2 (05:53→17:33)
[2021-07-17] MEDS: HONEY 1 APPL/ML TUBE TP SCH ×2 (09:00→19:35)
[2021-07-17] MEDS: ASPIRIN 81MG CHEW TAB PO SCH (10:05)
[2021-07-17] MEDS: LACTOBACILLUS RHAMNOSUS GG 1 EACH CAP.SPRINK PO SCH (10:05)
[2021-07-17] MEDS: LANSOPRAZOLE 15 MG SOLU TAB PEG SCH (10:05)
[2021-07-17] MEDS: SERTRALINE HCL 50 MG TABLET PO SCH ×2 (10:07→20:05)
[2021-07-17] MEDS: INSULIN GLARGINE 100 UNITS/ML 10 ML VIAL SQ SCH (10:09)
[2021-07-17] MEDS: FLUTICASONE PROPIONATE 50MCG/SPRAY 16 GM BOTTLE EN SCH ×2 (10:10→20:06)
[2021-07-17] MEDS: BALSAM PERU/CASTOR OIL 60 GM TUBE TP SCH ×3 (10:10→19:35)
[2021-07-17] MEDS: CLONAZEPAM 1MG TAB PO SCH ×2 (11:10→21:48)
[2021-07-17] MEDS: MORPHINE 15MG IR TAB PO SCH ×2 (15:48→21:54)
[2021-07-17] MEDS: METOCLOPRAMIDE 10 MG/2 ML VIAL IVP SCH (17:21)
[2021-07-17] MEDS: ZOLPIDEM TARTRATE 5 MG TAB PO SCH (20:06)
[2021-07-18] VITALS (50 sets, daily range): BP systolic 82–165; BP diastolic 50–96
[2021-07-18] MEDS: METOPROLOL TARTRATE 25 MG TAB PO SCH ×3 (01:23→20:04)
[2021-07-18] MEDS: DEXMEDETOMIDINE 400MCG/NS100ML IV SCH ×4 (01:28→19:44)
[2021-07-18] MEDS: ACETAMINOPHEN 500 MG TABLET PO PRN ×3 (01:29→19:43)
[2021-07-18] MEDS: CEFEPIME HCL 2 GM VIAL IVP SCH ×3 (04:09→17:02)
[2021-07-18 04:51] LABS: BASOPHILS % (AUTO) 0.6 % (0.0-5.0); HEMATOCRIT 24.1 % (36-48); LYMPHOCYTES % (AUTO) 9.5 % (21.0-51.0); MEAN CORPUSCULAR HEMOGLOBIN 25.7 pg (27.0-33.0); MEAN CORPUSCULAR HGB CONC 29.5 g/dL (32.0-36.0); MEAN CORPUSCULAR VOLUME 87.3 fL (79-99); MONOCYTES % (AUTO) 4.8 % (3.0-13.0); NUCLEATED RED BLOOD CELLS 0.2 % (0.0-0.19); PLATELET COUNT (AUTO) 319 K/uL (130-400); RED BLOOD CELL COUNT(AUTO) 2.76 MIL/uL (4.00-5.50); RED CELL DISTRIBUTION WIDTH 16.3 % (11.0-15.5); WHITE BLOOD COUNT (AUTO) 12.6 K/uL (4.8-10.8)
[2021-07-18 05:07] LABS: ALBUMIN 1.9 g/dL (3.5-5.0); BILIRUBIN,TOTAL 0.2 mg/dL (0.2-1.0); CREATININE 0.2 mg/dL (0.5-1.5); POTASSIUM 4.4 mmol/L (3.5-5.1); TOTAL PROTEIN, SERUM 6.3 g/dL (6.0-8.3)
[2021-07-18] MEDS: INSULIN HUMULIN R 100 UNIT/ML 3ML SQ SCH ×5 (05:25→23:45)
[2021-07-18] MEDS: FLUTICASONE PROPIONATE 50MCG/SPRAY 16 GM BOTTLE EN SCH ×2 (08:27→19:56)
[2021-07-18] MEDS: METOCLOPRAMIDE 10 MG/2 ML VIAL IVP SCH ×3 (08:27→17:01)
[2021-07-18] MEDS: LACTOBACILLUS RHAMNOSUS GG 1 EACH CAP.SPRINK PO SCH (08:27)
[2021-07-18] MEDS: SERTRALINE HCL 50 MG TABLET PO SCH ×2 (08:27→20:04)
[2021-07-18] MEDS: BALSAM PERU/CASTOR OIL 60 GM TUBE TP SCH ×3 (08:28→19:57)
[2021-07-18] MEDS: INSULIN GLARGINE 100 UNITS/ML 10 ML VIAL SQ SCH (08:30)
[2021-07-18] MEDS: LANSOPRAZOLE 15 MG SOLU TAB PEG SCH (08:35)
[2021-07-18] MEDS: HONEY 1 APPL/ML TUBE TP SCH (09:00)
[2021-07-18] MEDS: MORPHINE 15MG IR TAB PO SCH ×2 (10:12→23:46)
[2021-07-18] MEDS: CLONAZEPAM 1MG TAB PO SCH ×2 (10:13→20:04)
[2021-07-18] MEDS: ONDANSETRON 4MG INJ IVP PRN ×2 (10:13→20:03)
[2021-07-18 15:17] LABS: APPEARANCE,URINE CLOUDY (CLEAR); BILIRUBIN,URINE SMALL (NEGATIVE); COLOR,URINE YELLOW (YELLOW); GLUCOSE, URINE (UA) NEGATIVE (NEGATIVE); KETONES,URINE 5 mg/dL (NEGATIVE); LEUKOCYTE ESTERASE ,URINE MODERATE (NEGATIVE); NITRATE,URINE POSITIVE (NEGATIVE); OCCULT BLOOD,URINE MODERATE (NEGATIVE); PH,URINE 5.5 (5.0-8.0); PROTEIN,URINE 30 mg/dL (NEGATIVE)
[2021-07-18 15:34] LABS: BACTERIA,URINE Few /HPF (None Seen); MUCUS,URINE Few LPF (None Seen); SQUAMOUS EPITHELIAL CELL,UR 0-2 /HPF (0-2); YEAST,URINE BUDDING Many /HPF (None Seen)
[2021-07-18] MEDS: ACETAMINOPHEN 650 MG/20.3 ML UDCUP PEG PRN (17:03)
[2021-07-18] MEDS: MELATONIN 10 MG PO PRN (20:04)
[2021-07-18] MEDS: ZOLPIDEM TARTRATE 5 MG TAB PO SCH (20:04)
[2021-07-19] VITALS (45 sets, daily range): BP systolic 103–158; BP diastolic 53–97
[2021-07-19] MEDS: DEXMEDETOMIDINE 400MCG/NS100ML IV SCH (02:00)
[2021-07-19] MEDS: CEFEPIME HCL 2 GM VIAL IVP SCH ×3 (02:06→20:29)
[2021-07-19 03:50] LABS: BASOPHILS % (AUTO) 0.6 % (0.0-5.0); EOSINOPHILS % (AUTO) 0.5 % (0.0-8.0); HEMATOCRIT 27.2 % (36-48); LYMPHOCYTES % (AUTO) 6.4 % (21.0-51.0); MEAN CORPUSCULAR HEMOGLOBIN 24.9 pg (27.0-33.0); MEAN CORPUSCULAR HGB CONC 28.7 g/dL (32.0-36.0); MEAN CORPUSCULAR VOLUME 86.9 fL (79-99); MONOCYTES % (AUTO) 4.9 % (3.0-13.0); NEUTROPHILS % (AUTO) 82.4 % (40.0-77.0); NUCLEATED RED BLOOD CELLS 0.7 % (0.0-0.19); PLATELET COUNT (AUTO) 388 K/uL (130-400); RED BLOOD CELL COUNT(AUTO) 3.13 MIL/uL (4.00-5.50); RED CELL DISTRIBUTION WIDTH 15.9 % (11.0-15.5); WHITE BLOOD COUNT (AUTO) 17.9 K/uL (4.8-10.8)
[2021-07-19 04:03] LABS: ALBUMIN 2.2 g/dL (3.5-5.0); BILIRUBIN,TOTAL 0.3 mg/dL (0.2-1.0); CREATININE 0.2 mg/dL (0.5-1.5); POTASSIUM 5.1 mmol/L (3.5-5.1); TOTAL PROTEIN, SERUM 7.1 g/dL (6.0-8.3)
[2021-07-19] MEDS: INSULIN HUMULIN R 100 UNIT/ML 3ML SQ SCH ×3 (04:39→17:48)
[2021-07-19] MEDS: SERTRALINE HCL 50 MG TABLET PO SCH ×2 (09:23→20:30)
[2021-07-19] MEDS: METOPROLOL TARTRATE 25 MG TAB PO SCH ×2 (09:23→20:30)
[2021-07-19] MEDS: CLONAZEPAM 1MG TAB PO SCH ×2 (09:23→20:30)
[2021-07-19] MEDS: LACTOBACILLUS RHAMNOSUS GG 1 EACH CAP.SPRINK PO SCH (09:23)
[2021-07-19] MEDS: LANSOPRAZOLE 15 MG SOLU TAB PEG SCH (09:23)
[2021-07-19] MEDS: METOCLOPRAMIDE 10 MG/2 ML VIAL IVP SCH ×3 (09:23→16:10)
[2021-07-19] MEDS: BALSAM PERU/CASTOR OIL 60 GM TUBE TP SCH ×2 (09:24→14:20)
[2021-07-19] MEDS: MORPHINE 15MG IR TAB PO SCH ×2 (09:24→22:20)
[2021-07-19] MEDS: FLUTICASONE PROPIONATE 50MCG/SPRAY 16 GM BOTTLE EN SCH ×2 (09:26→20:12)
[2021-07-19] MEDS: INSULIN GLARGINE 100 UNITS/ML 10 ML VIAL SQ SCH (09:26)
[2021-07-19 11:04] LABS: ABG BASE EXCESS 20.3 mmol/L (-2.0-3.0); ABG HCO3 48.5 mmol/L (21.0-28.0); ABG OXYGEN SATURATION 93.6 % (95.0-99.0); ABG PCO2 87 mmHg (32-45)
[2021-07-19] MEDS: ONDANSETRON 4MG INJ IVP PRN (14:22)
[2021-07-19] MEDS: ZOLPIDEM TARTRATE 5 MG TAB PO SCH (20:29)
[2021-07-19] MEDS: ACETAZOLAMIDE SODIUM 500 MG VIAL IV SCH (20:29)
[2021-07-19] MEDS: LACTULOSE 20 GM/30 ML UDCUP PO SCH (20:30)
[2021-07-20] VITALS (33 sets, daily range): BP systolic 123–175; BP diastolic 67–107
[2021-07-20] MEDS: INSULIN HUMULIN R 100 UNIT/ML 3ML SQ SCH ×4 (00:08→16:59)
[2021-07-20] MEDS: CEFEPIME HCL 2 GM VIAL IVP SCH ×3 (02:55→20:19)
[2021-07-20 04:00] LABS: BASOPHILS % (AUTO) 0.6 % (0.0-5.0); EOSINOPHILS % (AUTO) 1.8 % (0.0-8.0); MEAN CORPUSCULAR HGB CONC 30.8 g/dL (32.0-36.0); MEAN CORPUSCULAR VOLUME 84.4 fL (79-99); MONOCYTES % (AUTO) 5.8 % (3.0-13.0); NEUTROPHILS % (AUTO) 79.3 % (40.0-77.0); NUCLEATED RED BLOOD CELLS 0.3 % (0.0-0.19); PLATELET COUNT (AUTO) 363 K/uL (130-400); RED BLOOD CELL COUNT(AUTO) 3.08 MIL/uL (4.00-5.50); RED CELL DISTRIBUTION WIDTH 16.2 % (11.0-15.5); WHITE BLOOD COUNT (AUTO) 16.9 K/uL (4.8-10.8)
[2021-07-20 04:16] LABS: ALBUMIN 2.2 g/dL (3.5-5.0); BILIRUBIN,TOTAL 0.3 mg/dL (0.2-1.0); CREATININE 0.3 mg/dL (0.5-1.5)
[2021-07-20] MEDS: POTASSIUM CHLORIDE 20MEQ/100ML 100 ML IV PRN ×2 (04:22→09:29)
[2021-07-20 07:39] LABS: ABG HCO3 39.1 mmol/L (21.0-28.0); ABG OXYGEN SATURATION 98.7 % (95.0-99.0); ABG PCO2 68 mmHg (32-45)
[2021-07-20] MEDS: LANSOPRAZOLE 15 MG SOLU TAB PEG SCH (09:27)
[2021-07-20] MEDS: CLONAZEPAM 1MG TAB PO SCH ×2 (09:27→20:27)
[2021-07-20] MEDS: LACTOBACILLUS RHAMNOSUS GG 1 EACH CAP.SPRINK PO SCH (09:27)
[2021-07-20] MEDS: METOCLOPRAMIDE 10 MG/2 ML VIAL IVP SCH ×3 (09:27→17:01)
[2021-07-20] MEDS: LACTULOSE 20 GM/30 ML UDCUP PO SCH ×2 (09:28→20:25)
[2021-07-20] MEDS: ACETAZOLAMIDE SODIUM 500 MG VIAL IV SCH ×2 (09:28→20:25)
[2021-07-20] MEDS: SERTRALINE HCL 50 MG TABLET PO SCH ×2 (09:28→20:26)
[2021-07-20] MEDS: METOPROLOL TARTRATE 25 MG TAB PO SCH ×2 (09:28→20:26)
[2021-07-20] MEDS: FLUTICASONE PROPIONATE 50MCG/SPRAY 16 GM BOTTLE EN SCH ×2 (09:29→20:20)
[2021-07-20] MEDS: INSULIN GLARGINE 100 UNITS/ML 10 ML VIAL SQ SCH (09:51)
[2021-07-20] MEDS: MORPHINE 15MG IR TAB PO SCH ×2 (10:33→22:13)
[2021-07-20] MEDS ORDERED: CLONAZEPAM 1MG TAB ONE (20:07)
[2021-07-20] MEDS ORDERED: CLONAZEPAM 0.5 MG TABLET ONE (20:08)
[2021-07-20] MEDS: QUETIAPINE FUMARATE 25 MG TAB PO SCH (20:26)
[2021-07-21] VITALS (40 sets, daily range): BP systolic 99–179; BP diastolic 60–116
[2021-07-21] MEDS: CEFEPIME HCL 2 GM VIAL IVP SCH ×3 (03:37→20:02)
[2021-07-21] MEDS: INSULIN HUMULIN R 100 UNIT/ML 3ML SQ SCH ×4 (06:00→16:03)
[2021-07-21] MEDS: LANSOPRAZOLE 15 MG SOLU TAB PEG SCH (08:58)
[2021-07-21] MEDS: LACTOBACILLUS RHAMNOSUS GG 1 EACH CAP.SPRINK PO SCH (08:58)
[2021-07-21] MEDS: METOPROLOL TARTRATE 25 MG TAB PO SCH ×2 (08:58→20:02)
[2021-07-21] MEDS: QUETIAPINE FUMARATE 25 MG TAB PO SCH ×2 (08:58→20:03)
[2021-07-21] MEDS: CLONAZEPAM 1MG TAB PO SCH ×2 (08:59→20:42)
[2021-07-21] MEDS: FLUTICASONE PROPIONATE 50MCG/SPRAY 16 GM BOTTLE EN SCH ×2 (08:59→20:05)
[2021-07-21] MEDS: SERTRALINE HCL 50 MG TABLET PO SCH ×2 (08:59→20:03)
[2021-07-21] MEDS: METOCLOPRAMIDE 10 MG/2 ML VIAL IVP SCH ×3 (08:59→16:03)
[2021-07-21] MEDS: LACTULOSE 20 GM/30 ML UDCUP PO SCH ×2 (08:59→19:25)
[2021-07-21] MEDS: ACETAZOLAMIDE SODIUM 500 MG VIAL IV SCH (09:00)
[2021-07-21] MEDS: INSULIN GLARGINE 100 UNITS/ML 10 ML VIAL SQ SCH (09:02)
[2021-07-21 10:36] LABS: BASOPHILS % (AUTO) 0.5 % (0.0-5.0); EOSINOPHILS % (AUTO) 3.3 % (0.0-8.0); HEMATOCRIT 25.6 % (36-48); LYMPHOCYTES % (AUTO) 6.1 % (21.0-51.0); MEAN CORPUSCULAR HEMOGLOBIN 25.2 pg (27.0-33.0); MEAN CORPUSCULAR HGB CONC 30.1 g/dL (32.0-36.0); MEAN CORPUSCULAR VOLUME 83.9 fL (79-99); MONOCYTES % (AUTO) 3.3 % (3.0-13.0); NEUTROPHILS % (AUTO) 84.4 % (40.0-77.0); NUCLEATED RED BLOOD CELLS 0.3 % (0.0-0.19); PLATELET COUNT (AUTO) 330 K/uL (130-400); RED BLOOD CELL COUNT(AUTO) 3.05 MIL/uL (4.00-5.50); RED CELL DISTRIBUTION WIDTH 16.6 % (11.0-15.5); WHITE BLOOD COUNT (AUTO) 16.4 K/uL (4.8-10.8)
[2021-07-21 10:52] LABS: CREATININE 0.2 mg/dL (0.5-1.5); POTASSIUM 3.8 mmol/L (3.5-5.1)
[2021-07-21] MEDS: MORPHINE 15MG IR TAB PO SCH ×2 (11:20→22:19)
[2021-07-21 11:37] LABS: ABG BASE EXCESS 6.6 mmol/L (-2.0-3.0); ABG HCO3 32.7 mmol/L (21.0-28.0); ABG OXYGEN SATURATION 99.1 % (95.0-99.0); ABG PCO2 56 mmHg (32-45)
[2021-07-21] MEDS: ACETAMINOPHEN 500 MG TABLET PO PRN (20:03)
[2021-07-22] VITALS (29 sets, daily range): BP systolic 85–175; BP diastolic 40–95
[2021-07-22] MEDS: CEFEPIME HCL 2 GM VIAL IVP SCH ×3 (03:06→16:47)
[2021-07-22] MEDS: INSULIN HUMULIN R 100 UNIT/ML 3ML SQ SCH ×4 (06:00→17:50)
[2021-07-22 06:34] LABS: BASOPHILS % (AUTO) 0.3 % (0.0-5.0); EOSINOPHILS % (AUTO) 4.8 % (0.0-8.0); HEMATOCRIT 27.7 % (36-48); LYMPHOCYTES % (AUTO) 7.3 % (21.0-51.0); MEAN CORPUSCULAR HEMOGLOBIN 25.1 pg (27.0-33.0); MEAN CORPUSCULAR VOLUME 83.7 fL (79-99); MONOCYTES % (AUTO) 3.1 % (3.0-13.0); NEUTROPHILS % (AUTO) 80.7 % (40.0-77.0); NUCLEATED RED BLOOD CELLS 0.3 % (0.0-0.19); PLATELET COUNT (AUTO) 319 K/uL (130-400); RED BLOOD CELL COUNT(AUTO) 3.31 MIL/uL (4.00-5.50); RED CELL DISTRIBUTION WIDTH 16.6 % (11.0-15.5); WHITE BLOOD COUNT (AUTO) 15.3 K/uL (4.8-10.8)
[2021-07-22 06:44] LABS: ALBUMIN 2.4 g/dL (3.5-5.0); BILIRUBIN,TOTAL 0.4 mg/dL (0.2-1.0); CREATININE 0.2 mg/dL (0.5-1.5); MAGNESIUM 2.2 mg/dL (1.80-2.40); POTASSIUM 3.5 mmol/L (3.5-5.1); TOTAL PROTEIN, SERUM 7.2 g/dL (6.0-8.3)
[2021-07-22] MEDS: METOCLOPRAMIDE 10 MG/2 ML VIAL IVP SCH ×3 (08:15→16:47)
[2021-07-22] MEDS: METOPROLOL TARTRATE 25 MG TAB PO SCH ×2 (08:16→21:00)
[2021-07-22] MEDS: POTASSIUM CHLORIDE 10% ELIXIR 20 MEQ/15 ML UDCUP PO PRN ×2 (08:16→21:17)
[2021-07-22] MEDS: LANSOPRAZOLE 15 MG SOLU TAB PEG SCH (08:16)
[2021-07-22] MEDS: QUETIAPINE FUMARATE 25 MG TAB PO SCH ×2 (08:16→21:17)
[2021-07-22] MEDS: LACTOBACILLUS RHAMNOSUS GG 1 EACH CAP.SPRINK PO SCH (08:16)
[2021-07-22] MEDS: SERTRALINE HCL 50 MG TABLET PO SCH ×2 (08:16→21:17)
[2021-07-22] MEDS: INSULIN GLARGINE 100 UNITS/ML 10 ML VIAL SQ SCH (08:17)
[2021-07-22] MEDS: FLUTICASONE PROPIONATE 50MCG/SPRAY 16 GM BOTTLE EN SCH ×2 (08:18→21:18)
[2021-07-22] MEDS: LACTULOSE 20 GM/30 ML UDCUP PO SCH ×2 (08:18→21:00)
[2021-07-22] MEDS: CLONAZEPAM 1MG TAB PO SCH ×2 (08:22→21:17)
[2021-07-22] MEDS ORDERED: MORPHINE 2 MG SYG ONE (13:32)
[2021-07-22] MEDS ORDERED: MIDAZOLAM HCL 1 MG/ML 2ML VIAL ONE (13:38)
[2021-07-22] MEDS ORDERED: DEXMEDETOMIDINE 400MCG/NS100ML IV SCH (14:00)
[2021-07-22] MEDS: DEXMEDETOMIDINE 400MCG/NS100ML IV SCH (14:29)
[2021-07-22] MEDS: FAMOTIDINE 20MG TAB PO SCH (21:17)
[2021-07-23] VITALS (26 sets, daily range): BP systolic 76–125; BP diastolic 43–82
[2021-07-23] MEDS: DEXMEDETOMIDINE 400MCG/NS100ML IV SCH ×2 (00:33→18:38)
[2021-07-23 04:22] LABS: HEMATOCRIT 27.6 % (36-48); MEAN CORPUSCULAR HEMOGLOBIN 24.4 pg (27.0-33.0); MEAN CORPUSCULAR HGB CONC 29.7 g/dL (32.0-36.0); MEAN CORPUSCULAR VOLUME 82.1 fL (79-99); NUCLEATED RED BLOOD CELLS 0.3 % (0.0-0.19); RED BLOOD CELL COUNT(AUTO) 3.36 MIL/uL (4.00-5.50); RED CELL DISTRIBUTION WIDTH 16.8 % (11.0-15.5); WHITE BLOOD COUNT (AUTO) 15.5 K/uL (4.8-10.8)
[2021-07-23] MEDS: CEFEPIME HCL 2 GM VIAL IVP SCH ×3 (04:27→18:01)
[2021-07-23 04:36] LABS: CREATININE 0.3 mg/dL (0.5-1.5); POTASSIUM 4.3 mmol/L (3.5-5.1)
[2021-07-23] MEDS: INSULIN HUMULIN R 100 UNIT/ML 3ML SQ SCH ×4 (06:00→18:00)
[2021-07-23] MEDS: LACTOBACILLUS RHAMNOSUS GG 1 EACH CAP.SPRINK PO SCH (08:01)
[2021-07-23] MEDS: FAMOTIDINE 20MG TAB PO SCH ×2 (08:01→21:28)
[2021-07-23] MEDS: SERTRALINE HCL 50 MG TABLET PO SCH ×2 (08:01→21:28)
[2021-07-23] MEDS: METOPROLOL TARTRATE 25 MG TAB PO SCH ×2 (08:01→21:28)
[2021-07-23] MEDS: QUETIAPINE FUMARATE 25 MG TAB PO SCH ×2 (08:01→21:28)
[2021-07-23] MEDS: METOCLOPRAMIDE 10 MG/2 ML VIAL IVP SCH ×3 (08:01→18:01)
[2021-07-23] MEDS: FLUTICASONE PROPIONATE 50MCG/SPRAY 16 GM BOTTLE EN SCH ×2 (08:02→21:29)
[2021-07-23] MEDS: LACTULOSE 20 GM/30 ML UDCUP PO SCH (08:02)
[2021-07-23] MEDS: ENOXAPARIN SODIUM 40 MG/0.4 ML SYRINGE SQ SCH (08:02)
[2021-07-23] MEDS: INSULIN GLARGINE 100 UNITS/ML 10 ML VIAL SQ SCH (08:14)
[2021-07-23] MEDS: CLONAZEPAM 1MG TAB PO SCH ×2 (10:40→21:28)
[2021-07-23] MEDS: ACETAMINOPHEN 500 MG TABLET PO PRN (10:41)
[2021-07-23] MEDS: TRAMADOL HCL 50 MG TABLET PO SCH ×2 (11:07→18:01)
[2021-07-23] MEDS ORDERED: LACTULOSE 20 GM/30 ML UDCUP PO PRN (12:00)
[2021-07-24] VITALS (23 sets, daily range): BP systolic 92–145; BP diastolic 43–87
[2021-07-24] MEDS: TRAMADOL HCL 50 MG TABLET PO SCH ×3 (03:02→18:32)
[2021-07-24] MEDS: CEFEPIME HCL 2 GM VIAL IVP SCH ×2 (03:03→11:27)
[2021-07-24] MEDS: ACETAMINOPHEN 500 MG TABLET PO PRN ×2 (04:06→08:05)
[2021-07-24] MEDS: INSULIN HUMULIN R 100 UNIT/ML 3ML SQ SCH ×4 (05:19→17:36)
[2021-07-24] MEDS: METOCLOPRAMIDE 10 MG/2 ML VIAL IVP SCH ×2 (07:30→21:00)
[2021-07-24] MEDS: FAMOTIDINE 20MG TAB PO SCH ×2 (08:03→21:32)
[2021-07-24] MEDS: QUETIAPINE FUMARATE 25 MG TAB PO SCH ×3 (08:04→21:32)
[2021-07-24] MEDS: CLONAZEPAM 1MG TAB PO SCH ×2 (08:04→21:32)
[2021-07-24] MEDS: METOPROLOL TARTRATE 25 MG TAB PO SCH (08:04)
[2021-07-24] MEDS: SERTRALINE HCL 50 MG TABLET PO SCH ×2 (08:04→21:32)
[2021-07-24] MEDS: LACTOBACILLUS RHAMNOSUS GG 1 EACH CAP.SPRINK PO SCH (08:04)
[2021-07-24] MEDS: ENOXAPARIN SODIUM 40 MG/0.4 ML SYRINGE SQ SCH (08:05)
[2021-07-24] MEDS: INSULIN GLARGINE 100 UNITS/ML 10 ML VIAL SQ SCH (08:06)
[2021-07-24] MEDS ORDERED: 0.9% NACL 500ML IV.SOLN 500 ML IV SCH (09:30)
[2021-07-24] MEDS: FLUTICASONE PROPIONATE 50MCG/SPRAY 16 GM BOTTLE EN SCH ×2 (09:42→21:33)
[2021-07-24] MEDS: 0.9%NACL 1000ML 1,000 ML IV SCH ×2 (09:46→11:28)
[2021-07-24] MEDS: DEXMEDETOMIDINE 400MCG/NS100ML IV SCH (23:53)
[2021-07-25] VITALS (22 sets, daily range): BP systolic 93–146; BP diastolic 57–83
[2021-07-25] MEDS: TRAMADOL HCL 50 MG TABLET PO SCH ×3 (03:29→18:01)
[2021-07-25 04:25] LABS: BASOPHILS % (AUTO) 0.4 % (0.0-5.0); HEMATOCRIT 26.8 % (36-48); LYMPHOCYTES % (AUTO) 9.8 % (21.0-51.0); MEAN CORPUSCULAR HEMOGLOBIN 24.5 pg (27.0-33.0); MEAN CORPUSCULAR HGB CONC 29.5 g/dL (32.0-36.0); MEAN CORPUSCULAR VOLUME 83.2 fL (79-99); MONOCYTES % (AUTO) 4.8 % (3.0-13.0); NEUTROPHILS % (AUTO) 73.5 % (40.0-77.0); PLATELET COUNT (AUTO) 316 K/uL (130-400); RED BLOOD CELL COUNT(AUTO) 3.22 MIL/uL (4.00-5.50); RED CELL DISTRIBUTION WIDTH 16.8 % (11.0-15.5); WHITE BLOOD COUNT (AUTO) 13.1 K/uL (4.8-10.8)
[2021-07-25 04:55] LABS: ALBUMIN 2.2 g/dL (3.5-5.0); BILIRUBIN,TOTAL 0.2 mg/dL (0.2-1.0); CREATININE 0.2 mg/dL (0.5-1.5); POTASSIUM 4.3 mmol/L (3.5-5.1); TOTAL PROTEIN, SERUM 6.7 g/dL (6.0-8.3)
[2021-07-25] MEDS: INSULIN HUMULIN R 100 UNIT/ML 3ML SQ SCH ×4 (06:00→17:24)
[2021-07-25] MEDS: LACTOBACILLUS RHAMNOSUS GG 1 EACH CAP.SPRINK PO SCH (08:12)
[2021-07-25] MEDS: SERTRALINE HCL 50 MG TABLET PO SCH ×2 (08:13→21:00)
[2021-07-25] MEDS: FLUTICASONE PROPIONATE 50MCG/SPRAY 16 GM BOTTLE EN SCH ×2 (08:13→21:00)
[2021-07-25] MEDS: METOCLOPRAMIDE 10 MG/2 ML VIAL IVP SCH (08:13)
[2021-07-25] MEDS: FAMOTIDINE 20MG TAB PO SCH ×2 (08:13→21:00)
[2021-07-25] MEDS: ENOXAPARIN SODIUM 40 MG/0.4 ML SYRINGE SQ SCH (08:13)
[2021-07-25] MEDS: QUETIAPINE FUMARATE 25 MG TAB PO SCH ×2 (08:13→21:00)
[2021-07-25] MEDS: INSULIN GLARGINE 100 UNITS/ML 10 ML VIAL SQ SCH (08:14)
[2021-07-25] MEDS: CLONAZEPAM 1MG TAB PO SCH ×2 (09:59→22:00)
[2021-07-25] MEDS: DEXMEDETOMIDINE 400MCG/NS100ML IV SCH (13:51)
[2021-07-26] VITALS (19 sets, daily range): BP systolic 88–158; BP diastolic 59–90
[2021-07-26] MEDS: TRAMADOL HCL 50 MG TABLET PO SCH ×3 (03:00→18:03)
[2021-07-26] MEDS: DEXMEDETOMIDINE 400MCG/NS100ML IV SCH ×2 (03:00→14:19)
[2021-07-26] MEDS: INSULIN HUMULIN R 100 UNIT/ML 3ML SQ SCH ×4 (06:00→18:00)
[2021-07-26] MEDS: SERTRALINE HCL 50 MG TABLET PO SCH ×2 (08:50→21:58)
[2021-07-26] MEDS: FAMOTIDINE 20MG TAB PO SCH ×2 (08:50→21:58)
[2021-07-26] MEDS: QUETIAPINE FUMARATE 25 MG TAB PO SCH ×2 (08:50→21:58)
[2021-07-26] MEDS: LACTOBACILLUS RHAMNOSUS GG 1 EACH CAP.SPRINK PO SCH (08:50)
[2021-07-26] MEDS: ENOXAPARIN SODIUM 40 MG/0.4 ML SYRINGE SQ SCH (08:51)
[2021-07-26] MEDS: FLUTICASONE PROPIONATE 50MCG/SPRAY 16 GM BOTTLE EN SCH ×2 (08:51→21:58)
[2021-07-26] MEDS: INSULIN GLARGINE 100 UNITS/ML 10 ML VIAL SQ SCH (08:54)
[2021-07-26] MEDS: CLONAZEPAM 1MG TAB PO SCH ×2 (13:13→21:58)
[2021-07-27] VITALS (16 sets, daily range): BP systolic 85–133; BP diastolic 47–80
[2021-07-27] MEDS: DEXMEDETOMIDINE 400MCG/NS100ML IV SCH (02:00)
[2021-07-27] MEDS: ACETAMINOPHEN 500 MG TABLET PO PRN ×2 (02:44→12:37)
[2021-07-27] MEDS: TRAMADOL HCL 50 MG TABLET PO SCH ×3 (02:44→17:28)
[2021-07-27 04:00] LABS: BASOPHILS % (AUTO) 0.5 % (0.0-5.0); EOSINOPHILS % (AUTO) 11.8 % (0.0-8.0); LYMPHOCYTES % (AUTO) 10.2 % (21.0-51.0); MEAN CORPUSCULAR HGB CONC 28.6 g/dL (32.0-36.0); MEAN CORPUSCULAR VOLUME 83.8 fL (79-99); MONOCYTES % (AUTO) 6.2 % (3.0-13.0); NEUTROPHILS % (AUTO) 69.9 % (40.0-77.0); NUCLEATED RED BLOOD CELLS 0.1 % (0.0-0.19); PLATELET COUNT (AUTO) 354 K/uL (130-400); RED BLOOD CELL COUNT(AUTO) 3.34 MIL/uL (4.00-5.50); RED CELL DISTRIBUTION WIDTH 16.8 % (11.0-15.5); WHITE BLOOD COUNT (AUTO) 13.6 K/uL (4.8-10.8)
[2021-07-27 04:17] LABS: ALBUMIN 2.3 g/dL (3.5-5.0); BILIRUBIN,TOTAL 0.2 mg/dL (0.2-1.0); CREATININE 0.3 mg/dL (0.5-1.5); POTASSIUM 4.5 mmol/L (3.5-5.1); TOTAL PROTEIN, SERUM 7.1 g/dL (6.0-8.3)
[2021-07-27] MEDS: INSULIN HUMULIN R 100 UNIT/ML 3ML SQ SCH ×4 (06:00→17:54)
[2021-07-27] MEDS: CLONAZEPAM 1MG TAB PO SCH ×3 (06:31→21:35)
[2021-07-27] MEDS: LACTOBACILLUS RHAMNOSUS GG 1 EACH CAP.SPRINK PO SCH (08:13)
[2021-07-27] MEDS: FAMOTIDINE 20MG TAB PO SCH ×2 (08:13→21:36)
[2021-07-27] MEDS: SERTRALINE HCL 50 MG TABLET PO SCH ×2 (08:13→21:35)
[2021-07-27] MEDS: QUETIAPINE FUMARATE 25 MG TAB PO SCH ×2 (08:13→21:35)
[2021-07-27] MEDS: INSULIN GLARGINE 100 UNITS/ML 10 ML VIAL SQ SCH (08:14)
[2021-07-27] MEDS: ENOXAPARIN SODIUM 40 MG/0.4 ML SYRINGE SQ SCH (08:14)
[2021-07-27] MEDS: FLUTICASONE PROPIONATE 50MCG/SPRAY 16 GM BOTTLE EN SCH ×2 (08:50→21:00)
[2021-07-27] MEDS: FENTANYL CITRATE PF 50 MCG/1 ML 2ML VIAL IVP PRN (22:40)
[2021-07-28] VITALS (23 sets, daily range): BP systolic 74–151; BP diastolic 43–91
[2021-07-28] MEDS: DEXMEDETOMIDINE 400MCG/NS100ML IV SCH ×3 (00:53→21:51)
[2021-07-28] MEDS: ACETAMINOPHEN 500 MG TABLET PO PRN ×3 (04:18→21:18)
[2021-07-28] MEDS: TRAMADOL HCL 50 MG TABLET PO SCH (04:18)
[2021-07-28] MEDS: CLONAZEPAM 1MG TAB PO SCH ×3 (05:13→21:17)
[2021-07-28] MEDS: INSULIN HUMULIN R 100 UNIT/ML 3ML SQ SCH ×5 (06:00→23:17)
[2021-07-28] MEDS: FLUTICASONE PROPIONATE 50MCG/SPRAY 16 GM BOTTLE EN SCH ×2 (09:27→21:00)
[2021-07-28] MEDS: FAMOTIDINE 20MG TAB PO SCH ×2 (09:28→21:17)
[2021-07-28] MEDS: QUETIAPINE FUMARATE 25 MG TAB PO SCH ×2 (09:28→21:17)
[2021-07-28] MEDS: LACTOBACILLUS RHAMNOSUS GG 1 EACH CAP.SPRINK PO SCH (09:28)
[2021-07-28] MEDS: SERTRALINE HCL 50 MG TABLET PO SCH ×2 (09:28→21:17)
[2021-07-28] MEDS: INSULIN GLARGINE 100 UNITS/ML 10 ML VIAL SQ SCH (09:29)
[2021-07-28] MEDS: ENOXAPARIN SODIUM 40 MG/0.4 ML SYRINGE SQ SCH (09:34)
[2021-07-28] MEDS: FENTANYL CITRATE PF 50 MCG/1 ML 2ML VIAL IVP PRN ×2 (13:18→16:57)
[2021-07-28] MEDS: ONDANSETRON 4MG INJ IVP PRN (21:50)
[2021-07-29] VITALS (22 sets, daily range): BP systolic 79–153; BP diastolic 46–89
[2021-07-29] MEDS: FENTANYL CITRATE PF 50 MCG/1 ML 2ML VIAL IVP PRN (01:24)
[2021-07-29 04:20] LABS: BASOPHILS % (AUTO) 0.4 % (0.0-5.0); EOSINOPHILS % (AUTO) 9.4 % (0.0-8.0); HEMATOCRIT 27.8 % (36-48); LYMPHOCYTES % (AUTO) 10.7 % (21.0-51.0); MEAN CORPUSCULAR HGB CONC 29.1 g/dL (32.0-36.0); MEAN CORPUSCULAR VOLUME 82.2 fL (79-99); MONOCYTES % (AUTO) 5.5 % (3.0-13.0); NEUTROPHILS % (AUTO) 72.9 % (40.0-77.0); PLATELET COUNT (AUTO) 380 K/uL (130-400); RED BLOOD CELL COUNT(AUTO) 3.38 MIL/uL (4.00-5.50); RED CELL DISTRIBUTION WIDTH 16.8 % (11.0-15.5); WHITE BLOOD COUNT (AUTO) 13.1 K/uL (4.8-10.8)
[2021-07-29 04:36] LABS: ALBUMIN 2.3 g/dL (3.5-5.0); BILIRUBIN,TOTAL 0.2 mg/dL (0.2-1.0); CREATININE 0.3 mg/dL (0.5-1.5); POTASSIUM 4.3 mmol/L (3.5-5.1); TOTAL PROTEIN, SERUM 7.2 g/dL (6.0-8.3)
[2021-07-29] MEDS: CLONAZEPAM 1MG TAB PO SCH ×3 (05:10→21:42)
[2021-07-29] MEDS: INSULIN HUMULIN R 100 UNIT/ML 3ML SQ SCH ×4 (05:13→23:20)
[2021-07-29] MEDS: SERTRALINE HCL 50 MG TABLET PO SCH ×2 (08:37→20:15)
[2021-07-29] MEDS: LACTOBACILLUS RHAMNOSUS GG 1 EACH CAP.SPRINK PO SCH (08:37)
[2021-07-29] MEDS: QUETIAPINE FUMARATE 25 MG TAB PO SCH ×2 (08:37→20:16)
[2021-07-29] MEDS: FAMOTIDINE 20MG TAB PO SCH ×2 (08:37→20:15)
[2021-07-29] MEDS: ENOXAPARIN SODIUM 40 MG/0.4 ML SYRINGE SQ SCH (08:38)
[2021-07-29] MEDS: DOCUSATE SODIUM 100 MG CAP PO SCH (08:40)
[2021-07-29] MEDS: FLUTICASONE PROPIONATE 50MCG/SPRAY 16 GM BOTTLE EN SCH ×2 (08:44→20:15)
[2021-07-29] MEDS ORDERED: POLYETHYLENE GLYCOL 3350 17 GM POWD.PACK PO SCH (09:00)
[2021-07-29] MEDS: POLYETHYLENE GLYCOL 3350 17 GM POWD.PACK PO SCH ×2 (09:00→20:15)
[2021-07-29] MEDS: ONDANSETRON 4MG INJ IVP PRN (10:17)
[2021-07-29] MEDS: DEXMEDETOMIDINE 400MCG/NS100ML IV SCH ×2 (11:38→19:42)
[2021-07-29] MEDS: GUAIFENESIN-DM 200/20 MG 10 ML PO PRN (13:18)
[2021-07-30] VITALS (24 sets, daily range): BP systolic 81–158; BP diastolic 53–87
[2021-07-30] MEDS: INSULIN HUMULIN R 100 UNIT/ML 3ML SQ SCH ×3 (06:00→18:00)
[2021-07-30] MEDS: CLONAZEPAM 1MG TAB PO SCH ×3 (06:07→21:21)
[2021-07-30] MEDS: DEXMEDETOMIDINE 400MCG/NS100ML IV SCH ×3 (07:02→21:44)
[2021-07-30 07:11] LABS: BASOPHILS % (AUTO) 0.4 % (0.0-5.0); EOSINOPHILS % (AUTO) 8.9 % (0.0-8.0); HEMATOCRIT 28.8 % (36-48); LYMPHOCYTES % (AUTO) 11.7 % (21.0-51.0); MEAN CORPUSCULAR HEMOGLOBIN 24.4 pg (27.0-33.0); MEAN CORPUSCULAR HGB CONC 29.5 g/dL (32.0-36.0); MEAN CORPUSCULAR VOLUME 82.5 fL (79-99); MONOCYTES % (AUTO) 4.8 % (3.0-13.0); NEUTROPHILS % (AUTO) 73.2 % (40.0-77.0); PLATELET COUNT (AUTO) 409 K/uL (130-400); RED BLOOD CELL COUNT(AUTO) 3.49 MIL/uL (4.00-5.50); RED CELL DISTRIBUTION WIDTH 16.7 % (11.0-15.5); WHITE BLOOD COUNT (AUTO) 13.7 K/uL (4.8-10.8)
[2021-07-30 07:45] LABS: ALBUMIN 2.4 g/dL (3.5-5.0); BILIRUBIN,TOTAL 0.3 mg/dL (0.2-1.0); CREATININE 0.3 mg/dL (0.5-1.5); POTASSIUM 4.1 mmol/L (3.5-5.1); TOTAL PROTEIN, SERUM 7.5 g/dL (6.0-8.3)
[2021-07-30] MEDS: POLYETHYLENE GLYCOL 3350 17 GM POWD.PACK PO SCH ×2 (09:12→20:25)
[2021-07-30] MEDS: FLUTICASONE PROPIONATE 50MCG/SPRAY 16 GM BOTTLE EN SCH ×2 (09:12→20:25)
[2021-07-30] MEDS: FAMOTIDINE 20MG TAB PO SCH ×2 (09:12→20:20)
[2021-07-30] MEDS: DOCUSATE SODIUM 100 MG CAP PO SCH (09:12)
[2021-07-30] MEDS: SERTRALINE HCL 50 MG TABLET PO SCH ×2 (09:13→20:20)
[2021-07-30] MEDS: LACTOBACILLUS RHAMNOSUS GG 1 EACH CAP.SPRINK PO SCH (09:13)
[2021-07-30] MEDS: ENOXAPARIN SODIUM 40 MG/0.4 ML SYRINGE SQ SCH (09:17)
[2021-07-30] MEDS: DOCUSATE NA 100MG/10ML UDCUP PO SCH (10:23)
[2021-07-30] MEDS: QUETIAPINE FUMARATE 25 MG TAB PO SCH ×2 (12:19→20:24)
[2021-07-30] MEDS: TRAMADOL HCL 50 MG TABLET PEG PRN ×2 (15:54→20:24)
[2021-07-30] MEDS: ACETAMINOPHEN 650 MG/20.3 ML UDCUP PEG PRN (17:40)
[2021-07-31] VITALS (24 sets, daily range): BP systolic 74–123; BP diastolic 41–79
[2021-07-31] MEDS: DEXMEDETOMIDINE 400MCG/NS100ML IV SCH ×3 (04:59→20:38)
[2021-07-31] MEDS: INSULIN HUMULIN R 100 UNIT/ML 3ML SQ SCH ×5 (06:00→23:26)
[2021-07-31] MEDS: CLONAZEPAM 1MG TAB PO SCH ×3 (07:03→21:05)
[2021-07-31 07:15] LABS: BASOPHILS % (AUTO) 0.4 % (0.0-5.0); EOSINOPHILS % (AUTO) 9.4 % (0.0-8.0); HEMATOCRIT 27.8 % (36-48); LYMPHOCYTES % (AUTO) 9.6 % (21.0-51.0); MEAN CORPUSCULAR HEMOGLOBIN 24.3 pg (27.0-33.0); MEAN CORPUSCULAR HGB CONC 29.9 g/dL (32.0-36.0); MEAN CORPUSCULAR VOLUME 81.3 fL (79-99); MONOCYTES % (AUTO) 4.6 % (3.0-13.0); PLATELET COUNT (AUTO) 424 K/uL (130-400); RED BLOOD CELL COUNT(AUTO) 3.42 MIL/uL (4.00-5.50); RED CELL DISTRIBUTION WIDTH 16.9 % (11.0-15.5); WHITE BLOOD COUNT (AUTO) 13.6 K/uL (4.8-10.8)
[2021-07-31 07:38] LABS: ALBUMIN 2.4 g/dL (3.5-5.0); BILIRUBIN,TOTAL 0.3 mg/dL (0.2-1.0); CREATININE 0.3 mg/dL (0.5-1.5); POTASSIUM 4.4 mmol/L (3.5-5.1); TOTAL PROTEIN, SERUM 7.4 g/dL (6.0-8.3)
[2021-07-31] MEDS: FAMOTIDINE 20MG TAB PO SCH ×2 (09:42→20:39)
[2021-07-31] MEDS: DOCUSATE NA 100MG/10ML UDCUP PO SCH (09:42)
[2021-07-31] MEDS: SERTRALINE HCL 50 MG TABLET PO SCH ×2 (09:42→20:39)
[2021-07-31] MEDS: LACTOBACILLUS RHAMNOSUS GG 1 EACH CAP.SPRINK PO SCH (09:42)
[2021-07-31] MEDS: QUETIAPINE FUMARATE 25 MG TAB PO SCH ×2 (09:43→20:38)
[2021-07-31] MEDS: FLUTICASONE PROPIONATE 50MCG/SPRAY 16 GM BOTTLE EN SCH ×2 (09:43→21:05)
[2021-07-31] MEDS: ENOXAPARIN SODIUM 40 MG/0.4 ML SYRINGE SQ SCH (09:47)
[2021-07-31] MEDS: POLYETHYLENE GLYCOL 3350 17 GM POWD.PACK PO SCH ×2 (09:47→20:39)
[2021-07-31] MEDS: ACETAMINOPHEN 650 MG/20.3 ML UDCUP PEG PRN ×2 (11:01→21:06)
[2021-07-31] MEDS: GABAPENTIN 100 MG CAPSULE PO SCH ×2 (14:19→20:39)
[2021-07-31] MEDS: TRAMADOL HCL 50 MG TABLET PEG PRN ×2 (14:20→20:38)
[2021-08-01] VITALS (32 sets, daily range): BP systolic 79–199; BP diastolic 45–108
[2021-08-01] MEDS: DEXMEDETOMIDINE 400MCG/NS100ML IV SCH ×3 (04:49→18:35)
[2021-08-01] MEDS: INSULIN HUMULIN R 100 UNIT/ML 3ML SQ SCH ×4 (06:00→23:38)
[2021-08-01] MEDS: CLONAZEPAM 1MG TAB PO SCH ×3 (06:10→21:53)
[2021-08-01 08:21] LABS: HEMATOCRIT 25.8 % (36-48); MEAN CORPUSCULAR HEMOGLOBIN 24.8 pg (27.0-33.0); MEAN CORPUSCULAR HGB CONC 30.2 g/dL (32.0-36.0); MEAN CORPUSCULAR VOLUME 81.9 fL (79-99); PLATELET COUNT (AUTO) 385 K/uL (130-400); RED BLOOD CELL COUNT(AUTO) 3.15 MIL/uL (4.00-5.50); RED CELL DISTRIBUTION WIDTH 17.1 % (11.0-15.5); WHITE BLOOD COUNT (AUTO) 15.1 K/uL (4.8-10.8)
[2021-08-01 08:34] LABS: ALBUMIN 2.2 g/dL (3.5-5.0); BILIRUBIN,TOTAL 0.3 mg/dL (0.2-1.0); CREATININE 0.2 mg/dL (0.5-1.5); POTASSIUM 3.9 mmol/L (3.5-5.1); TOTAL PROTEIN, SERUM 6.9 g/dL (6.0-8.3)
[2021-08-01] MEDS: FLUTICASONE PROPIONATE 50MCG/SPRAY 16 GM BOTTLE EN SCH ×2 (09:22→21:53)
[2021-08-01] MEDS: DOCUSATE NA 100MG/10ML UDCUP PO SCH (09:23)
[2021-08-01] MEDS: LACTOBACILLUS RHAMNOSUS GG 1 EACH CAP.SPRINK PO SCH (09:26)
[2021-08-01] MEDS: ACETAMINOPHEN 650 MG/20.3 ML UDCUP PEG PRN (09:26)
[2021-08-01] MEDS: FAMOTIDINE 20MG TAB PO SCH ×2 (09:27→21:53)
[2021-08-01] MEDS: SERTRALINE HCL 50 MG TABLET PO SCH (09:27)
[2021-08-01] MEDS: POLYETHYLENE GLYCOL 3350 17 GM POWD.PACK PO SCH ×2 (09:27→21:53)
[2021-08-01] MEDS: QUETIAPINE FUMARATE 25 MG TAB PO SCH ×2 (09:27→21:53)
[2021-08-01] MEDS: ENOXAPARIN SODIUM 40 MG/0.4 ML SYRINGE SQ SCH (09:28)
[2021-08-01 09:33] LABS: EOSINOPHILS % (MANUAL) 6 % (1-6); LYMPHOCYTES % (MANUAL) 9 % (22-44); MAN.DIFF COMMENT-IMPRESSION MANUAL DIFFERENTIAL; MONOCYTES % (MANUAL) 2 % (2-9); PLATELET MORPHOLOGY COMMENT ADEQUATE; SEGMENTED NEUTROPHILS % 83 % (40-70)
[2021-08-01] MEDS: GABAPENTIN 100 MG CAPSULE PO SCH ×2 (09:49→21:53)
[2021-08-01] MEDS: ONDANSETRON 4MG INJ IVP PRN (18:34)
[2021-08-02] VITALS (19 sets, daily range): BP systolic 88–160; BP diastolic 48–104
[2021-08-02] MEDS: DEXMEDETOMIDINE 400MCG/NS100ML IV SCH ×2 (03:00→21:00)
[2021-08-02] MEDS: INSULIN HUMULIN R 100 UNIT/ML 3ML SQ SCH ×3 (05:23→18:00)
[2021-08-02] MEDS: CLONAZEPAM 1MG TAB PO SCH ×3 (07:04→19:59)
[2021-08-02] MEDS: GUAIFENESIN-DM 200/20 MG 10 ML PO PRN ×2 (07:06→11:46)
[2021-08-02] MEDS: DOCUSATE NA 100MG/10ML UDCUP PO SCH (08:08)
[2021-08-02] MEDS: POLYETHYLENE GLYCOL 3350 17 GM POWD.PACK PO SCH (08:08)
[2021-08-02] MEDS: TRAMADOL HCL 50 MG TABLET PEG PRN ×2 (08:09→15:44)
[2021-08-02] MEDS: ENOXAPARIN SODIUM 40 MG/0.4 ML SYRINGE SQ SCH (08:09)
[2021-08-02] MEDS: QUETIAPINE FUMARATE 25 MG TAB PO SCH ×2 (08:10→19:52)
[2021-08-02] MEDS: FAMOTIDINE 20MG TAB PO SCH ×2 (08:10→19:53)
[2021-08-02] MEDS: GABAPENTIN 100 MG CAPSULE PO SCH ×2 (08:10→19:52)
[2021-08-02] MEDS: LACTOBACILLUS RHAMNOSUS GG 1 EACH CAP.SPRINK PO SCH (08:10)
[2021-08-02] MEDS: FLUTICASONE PROPIONATE 50MCG/SPRAY 16 GM BOTTLE EN SCH ×2 (08:11→20:00)
[2021-08-02] MEDS ORDERED: SERTRALINE HCL 50 MG TABLET PO SCH (09:00)
[2021-08-02] MEDS: ACETAMINOPHEN 650 MG/20.3 ML UDCUP PEG PRN (11:46)
[2021-08-02] MEDS: LORAZEPAM 2 MG/ML 1 ML VIAL IVP PRN (15:45)
[2021-08-02] MEDS ORDERED: GABAPENTIN 100 MG CAPSULE PO SCH (17:00)
[2021-08-02] MEDS: ONDANSETRON 4MG INJ IVP PRN (19:53)
[2021-08-03] VITALS (23 sets, daily range): BP systolic 96–154; BP diastolic 54–90
[2021-08-03] MEDS: INSULIN HUMULIN R 100 UNIT/ML 3ML SQ SCH ×4 (06:00→18:00)
[2021-08-03] MEDS: CLONAZEPAM 1MG TAB PO SCH ×3 (06:25→21:22)
[2021-08-03 07:39] LABS: BASOPHILS % (AUTO) 0.5 % (0.0-5.0); EOSINOPHILS % (AUTO) 8.3 % (0.0-8.0); HEMATOCRIT 28.7 % (36-48); LYMPHOCYTES % (AUTO) 8.5 % (21.0-51.0); MEAN CORPUSCULAR HEMOGLOBIN 23.9 pg (27.0-33.0); MEAN CORPUSCULAR HGB CONC 28.9 g/dL (32.0-36.0); MEAN CORPUSCULAR VOLUME 82.7 fL (79-99); PLATELET COUNT (AUTO) 424 K/uL (130-400); RED BLOOD CELL COUNT(AUTO) 3.47 MIL/uL (4.00-5.50); RED CELL DISTRIBUTION WIDTH 16.8 % (11.0-15.5); WHITE BLOOD COUNT (AUTO) 13.9 K/uL (4.8-10.8)
[2021-08-03 07:53] LABS: CREATININE 0.2 mg/dL (0.5-1.5); POTASSIUM 3.3 mmol/L (3.5-5.1)
[2021-08-03] MEDS: LACTOBACILLUS RHAMNOSUS GG 1 EACH CAP.SPRINK PO SCH (08:36)
[2021-08-03] MEDS: GABAPENTIN 100 MG CAPSULE PO SCH ×3 (08:37→21:19)
[2021-08-03] MEDS: SERTRALINE HCL 50 MG TABLET PO SCH (08:37)
[2021-08-03] MEDS: QUETIAPINE FUMARATE 25 MG TAB PO SCH ×2 (08:37→21:20)
[2021-08-03] MEDS: FAMOTIDINE 20MG TAB PO SCH ×2 (08:37→21:18)
[2021-08-03] MEDS: FLUTICASONE PROPIONATE 50MCG/SPRAY 16 GM BOTTLE EN SCH ×2 (08:39→21:23)
[2021-08-03] MEDS: ENOXAPARIN SODIUM 40 MG/0.4 ML SYRINGE SQ SCH (08:39)
[2021-08-03] MEDS: LORAZEPAM 2 MG/ML 1 ML VIAL IVP PRN (10:01)
[2021-08-03] MEDS: METOCLOPRAMIDE 10 MG/2 ML VIAL IVP SCH ×2 (10:56→16:05)
[2021-08-03] MEDS: GUAIFENESIN-DM 200/20 MG 10 ML PO PRN ×2 (10:56→17:04)
[2021-08-03] MEDS: ACETAMINOPHEN 650 MG/20.3 ML UDCUP PEG PRN ×2 (10:57→19:53)
[2021-08-03] MEDS: DEXMEDETOMIDINE 400MCG/NS100ML IV SCH (11:10)
[2021-08-04] VITALS (20 sets, daily range): BP systolic 101–151; BP diastolic 60–95
[2021-08-04] MEDS: DEXMEDETOMIDINE 400MCG/NS100ML IV SCH (05:16)
[2021-08-04] MEDS: CLONAZEPAM 1MG TAB PO SCH ×3 (05:17→21:06)
[2021-08-04] MEDS: INSULIN HUMULIN R 100 UNIT/ML 3ML SQ SCH ×5 (06:00→23:38)
[2021-08-04] MEDS: METOCLOPRAMIDE 10 MG/2 ML VIAL IVP SCH (07:30)
[2021-08-04] MEDS: QUETIAPINE FUMARATE 25 MG TAB PO SCH ×2 (08:25→20:57)
[2021-08-04] MEDS: SERTRALINE HCL 50 MG TABLET PO SCH (08:25)
[2021-08-04] MEDS: LACTOBACILLUS RHAMNOSUS GG 1 EACH CAP.SPRINK PO SCH (08:25)
[2021-08-04] MEDS: GABAPENTIN 100 MG CAPSULE PO SCH ×3 (08:25→20:58)
[2021-08-04] MEDS: FAMOTIDINE 20MG TAB PO SCH ×2 (08:25→20:58)
[2021-08-04] MEDS: FLUTICASONE PROPIONATE 50MCG/SPRAY 16 GM BOTTLE EN SCH ×2 (09:00→21:22)
[2021-08-04] MEDS: ENOXAPARIN SODIUM 40 MG/0.4 ML SYRINGE SQ SCH (09:36)
[2021-08-04] MEDS: GUAIFENESIN-DM 200/20 MG 10 ML PO PRN ×2 (11:08→21:06)
[2021-08-04] MEDS: LORAZEPAM 2 MG/ML 1 ML VIAL IVP PRN ×2 (11:08→15:52)
[2021-08-04 12:30] LABS: ALBUMIN 2.4 g/dL (3.5-5.0); BILIRUBIN,TOTAL 0.5 mg/dL (0.2-1.0); CREATININE 0.3 mg/dL (0.5-1.5); POTASSIUM 3.1 mmol/L (3.5-5.1); TOTAL PROTEIN, SERUM 7.6 g/dL (6.0-8.3)
[2021-08-04] MEDS ORDERED: LIDOCAINE HCL-MPF 1% 2ML VIAL IJ PRN (14:30)
[2021-08-04] MEDS ORDERED: POTASSIUM CHLORIDE 20MEQ/100ML 100 ML IV PRN (14:30)
[2021-08-04] MEDS ORDERED: KCL 20 MEQ ERTAB PO PRN (14:30)
[2021-08-04] MEDS: ACETAMINOPHEN 650 MG/20.3 ML UDCUP PEG PRN ×4 (14:41→21:25)
[2021-08-04] MEDS: POTASSIUM CHLORIDE 10% ELIXIR 20 MEQ/15 ML UDCUP PO PRN (15:29)
[2021-08-04] MEDS: ONDANSETRON 4MG INJ IVP PRN (21:32)
[2021-08-05] VITALS (24 sets, daily range): BP systolic 111–175; BP diastolic 63–103
[2021-08-05] MEDS: ACETAMINOPHEN 650 MG/20.3 ML UDCUP PEG PRN ×3 (05:07→21:43)
[2021-08-05] MEDS: CLONAZEPAM 1MG TAB PO SCH ×3 (05:07→21:03)
[2021-08-05] MEDS: INSULIN HUMULIN R 100 UNIT/ML 3ML SQ SCH ×4 (06:00→23:25)
[2021-08-05 06:20] LABS: BASOPHILS % (AUTO) 0.5 % (0.0-5.0); EOSINOPHILS % (AUTO) 10.4 % (0.0-8.0); HEMATOCRIT 30.9 % (36-48); LYMPHOCYTES % (AUTO) 11.4 % (21.0-51.0); MEAN CORPUSCULAR HEMOGLOBIN 23.2 pg (27.0-33.0); MEAN CORPUSCULAR HGB CONC 28.8 g/dL (32.0-36.0); MEAN CORPUSCULAR VOLUME 80.7 fL (79-99); NEUTROPHILS % (AUTO) 71.9 % (40.0-77.0); PLATELET COUNT (AUTO) 417 K/uL (130-400); RED BLOOD CELL COUNT(AUTO) 3.83 MIL/uL (4.00-5.50); WHITE BLOOD COUNT (AUTO) 10.2 K/uL (4.8-10.8)
[2021-08-05 06:29] LABS: CREATININE 0.3 mg/dL (0.5-1.5); POTASSIUM 3.5 mmol/L (3.5-5.1)
[2021-08-05] MEDS: LORAZEPAM 2 MG/ML 1 ML VIAL IVP PRN ×2 (07:00→09:54)
[2021-08-05] MEDS: SERTRALINE HCL 50 MG TABLET PO SCH (09:52)
[2021-08-05] MEDS: GUAIFENESIN-DM 200/20 MG 10 ML PO PRN ×2 (09:52→21:43)
[2021-08-05] MEDS: GABAPENTIN 100 MG CAPSULE PO SCH ×3 (09:53→21:03)
[2021-08-05] MEDS: QUETIAPINE FUMARATE 25 MG TAB PO SCH ×2 (09:53→21:03)
[2021-08-05] MEDS: LACTOBACILLUS RHAMNOSUS GG 1 EACH CAP.SPRINK PO SCH (09:53)
[2021-08-05] MEDS: FLUTICASONE PROPIONATE 50MCG/SPRAY 16 GM BOTTLE EN SCH ×2 (09:53→21:02)
[2021-08-05] MEDS: FAMOTIDINE 20MG TAB PO SCH ×2 (09:53→21:02)
[2021-08-05] MEDS: ENOXAPARIN SODIUM 40 MG/0.4 ML SYRINGE SQ SCH (09:54)
[2021-08-05] MEDS: DEXMEDETOMIDINE 400MCG/NS100ML IV SCH ×2 (10:58→21:00)
[2021-08-05] MEDS ORDERED: GABAPENTIN 100 MG CAPSULE PO SCH (13:30)
[2021-08-05] MEDS: ONDANSETRON 4MG INJ IVP PRN (21:41)
[2021-08-06] VITALS (24 sets, daily range): BP systolic 116–184; BP diastolic 70–103
[2021-08-06] MEDS: INSULIN HUMULIN R 100 UNIT/ML 3ML SQ SCH ×4 (06:00→23:18)
[2021-08-06] MEDS: CLONAZEPAM 1MG TAB PO SCH ×3 (06:11→21:11)
[2021-08-06 07:05] LABS: BASOPHILS % (AUTO) 0.5 % (0.0-5.0); EOSINOPHILS % (AUTO) 10.6 % (0.0-8.0); HEMATOCRIT 29.7 % (36-48); LYMPHOCYTES % (AUTO) 9.7 % (21.0-51.0); MEAN CORPUSCULAR HEMOGLOBIN 23.7 pg (27.0-33.0); MEAN CORPUSCULAR HGB CONC 29.3 g/dL (32.0-36.0); MEAN CORPUSCULAR VOLUME 80.9 fL (79-99); MONOCYTES % (AUTO) 4.9 % (3.0-13.0); NEUTROPHILS % (AUTO) 73.6 % (40.0-77.0); PLATELET COUNT (AUTO) 354 K/uL (130-400); RED BLOOD CELL COUNT(AUTO) 3.67 MIL/uL (4.00-5.50); RED CELL DISTRIBUTION WIDTH 16.5 % (11.0-15.5); WHITE BLOOD COUNT (AUTO) 10.9 K/uL (4.8-10.8)
[2021-08-06 07:13] LABS: CREATININE 0.3 mg/dL (0.5-1.5); POTASSIUM 3.3 mmol/L (3.5-5.1)
[2021-08-06] MEDS: FLUTICASONE PROPIONATE 50MCG/SPRAY 16 GM BOTTLE EN SCH ×2 (08:48→21:12)
[2021-08-06] MEDS: ENOXAPARIN SODIUM 40 MG/0.4 ML SYRINGE SQ SCH (08:48)
[2021-08-06] MEDS: GABAPENTIN 100 MG CAPSULE PO SCH ×3 (08:49→21:11)
[2021-08-06] MEDS: LACTOBACILLUS RHAMNOSUS GG 1 EACH CAP.SPRINK PO SCH (08:49)
[2021-08-06] MEDS: QUETIAPINE FUMARATE 25 MG TAB PO SCH ×2 (08:49→21:11)
[2021-08-06] MEDS: SERTRALINE HCL 50 MG TABLET PO SCH (08:49)
[2021-08-06] MEDS: FAMOTIDINE 20MG TAB PO SCH ×2 (08:49→21:11)
[2021-08-06] MEDS: POTASSIUM CHLORIDE 10% ELIXIR 20 MEQ/15 ML UDCUP PO PRN ×3 (08:50→13:30)
[2021-08-06] MEDS: ONDANSETRON 4MG INJ IVP PRN ×3 (09:00→21:11)
[2021-08-06] MEDS: ACETAMINOPHEN 650 MG/20.3 ML UDCUP PEG PRN ×3 (09:00→21:10)
[2021-08-06] MEDS: LORAZEPAM 2 MG/ML 1 ML VIAL IVP PRN (09:07)
[2021-08-06] MEDS ORDERED: PHARMACY COMMUNICATION MISC SCH (15:00)
[2021-08-06] MEDS: GUAIFENESIN-DM 200/20 MG 10 ML PO PRN (21:10)
[2021-08-07] VITALS (23 sets, daily range): BP systolic 125–165; BP diastolic 68–98
[2021-08-07] MEDS: INSULIN HUMULIN R 100 UNIT/ML 3ML SQ SCH ×3 (05:37→17:04)
[2021-08-07] MEDS: CLONAZEPAM 1MG TAB PO SCH ×3 (06:01→20:49)
[2021-08-07] MEDS: LACTOBACILLUS RHAMNOSUS GG 1 EACH CAP.SPRINK PO SCH (07:35)
[2021-08-07] MEDS: QUETIAPINE FUMARATE 25 MG TAB PO SCH (07:35)
[2021-08-07] MEDS: FAMOTIDINE 20MG TAB PO SCH ×2 (07:35→19:37)
[2021-08-07] MEDS: SERTRALINE HCL 50 MG TABLET PO SCH (07:35)
[2021-08-07] MEDS: GUAIFENESIN-DM 200/20 MG 10 ML PO PRN ×2 (07:35→18:09)
[2021-08-07] MEDS: ENOXAPARIN SODIUM 40 MG/0.4 ML SYRINGE SQ SCH (07:36)
[2021-08-07] MEDS: GABAPENTIN 100 MG CAPSULE PO SCH ×2 (07:36→19:38)
[2021-08-07] MEDS: FLUTICASONE PROPIONATE 50MCG/SPRAY 16 GM BOTTLE EN SCH (07:37)
[2021-08-07] MEDS: LORAZEPAM 2 MG/ML 1 ML VIAL IVP PRN ×6 (07:41→22:10)
[2021-08-07 08:07] LABS: HEMATOCRIT 30.3 % (36-48); MEAN CORPUSCULAR HEMOGLOBIN 23.5 pg (27.0-33.0); MEAN CORPUSCULAR VOLUME 80.8 fL (79-99); RED BLOOD CELL COUNT(AUTO) 3.75 MIL/uL (4.00-5.50); RED CELL DISTRIBUTION WIDTH 16.7 % (11.0-15.5); WHITE BLOOD COUNT (AUTO) 11.7 K/uL (4.8-10.8)
[2021-08-07 08:29] LABS: CREATININE 0.2 mg/dL (0.5-1.5); POTASSIUM 3.7 mmol/L (3.5-5.1)
[2021-08-07] MEDS: ZINC SULFATE 220 CAPSULE PO SCH ×2 (09:34→20:50)
[2021-08-07] MEDS: METOCLOPRAMIDE 5 MG TABLET PO SCH ×2 (09:34→15:59)
[2021-08-07] MEDS: THIAMINE HCL 100 MG TABLET PO SCH (09:35)
[2021-08-07] MEDS: MULTIVITAMIN TABLET PO SCH (09:35)
[2021-08-07] MEDS: ACETAMINOPHEN 650 MG/20.3 ML UDCUP PEG PRN ×2 (09:42→20:49)
[2021-08-07] MEDS: KETOROLAC 15MG/ML VIAL (15MG/ML) IV SCH ×2 (12:46→21:20)
[2021-08-07] MEDS: POTASSIUM CHLORIDE 10% ELIXIR 20 MEQ/15 ML UDCUP PO PRN ×2 (13:17→16:00)
[2021-08-07] MEDS ORDERED: TRAZODONE HCL 50 MG TAB PO SCH (21:00)
[2021-08-07] MEDS ORDERED: MORPHINE 2 MG SYG IVP ONE (22:00)
[2021-08-07] MEDS ORDERED: MORPHINE 2 MG SYG ONE (22:03)
[2021-08-08] VITALS (22 sets, daily range): BP systolic 125–176; BP diastolic 64–104
[2021-08-08] MEDS: LORAZEPAM 2 MG/ML 1 ML VIAL IVP PRN ×6 (00:09→20:50)
[2021-08-08] MEDS: METOCLOPRAMIDE 5 MG TABLET PO SCH ×2 (00:10→08:41)
[2021-08-08] MEDS: ACETAMINOPHEN 650 MG/20.3 ML UDCUP PEG PRN (03:28)
[2021-08-08] MEDS ORDERED: MORPHINE 2 MG SYG ONE (05:51)
[2021-08-08] MEDS: INSULIN HUMULIN R 100 UNIT/ML 3ML SQ SCH ×3 (05:58→11:40)
[2021-08-08] MEDS ORDERED: MORPHINE 2 MG SYG IVP ONE (06:00)
[2021-08-08] MEDS: CLONAZEPAM 1MG TAB PO SCH ×2 (06:01→20:25)
[2021-08-08 06:26] LABS: HEMATOCRIT 32.2 % (36-48); MEAN CORPUSCULAR HEMOGLOBIN 23.1 pg (27.0-33.0); MEAN CORPUSCULAR HGB CONC 28.9 g/dL (32.0-36.0); MEAN CORPUSCULAR VOLUME 80.1 fL (79-99); RED BLOOD CELL COUNT(AUTO) 4.02 MIL/uL (4.00-5.50); RED CELL DISTRIBUTION WIDTH 16.7 % (11.0-15.5); WHITE BLOOD COUNT (AUTO) 11.1 K/uL (4.8-10.8)
[2021-08-08 06:36] LABS: CREATININE 0.2 mg/dL (0.5-1.5); POTASSIUM 3.6 mmol/L (3.5-5.1)
[2021-08-08] MEDS: ONDANSETRON 4MG INJ IVP PRN ×2 (07:28→21:01)
[2021-08-08] MEDS ORDERED: LABETALOL 20MG SYG IV SCH (07:30)
[2021-08-08] MEDS ORDERED: LABETALOL 20MG VIAL IV PRN (08:00)
[2021-08-08] MEDS ORDERED: ACETAMINOPHEN 500 MG TABLET PO SCH (08:00)
[2021-08-08] MEDS: POTASSIUM CHLORIDE 10% ELIXIR 20 MEQ/15 ML UDCUP PO SCH (08:41)
[2021-08-08] MEDS: SERTRALINE HCL 50 MG TABLET PO SCH (08:41)
[2021-08-08] MEDS: FAMOTIDINE 20MG TAB PO SCH ×2 (08:41→20:25)
[2021-08-08] MEDS: ZINC SULFATE 220 CAPSULE PO SCH ×2 (08:41→20:25)
[2021-08-08] MEDS: THIAMINE HCL 100 MG TABLET PO SCH (08:41)
[2021-08-08] MEDS: METOPROLOL TARTRATE 25 MG TAB PO SCH ×2 (08:41→20:25)
[2021-08-08] MEDS: MULTIVITAMIN TABLET PO SCH (08:41)
[2021-08-08] MEDS: ERGOCALCIFEROL 2000 UNIT PO SCH (08:43)
[2021-08-08] MEDS: ENOXAPARIN SODIUM 40 MG/0.4 ML SYRINGE SQ SCH (08:43)
[2021-08-08] MEDS ORDERED: AMLODIPINE 5 MG TAB PO SCH (09:00)
[2021-08-08] MEDS: METOCLOPRAMIDE 10 MG/2 ML VIAL IVP SCH ×2 (10:37→16:44)
[2021-08-08] MEDS: GUAIFENESIN-DM 200/20 MG 10 ML PO PRN ×2 (11:27→20:50)
[2021-08-08] MEDS ORDERED: CLONAZEPAM 1MG TAB PO SCH (14:00)
[2021-08-08] MEDS: GABAPENTIN 300 MG CAPSULE PO SCH ×2 (14:12→20:26)
[2021-08-08] MEDS: ACETAMINOPHEN 500 MG TABLET PO SCH ×2 (14:13→20:26)
[2021-08-08] MEDS: TRAZODONE HCL 50 MG TAB PO SCH (20:24)
[2021-08-09] VITALS (23 sets, daily range): BP systolic 118–165; BP diastolic 51–98
[2021-08-09] MEDS: GUAIFENESIN-DM 200/20 MG 10 ML PO PRN ×3 (02:05→20:34)
[2021-08-09] MEDS: GABAPENTIN 300 MG CAPSULE PO SCH ×3 (05:18→20:35)
[2021-08-09] MEDS: ACETAMINOPHEN 500 MG TABLET PO SCH ×3 (05:19→20:37)
[2021-08-09] MEDS: METOCLOPRAMIDE 10 MG/2 ML VIAL IVP SCH (06:05)
[2021-08-09] MEDS: ERGOCALCIFEROL 2000 UNIT PO SCH (07:40)
[2021-08-09] MEDS ORDERED: METOCLOPRAMIDE 10 MG TABLET ONE ×2 (08:42→12:33)
[2021-08-09] MEDS: ONDANSETRON 4MG INJ IVP PRN (09:00)
[2021-08-09] MEDS: LORAZEPAM 2 MG/ML 1 ML VIAL IVP PRN ×3 (09:00→20:33)
[2021-08-09] MEDS: POTASSIUM CHLORIDE 10% ELIXIR 20 MEQ/15 ML UDCUP PO SCH (09:18)
[2021-08-09] MEDS: ENOXAPARIN SODIUM 40 MG/0.4 ML SYRINGE SQ SCH (09:18)
[2021-08-09] MEDS: METOPROLOL TARTRATE 25 MG TAB PO SCH ×2 (09:19→20:35)
[2021-08-09] MEDS: SERTRALINE HCL 50 MG TABLET PO SCH (09:19)
[2021-08-09] MEDS: THIAMINE HCL 100 MG TABLET PO SCH (09:19)
[2021-08-09] MEDS: MULTIVITAMIN TABLET PO SCH (09:28)
[2021-08-09] MEDS: ZINC SULFATE 220 CAPSULE PO SCH ×2 (09:28→20:34)
[2021-08-09] MEDS: CLONAZEPAM 1MG TAB PO SCH ×2 (09:28→20:34)
[2021-08-09] MEDS: MAGNESIUM OXIDE 400 MG TABLET PO SCH (09:29)
[2021-08-09] MEDS: FAMOTIDINE 20MG TAB PO SCH ×2 (09:29→20:34)
[2021-08-09] MEDS: KETOROLAC 15MG/ML VIAL (15MG/ML) IV SCH (12:30)
[2021-08-09] MEDS: METOCLOPRAMIDE 10 MG TABLET PO SCH ×2 (14:26→20:34)
[2021-08-09] MEDS: TRAZODONE HCL 50 MG TAB PO SCH (20:34)
[2021-08-10] VITALS (8 sets, daily range): BP systolic 113–137; BP diastolic 70–83
[2021-08-10] MEDS: GUAIFENESIN-DM 200/20 MG 10 ML PO PRN ×3 (01:44→20:15)
[2021-08-10] MEDS: GABAPENTIN 300 MG CAPSULE PO SCH ×3 (05:20→20:16)
[2021-08-10] MEDS: METOCLOPRAMIDE 10 MG TABLET PO SCH ×3 (05:20→20:17)
[2021-08-10] MEDS: ACETAMINOPHEN 500 MG TABLET PO SCH ×3 (05:21→20:17)
[2021-08-10] MEDS: POTASSIUM CHLORIDE 10% ELIXIR 20 MEQ/15 ML UDCUP PO SCH (08:26)
[2021-08-10] MEDS: METOPROLOL TARTRATE 25 MG TAB PO SCH ×2 (08:26→20:16)
[2021-08-10] MEDS: CLONAZEPAM 1MG TAB PO SCH (08:27)
[2021-08-10] MEDS: ZINC SULFATE 220 CAPSULE PO SCH ×2 (08:27→20:16)
[2021-08-10] MEDS: ERGOCALCIFEROL 2000 UNIT PO SCH (08:27)
[2021-08-10] MEDS: SERTRALINE HCL 50 MG TABLET PO SCH (08:27)
[2021-08-10] MEDS: MULTIVITAMIN TABLET PO SCH (08:27)
[2021-08-10] MEDS: THIAMINE HCL 100 MG TABLET PO SCH (08:28)
[2021-08-10] MEDS: FAMOTIDINE 20MG TAB PO SCH ×2 (08:28→20:15)
[2021-08-10] MEDS: MAGNESIUM OXIDE 400 MG TABLET PO SCH (08:29)
[2021-08-10] MEDS: ENOXAPARIN SODIUM 40 MG/0.4 ML SYRINGE SQ SCH (08:30)
[2021-08-10] MEDS: ALPRAZOLAM 0.25 MG TABLET PO PRN (10:27)
[2021-08-10] MEDS: KETOROLAC 15MG/ML VIAL (15MG/ML) IV SCH (12:35)
[2021-08-10] MEDS: ONDANSETRON 4MG INJ IVP PRN (19:14)
[2021-08-10] MEDS: TRAZODONE HCL 50 MG TAB PO SCH (20:16)
[2021-08-10] MEDS: LORAZEPAM 2 MG/ML 1 ML VIAL IVP PRN (20:18)
[2021-08-11] MEDS: GUAIFENESIN-DM 200/20 MG 10 ML PO PRN ×3 (02:47→20:12)
[2021-08-11] MEDS: ONDANSETRON 4MG INJ IVP PRN (02:47)
[2021-08-11 03:00] VITALS: BP 132/78
[2021-08-11 04:00] VITALS: BP 122/72
[2021-08-11 04:24] LABS: BASOPHILS % (AUTO) 0.4 % (0.0-5.0); EOSINOPHILS % (AUTO) 8.9 % (0.0-8.0); HEMATOCRIT 35.4 % (36-48); LYMPHOCYTES % (AUTO) 10.4 % (21.0-51.0); MEAN CORPUSCULAR HEMOGLOBIN 22.9 pg (27.0-33.0); MEAN CORPUSCULAR VOLUME 81.8 fL (79-99); MONOCYTES % (AUTO) 6.5 % (3.0-13.0); PLATELET COUNT (AUTO) 466 K/uL (130-400); RED BLOOD CELL COUNT(AUTO) 4.33 MIL/uL (4.00-5.50); RED CELL DISTRIBUTION WIDTH 17.2 % (11.0-15.5); WHITE BLOOD COUNT (AUTO) 14.5 K/uL (4.8-10.8)
[2021-08-11 04:42] LABS: CREATININE 0.3 mg/dL (0.5-1.5); POTASSIUM 3.6 mmol/L (3.5-5.1)
[2021-08-11] MEDS: ACETAMINOPHEN 500 MG TABLET PO SCH ×3 (05:26→20:12)
[2021-08-11] MEDS: GABAPENTIN 300 MG CAPSULE PO SCH ×3 (05:27→20:14)
[2021-08-11] MEDS: METOCLOPRAMIDE 10 MG TABLET PO SCH ×3 (05:27→20:14)
[2021-08-11 06:00] VITALS: BP 120/80
[2021-08-11] MEDS ORDERED: CHOLECALCIFEROL 2000 UNIT MISC SCH (08:00)
[2021-08-11] MEDS: ERGOCALCIFEROL 2000 UNIT PO SCH (08:51)
[2021-08-11] MEDS: SERTRALINE HCL 50 MG TABLET PO SCH (09:46)
[2021-08-11] MEDS: ENOXAPARIN SODIUM 40 MG/0.4 ML SYRINGE SQ SCH (09:46)
[2021-08-11] MEDS: ZINC SULFATE 220 CAPSULE PO SCH ×2 (09:46→20:12)
[2021-08-11] MEDS: MULTIVITAMIN TABLET PO SCH (09:46)
[2021-08-11] MEDS: ALPRAZOLAM 0.25 MG TABLET PO PRN ×2 (09:47→23:25)
[2021-08-11] MEDS: THIAMINE HCL 100 MG TABLET PO SCH ×2 (09:47→20:13)
[2021-08-11] MEDS: METOPROLOL TARTRATE 25 MG TAB PO SCH ×2 (09:47→20:12)
[2021-08-11] MEDS: FAMOTIDINE 20MG TAB PO SCH ×2 (09:48→20:13)
[2021-08-11] MEDS: MAGNESIUM OXIDE 400 MG TABLET PO SCH (09:48)
[2021-08-11] MEDS: KETOROLAC 15MG/ML VIAL (15MG/ML) IV SCH (12:07)
[2021-08-11 18:15] VITALS: BP 124/74
[2021-08-11] MEDS: TRAZODONE HCL 50 MG TAB PO SCH (20:13)
[2021-08-11] MEDS: LORAZEPAM 2 MG/ML 1 ML VIAL IVP PRN (20:14)
[2021-08-11 23:00] VITALS: BP 130/81
[2021-08-12] VITALS (23 sets, daily range): BP systolic 91–165; BP diastolic 55–97
[2021-08-12] MEDS: ACETAMINOPHEN 500 MG TABLET PO SCH ×3 (05:32→21:14)
[2021-08-12] MEDS: METOCLOPRAMIDE 10 MG TABLET PO SCH ×3 (05:34→21:13)
[2021-08-12] MEDS: GABAPENTIN 300 MG CAPSULE PO SCH ×3 (05:34→21:19)
[2021-08-12] MEDS ORDERED: IBUPROFEN 200 MG TAB PO PRN (08:00)
[2021-08-12] MEDS: SERTRALINE HCL 50 MG TABLET PO SCH (08:44)
[2021-08-12] MEDS: ZINC SULFATE 220 CAPSULE PO SCH ×2 (08:44→21:17)
[2021-08-12] MEDS: MAGNESIUM OXIDE 400 MG TABLET PO SCH (08:44)
[2021-08-12] MEDS: MULTIVITAMIN TABLET PO SCH (08:44)
[2021-08-12] MEDS: METOPROLOL TARTRATE 25 MG TAB PO SCH ×2 (08:45→21:12)
[2021-08-12] MEDS: FAMOTIDINE 20MG TAB PO SCH ×2 (08:45→21:12)
[2021-08-12] MEDS: ENOXAPARIN SODIUM 40 MG/0.4 ML SYRINGE SQ SCH (08:45)
[2021-08-12] MEDS: ERGOCALCIFEROL 2000 UNIT PO SCH (09:00)
[2021-08-12] MEDS: THIAMINE HCL 100 MG TABLET PO SCH ×2 (09:00→21:15)
[2021-08-12] MEDS: NEUTRA-PHOS PACKET 1 EACH PO SCH (10:15)
[2021-08-12] MEDS: ALPRAZOLAM 0.25 MG TABLET PO PRN ×2 (11:04→21:14)
[2021-08-12] MEDS: ONDANSETRON 4MG INJ IVP PRN (14:27)
[2021-08-12] MEDS: GUAIFENESIN-DM 200/20 MG 10 ML PO PRN ×2 (14:28→21:09)
[2021-08-12] MEDS: TRAZODONE HCL 50 MG TAB PO SCH (21:11)
[2021-08-13] VITALS (22 sets, daily range): BP systolic 96–173; BP diastolic 50–98
[2021-08-13] MEDS: ACETAMINOPHEN 500 MG TABLET PO SCH ×3 (06:05→20:45)
[2021-08-13] MEDS: METOCLOPRAMIDE 10 MG TABLET PO SCH ×3 (06:05→20:48)
[2021-08-13] MEDS: ALPRAZOLAM 0.25 MG TABLET PO PRN ×3 (06:06→22:13)
[2021-08-13] MEDS: GABAPENTIN 300 MG CAPSULE PO SCH ×3 (06:06→20:42)
[2021-08-13 07:42] LABS: ALBUMIN 2.4 g/dL (3.5-5.0); BILIRUBIN,TOTAL 0.2 mg/dL (0.2-1.0); CREATININE 0.3 mg/dL (0.5-1.5); MAGNESIUM 2.1 mg/dL (1.80-2.40); POTASSIUM 3.3 mmol/L (3.5-5.1); TOTAL PROTEIN, SERUM 7.6 g/dL (6.0-8.3)
[2021-08-13] MEDS: ERGOCALCIFEROL 2000 UNIT PO SCH (08:20)
[2021-08-13] MEDS: GUAIFENESIN-DM 200/20 MG 10 ML PO PRN (08:22)
[2021-08-13] MEDS: MULTIVITAMIN TABLET PO SCH (08:22)
[2021-08-13] MEDS: SERTRALINE HCL 50 MG TABLET PO SCH (08:23)
[2021-08-13] MEDS: METOPROLOL TARTRATE 25 MG TAB PO SCH ×2 (08:23→20:41)
[2021-08-13] MEDS: FAMOTIDINE 20MG TAB PO SCH ×2 (08:23→20:41)
[2021-08-13] MEDS: ZINC SULFATE 220 CAPSULE PO SCH ×2 (08:23→20:41)
[2021-08-13] MEDS: MAGNESIUM OXIDE 400 MG TABLET PO SCH (08:24)
[2021-08-13] MEDS: THIAMINE HCL 100 MG TABLET PO SCH ×2 (08:24→20:42)
[2021-08-13] MEDS: ENOXAPARIN SODIUM 40 MG/0.4 ML SYRINGE SQ SCH (08:24)
[2021-08-13] MEDS: POTASSIUM CHLORIDE 10% ELIXIR 20 MEQ/15 ML UDCUP PO PRN (08:37)
[2021-08-13] MEDS: NEUTRA-PHOS PACKET 1 EACH PO SCH (09:00)
[2021-08-13] MEDS: ONDANSETRON 4MG INJ IVP PRN (09:01)
[2021-08-13] MEDS: TRAZODONE HCL 50 MG TAB PO SCH (20:44)
[2021-08-13] MEDS: LORAZEPAM 2 MG/ML 1 ML VIAL IVP PRN (21:16)
[2021-08-14] VITALS (24 sets, daily range): BP systolic 98–161; BP diastolic 55–104
[2021-08-14] MEDS: ACETAMINOPHEN 500 MG TABLET PO SCH ×3 (03:21→21:13)
[2021-08-14 06:28] LABS: HEMATOCRIT 32.7 % (36-48); MEAN CORPUSCULAR HEMOGLOBIN 22.8 pg (27.0-33.0); MEAN CORPUSCULAR HGB CONC 28.4 g/dL (32.0-36.0); MEAN CORPUSCULAR VOLUME 80.1 fL (79-99); RED BLOOD CELL COUNT(AUTO) 4.08 MIL/uL (4.00-5.50); RED CELL DISTRIBUTION WIDTH 17.2 % (11.0-15.5); WHITE BLOOD COUNT (AUTO) 12.6 K/uL (4.8-10.8)
[2021-08-14 06:37] LABS: CREATININE 0.2 mg/dL (0.5-1.5); MAGNESIUM 2.2 mg/dL (1.80-2.40); PHOSPHORUS 5.3 mg/dL (2.5-4.9); POTASSIUM 4.3 mmol/L (3.5-5.1)
[2021-08-14] MEDS: METOCLOPRAMIDE 10 MG TABLET PO SCH ×3 (06:37→21:12)
[2021-08-14] MEDS: GABAPENTIN 300 MG CAPSULE PO SCH ×3 (06:37→21:13)
[2021-08-14] MEDS: ERGOCALCIFEROL 2000 UNIT PO SCH (08:39)
[2021-08-14] MEDS: NEUTRA-PHOS PACKET 1 EACH PO SCH (08:39)
[2021-08-14] MEDS: SERTRALINE HCL 50 MG TABLET PO SCH (08:40)
[2021-08-14] MEDS: MAGNESIUM OXIDE 400 MG TABLET PO SCH (08:40)
[2021-08-14] MEDS: THIAMINE HCL 100 MG TABLET PO SCH ×2 (08:40→20:55)
[2021-08-14] MEDS: MULTIVITAMIN TABLET PO SCH (08:40)
[2021-08-14] MEDS: ZINC SULFATE 220 CAPSULE PO SCH ×2 (08:44→20:54)
[2021-08-14] MEDS: METOPROLOL TARTRATE 25 MG TAB PO SCH ×2 (08:44→20:53)
[2021-08-14] MEDS: FAMOTIDINE 20MG TAB PO SCH ×2 (08:44→20:53)
[2021-08-14] MEDS: ENOXAPARIN SODIUM 40 MG/0.4 ML SYRINGE SQ SCH (08:46)
[2021-08-14] MEDS: GUAIFENESIN-DM 200/20 MG 10 ML PO PRN (09:42)
[2021-08-14] MEDS: LORAZEPAM 2 MG/ML 1 ML VIAL IVP PRN ×2 (09:43→15:02)
[2021-08-14] MEDS: ALPRAZOLAM 0.25 MG TABLET PO PRN ×2 (15:01→21:53)
[2021-08-14] MEDS: TRAZODONE HCL 50 MG TAB PO SCH (20:53)
[2021-08-14] MEDS: QUETIAPINE FUMARATE 25 MG TAB PO SCH (20:55)
[2021-08-15] VITALS (15 sets, daily range): BP systolic 91–141; BP diastolic 53–85
[2021-08-15] MEDS: METOCLOPRAMIDE 10 MG TABLET PO SCH ×3 (05:28→22:04)
[2021-08-15] MEDS: ACETAMINOPHEN 500 MG TABLET PO SCH ×3 (05:28→22:04)
[2021-08-15] MEDS: GABAPENTIN 300 MG CAPSULE PO SCH ×3 (05:29→20:07)
[2021-08-15] MEDS: METOPROLOL TARTRATE 25 MG TAB PO SCH ×2 (09:42→19:53)
[2021-08-15] MEDS: MAGNESIUM OXIDE 400 MG TABLET PO SCH (09:43)
[2021-08-15] MEDS: MULTIVITAMIN TABLET PO SCH (09:43)
[2021-08-15] MEDS: ZINC SULFATE 220 CAPSULE PO SCH ×2 (09:43→20:06)
[2021-08-15] MEDS: THIAMINE HCL 100 MG TABLET PO SCH ×2 (09:43→20:07)
[2021-08-15] MEDS: SERTRALINE HCL 50 MG TABLET PO SCH (09:43)
[2021-08-15] MEDS: ENOXAPARIN SODIUM 40 MG/0.4 ML SYRINGE SQ SCH (09:43)
[2021-08-15] MEDS: FAMOTIDINE 20MG TAB PO SCH ×2 (09:43→19:53)
[2021-08-15] MEDS: QUETIAPINE FUMARATE 25 MG TAB PO SCH ×2 (09:43→22:04)
[2021-08-15] MEDS: ERGOCALCIFEROL 2000 UNIT PO SCH (09:44)
[2021-08-15] MEDS: ALPRAZOLAM 0.25 MG TABLET PO PRN (19:53)
[2021-08-15] MEDS: TRAZODONE HCL 50 MG TAB PO SCH (19:53)
[2021-08-16] VITALS (24 sets, daily range): BP systolic 91–145; BP diastolic 53–87
[2021-08-16] MEDS: GABAPENTIN 300 MG CAPSULE PO SCH ×3 (05:11→20:19)
[2021-08-16] MEDS: ACETAMINOPHEN 500 MG TABLET PO SCH ×3 (05:12→20:18)
[2021-08-16] MEDS: METOCLOPRAMIDE 10 MG TABLET PO SCH ×3 (05:13→20:19)
[2021-08-16 06:30] LABS: BASOPHILS % (AUTO) 0.4 % (0.0-5.0); EOSINOPHILS % (AUTO) 9.4 % (0.0-8.0); HEMATOCRIT 32.3 % (36-48); LYMPHOCYTES % (AUTO) 11.7 % (21.0-51.0); MEAN CORPUSCULAR HEMOGLOBIN 22.8 pg (27.0-33.0); MEAN CORPUSCULAR HGB CONC 28.2 g/dL (32.0-36.0); MONOCYTES % (AUTO) 5.9 % (3.0-13.0); NEUTROPHILS % (AUTO) 72.1 % (40.0-77.0); PLATELET COUNT (AUTO) 392 K/uL (130-400); RED BLOOD CELL COUNT(AUTO) 3.99 MIL/uL (4.00-5.50); RED CELL DISTRIBUTION WIDTH 17.4 % (11.0-15.5); WHITE BLOOD COUNT (AUTO) 11.2 K/uL (4.8-10.8)
[2021-08-16 06:42] LABS: CREATININE 0.4 mg/dL (0.5-1.5); PHOSPHORUS 4.7 mg/dL (2.5-4.9); POTASSIUM 3.8 mmol/L (3.5-5.1)
[2021-08-16] MEDS: ENOXAPARIN SODIUM 40 MG/0.4 ML SYRINGE SQ SCH (07:46)
[2021-08-16] MEDS: FAMOTIDINE 20MG TAB PO SCH ×2 (07:46→20:19)
[2021-08-16] MEDS: SERTRALINE HCL 50 MG TABLET PO SCH (07:46)
[2021-08-16] MEDS: QUETIAPINE FUMARATE 25 MG TAB PO SCH ×2 (07:46→20:21)
[2021-08-16] MEDS: METOPROLOL TARTRATE 25 MG TAB PO SCH ×2 (07:46→20:21)
[2021-08-16] MEDS: MULTIVITAMIN TABLET PO SCH (07:46)
[2021-08-16] MEDS: MAGNESIUM OXIDE 400 MG TABLET PO SCH (07:46)
[2021-08-16] MEDS: ERGOCALCIFEROL 2000 UNIT PO SCH (07:47)
[2021-08-16] MEDS: THIAMINE HCL 100 MG TABLET PO SCH ×2 (07:48→20:19)
[2021-08-16] MEDS: ZINC SULFATE 220 CAPSULE PO SCH ×2 (07:49→20:19)
[2021-08-16] MEDS ORDERED: APAP/CODEINE 120/12MG 5ML ONE (11:01)
[2021-08-16] MEDS: ALPRAZOLAM 0.25 MG TABLET PO PRN (11:04)
[2021-08-16] MEDS ORDERED: DEXMEDETOMIDINE 400MCG/NS100ML IV SCH (11:30)
[2021-08-16] MEDS: ACETYLCYSTEINE 10% 100MG/ML 4ML VIAL IH SCH ×2 (14:08→22:42)
[2021-08-16] MEDS: IPRATROPIUM/ALBUTEROL SULFATE 3 ML SOLUTION IH SCH ×2 (14:09→22:42)
[2021-08-16] MEDS ORDERED: ALPRAZOLAM 1 MG TAB ONE (20:15)
[2021-08-16] MEDS: TRAZODONE HCL 50 MG TAB PO SCH (20:19)
[2021-08-16] MEDS ORDERED: ALPRAZOLAM 1 MG TAB PO SCH (21:00)
[2021-08-16] MEDS: ALPRAZOLAM 1 MG TAB PO SCH (21:35)
[2021-08-17] VITALS (18 sets, daily range): BP systolic 93–134; BP diastolic 51–81
[2021-08-17] MEDS: GABAPENTIN 300 MG CAPSULE PO SCH ×3 (05:36→20:30)
[2021-08-17] MEDS: ACETAMINOPHEN 500 MG TABLET PO SCH ×3 (05:37→20:27)
[2021-08-17] MEDS: METOCLOPRAMIDE 10 MG TABLET PO SCH ×3 (05:37→20:31)
[2021-08-17 06:07] LABS: BASOPHILS % (AUTO) 0.5 % (0.0-5.0); EOSINOPHILS % (AUTO) 10.3 % (0.0-8.0); HEMATOCRIT 30.7 % (36-48); LYMPHOCYTES % (AUTO) 13.7 % (21.0-51.0); MEAN CORPUSCULAR HEMOGLOBIN 22.8 pg (27.0-33.0); MEAN CORPUSCULAR HGB CONC 28.7 g/dL (32.0-36.0); MEAN CORPUSCULAR VOLUME 79.5 fL (79-99); MONOCYTES % (AUTO) 7.7 % (3.0-13.0); NEUTROPHILS % (AUTO) 67.4 % (40.0-77.0); PLATELET COUNT (AUTO) 372 K/uL (130-400); RED BLOOD CELL COUNT(AUTO) 3.86 MIL/uL (4.00-5.50); RED CELL DISTRIBUTION WIDTH 17.3 % (11.0-15.5); WHITE BLOOD COUNT (AUTO) 9.4 K/uL (4.8-10.8)
[2021-08-17] MEDS: ACETYLCYSTEINE 10% 100MG/ML 4ML VIAL IH SCH ×3 (06:12→22:14)
[2021-08-17] MEDS: IPRATROPIUM/ALBUTEROL SULFATE 3 ML SOLUTION IH SCH ×3 (06:12→22:14)
[2021-08-17 06:22] LABS: CREATININE 0.3 mg/dL (0.5-1.5); PHOSPHORUS 5.5 mg/dL (2.5-4.9); POTASSIUM 3.9 mmol/L (3.5-5.1)
[2021-08-17] MEDS: MAGNESIUM OXIDE 400 MG TABLET PO SCH (07:51)
[2021-08-17] MEDS: MULTIVITAMIN TABLET PO SCH (07:52)
[2021-08-17] MEDS: ALPRAZOLAM 1 MG TAB PO SCH ×3 (07:52→20:27)
[2021-08-17] MEDS: SERTRALINE HCL 50 MG TABLET PO SCH (07:52)
[2021-08-17] MEDS: FAMOTIDINE 20MG TAB PO SCH ×2 (07:52→20:28)
[2021-08-17] MEDS: METOPROLOL TARTRATE 25 MG TAB PO SCH ×2 (07:52→20:28)
[2021-08-17] MEDS: QUETIAPINE FUMARATE 25 MG TAB PO SCH ×2 (07:53→20:28)
[2021-08-17] MEDS: ENOXAPARIN SODIUM 40 MG/0.4 ML SYRINGE SQ SCH (07:54)
[2021-08-17] MEDS: ZINC SULFATE 220 CAPSULE PO SCH ×2 (07:56→20:26)
[2021-08-17] MEDS: THIAMINE HCL 100 MG TABLET PO SCH ×2 (07:57→20:28)
[2021-08-17] MEDS: ERGOCALCIFEROL 2000 UNIT PO SCH (09:00)
[2021-08-17] MEDS: APAP/CODEINE 120/12MG 5ML PO PRN (15:09)
[2021-08-17] MEDS ORDERED: FUROSEMIDE 20MG VIAL ONE (17:25)
[2021-08-17] MEDS ORDERED: FUROSEMIDE 40MG VIAL ONE (17:25)
[2021-08-17] MEDS: TRAZODONE HCL 50 MG TAB PO SCH (20:27)
[2021-08-18] VITALS (24 sets, daily range): BP systolic 99–167; BP diastolic 58–101
[2021-08-18] MEDS: GUAIFENESIN-DM 200/20 MG 10 ML PO PRN ×2 (02:28→07:34)
[2021-08-18] MEDS: ACETYLCYSTEINE 10% 100MG/ML 4ML VIAL IH SCH ×3 (04:30→19:55)
[2021-08-18] MEDS: IPRATROPIUM/ALBUTEROL SULFATE 3 ML SOLUTION IH SCH ×3 (04:30→19:55)
[2021-08-18] MEDS: METOCLOPRAMIDE 10 MG TABLET PO SCH ×3 (05:58→20:21)
[2021-08-18] MEDS: GABAPENTIN 300 MG CAPSULE PO SCH ×3 (05:59→20:20)
[2021-08-18] MEDS: ACETAMINOPHEN 500 MG TABLET PO SCH ×3 (06:04→20:19)
[2021-08-18 06:22] LABS: BASOPHILS % (AUTO) 0.5 % (0.0-5.0); EOSINOPHILS % (AUTO) 9.3 % (0.0-8.0); HEMATOCRIT 31.2 % (36-48); LYMPHOCYTES % (AUTO) 12.8 % (21.0-51.0); MEAN CORPUSCULAR HEMOGLOBIN 22.5 pg (27.0-33.0); MEAN CORPUSCULAR HGB CONC 27.6 g/dL (32.0-36.0); MEAN CORPUSCULAR VOLUME 81.7 fL (79-99); MONOCYTES % (AUTO) 6.6 % (3.0-13.0); NEUTROPHILS % (AUTO) 70.4 % (40.0-77.0); PLATELET COUNT (AUTO) 346 K/uL (130-400); RED BLOOD CELL COUNT(AUTO) 3.82 MIL/uL (4.00-5.50); RED CELL DISTRIBUTION WIDTH 17.2 % (11.0-15.5); WHITE BLOOD COUNT (AUTO) 9.5 K/uL (4.8-10.8)
[2021-08-18 06:34] LABS: CREATININE 0.4 mg/dL (0.5-1.5); POTASSIUM 3.9 mmol/L (3.5-5.1)
[2021-08-18] MEDS: ERGOCALCIFEROL 2000 UNIT PO SCH (07:10)
[2021-08-18] MEDS: FAMOTIDINE 20MG TAB PO SCH ×2 (07:34→20:20)
[2021-08-18] MEDS: METOPROLOL TARTRATE 25 MG TAB PO SCH ×2 (07:34→20:21)
[2021-08-18] MEDS: QUETIAPINE FUMARATE 25 MG TAB PO SCH (07:34)
[2021-08-18] MEDS: MULTIVITAMIN TABLET PO SCH (07:34)
[2021-08-18] MEDS: SERTRALINE HCL 50 MG TABLET PO SCH (07:34)
[2021-08-18] MEDS: APAP/CODEINE 120/12MG 5ML PO PRN (07:34)
[2021-08-18] MEDS: MAGNESIUM OXIDE 400 MG TABLET PO SCH (07:34)
[2021-08-18] MEDS: ZINC SULFATE 220 CAPSULE PO SCH ×2 (07:34→20:21)
[2021-08-18] MEDS: THIAMINE HCL 100 MG TABLET PO SCH ×2 (07:35→20:20)
[2021-08-18] MEDS: ALPRAZOLAM 1 MG TAB PO SCH ×3 (07:36→20:20)
[2021-08-18] MEDS: ENOXAPARIN SODIUM 40 MG/0.4 ML SYRINGE SQ SCH (07:36)
[2021-08-18] MEDS: TRAZODONE HCL 50 MG TAB PO SCH (20:18)
[2021-08-19] VITALS (21 sets, daily range): BP systolic 82–151; BP diastolic 51–100
[2021-08-19] MEDS: GABAPENTIN 300 MG CAPSULE PO SCH ×3 (05:13→21:13)
[2021-08-19] MEDS: METOCLOPRAMIDE 10 MG TABLET PO SCH ×3 (05:13→21:14)
[2021-08-19] MEDS: ACETAMINOPHEN 500 MG TABLET PO SCH ×3 (05:13→21:18)
[2021-08-19 06:25] LABS: HEMATOCRIT 33.2 % (36-48); MEAN CORPUSCULAR HEMOGLOBIN 23.2 pg (27.0-33.0); MEAN CORPUSCULAR HGB CONC 28.6 g/dL (32.0-36.0); MEAN CORPUSCULAR VOLUME 81.2 fL (79-99); RED BLOOD CELL COUNT(AUTO) 4.09 MIL/uL (4.00-5.50); RED CELL DISTRIBUTION WIDTH 17.3 % (11.0-15.5); WHITE BLOOD COUNT (AUTO) 11.4 K/uL (4.8-10.8)
[2021-08-19 06:35] LABS: CREATININE 0.3 mg/dL (0.5-1.5); POTASSIUM 3.9 mmol/L (3.5-5.1)
[2021-08-19] MEDS: ACETYLCYSTEINE 10% 100MG/ML 4ML VIAL IH SCH ×3 (06:35→21:01)
[2021-08-19] MEDS: IPRATROPIUM/ALBUTEROL SULFATE 3 ML SOLUTION IH SCH ×3 (06:35→21:01)
[2021-08-19] MEDS: METOPROLOL TARTRATE 25 MG TAB PO SCH ×2 (08:52→21:14)
[2021-08-19] MEDS: MAGNESIUM OXIDE 400 MG TABLET PO SCH (08:52)
[2021-08-19] MEDS: THIAMINE HCL 100 MG TABLET PO SCH ×2 (08:53→21:11)
[2021-08-19] MEDS: LEVOFLOXACIN 750 MG TABLET PO SCH (08:53)
[2021-08-19] MEDS: ZINC SULFATE 220 CAPSULE PO SCH ×2 (08:53→21:14)
[2021-08-19] MEDS: MULTIVITAMIN TABLET PO SCH (08:53)
[2021-08-19] MEDS: ALPRAZOLAM 1 MG TAB PO SCH ×3 (08:53→21:12)
[2021-08-19] MEDS: FAMOTIDINE 20MG TAB PO SCH ×2 (08:53→21:12)
[2021-08-19] MEDS: SERTRALINE HCL 50 MG TABLET PO SCH (08:54)
[2021-08-19] MEDS ORDERED: ENOXAPARIN SODIUM 40 MG/0.4 ML SYRINGE SQ SCH (09:00)
[2021-08-19] MEDS: ERGOCALCIFEROL 2000 UNIT PO SCH (09:00)
[2021-08-19] MEDS ORDERED: ENOXAPARIN SODIUM 1 MG/KG SQ SCH (10:30)
[2021-08-19] MEDS: ENOXAPARIN SODIUM 80 MG/0.8 ML SQ SCH ×2 (10:30→21:18)
[2021-08-19] MEDS ORDERED: GUAIFENESIN-DM 200/20 MG 10 ML ONE (11:06)
[2021-08-19] MEDS: APAP/CODEINE 120/12MG 5ML PO PRN ×2 (11:52→21:15)
[2021-08-19] MEDS: TRAZODONE HCL 50 MG TAB PO SCH (21:13)
[2021-08-20] VITALS (22 sets, daily range): BP systolic 84–127; BP diastolic 45–77
[2021-08-20] MEDS: ACETAMINOPHEN 500 MG TABLET PO SCH ×3 (05:52→21:55)
[2021-08-20] MEDS: METOCLOPRAMIDE 10 MG TABLET PO SCH ×3 (05:52→21:55)
[2021-08-20] MEDS: GABAPENTIN 300 MG CAPSULE PO SCH ×3 (05:59→21:53)
[2021-08-20] MEDS: APAP/CODEINE 120/12MG 5ML PO PRN ×3 (06:14→21:54)
[2021-08-20] MEDS: IPRATROPIUM/ALBUTEROL SULFATE 3 ML SOLUTION IH SCH ×3 (06:35→22:52)
[2021-08-20] MEDS: ACETYLCYSTEINE 10% 100MG/ML 4ML VIAL IH SCH ×3 (06:35→22:52)
[2021-08-20 06:43] LABS: BASOPHILS % (AUTO) 0.5 % (0.0-5.0); EOSINOPHILS % (AUTO) 7.7 % (0.0-8.0); HEMATOCRIT 32.7 % (36-48); LYMPHOCYTES % (AUTO) 12.8 % (21.0-51.0); MEAN CORPUSCULAR HEMOGLOBIN 22.3 pg (27.0-33.0); MEAN CORPUSCULAR HGB CONC 27.2 g/dL (32.0-36.0); MONOCYTES % (AUTO) 6.9 % (3.0-13.0); NEUTROPHILS % (AUTO) 71.6 % (40.0-77.0); PLATELET COUNT (AUTO) 364 K/uL (130-400); RED BLOOD CELL COUNT(AUTO) 3.99 MIL/uL (4.00-5.50); RED CELL DISTRIBUTION WIDTH 17.2 % (11.0-15.5); WHITE BLOOD COUNT (AUTO) 11.6 K/uL (4.8-10.8)
[2021-08-20 06:49] LABS: CREATININE 0.3 mg/dL (0.5-1.5); POTASSIUM 4.1 mmol/L (3.5-5.1)
[2021-08-20] MEDS: ERGOCALCIFEROL 2000 UNIT PO SCH (09:00)
[2021-08-20] MEDS: LEVOFLOXACIN 750 MG TABLET PO SCH (09:24)
[2021-08-20] MEDS: ALPRAZOLAM 1 MG TAB PO SCH ×3 (09:24→21:45)
[2021-08-20] MEDS: FAMOTIDINE 20MG TAB PO SCH ×2 (09:25→21:55)
[2021-08-20] MEDS: SERTRALINE HCL 50 MG TABLET PO SCH (09:25)
[2021-08-20] MEDS: THIAMINE HCL 100 MG TABLET PO SCH ×2 (09:25→21:52)
[2021-08-20] MEDS: MULTIVITAMIN TABLET PO SCH (09:25)
[2021-08-20] MEDS: ZINC SULFATE 220 CAPSULE PO SCH ×2 (09:25→21:54)
[2021-08-20] MEDS: METOPROLOL TARTRATE 25 MG TAB PO SCH ×2 (09:25→21:54)
[2021-08-20] MEDS: MAGNESIUM OXIDE 400 MG TABLET PO SCH (09:26)
[2021-08-20] MEDS: ENOXAPARIN SODIUM 80 MG/0.8 ML SQ SCH ×2 (09:27→21:52)
[2021-08-20] MEDS: TRAZODONE HCL 50 MG TAB PO SCH (21:54)
[2021-08-21] VITALS (19 sets, daily range): BP systolic 90–138; BP diastolic 49–87
[2021-08-21] MEDS: ACETAMINOPHEN 500 MG TABLET PO SCH ×3 (06:00→22:00)
[2021-08-21] MEDS: APAP/CODEINE 120/12MG 5ML PO PRN ×4 (06:02→22:43)
[2021-08-21] MEDS: GABAPENTIN 300 MG CAPSULE PO SCH ×3 (06:03→22:31)
[2021-08-21] MEDS: METOCLOPRAMIDE 10 MG TABLET PO SCH ×3 (06:03→22:30)
[2021-08-21] MEDS: IPRATROPIUM/ALBUTEROL SULFATE 3 ML SOLUTION IH SCH ×3 (06:22→22:51)
[2021-08-21] MEDS: ACETYLCYSTEINE 10% 100MG/ML 4ML VIAL IH SCH ×3 (06:22→22:51)
[2021-08-21] MEDS: ALPRAZOLAM 1 MG TAB PO SCH ×3 (08:01→20:54)
[2021-08-21] MEDS: ENOXAPARIN SODIUM 80 MG/0.8 ML SQ SCH ×2 (08:03→20:55)
[2021-08-21] MEDS: SERTRALINE HCL 50 MG TABLET PO SCH (08:05)
[2021-08-21] MEDS: MAGNESIUM OXIDE 400 MG TABLET PO SCH (08:05)
[2021-08-21] MEDS: MULTIVITAMIN TABLET PO SCH (08:05)
[2021-08-21] MEDS: FAMOTIDINE 20MG TAB PO SCH (08:05)
[2021-08-21] MEDS: ERGOCALCIFEROL 2000 UNIT PO SCH (08:06)
[2021-08-21] MEDS: LEVOFLOXACIN 750 MG TABLET PO SCH (08:17)
[2021-08-21] MEDS: THIAMINE HCL 100 MG TABLET PO SCH ×2 (08:17→20:54)
[2021-08-21] MEDS: ZINC SULFATE 220 CAPSULE PO SCH ×2 (08:17→20:54)
[2021-08-21] MEDS: METOPROLOL TARTRATE 25 MG TAB PO SCH ×2 (08:39→20:54)
[2021-08-21] MEDS: TRAZODONE HCL 50 MG TAB PO SCH (20:54)
[2021-08-22] VITALS (19 sets, daily range): BP systolic 92–155; BP diastolic 47–85
[2021-08-22 04:39] LABS: MEAN CORPUSCULAR HEMOGLOBIN 22.4 pg (27.0-33.0); MEAN CORPUSCULAR HGB CONC 27.4 g/dL (32.0-36.0); MEAN CORPUSCULAR VOLUME 81.8 fL (79-99); RED BLOOD CELL COUNT(AUTO) 3.79 MIL/uL (4.00-5.50); RED CELL DISTRIBUTION WIDTH 17.1 % (11.0-15.5); RETICULOCYTE % (AUTO) 2.12 % (0.42-2.23); WHITE BLOOD COUNT (AUTO) 10.3 K/uL (4.8-10.8)
[2021-08-22 05:07] LABS: BILIRUBIN,TOTAL 0.2 mg/dL (0.2-1.0); CREATININE 0.3 mg/dL (0.5-1.5); CRP QUANTITATIVE 54.3 mg/L (0.00-9.0); MAGNESIUM 2.2 mg/dL (1.80-2.40); PHOSPHORUS 5.8 mg/dL (2.5-4.9); POTASSIUM 3.6 mmol/L (3.5-5.1); THYROID STIMULATING HORMONE 2.4 uIU/mL (0.36-3.74)
[2021-08-22 05:23] LABS: % IRON SATURATION 11.8 % (22-44)
[2021-08-22] MEDS: ACETAMINOPHEN 500 MG TABLET PO SCH ×3 (06:00→20:11)
[2021-08-22] MEDS: GABAPENTIN 300 MG CAPSULE PO SCH ×3 (06:04→20:10)
[2021-08-22] MEDS: METOCLOPRAMIDE 10 MG TABLET PO SCH ×3 (06:04→20:11)
[2021-08-22] MEDS: APAP/CODEINE 120/12MG 5ML PO PRN (06:56)
[2021-08-22] MEDS: IPRATROPIUM/ALBUTEROL SULFATE 3 ML SOLUTION IH SCH ×3 (07:05→21:42)
[2021-08-22] MEDS: ACETYLCYSTEINE 10% 100MG/ML 4ML VIAL IH SCH ×3 (07:05→21:43)
[2021-08-22] MEDS: ZINC SULFATE 220 CAPSULE PO SCH ×2 (08:07→20:11)
[2021-08-22] MEDS: LEVOFLOXACIN 750 MG TABLET PO SCH (08:09)
[2021-08-22] MEDS: SERTRALINE HCL 50 MG TABLET PO SCH (08:09)
[2021-08-22] MEDS: ALPRAZOLAM 1 MG TAB PO SCH (08:10)
[2021-08-22] MEDS: MULTIVITAMIN TABLET PO SCH (08:11)
[2021-08-22] MEDS: MAGNESIUM OXIDE 400 MG TABLET PO SCH (08:11)
[2021-08-22] MEDS: METOPROLOL TARTRATE 25 MG TAB PO SCH ×2 (08:12→20:11)
[2021-08-22] MEDS: ENOXAPARIN SODIUM 80 MG/0.8 ML SQ SCH ×2 (08:14→20:12)
[2021-08-22] MEDS: THIAMINE HCL 100 MG TABLET PO SCH ×2 (08:14→20:11)
[2021-08-22] MEDS ORDERED: COMPOUND IV MISC 1 EACH IVSOLN MISC PRN (09:30)
[2021-08-22] MEDS ORDERED: EPOETIN ALFA-EPBX (NON-ESRD) 10,000 UNIT/ML VIAL SQ SCH (09:30)
[2021-08-22] MEDS: BISACODYL 10 MG SUPP.RECT RC SCH (09:30)
[2021-08-22] MEDS: POLYETHYLENE GLYCOL 3350 17 GM POWD.PACK PO SCH (09:30)
[2021-08-22] MEDS: CLONAZEPAM 1MG TAB PO SCH (09:53)
[2021-08-22] MEDS: ERGOCALCIFEROL (VITAMIN D2) 50,000 UNIT CAPSULE PO SCH (09:53)
[2021-08-22] MEDS: IRON SUCROSE COMPLEX 400 MG in 0.9%NACL 50ML 50 ML IV SCH (10:06)
[2021-08-22] MEDS: ALPRAZOLAM 1 MG TAB PO PRN ×2 (13:32→20:24)
[2021-08-22] MEDS: GUAIFENESIN-DM 200/20 MG 10 ML PO PRN (13:36)
[2021-08-22] MEDS: TRAZODONE HCL 50 MG TAB PO SCH (20:11)
[2021-08-23] VITALS (21 sets, daily range): BP systolic 90–139; BP diastolic 46–87
[2021-08-23] MEDS: APAP/CODEINE 120/12MG 5ML PO PRN ×3 (03:09→17:41)
[2021-08-23] MEDS: ALPRAZOLAM 1 MG TAB PO PRN ×3 (03:09→17:41)
[2021-08-23 04:41] LABS: HEMATOCRIT 32.5 % (36-48); MEAN CORPUSCULAR HEMOGLOBIN 22.9 pg (27.0-33.0); MEAN CORPUSCULAR HGB CONC 28.3 g/dL (32.0-36.0); MEAN CORPUSCULAR VOLUME 80.8 fL (79-99); RED BLOOD CELL COUNT(AUTO) 4.02 MIL/uL (4.00-5.50); WHITE BLOOD COUNT (AUTO) 10.8 K/uL (4.8-10.8)
[2021-08-23 04:56] LABS: CREATININE 0.3 mg/dL (0.5-1.5); POTASSIUM 3.2 mmol/L (3.5-5.1)
[2021-08-23] MEDS: POTASSIUM CHLORIDE 10% ELIXIR 20 MEQ/15 ML UDCUP PO PRN ×3 (05:10→09:27)
[2021-08-23] MEDS: METOCLOPRAMIDE 10 MG TABLET PO SCH ×3 (05:15→22:24)
[2021-08-23] MEDS: GABAPENTIN 300 MG CAPSULE PO SCH ×3 (05:15→22:23)
[2021-08-23] MEDS: ACETAMINOPHEN 500 MG TABLET PO SCH ×3 (05:16→22:23)
[2021-08-23] MEDS: IPRATROPIUM/ALBUTEROL SULFATE 3 ML SOLUTION IH SCH ×3 (07:01→21:23)
[2021-08-23] MEDS: ACETYLCYSTEINE 10% 100MG/ML 4ML VIAL IH SCH ×3 (07:01→21:23)
[2021-08-23] MEDS: METOPROLOL TARTRATE 25 MG TAB PO SCH ×2 (08:09→22:24)
[2021-08-23] MEDS: MULTIVITAMIN TABLET PO SCH (08:09)
[2021-08-23] MEDS: SERTRALINE HCL 50 MG TABLET PO SCH (08:09)
[2021-08-23] MEDS: CLONAZEPAM 1MG TAB PO SCH ×3 (08:11→20:40)
[2021-08-23] MEDS: THIAMINE HCL 100 MG TABLET PO SCH ×2 (08:12→20:40)
[2021-08-23] MEDS: MAGNESIUM OXIDE 400 MG TABLET PO SCH (08:12)
[2021-08-23] MEDS: LEVOFLOXACIN 750 MG TABLET PO SCH (08:13)
[2021-08-23] MEDS: ZINC SULFATE 220 CAPSULE PO SCH ×2 (08:13→20:40)
[2021-08-23] MEDS: ENOXAPARIN SODIUM 80 MG/0.8 ML SQ SCH ×2 (08:17→20:39)
[2021-08-23] MEDS: BISACODYL 10 MG SUPP.RECT RC SCH (08:18)
[2021-08-23] MEDS: POLYETHYLENE GLYCOL 3350 17 GM POWD.PACK PO SCH (08:18)
[2021-08-23] MEDS: IRON SUCROSE COMPLEX 400 MG in 0.9%NACL 50ML 50 ML IV SCH (09:27)
[2021-08-23] MEDS: GUAIFENESIN-DM 200/20 MG 10 ML PO PRN (12:54)
[2021-08-23] MEDS ORDERED: BISACODYL 10 MG SUPP.RECT RC PRN (19:30)
[2021-08-23] MEDS: TRAZODONE HCL 50 MG TAB PO SCH (20:40)
[2021-08-24 04:00] VITALS: BP 112/54
[2021-08-24] MEDS: GABAPENTIN 300 MG CAPSULE PO SCH ×3 (05:01→22:45)
[2021-08-24] MEDS: ACETAMINOPHEN 500 MG TABLET PO SCH ×3 (05:02→22:46)
[2021-08-24] MEDS: METOPROLOL TARTRATE 25 MG TAB PO SCH ×3 (05:03→20:03)
[2021-08-24] MEDS: METOCLOPRAMIDE 10 MG TABLET PO SCH ×3 (05:03→22:46)
[2021-08-24] MEDS: IPRATROPIUM/ALBUTEROL SULFATE 3 ML SOLUTION IH SCH ×3 (06:32→22:17)
[2021-08-24] MEDS: ACETYLCYSTEINE 10% 100MG/ML 4ML VIAL IH SCH ×3 (06:32→22:17)
[2021-08-24 07:01] VITALS: BP 128/73
[2021-08-24] MEDS: ALPRAZOLAM 1 MG TAB PO PRN ×3 (07:21→17:57)
[2021-08-24 08:01] VITALS: BP 114/67
[2021-08-24] MEDS: ASPIRIN 81 MG EC TAB PO SCH (08:53)
[2021-08-24] MEDS: MAGNESIUM OXIDE 400 MG TABLET PO SCH (08:53)
[2021-08-24] MEDS: IRON SUCROSE COMPLEX 400 MG in 0.9%NACL 50ML 50 ML IV SCH (08:53)
[2021-08-24] MEDS: SERTRALINE HCL 50 MG TABLET PO SCH (08:53)
[2021-08-24] MEDS: ZINC SULFATE 220 CAPSULE PO SCH ×2 (08:53→20:51)
[2021-08-24] MEDS: THIAMINE HCL 100 MG TABLET PO SCH ×2 (08:53→22:44)
[2021-08-24] MEDS: CLONAZEPAM 1MG TAB PO SCH ×2 (08:53→20:03)
[2021-08-24] MEDS: MULTIVITAMIN TABLET PO SCH (08:53)
[2021-08-24] MEDS: APAP/CODEINE 120/12MG 5ML PO PRN ×3 (08:54→20:24)
[2021-08-24] MEDS: ENOXAPARIN SODIUM 80 MG/0.8 ML SQ SCH ×2 (09:33→20:48)
[2021-08-24 11:05] VITALS: BP 136/85
[2021-08-24] MEDS: GUAIFENESIN-DM 200/20 MG 10 ML PO PRN (12:35)
[2021-08-24 15:00] VITALS: BP 132/70
[2021-08-24 20:00] VITALS: BP 121/66
[2021-08-24] MEDS: TRAZODONE HCL 50 MG TAB PO SCH (20:04)
[2021-08-25] VITALS: BP 112/58
[2021-08-25] MEDS: ALPRAZOLAM 1 MG TAB PO PRN ×5 (01:13→23:57)
[2021-08-25] MEDS: APAP/CODEINE 120/12MG 5ML PO PRN ×4 (05:07→23:53)
[2021-08-25] MEDS: GABAPENTIN 300 MG CAPSULE PO SCH ×3 (05:57→20:44)
[2021-08-25] MEDS: METOCLOPRAMIDE 10 MG TABLET PO SCH ×2 (05:57→20:43)
[2021-08-25] MEDS: ACETAMINOPHEN 500 MG TABLET PO SCH ×3 (05:58→20:42)
[2021-08-25] MEDS: METOPROLOL TARTRATE 25 MG TAB PO SCH ×3 (05:59→20:43)
[2021-08-25] MEDS: ACETYLCYSTEINE 10% 100MG/ML 4ML VIAL IH SCH ×3 (06:50→21:24)
[2021-08-25] MEDS: IPRATROPIUM/ALBUTEROL SULFATE 3 ML SOLUTION IH SCH ×3 (06:50→21:25)
[2021-08-25 07:16] VITALS: BP 113/65
[2021-08-25] MEDS: ASPIRIN 81 MG EC TAB PO SCH (08:45)
[2021-08-25] MEDS: MAGNESIUM OXIDE 400 MG TABLET PO SCH (08:45)
[2021-08-25] MEDS: ZINC SULFATE 220 CAPSULE PO SCH (08:45)
[2021-08-25] MEDS: CLONAZEPAM 1MG TAB PO SCH ×2 (08:45→20:43)
[2021-08-25] MEDS: MULTIVITAMIN TABLET PO SCH (08:45)
[2021-08-25] MEDS: SERTRALINE HCL 50 MG TABLET PO SCH (08:45)
[2021-08-25] MEDS: ENOXAPARIN SODIUM 80 MG/0.8 ML SQ SCH ×2 (08:46→20:44)
[2021-08-25] MEDS: IRON SUCROSE COMPLEX 400 MG in 0.9%NACL 50ML 50 ML IV SCH (08:46)
[2021-08-25] MEDS: GUAIFENESIN-DM 200/20 MG 10 ML PO PRN (08:53)
[2021-08-25 12:01] VITALS: BP 124/75
[2021-08-25 15:28] VITALS: BP 123/77
[2021-08-25] MEDS: TRAZODONE HCL 50 MG TAB PO SCH (20:42)
[2021-08-25 20:48] VITALS: BP 121/61
[2021-08-25] MEDS: ONDANSETRON 4MG INJ IVP PRN (21:20)
[2021-08-26] VITALS (10 sets, daily range): BP systolic 88–134; BP diastolic 45–82
[2021-08-26] MEDS: ALPRAZOLAM 1 MG TAB PO PRN ×3 (05:56→15:27)
[2021-08-26] MEDS: ACETAMINOPHEN 500 MG TABLET PO SCH ×3 (05:56→22:19)
[2021-08-26] MEDS: GABAPENTIN 300 MG CAPSULE PO SCH ×3 (05:57→22:18)
[2021-08-26] MEDS: APAP/CODEINE 120/12MG 5ML PO PRN (05:58)
[2021-08-26] MEDS: ACETYLCYSTEINE 10% 100MG/ML 4ML VIAL IH SCH ×3 (06:16→22:53)
[2021-08-26] MEDS: IPRATROPIUM/ALBUTEROL SULFATE 3 ML SOLUTION IH SCH ×3 (06:16→22:53)
[2021-08-26] MEDS: METOPROLOL TARTRATE 25 MG TAB PO SCH ×3 (06:32→22:19)
[2021-08-26] MEDS: SERTRALINE HCL 50 MG TABLET PO SCH (08:34)
[2021-08-26] MEDS: METOCLOPRAMIDE 10 MG TABLET PO SCH ×2 (08:34→22:21)
[2021-08-26] MEDS: MULTIVITAMIN TABLET PO SCH (08:34)
[2021-08-26] MEDS: MAGNESIUM OXIDE 400 MG TABLET PO SCH (08:34)
[2021-08-26] MEDS: CLONAZEPAM 1MG TAB PO SCH ×2 (08:34→22:17)
[2021-08-26] MEDS: ENOXAPARIN SODIUM 80 MG/0.8 ML SQ SCH ×2 (08:35→22:20)
[2021-08-26] MEDS: ASPIRIN 81 MG EC TAB PO SCH (08:35)
[2021-08-26] MEDS: TRAZODONE HCL 50 MG TAB PO SCH (22:16)
[2021-08-27 04:03] VITALS: BP 142/81
[2021-08-27] MEDS: APAP/CODEINE 120/12MG 5ML PO PRN ×2 (04:22→16:10)
[2021-08-27] MEDS: METOPROLOL TARTRATE 25 MG TAB PO SCH ×3 (06:35→20:47)
[2021-08-27] MEDS: GABAPENTIN 300 MG CAPSULE PO SCH ×3 (06:35→20:49)
[2021-08-27] MEDS: ACETAMINOPHEN 500 MG TABLET PO SCH ×3 (06:36→20:47)
[2021-08-27 06:40] LABS: BASOPHILS % (AUTO) 0.6 % (0.0-5.0); EOSINOPHILS % (AUTO) 6.4 % (0.0-8.0); HEMATOCRIT 33.3 % (36-48); LYMPHOCYTES % (AUTO) 9.9 % (21.0-51.0); MEAN CORPUSCULAR HGB CONC 26.7 g/dL (32.0-36.0); MONOCYTES % (AUTO) 6.8 % (3.0-13.0); NEUTROPHILS % (AUTO) 74.4 % (40.0-77.0); NUCLEATED RED BLOOD CELLS 0.2 % (0.0-0.19); PLATELET COUNT (AUTO) 276 K/uL (130-400); RED BLOOD CELL COUNT(AUTO) 3.87 MIL/uL (4.00-5.50); RED CELL DISTRIBUTION WIDTH 18.5 % (11.0-15.5); WHITE BLOOD COUNT (AUTO) 10.8 K/uL (4.8-10.8)
[2021-08-27 06:56] LABS: BILIRUBIN,TOTAL 0.2 mg/dL (0.2-1.0); CREATININE 0.2 mg/dL (0.5-1.5); MAGNESIUM 2.2 mg/dL (1.80-2.40); POTASSIUM 4.2 mmol/L (3.5-5.1); TOTAL PROTEIN, SERUM 6.9 g/dL (6.0-8.3)
[2021-08-27] MEDS: IPRATROPIUM/ALBUTEROL SULFATE 3 ML SOLUTION IH SCH ×3 (07:31→21:58)
[2021-08-27] MEDS: ACETYLCYSTEINE 10% 100MG/ML 4ML VIAL IH SCH ×3 (07:31→21:58)
[2021-08-27 07:59] VITALS: BP 126/76
[2021-08-27] MEDS: ONDANSETRON 4MG INJ IVP PRN (08:01)
[2021-08-27] MEDS: MAGNESIUM OXIDE 400 MG TABLET PO SCH (10:05)
[2021-08-27] MEDS: CLONAZEPAM 1MG TAB PO SCH ×2 (10:05→20:48)
[2021-08-27] MEDS: METOCLOPRAMIDE 10 MG TABLET PO SCH ×2 (10:05→20:45)
[2021-08-27] MEDS: SERTRALINE HCL 50 MG TABLET PO SCH (10:06)
[2021-08-27] MEDS: ASPIRIN 81 MG EC TAB PO SCH (10:06)
[2021-08-27] MEDS: MULTIVITAMIN TABLET PO SCH (10:06)
[2021-08-27] MEDS: ENOXAPARIN SODIUM 80 MG/0.8 ML SQ SCH ×2 (10:24→20:45)
[2021-08-27 11:48] VITALS: BP 136/79
[2021-08-27 15:26] VITALS: BP 113/68
[2021-08-27] MEDS: GUAIFENESIN-DM 200/20 MG 10 ML PO PRN (16:09)
[2021-08-27 19:53] VITALS: BP 109/60
[2021-08-27] MEDS: TRAZODONE HCL 50 MG TAB PO SCH (20:47)
[2021-08-27 23:40] VITALS: BP 91/64
[2021-08-28 03:42] VITALS: BP 102/59
[2021-08-28 04:14] LABS: HEMATOCRIT 31.9 % (36-48); MEAN CORPUSCULAR HEMOGLOBIN 23.5 pg (27.0-33.0); MEAN CORPUSCULAR HGB CONC 27.3 g/dL (32.0-36.0); RED BLOOD CELL COUNT(AUTO) 3.71 MIL/uL (4.00-5.50); RED CELL DISTRIBUTION WIDTH 19.6 % (11.0-15.5); WHITE BLOOD COUNT (AUTO) 10.9 K/uL (4.8-10.8)
[2021-08-28 04:32] LABS: ALBUMIN 1.9 g/dL (3.5-5.0); BILIRUBIN,TOTAL 0.2 mg/dL (0.2-1.0); CREATININE 0.2 mg/dL (0.5-1.5); MAGNESIUM 2.1 mg/dL (1.80-2.40); PHOSPHORUS 4.1 mg/dL (2.5-4.9); POTASSIUM 3.8 mmol/L (3.5-5.1); TOTAL PROTEIN, SERUM 6.7 g/dL (6.0-8.3)
[2021-08-28] MEDS: ACETAMINOPHEN 500 MG TABLET PO SCH ×3 (06:00→22:56)
[2021-08-28] MEDS: METOPROLOL TARTRATE 25 MG TAB PO SCH ×3 (06:00→22:55)
[2021-08-28] MEDS: ACETYLCYSTEINE 10% 100MG/ML 4ML VIAL IH SCH ×2 (06:22→07:44)
[2021-08-28] MEDS: IPRATROPIUM/ALBUTEROL SULFATE 3 ML SOLUTION IH SCH ×3 (06:22→23:02)
[2021-08-28] MEDS: GABAPENTIN 300 MG CAPSULE PO SCH ×3 (06:24→22:55)
[2021-08-28 07:00] VITALS: BP 139/77
[2021-08-28] MEDS: CLONAZEPAM 1MG TAB PO SCH ×2 (10:45→19:57)
[2021-08-28] MEDS: MAGNESIUM OXIDE 400 MG TABLET PO SCH (10:52)
[2021-08-28] MEDS: MULTIVITAMIN TABLET PO SCH (10:52)
[2021-08-28] MEDS: SERTRALINE HCL 50 MG TABLET PO SCH (10:53)
[2021-08-28] MEDS: METOCLOPRAMIDE 10 MG TABLET PO SCH ×2 (10:54→19:57)
[2021-08-28 11:00] VITALS: BP 137/80
[2021-08-28] MEDS ORDERED: PHARMACY COMMUNICATION MISC SCH (11:00)
[2021-08-28] MEDS ORDERED: APIXABAN 5 MG TABLET PO SCH (11:00)
[2021-08-28] MEDS ORDERED: ASPIRIN 81MG CHEW TAB PO SCH (11:30)
[2021-08-28] MEDS: ALPRAZOLAM 1 MG TAB PO PRN ×2 (12:01→23:02)
[2021-08-28] MEDS: SODIUM CHLORIDE FOR INHALATION 3 ML VIAL.NEB. IH SCH ×2 (14:10→23:02)
[2021-08-28 16:00] VITALS: BP 102/54
[2021-08-28] MEDS: TRAZODONE HCL 50 MG TAB PO SCH (19:56)
[2021-08-28] MEDS: APIXABAN 5 MG TABLET PO SCH (19:57)
[2021-08-28 19:58] VITALS: BP 115/62
[2021-08-28 23:31] VITALS: BP 151/84
[2021-08-29 03:28] VITALS: BP 97/53
[2021-08-29] MEDS: GABAPENTIN 300 MG CAPSULE PO SCH ×3 (05:51→21:43)
[2021-08-29] MEDS: ACETAMINOPHEN 500 MG TABLET PO SCH ×3 (05:52→21:42)
[2021-08-29] MEDS: METOPROLOL TARTRATE 25 MG TAB PO SCH ×3 (05:52→21:41)
[2021-08-29 07:00] VITALS: BP 94/57
[2021-08-29] MEDS: IPRATROPIUM/ALBUTEROL SULFATE 3 ML SOLUTION IH SCH ×3 (07:07→21:01)
[2021-08-29] MEDS: SODIUM CHLORIDE FOR INHALATION 3 ML VIAL.NEB. IH SCH ×2 (07:17→21:01)
[2021-08-29] MEDS: ASPIRIN 81MG CHEW TAB PO SCH (10:24)
[2021-08-29] MEDS: MAGNESIUM OXIDE 400 MG TABLET PO SCH (10:24)
[2021-08-29] MEDS: CLONAZEPAM 1MG TAB PO SCH ×2 (10:24→21:42)
[2021-08-29] MEDS: MULTIVITAMIN TABLET PO SCH (10:26)
[2021-08-29] MEDS: APIXABAN 5 MG TABLET PO SCH ×2 (10:26→21:44)
[2021-08-29] MEDS: SERTRALINE HCL 50 MG TABLET PO SCH (10:27)
[2021-08-29] MEDS: METOCLOPRAMIDE 10 MG TABLET PO SCH ×2 (10:29→21:41)
[2021-08-29 11:00] VITALS: BP 125/80
[2021-08-29 16:00] VITALS: BP 106/70
[2021-08-29] MEDS: ERGOCALCIFEROL (VITAMIN D2) 50,000 UNIT CAPSULE PO SCH (16:15)
[2021-08-29] MEDS: APAP/CODEINE 120/12MG 5ML PO PRN (18:32)
[2021-08-29 19:36] VITALS: BP 116/69
[2021-08-29] MEDS: TRAZODONE HCL 50 MG TAB PO SCH (21:42)
[2021-08-29] MEDS: GUAIFENESIN-DM 200/20 MG 10 ML PO PRN (21:51)
[2021-08-29 23:01] VITALS: BP 116/65
[2021-08-30] MEDS: APAP/CODEINE 120/12MG 5ML PO PRN (02:45)
[2021-08-30 03:15] VITALS: BP 136/87
[2021-08-30] MEDS: ACETAMINOPHEN 500 MG TABLET PO SCH ×3 (05:02→22:04)
[2021-08-30] MEDS: GABAPENTIN 300 MG CAPSULE PO SCH ×3 (05:28→22:17)
[2021-08-30] MEDS: METOPROLOL TARTRATE 25 MG TAB PO SCH ×3 (05:28→22:03)
[2021-08-30 06:21] LABS: BASOPHILS % (AUTO) 0.5 % (0.0-5.0); EOSINOPHILS % (AUTO) 8.9 % (0.0-8.0); HEMATOCRIT 32.8 % (36-48); LYMPHOCYTES % (AUTO) 11.3 % (21.0-51.0); MEAN CORPUSCULAR HEMOGLOBIN 23.7 pg (27.0-33.0); MEAN CORPUSCULAR HGB CONC 27.1 g/dL (32.0-36.0); MEAN CORPUSCULAR VOLUME 87.2 fL (79-99); MONOCYTES % (AUTO) 6.4 % (3.0-13.0); NEUTROPHILS % (AUTO) 71.5 % (40.0-77.0); PLATELET COUNT (AUTO) 272 K/uL (130-400); RED BLOOD CELL COUNT(AUTO) 3.76 MIL/uL (4.00-5.50); RED CELL DISTRIBUTION WIDTH 21.2 % (11.0-15.5); WHITE BLOOD COUNT (AUTO) 10.4 K/uL (4.8-10.8)
[2021-08-30 06:28] LABS: CREATININE 0.2 mg/dL (0.5-1.5); POTASSIUM 4.1 mmol/L (3.5-5.1)
[2021-08-30] MEDS: IPRATROPIUM/ALBUTEROL SULFATE 3 ML SOLUTION IH SCH ×3 (06:43→21:41)
[2021-08-30] MEDS: SODIUM CHLORIDE FOR INHALATION 3 ML VIAL.NEB. IH SCH ×3 (06:43→21:40)
[2021-08-30 08:58] VITALS: BP 150/82
[2021-08-30] MEDS: ASPIRIN 81MG CHEW TAB PO SCH (09:01)
[2021-08-30] MEDS: SERTRALINE HCL 50 MG TABLET PO SCH (09:02)
[2021-08-30] MEDS: METOCLOPRAMIDE 10 MG TABLET PO SCH ×2 (09:02→22:14)
[2021-08-30] MEDS: APIXABAN 5 MG TABLET PO SCH ×2 (09:02→20:10)
[2021-08-30] MEDS: MULTIVITAMIN TABLET PO SCH (09:02)
[2021-08-30] MEDS: CLONAZEPAM 1MG TAB PO SCH ×2 (09:02→20:11)
[2021-08-30] MEDS: MAGNESIUM OXIDE 400 MG TABLET PO SCH (09:05)
[2021-08-30 10:11] LABS: ABG BASE EXCESS 18.2 mmol/L (-2.0-3.0); ABG HCO3 46.7 mmol/L (21.0-28.0); ABG OXYGEN SATURATION 90.2 % (95.0-99.0); ABG PCO2 78 mmHg (32-45)
[2021-08-30 12:58] VITALS: BP 122/84
[2021-08-30 14:00] LABS: ABG BASE EXCESS 14.7 mmol/L (-2.0-3.0); ABG HCO3 43.6 mmol/L (21.0-28.0); ABG OXYGEN SATURATION 92.9 % (95.0-99.0); ABG PCO2 82 mmHg (32-45)
[2021-08-30] MEDS ORDERED: ALPRAZOLAM 0.5 MG TABLET PO ONE (19:30)
[2021-08-30 19:43] VITALS: BP 137/85
[2021-08-30] MEDS: TRAZODONE HCL 50 MG TAB PO SCH (20:11)
[2021-08-30 23:38] VITALS: BP 123/75
[2021-08-31 03:35] VITALS: BP 120/67
[2021-08-31] MEDS: GABAPENTIN 300 MG CAPSULE PO SCH ×3 (05:36→22:19)
[2021-08-31] MEDS: ACETAMINOPHEN 500 MG TABLET PO SCH ×3 (05:36→22:20)
[2021-08-31] MEDS: METOPROLOL TARTRATE 25 MG TAB PO SCH ×3 (05:37→22:19)
[2021-08-31] MEDS: IPRATROPIUM/ALBUTEROL SULFATE 3 ML SOLUTION IH SCH ×3 (06:50→21:00)
[2021-08-31] MEDS: SODIUM CHLORIDE FOR INHALATION 3 ML VIAL.NEB. IH SCH ×3 (06:50→21:00)
[2021-08-31 06:52] LABS: BASOPHILS % (AUTO) 0.5 % (0.0-5.0); HEMATOCRIT 35.7 % (36-48); LYMPHOCYTES % (AUTO) 7.3 % (21.0-51.0); MEAN CORPUSCULAR HEMOGLOBIN 23.6 pg (27.0-33.0); MEAN CORPUSCULAR HGB CONC 26.6 g/dL (32.0-36.0); MEAN CORPUSCULAR VOLUME 88.8 fL (79-99); MONOCYTES % (AUTO) 4.6 % (3.0-13.0); NEUTROPHILS % (AUTO) 81.4 % (40.0-77.0); PLATELET COUNT (AUTO) 258 K/uL (130-400); RED BLOOD CELL COUNT(AUTO) 4.02 MIL/uL (4.00-5.50); RED CELL DISTRIBUTION WIDTH 20.8 % (11.0-15.5); WHITE BLOOD COUNT (AUTO) 11.1 K/uL (4.8-10.8)
[2021-08-31 07:09] LABS: CREATININE 0.3 mg/dL (0.5-1.5); POTASSIUM 4.4 mmol/L (3.5-5.1)
[2021-08-31 08:00] VITALS: BP 93/59
[2021-08-31] MEDS: SERTRALINE HCL 50 MG TABLET PO SCH (08:50)
[2021-08-31] MEDS: MAGNESIUM OXIDE 400 MG TABLET PO SCH (08:50)
[2021-08-31] MEDS: MULTIVITAMIN TABLET PO SCH (08:50)
[2021-08-31] MEDS: CLONAZEPAM 1MG TAB PO SCH ×2 (08:50→20:41)
[2021-08-31] MEDS: APIXABAN 5 MG TABLET PO SCH ×2 (08:51→20:41)
[2021-08-31] MEDS: METOCLOPRAMIDE 10 MG TABLET PO SCH ×2 (08:51→20:42)
[2021-08-31] MEDS: ASPIRIN 81MG CHEW TAB PO SCH (08:52)
[2021-08-31 09:45] LABS: ABG BASE EXCESS 19.4 mmol/L (-2.0-3.0); ABG HCO3 46.3 mmol/L (21.0-28.0); ABG OXYGEN SATURATION 90.9 % (95.0-99.0); ABG PCO2 66 mmHg (32-45)
[2021-08-31] MEDS ORDERED: PROMETHAZINE HCL 25 MG/ML 1ML AMPULE IM SCH (11:00)
[2021-08-31 12:00] VITALS: BP 103/73
[2021-08-31] MEDS: APAP/CODEINE 120/12MG 5ML PO PRN (13:26)
[2021-08-31 16:00] VITALS: BP 101/56
[2021-08-31] MEDS ORDERED: IPRATROPIUM/ALBUTEROL SULFATE 3 ML SOLUTION IH SCH (16:18)
[2021-08-31 19:43] VITALS: BP 117/67
[2021-08-31] MEDS: TRAZODONE HCL 50 MG TAB PO SCH (20:42)
[2021-08-31 23:48] VITALS: BP 143/87
[2021-09-01] VITALS (7 sets, daily range): BP systolic 103–166; BP diastolic 66–98
[2021-09-01] MEDS: METOPROLOL TARTRATE 25 MG TAB PO SCH ×3 (06:27→22:05)
[2021-09-01] MEDS: GABAPENTIN 300 MG CAPSULE PO SCH ×3 (06:27→22:06)
[2021-09-01] MEDS: ACETAMINOPHEN 500 MG TABLET PO SCH ×3 (06:29→22:06)
[2021-09-01] MEDS: SODIUM CHLORIDE FOR INHALATION 3 ML VIAL.NEB. IH SCH ×3 (06:54→22:29)
[2021-09-01] MEDS: IPRATROPIUM/ALBUTEROL SULFATE 3 ML SOLUTION IH SCH ×3 (06:54→22:29)
[2021-09-01] MEDS ORDERED: METOCLOPRAMIDE 10 MG TABLET PO SCH ×2 (10:00→21:00)
[2021-09-01] MEDS: ASPIRIN 81MG CHEW TAB PO SCH (10:05)
[2021-09-01] MEDS: CLONAZEPAM 1MG TAB PO SCH ×2 (10:05→21:10)
[2021-09-01] MEDS: SERTRALINE HCL 50 MG TABLET PO SCH (10:06)
[2021-09-01] MEDS: APIXABAN 5 MG TABLET PO SCH ×2 (10:06→21:09)
[2021-09-01] MEDS: MAGNESIUM OXIDE 400 MG TABLET PO SCH (10:06)
[2021-09-01] MEDS: MULTIVITAMIN TABLET PO SCH (10:06)
[2021-09-01] MEDS ORDERED: METOCLOPRAMIDE 10 MG/2 ML VIAL ONE (10:47)
[2021-09-01] MEDS ORDERED: METOCLOPRAMIDE 10 MG/2 ML VIAL IVP SCH (11:30)
[2021-09-01 11:51] LABS: ALBUMIN 2.2 g/dL (3.5-5.0); BILIRUBIN,DIRECT 0.1 mg/dL (0.0-0.3); BILIRUBIN,TOTAL 0.2 mg/dL (0.2-1.0)
[2021-09-01] MEDS: APAP/CODEINE 120/12MG 5ML PO PRN (12:20)
[2021-09-01] MEDS: METOCLOPRAMIDE 10 MG TABLET PO SCH (21:09)
[2021-09-01] MEDS: TRAZODONE HCL 50 MG TAB PO SCH (21:09)
[2021-09-02] VITALS (7 sets, daily range): BP systolic 113–143; BP diastolic 66–89
[2021-09-02] MEDS: GABAPENTIN 300 MG CAPSULE PO SCH ×3 (05:55→21:10)
[2021-09-02] MEDS: METOPROLOL TARTRATE 25 MG TAB PO SCH ×3 (05:55→21:12)
[2021-09-02] MEDS: METOCLOPRAMIDE 10 MG TABLET PO SCH ×3 (05:55→21:13)
[2021-09-02] MEDS: ACETAMINOPHEN 500 MG TABLET PO SCH ×3 (05:56→21:12)
[2021-09-02 06:50] LABS: BASOPHILS % (AUTO) 0.7 % (0.0-5.0); EOSINOPHILS % (AUTO) 7.4 % (0.0-8.0); HEMATOCRIT 34.8 % (36-48); LYMPHOCYTES % (AUTO) 10.4 % (21.0-51.0); MEAN CORPUSCULAR HEMOGLOBIN 23.9 pg (27.0-33.0); MEAN CORPUSCULAR HGB CONC 27.6 g/dL (32.0-36.0); MEAN CORPUSCULAR VOLUME 86.6 fL (79-99); MONOCYTES % (AUTO) 6.5 % (3.0-13.0); NEUTROPHILS % (AUTO) 74.1 % (40.0-77.0); PLATELET COUNT (AUTO) 262 K/uL (130-400); RED BLOOD CELL COUNT(AUTO) 4.02 MIL/uL (4.00-5.50); RED CELL DISTRIBUTION WIDTH 21.3 % (11.0-15.5); WHITE BLOOD COUNT (AUTO) 10.4 K/uL (4.8-10.8)
[2021-09-02] MEDS: SODIUM CHLORIDE FOR INHALATION 3 ML VIAL.NEB. IH SCH ×3 (06:57→22:56)
[2021-09-02] MEDS: IPRATROPIUM/ALBUTEROL SULFATE 3 ML SOLUTION IH SCH ×3 (06:57→22:56)
[2021-09-02 06:59] LABS: CREATININE 0.3 mg/dL (0.5-1.5); POTASSIUM 3.9 mmol/L (3.5-5.1)
[2021-09-02] MEDS: MULTIVITAMIN TABLET PO SCH (09:12)
[2021-09-02] MEDS: SERTRALINE HCL 50 MG TABLET PO SCH (09:12)
[2021-09-02] MEDS: ASPIRIN 81MG CHEW TAB PO SCH (09:13)
[2021-09-02] MEDS: CLONAZEPAM 1MG TAB PO SCH ×2 (09:14→21:11)
[2021-09-02] MEDS: MAGNESIUM OXIDE 400 MG TABLET PO SCH (09:14)
[2021-09-02] MEDS: APIXABAN 5 MG TABLET PO SCH ×2 (09:14→21:13)
[2021-09-02] MEDS: ONDANSETRON 4MG INJ IVP PRN (18:43)
[2021-09-02] MEDS: TRAZODONE HCL 50 MG TAB PO SCH (21:13)
[2021-09-03 03:08] VITALS: BP 132/75
[2021-09-03] MEDS: METOCLOPRAMIDE 10 MG TABLET PO SCH ×3 (06:03→21:52)
[2021-09-03] MEDS: ACETAMINOPHEN 500 MG TABLET PO SCH ×3 (06:09→21:53)
[2021-09-03] MEDS: METOPROLOL TARTRATE 25 MG TAB PO SCH ×3 (06:09→21:53)
[2021-09-03] MEDS: GABAPENTIN 300 MG CAPSULE PO SCH ×3 (06:10→21:53)
[2021-09-03 06:23] LABS: BASOPHILS % (AUTO) 0.6 % (0.0-5.0); EOSINOPHILS % (AUTO) 8.4 % (0.0-8.0); HEMATOCRIT 36.1 % (36-48); LYMPHOCYTES % (AUTO) 9.6 % (21.0-51.0); MEAN CORPUSCULAR HGB CONC 27.7 g/dL (32.0-36.0); MEAN CORPUSCULAR VOLUME 86.6 fL (79-99); MONOCYTES % (AUTO) 6.1 % (3.0-13.0); NEUTROPHILS % (AUTO) 74.6 % (40.0-77.0); PLATELET COUNT (AUTO) 311 K/uL (130-400); RED BLOOD CELL COUNT(AUTO) 4.17 MIL/uL (4.00-5.50); RED CELL DISTRIBUTION WIDTH 21.5 % (11.0-15.5); WHITE BLOOD COUNT (AUTO) 9.4 K/uL (4.8-10.8)
[2021-09-03 06:34] LABS: CREATININE 0.3 mg/dL (0.5-1.5); POTASSIUM 4.1 mmol/L (3.5-5.1)
[2021-09-03] MEDS: IPRATROPIUM/ALBUTEROL SULFATE 3 ML SOLUTION IH SCH ×3 (06:39→23:15)
[2021-09-03] MEDS: SODIUM CHLORIDE FOR INHALATION 3 ML VIAL.NEB. IH SCH ×3 (06:40→23:15)
[2021-09-03 07:00] VITALS: BP 105/64
[2021-09-03] MEDS: MAGNESIUM OXIDE 400 MG TABLET PO SCH (08:19)
[2021-09-03] MEDS: CLONAZEPAM 1MG TAB PO SCH ×2 (08:19→21:52)
[2021-09-03] MEDS: ASPIRIN 81MG CHEW TAB PO SCH (08:20)
[2021-09-03] MEDS: APIXABAN 5 MG TABLET PO SCH ×2 (08:20→21:52)
[2021-09-03] MEDS: SERTRALINE HCL 50 MG TABLET PO SCH (08:20)
[2021-09-03] MEDS: MULTIVITAMIN TABLET PO SCH (08:20)
[2021-09-03 11:00] VITALS: BP 123/67
[2021-09-03] MEDS: APAP/CODEINE 120/12MG 5ML PO PRN (13:23)
[2021-09-03 15:00] VITALS: BP 110/58
[2021-09-03 19:53] VITALS: BP 119/70
[2021-09-03] MEDS: TRAZODONE HCL 50 MG TAB PO SCH (21:52)
[2021-09-03 23:59] VITALS: BP 129/77
[2021-09-04 03:51] VITALS: BP 132/74
[2021-09-04] MEDS: GABAPENTIN 300 MG CAPSULE PO SCH ×3 (04:50→20:53)
[2021-09-04] MEDS: METOCLOPRAMIDE 10 MG TABLET PO SCH ×3 (04:50→20:53)
[2021-09-04] MEDS: APAP/CODEINE 120/12MG 5ML PO PRN ×2 (04:51→13:47)
[2021-09-04] MEDS: METOPROLOL TARTRATE 25 MG TAB PO SCH ×3 (04:51→20:53)
[2021-09-04] MEDS: ACETAMINOPHEN 500 MG TABLET PO SCH ×3 (04:51→20:53)
[2021-09-04] MEDS: SODIUM CHLORIDE FOR INHALATION 3 ML VIAL.NEB. IH SCH ×3 (06:33→21:25)
[2021-09-04] MEDS: IPRATROPIUM/ALBUTEROL SULFATE 3 ML SOLUTION IH SCH ×3 (06:33→21:25)
[2021-09-04 07:41] VITALS: BP 95/50
[2021-09-04] MEDS: SERTRALINE HCL 50 MG TABLET PO SCH (09:08)
[2021-09-04] MEDS: CLONAZEPAM 1MG TAB PO SCH ×2 (09:08→20:54)
[2021-09-04] MEDS: MULTIVITAMIN TABLET PO SCH (09:08)
[2021-09-04] MEDS: MAGNESIUM OXIDE 400 MG TABLET PO SCH (09:08)
[2021-09-04] MEDS: APIXABAN 5 MG TABLET PO SCH ×2 (09:09→20:52)
[2021-09-04] MEDS: ASPIRIN 81MG CHEW TAB PO SCH (09:09)
[2021-09-04 12:00] VITALS: BP 111/61
[2021-09-04 16:06] VITALS: BP 125/67
[2021-09-04 19:26] VITALS: BP 113/64
[2021-09-04] MEDS: TRAZODONE HCL 50 MG TAB PO SCH (20:53)
[2021-09-04 23:02] VITALS: BP 102/52
[2021-09-05 03:09] VITALS: BP 145/79
[2021-09-05 03:51] LABS: HEMATOCRIT 36.8 % (36-48); MEAN CORPUSCULAR HEMOGLOBIN 24.1 pg (27.0-33.0); MEAN CORPUSCULAR HGB CONC 27.7 g/dL (32.0-36.0); MEAN CORPUSCULAR VOLUME 86.8 fL (79-99); PLATELET COUNT (AUTO) 350 K/uL (130-400); RED BLOOD CELL COUNT(AUTO) 4.24 MIL/uL (4.00-5.50); RED CELL DISTRIBUTION WIDTH 21.3 % (11.0-15.5); WHITE BLOOD COUNT (AUTO) 10.2 K/uL (4.8-10.8)
[2021-09-05 03:57] LABS: CREATININE 0.3 mg/dL (0.5-1.5); POTASSIUM 4.1 mmol/L (3.5-5.1)
[2021-09-05] MEDS: GABAPENTIN 300 MG CAPSULE PO SCH ×3 (06:02→22:30)
[2021-09-05] MEDS: METOPROLOL TARTRATE 25 MG TAB PO SCH ×3 (06:02→22:29)
[2021-09-05] MEDS: ACETAMINOPHEN 500 MG TABLET PO SCH ×3 (06:03→22:29)
[2021-09-05] MEDS: METOCLOPRAMIDE 10 MG TABLET PO SCH ×3 (06:03→22:32)
[2021-09-05] MEDS: SODIUM CHLORIDE FOR INHALATION 3 ML VIAL.NEB. IH SCH ×3 (06:49→22:00)
[2021-09-05] MEDS: IPRATROPIUM/ALBUTEROL SULFATE 3 ML SOLUTION IH SCH ×3 (06:49→21:50)
[2021-09-05 08:15] VITALS: BP 96/61
[2021-09-05] MEDS: MAGNESIUM OXIDE 400 MG TABLET PO SCH (08:54)
[2021-09-05] MEDS: APIXABAN 5 MG TABLET PO SCH ×2 (08:54→22:29)
[2021-09-05] MEDS: SERTRALINE HCL 50 MG TABLET PO SCH (08:54)
[2021-09-05] MEDS: CLONAZEPAM 1MG TAB PO SCH ×2 (08:54→22:30)
[2021-09-05] MEDS: MULTIVITAMIN TABLET PO SCH (08:54)
[2021-09-05] MEDS: ERGOCALCIFEROL (VITAMIN D2) 50,000 UNIT CAPSULE PO SCH (08:55)
[2021-09-05] MEDS: ASPIRIN 81MG CHEW TAB PO SCH (08:55)
[2021-09-05 11:54] VITALS: BP 156/90
[2021-09-05 16:00] VITALS: BP 124/75
[2021-09-05 19:11] VITALS: BP 114/68
[2021-09-05] MEDS: TRAZODONE HCL 50 MG TAB PO SCH (22:29)
[2021-09-05 23:12] VITALS: BP 116/65
[2021-09-06 02:59] VITALS: BP 114/58
[2021-09-06] MEDS: IPRATROPIUM/ALBUTEROL SULFATE 3 ML SOLUTION IH SCH ×3 (06:35→22:47)
[2021-09-06] MEDS: SODIUM CHLORIDE FOR INHALATION 3 ML VIAL.NEB. IH SCH ×3 (06:35→22:47)
[2021-09-06] MEDS: GABAPENTIN 300 MG CAPSULE PO SCH ×3 (06:42→21:24)
[2021-09-06] MEDS: ACETAMINOPHEN 500 MG TABLET PO SCH ×3 (06:43→21:25)
[2021-09-06] MEDS: METOPROLOL TARTRATE 25 MG TAB PO SCH ×3 (06:43→21:24)
[2021-09-06] MEDS: METOCLOPRAMIDE 10 MG TABLET PO SCH ×3 (06:45→21:23)
[2021-09-06 07:00] VITALS: BP 121/71
[2021-09-06] MEDS: MAGNESIUM OXIDE 400 MG TABLET PO SCH (09:26)
[2021-09-06] MEDS: ASPIRIN 81MG CHEW TAB PO SCH (09:27)
[2021-09-06] MEDS: CLONAZEPAM 1MG TAB PO SCH ×2 (09:27→21:25)
[2021-09-06] MEDS: SERTRALINE HCL 50 MG TABLET PO SCH (09:27)
[2021-09-06] MEDS: APIXABAN 5 MG TABLET PO SCH ×2 (09:28→21:24)
[2021-09-06 11:00] VITALS: BP 115/72
[2021-09-06 15:00] VITALS: BP 110/65
[2021-09-06 20:06] VITALS: BP 117/65
[2021-09-06] MEDS: TRAZODONE HCL 50 MG TAB PO SCH (21:23)
[2021-09-06 23:21] VITALS: BP 99/63
[2021-09-07 04:37] VITALS: BP 134/74
[2021-09-07] MEDS: ACETAMINOPHEN 500 MG TABLET PO SCH (04:50)
[2021-09-07 04:52] LABS: HEMATOCRIT 37.4 % (36-48); MEAN CORPUSCULAR VOLUME 88.8 fL (79-99); RED BLOOD CELL COUNT(AUTO) 4.21 MIL/uL (4.00-5.50); RED CELL DISTRIBUTION WIDTH 20.9 % (11.0-15.5); WHITE BLOOD COUNT (AUTO) 8.7 K/uL (4.8-10.8)
[2021-09-07] MEDS: APAP/CODEINE 120/12MG 5ML PO PRN (04:54)
[2021-09-07] MEDS: GABAPENTIN 300 MG CAPSULE PO SCH ×3 (04:55→21:18)
[2021-09-07] MEDS: METOCLOPRAMIDE 10 MG TABLET PO SCH ×3 (04:55→21:19)
[2021-09-07] MEDS: METOPROLOL TARTRATE 25 MG TAB PO SCH ×3 (04:55→21:19)
[2021-09-07 05:09] LABS: ALBUMIN 2.3 g/dL (3.5-5.0); BILIRUBIN,TOTAL 0.2 mg/dL (0.2-1.0); CREATININE 0.3 mg/dL (0.5-1.5); POTASSIUM 4.2 mmol/L (3.5-5.1); TOTAL PROTEIN, SERUM 7.4 g/dL (6.0-8.3)
[2021-09-07] MEDS: SODIUM CHLORIDE FOR INHALATION 3 ML VIAL.NEB. IH SCH ×3 (06:59→22:45)
[2021-09-07] MEDS: IPRATROPIUM/ALBUTEROL SULFATE 3 ML SOLUTION IH SCH ×3 (06:59→22:45)
[2021-09-07 07:00] VITALS: BP 132/80
[2021-09-07] MEDS: APIXABAN 5 MG TABLET PO SCH ×2 (10:23→21:19)
[2021-09-07] MEDS: ASPIRIN 81MG CHEW TAB PO SCH (10:23)
[2021-09-07] MEDS: SERTRALINE HCL 50 MG TABLET PO SCH (10:23)
[2021-09-07] MEDS: CLONAZEPAM 1MG TAB PO SCH ×2 (10:23→21:19)
[2021-09-07] MEDS: MAGNESIUM OXIDE 400 MG TABLET PO SCH (10:23)
[2021-09-07 11:00] VITALS: BP 113/70
[2021-09-07 15:00] VITALS: BP 140/69
[2021-09-07 20:00] VITALS: BP 145/84
[2021-09-08] VITALS: BP 122/70
[2021-09-08] MEDS: APAP/CODEINE 120/12MG 5ML PO PRN ×2 (00:24→14:41)
[2021-09-08 04:00] VITALS: BP 145/89
[2021-09-08] MEDS: METOPROLOL TARTRATE 25 MG TAB PO SCH ×3 (06:02→21:15)
[2021-09-08] MEDS: GABAPENTIN 300 MG CAPSULE PO SCH ×3 (06:02→21:16)
[2021-09-08] MEDS: METOCLOPRAMIDE 10 MG TABLET PO SCH ×3 (06:02→21:15)
[2021-09-08] MEDS: SODIUM CHLORIDE FOR INHALATION 3 ML VIAL.NEB. IH SCH ×3 (06:37→21:18)
[2021-09-08] MEDS: IPRATROPIUM/ALBUTEROL SULFATE 3 ML SOLUTION IH SCH ×3 (06:37→21:18)
[2021-09-08 08:00] VITALS: BP 122/72
[2021-09-08] MEDS: APIXABAN 5 MG TABLET PO SCH ×2 (09:56→21:15)
[2021-09-08] MEDS: CLONAZEPAM 1MG TAB PO SCH ×2 (09:56→21:16)
[2021-09-08] MEDS: ASPIRIN 81MG CHEW TAB PO SCH (09:57)
[2021-09-08] MEDS: SERTRALINE HCL 50 MG TABLET PO SCH (09:57)
[2021-09-08 12:00] VITALS: BP 140/82
[2021-09-08 16:00] VITALS: BP 117/72
[2021-09-08 20:00] VITALS: BP 125/79
[2021-09-09] VITALS (7 sets, daily range): BP systolic 119–141; BP diastolic 71–89
[2021-09-09 03:56] LABS: BASOPHILS % (AUTO) 0.4 % (0.0-5.0); HEMATOCRIT 36.9 % (36-48); LYMPHOCYTES % (AUTO) 12.9 % (21.0-51.0); MEAN CORPUSCULAR HEMOGLOBIN 24.1 pg (27.0-33.0); MEAN CORPUSCULAR HGB CONC 28.7 g/dL (32.0-36.0); MEAN CORPUSCULAR VOLUME 83.9 fL (79-99); MONOCYTES % (AUTO) 6.9 % (3.0-13.0); NEUTROPHILS % (AUTO) 72.4 % (40.0-77.0); PLATELET COUNT (AUTO) 342 K/uL (130-400); WHITE BLOOD COUNT (AUTO) 9.3 K/uL (4.8-10.8)
[2021-09-09 04:10] LABS: ALBUMIN 2.3 g/dL (3.5-5.0); BILIRUBIN,TOTAL 0.3 mg/dL (0.2-1.0); CREATININE 0.3 mg/dL (0.5-1.5); POTASSIUM 3.9 mmol/L (3.5-5.1); TOTAL PROTEIN, SERUM 7.4 g/dL (6.0-8.3)
[2021-09-09] MEDS: GABAPENTIN 300 MG CAPSULE PO SCH ×3 (05:49→21:19)
[2021-09-09] MEDS: METOPROLOL TARTRATE 25 MG TAB PO SCH ×3 (05:50→21:19)
[2021-09-09] MEDS: METOCLOPRAMIDE 10 MG TABLET PO SCH ×3 (05:50→21:19)
[2021-09-09] MEDS: SODIUM CHLORIDE FOR INHALATION 3 ML VIAL.NEB. IH SCH ×3 (07:04→22:51)
[2021-09-09] MEDS: IPRATROPIUM/ALBUTEROL SULFATE 3 ML SOLUTION IH SCH ×3 (07:04→22:51)
[2021-09-09] MEDS: APIXABAN 5 MG TABLET PO SCH ×2 (09:18→21:19)
[2021-09-09] MEDS: SERTRALINE HCL 50 MG TABLET PO SCH (09:19)
[2021-09-09] MEDS: ASPIRIN 81MG CHEW TAB PO SCH (09:19)
[2021-09-09] MEDS: CLONAZEPAM 1MG TAB PO SCH ×2 (09:19→21:20)
[2021-09-09] MEDS ORDERED: ALPRAZOLAM 0.5 MG TABLET PO STA (14:57)
[2021-09-10] MEDS: APAP/CODEINE 120/12MG 5ML PO PRN (00:22)
[2021-09-10 04:00] VITALS: BP 144/85
[2021-09-10] MEDS: METOCLOPRAMIDE 10 MG TABLET PO SCH ×2 (05:05→13:22)
[2021-09-10] MEDS: METOPROLOL TARTRATE 25 MG TAB PO SCH ×3 (05:05→21:24)
[2021-09-10] MEDS: GABAPENTIN 300 MG CAPSULE PO SCH ×3 (05:05→21:25)
[2021-09-10] MEDS: SODIUM CHLORIDE FOR INHALATION 3 ML VIAL.NEB. IH SCH ×3 (06:54→21:43)
[2021-09-10] MEDS: IPRATROPIUM/ALBUTEROL SULFATE 3 ML SOLUTION IH SCH ×3 (06:55→21:43)
[2021-09-10 08:00] VITALS: BP 127/83
[2021-09-10] MEDS: CLONAZEPAM 1MG TAB PO SCH ×2 (09:21→21:25)
[2021-09-10] MEDS: APIXABAN 5 MG TABLET PO SCH ×2 (09:21→21:24)
[2021-09-10] MEDS: SERTRALINE HCL 50 MG TABLET PO SCH (09:22)
[2021-09-10] MEDS: ASPIRIN 81MG CHEW TAB PO SCH (09:22)
[2021-09-10] MEDS ORDERED: DIATR MEGLU/DIATRIZOATE SODIUM 30 ML BOTTLE ONE (10:18)
[2021-09-10 12:00] VITALS: BP 124/80
[2021-09-10 16:00] VITALS: BP 127/63
[2021-09-10 20:00] VITALS: BP 117/76
[2021-09-11] VITALS (7 sets, daily range): BP systolic 121–151; BP diastolic 77–97
[2021-09-11] MEDS: APAP/CODEINE 120/12MG 5ML PO PRN ×2 (02:00→17:23)
[2021-09-11] MEDS: SODIUM CHLORIDE FOR INHALATION 3 ML VIAL.NEB. IH SCH ×3 (06:27→22:12)
[2021-09-11] MEDS: IPRATROPIUM/ALBUTEROL SULFATE 3 ML SOLUTION IH SCH ×3 (06:27→22:12)
[2021-09-11] MEDS: GABAPENTIN 300 MG CAPSULE PO SCH ×3 (06:37→21:19)
[2021-09-11] MEDS: METOPROLOL TARTRATE 25 MG TAB PO SCH ×3 (06:37→21:20)
[2021-09-11] MEDS: SERTRALINE HCL 50 MG TABLET PO SCH (07:54)
[2021-09-11] MEDS: CLONAZEPAM 1MG TAB PO SCH ×2 (07:54→21:20)
[2021-09-11] MEDS: APIXABAN 5 MG TABLET PO SCH ×2 (07:54→21:20)
[2021-09-11] MEDS: ASPIRIN 81MG CHEW TAB PO SCH (07:55)
[2021-09-11] MEDS: METOCLOPRAMIDE 10 MG TABLET PO SCH ×3 (07:55→17:00)
[2021-09-11 08:49] LABS: HEMATOCRIT 40.5 % (36-48); MEAN CORPUSCULAR HEMOGLOBIN 23.6 pg (27.0-33.0); MEAN CORPUSCULAR HGB CONC 28.4 g/dL (32.0-36.0); RED BLOOD CELL COUNT(AUTO) 4.88 MIL/uL (4.00-5.50); RED CELL DISTRIBUTION WIDTH 21.1 % (11.0-15.5); WHITE BLOOD COUNT (AUTO) 10.4 K/uL (4.8-10.8)
[2021-09-11 09:00] LABS: CREATININE 0.3 mg/dL (0.5-1.5); POTASSIUM 3.7 mmol/L (3.5-5.1)
[2021-09-11] MEDS: GUAIFENESIN-DM 200/20 MG 10 ML PO PRN (17:24)
[2021-09-12 04:01] VITALS: BP 133/87
[2021-09-12 04:07] LABS: HEMATOCRIT 37.5 % (36-48); MEAN CORPUSCULAR HGB CONC 28.8 g/dL (32.0-36.0); MEAN CORPUSCULAR VOLUME 83.3 fL (79-99); RED BLOOD CELL COUNT(AUTO) 4.5 MIL/uL (4.00-5.50); RED CELL DISTRIBUTION WIDTH 20.6 % (11.0-15.5); WHITE BLOOD COUNT (AUTO) 9.6 K/uL (4.8-10.8)
[2021-09-12 04:15] LABS: CREATININE 0.3 mg/dL (0.5-1.5); POTASSIUM 3.5 mmol/L (3.5-5.1)
[2021-09-12] MEDS: GABAPENTIN 300 MG CAPSULE PO SCH ×3 (06:03→22:01)
[2021-09-12] MEDS: METOPROLOL TARTRATE 25 MG TAB PO SCH ×3 (06:04→22:01)
[2021-09-12] MEDS: APAP/CODEINE 120/12MG 5ML PO PRN (06:04)
[2021-09-12] MEDS: IPRATROPIUM/ALBUTEROL SULFATE 3 ML SOLUTION IH SCH ×3 (06:33→21:45)
[2021-09-12] MEDS: SODIUM CHLORIDE FOR INHALATION 3 ML VIAL.NEB. IH SCH ×3 (06:33→21:44)
[2021-09-12 08:00] VITALS: BP 125/74
[2021-09-12] MEDS: APIXABAN 5 MG TABLET PO SCH ×2 (09:58→22:02)
[2021-09-12] MEDS: METOCLOPRAMIDE 10 MG TABLET PO SCH ×3 (09:59→16:48)
[2021-09-12] MEDS: ERGOCALCIFEROL (VITAMIN D2) 50,000 UNIT CAPSULE PO SCH (09:59)
[2021-09-12] MEDS: ASPIRIN 81MG CHEW TAB PO SCH (09:59)
[2021-09-12] MEDS: SERTRALINE HCL 50 MG TABLET PO SCH (09:59)
[2021-09-12] MEDS: CLONAZEPAM 1MG TAB PO SCH ×2 (10:00→22:02)
[2021-09-12 12:00] VITALS: BP 157/96
[2021-09-12 16:00] VITALS: BP 122/73
[2021-09-12 20:10] VITALS: BP 143/73
[2021-09-12 23:49] VITALS: BP 130/81
[2021-09-13 04:03] VITALS: BP 169/93
[2021-09-13 04:42] LABS: HEMATOCRIT 37.9 % (36-48); MEAN CORPUSCULAR HEMOGLOBIN 24.1 pg (27.0-33.0); MEAN CORPUSCULAR VOLUME 82.9 fL (79-99); RED BLOOD CELL COUNT(AUTO) 4.57 MIL/uL (4.00-5.50); RED CELL DISTRIBUTION WIDTH 20.9 % (11.0-15.5); WHITE BLOOD COUNT (AUTO) 10.9 K/uL (4.8-10.8)
[2021-09-13 04:47] LABS: CREATININE 0.3 mg/dL (0.5-1.5); POTASSIUM 3.5 mmol/L (3.5-5.1)
[2021-09-13] MEDS: GABAPENTIN 300 MG CAPSULE PO SCH ×3 (06:08→21:33)
[2021-09-13] MEDS: METOPROLOL TARTRATE 25 MG TAB PO SCH ×3 (06:08→21:33)
[2021-09-13] MEDS: IPRATROPIUM/ALBUTEROL SULFATE 3 ML SOLUTION IH SCH ×3 (06:53→21:07)
[2021-09-13 08:00] VITALS: BP 164/93
[2021-09-13] MEDS: SERTRALINE HCL 50 MG TABLET PO SCH (08:52)
[2021-09-13] MEDS: ASPIRIN 81MG CHEW TAB PO SCH (08:52)
[2021-09-13] MEDS: APIXABAN 5 MG TABLET PO SCH ×2 (08:53→21:35)
[2021-09-13] MEDS: CLONAZEPAM 1MG TAB PO SCH ×2 (08:53→21:35)
[2021-09-13] MEDS: METOCLOPRAMIDE 10 MG TABLET PO SCH ×3 (08:53→15:50)
[2021-09-13] MEDS ORDERED: KCL 20 MEQ ERTAB PO PRN (11:30)
[2021-09-13] MEDS ORDERED: LIDOCAINE HCL-MPF 1% 2ML VIAL IV PRN (11:30)
[2021-09-13] MEDS ORDERED: POTASSIUM CHLORIDE 20MEQ/100ML 100 ML IV PRN (11:30)
[2021-09-13 12:00] VITALS: BP 165/97
[2021-09-13] MEDS: POTASSIUM CHLORIDE 10% ELIXIR 20 MEQ/15 ML UDCUP PO PRN ×2 (12:24→15:50)
[2021-09-13] MEDS: APAP/CODEINE 120/12MG 5ML PO PRN (12:29)
[2021-09-13] MEDS ORDERED: HYDROXYZINE HCL 10MG/5ML SYRUP 5ML BOTTLE PO SCH (14:30)
[2021-09-13 15:06] LABS: % IRON SATURATION 17.1 % (22-44)
[2021-09-13 16:00] VITALS: BP 136/86
[2021-09-13 19:11] VITALS: BP 146/91
[2021-09-13] MEDS: SODIUM CHLORIDE FOR INHALATION 3 ML VIAL.NEB. IH SCH (21:08)
[2021-09-13 23:46] VITALS: BP 144/88
[2021-09-14 03:30] VITALS: BP 142/88
[2021-09-14 04:00] LABS: MEAN CORPUSCULAR HEMOGLOBIN 23.9 pg (27.0-33.0); MEAN CORPUSCULAR HGB CONC 28.8 g/dL (32.0-36.0); MEAN CORPUSCULAR VOLUME 83.2 fL (79-99); PLATELET COUNT (AUTO) 316 K/uL (130-400); RED BLOOD CELL COUNT(AUTO) 4.81 MIL/uL (4.00-5.50); RED CELL DISTRIBUTION WIDTH 20.7 % (11.0-15.5); WHITE BLOOD COUNT (AUTO) 9.3 K/uL (4.8-10.8)
[2021-09-14 04:25] LABS: CREATININE 0.3 mg/dL (0.5-1.5); POTASSIUM 3.8 mmol/L (3.5-5.1)
[2021-09-14] MEDS: METOPROLOL TARTRATE 25 MG TAB PO SCH ×3 (05:37→21:38)
[2021-09-14] MEDS: GABAPENTIN 300 MG CAPSULE PO SCH ×3 (05:38→21:38)
[2021-09-14] MEDS: SODIUM CHLORIDE FOR INHALATION 3 ML VIAL.NEB. IH SCH ×3 (06:00→22:04)
[2021-09-14] MEDS: IPRATROPIUM/ALBUTEROL SULFATE 3 ML SOLUTION IH SCH ×3 (07:11→22:04)
[2021-09-14 08:37] VITALS: BP 159/92
[2021-09-14] MEDS: METOCLOPRAMIDE 10 MG TABLET PO SCH ×3 (09:41→17:49)
[2021-09-14] MEDS: APIXABAN 5 MG TABLET PO SCH ×2 (09:42→21:38)
[2021-09-14] MEDS: CLONAZEPAM 1MG TAB PO SCH ×2 (09:43→21:38)
[2021-09-14] MEDS: ASPIRIN 81MG CHEW TAB PO SCH (09:43)
[2021-09-14] MEDS: SERTRALINE HCL 50 MG TABLET PO SCH (09:43)
[2021-09-14 12:00] VITALS: BP 121/84
[2021-09-14] MEDS ORDERED: HYDROXYZINE HCL 10MG/5ML SYRUP 5ML BOTTLE PO SCH (12:30)
[2021-09-14] MEDS: APAP/CODEINE 120/12MG 5ML PO PRN (13:27)
[2021-09-14 16:00] VITALS: BP 140/83
[2021-09-14 19:07] VITALS: BP 142/92
[2021-09-14 23:08] VITALS: BP 128/89
[2021-09-15 03:34] VITALS: BP 138/87
[2021-09-15 03:38] LABS: HEMATOCRIT 36.3 % (36-48); MEAN CORPUSCULAR HEMOGLOBIN 24.4 pg (27.0-33.0); MEAN CORPUSCULAR HGB CONC 29.8 g/dL (32.0-36.0); MEAN CORPUSCULAR VOLUME 81.9 fL (79-99); RED BLOOD CELL COUNT(AUTO) 4.43 MIL/uL (4.00-5.50); RED CELL DISTRIBUTION WIDTH 20.3 % (11.0-15.5); WHITE BLOOD COUNT (AUTO) 10.6 K/uL (4.8-10.8)
[2021-09-15 04:29] LABS: CREATININE 0.3 mg/dL (0.5-1.5)
[2021-09-15 04:40] LABS: POTASSIUM 3.5 mmol/L (3.5-5.1)
[2021-09-15] MEDS: METOPROLOL TARTRATE 25 MG TAB PO SCH ×3 (05:54→21:31)
[2021-09-15] MEDS: GABAPENTIN 300 MG CAPSULE PO SCH ×3 (05:56→21:31)
[2021-09-15] MEDS: SODIUM CHLORIDE FOR INHALATION 3 ML VIAL.NEB. IH SCH ×2 (06:00→13:40)
[2021-09-15] MEDS: IPRATROPIUM/ALBUTEROL SULFATE 3 ML SOLUTION IH SCH (06:26)
[2021-09-15 08:13] VITALS: BP 151/93
[2021-09-15] MEDS: POTASSIUM CHLORIDE 10% ELIXIR 20 MEQ/15 ML UDCUP PO PRN (09:00)
[2021-09-15] MEDS: METOCLOPRAMIDE 10 MG TABLET PO SCH ×3 (09:01→17:00)
[2021-09-15] MEDS: APIXABAN 5 MG TABLET PO SCH ×2 (09:01→21:32)
[2021-09-15] MEDS: CLONAZEPAM 1MG TAB PO SCH ×2 (09:01→21:32)
[2021-09-15] MEDS: SERTRALINE HCL 50 MG TABLET PO SCH (09:01)
[2021-09-15] MEDS: ASPIRIN 81MG CHEW TAB PO SCH (09:02)
[2021-09-15 12:00] VITALS: BP 150/90
[2021-09-15 16:34] VITALS: BP 161/89
[2021-09-15 20:18] VITALS: BP 152/88
[2021-09-15] MEDS: HYDROXYZINE HCL 10MG/5ML SYRUP 5ML BOTTLE PO SCH (21:32)
[2021-09-15 23:33] VITALS: BP 122/77
[2021-09-16 03:14] VITALS: BP 159/89
[2021-09-16 03:53] LABS: HEMATOCRIT 36.5 % (36-48); MEAN CORPUSCULAR HEMOGLOBIN 24.3 pg (27.0-33.0); MEAN CORPUSCULAR HGB CONC 28.8 g/dL (32.0-36.0); MEAN CORPUSCULAR VOLUME 84.5 fL (79-99); RED BLOOD CELL COUNT(AUTO) 4.32 MIL/uL (4.00-5.50); WHITE BLOOD COUNT (AUTO) 9.9 K/uL (4.8-10.8)
[2021-09-16 04:00] LABS: CREATININE 0.3 mg/dL (0.5-1.5)
[2021-09-16] MEDS: METOPROLOL TARTRATE 25 MG TAB PO SCH ×3 (05:41→21:04)
[2021-09-16] MEDS: GABAPENTIN 300 MG CAPSULE PO SCH ×3 (05:41→21:04)
[2021-09-16 07:00] VITALS: BP 128/88
[2021-09-16] MEDS: SERTRALINE HCL 50 MG TABLET PO SCH (08:47)
[2021-09-16] MEDS: METOCLOPRAMIDE 10 MG TABLET PO SCH ×3 (08:47→16:45)
[2021-09-16] MEDS: CLONAZEPAM 1MG TAB PO SCH ×2 (08:48→21:04)
[2021-09-16] MEDS: APIXABAN 5 MG TABLET PO SCH ×2 (08:48→21:04)
[2021-09-16] MEDS: ASPIRIN 81MG CHEW TAB PO SCH (08:49)
[2021-09-16 11:00] VITALS: BP 157/95
[2021-09-16 16:00] VITALS: BP 156/82
[2021-09-16] MEDS ORDERED: SODIUM CHLORIDE 3% FOR INHALATION 4 ML/AMP VIAL.NEB IH ONE (18:27)
[2021-09-16] MEDS: HYDROXYZINE HCL 10MG/5ML SYRUP 5ML BOTTLE PO SCH (18:49)
[2021-09-16 19:35] VITALS: BP 154/97
[2021-09-16] MEDS: GUAIFENESIN-DM 200/20 MG 10 ML PO PRN (21:40)
[2021-09-16] MEDS: SODIUM CHLORIDE 3% FOR INHALATION 4 ML/AMP VIAL.NEB IH SCH (22:10)
[2021-09-16 23:39] VITALS: BP 136/78
[2021-09-17 04:31] VITALS: BP 142/83
[2021-09-17] MEDS: METOPROLOL TARTRATE 25 MG TAB PO SCH ×3 (05:41→20:26)
[2021-09-17] MEDS: GABAPENTIN 300 MG CAPSULE PO SCH ×3 (05:41→20:26)
[2021-09-17] MEDS: SODIUM CHLORIDE 3% FOR INHALATION 4 ML/AMP VIAL.NEB IH SCH ×3 (07:15→22:31)
[2021-09-17 08:00] VITALS: BP 155/88
[2021-09-17] MEDS: SERTRALINE HCL 50 MG TABLET PO SCH (09:17)
[2021-09-17] MEDS: METOCLOPRAMIDE 10 MG TABLET PO SCH ×3 (09:17→16:20)
[2021-09-17] MEDS: ASPIRIN 81MG CHEW TAB PO SCH (09:17)
[2021-09-17] MEDS: APIXABAN 5 MG TABLET PO SCH ×2 (09:17→20:26)
[2021-09-17] MEDS: CLONAZEPAM 1MG TAB PO SCH ×2 (09:18→20:27)
[2021-09-17 12:00] VITALS: BP 152/91
[2021-09-17] MEDS: GUAIFENESIN-DM 200/20 MG 10 ML PO PRN (12:34)
[2021-09-17] MEDS: HYDROXYZINE 25 MG TABLET PO PRN (12:56)
[2021-09-17 16:00] VITALS: BP 151/91
[2021-09-17 20:00] VITALS: BP 162/98
[2021-09-17 23:49] VITALS: BP 133/69
[2021-09-18 04:00] VITALS: BP 140/75
[2021-09-18 04:27] LABS: CREATININE 0.3 mg/dL (0.5-1.5); POTASSIUM 3.4 mmol/L (3.5-5.1)
[2021-09-18] MEDS: GABAPENTIN 300 MG CAPSULE PO SCH ×3 (05:53→19:56)
[2021-09-18] MEDS: METOCLOPRAMIDE 10 MG TABLET PO SCH ×3 (05:53→16:37)
[2021-09-18] MEDS: METOPROLOL TARTRATE 25 MG TAB PO SCH ×3 (05:53→19:57)
[2021-09-18] MEDS: POTASSIUM CHLORIDE 10% ELIXIR 20 MEQ/15 ML UDCUP PO PRN (05:54)
[2021-09-18] MEDS: SODIUM CHLORIDE 3% FOR INHALATION 4 ML/AMP VIAL.NEB IH SCH (06:23)
[2021-09-18 07:59] VITALS: BP 136/77
[2021-09-18] MEDS: SERTRALINE HCL 50 MG TABLET PO SCH (08:12)
[2021-09-18] MEDS: CLONAZEPAM 1MG TAB PO SCH ×2 (08:12→19:57)
[2021-09-18] MEDS: ASPIRIN 81MG CHEW TAB PO SCH (08:12)
[2021-09-18] MEDS: APIXABAN 5 MG TABLET PO SCH ×2 (08:23→19:57)
[2021-09-18] MEDS: GUAIFENESIN-DM 200/20 MG 10 ML PO PRN (11:10)
[2021-09-18 11:57] VITALS: BP 137/84
[2021-09-18 11:58] VITALS: BP 94/51
[2021-09-18] MEDS: HYDROXYZINE 25 MG TABLET PO PRN ×2 (12:20→17:40)
[2021-09-18 16:00] VITALS: BP 152/94
[2021-09-18 19:33] VITALS: BP 150/90
[2021-09-19 00:20] VITALS: BP 140/86
[2021-09-19 03:50] LABS: BASOPHILS % (AUTO) 0.5 % (0.0-5.0); EOSINOPHILS % (AUTO) 7.3 % (0.0-8.0); LYMPHOCYTES % (AUTO) 14.7 % (21.0-51.0); MEAN CORPUSCULAR HEMOGLOBIN 23.8 pg (27.0-33.0); MEAN CORPUSCULAR HGB CONC 28.4 g/dL (32.0-36.0); MEAN CORPUSCULAR VOLUME 83.9 fL (79-99); MONOCYTES % (AUTO) 7.8 % (3.0-13.0); NEUTROPHILS % (AUTO) 69.1 % (40.0-77.0); PLATELET COUNT (AUTO) 297 K/uL (130-400); RED BLOOD CELL COUNT(AUTO) 4.41 MIL/uL (4.00-5.50); RED CELL DISTRIBUTION WIDTH 19.5 % (11.0-15.5); WHITE BLOOD COUNT (AUTO) 8.5 K/uL (4.8-10.8)
[2021-09-19 04:00] VITALS: BP 142/64
[2021-09-19 04:16] LABS: ALBUMIN 2.4 g/dL (3.5-5.0); BILIRUBIN,TOTAL 0.3 mg/dL (0.2-1.0); CREATININE 0.3 mg/dL (0.5-1.5); POTASSIUM 3.5 mmol/L (3.5-5.1); TOTAL PROTEIN, SERUM 7.4 g/dL (6.0-8.3)
[2021-09-19] MEDS: METOPROLOL TARTRATE 25 MG TAB PO SCH ×3 (06:20→20:40)
[2021-09-19] MEDS: POTASSIUM CHLORIDE 10% ELIXIR 20 MEQ/15 ML UDCUP PO PRN (06:21)
[2021-09-19] MEDS: GABAPENTIN 300 MG CAPSULE PO SCH ×3 (06:21→20:44)
[2021-09-19] MEDS: METOCLOPRAMIDE 10 MG TABLET PO SCH ×3 (06:25→16:05)
[2021-09-19] MEDS: ASPIRIN 81MG CHEW TAB PO SCH (07:07)
[2021-09-19] MEDS: SERTRALINE HCL 50 MG TABLET PO SCH (07:07)
[2021-09-19] MEDS: CLONAZEPAM 1MG TAB PO SCH ×2 (07:07→20:44)
[2021-09-19] MEDS: APIXABAN 5 MG TABLET PO SCH ×2 (07:08→20:40)
[2021-09-19 07:49] VITALS: BP 150/92
[2021-09-19] MEDS: ERGOCALCIFEROL (VITAMIN D2) 50,000 UNIT CAPSULE PO SCH (08:27)
[2021-09-19 12:03] VITALS: BP 145/91
[2021-09-19] MEDS: HYDROXYZINE 25 MG TABLET PO PRN (13:45)
[2021-09-19 15:56] VITALS: BP 129/77
[2021-09-19] MEDS: GUAIFENESIN-DM 200/20 MG 10 ML PO PRN ×2 (16:13→20:56)
[2021-09-19 19:25] VITALS: BP 163/90
[2021-09-20 00:12] VITALS: BP 139/84
[2021-09-20 04:10] VITALS: BP 155/89
[2021-09-20 07:49] VITALS: BP 155/96
[2021-09-20] MEDS: METOPROLOL TARTRATE 25 MG TAB PO SCH ×3 (07:50→23:48)
[2021-09-20] MEDS: METOCLOPRAMIDE 10 MG TABLET PO SCH ×3 (07:50→17:50)
[2021-09-20] MEDS: GABAPENTIN 300 MG CAPSULE PO SCH ×3 (07:50→23:48)
[2021-09-20] MEDS: APIXABAN 5 MG TABLET PO SCH ×2 (09:02→21:12)
[2021-09-20] MEDS: CLONAZEPAM 1MG TAB PO SCH ×2 (09:02→21:12)
[2021-09-20] MEDS: SERTRALINE HCL 50 MG TABLET PO SCH (09:03)
[2021-09-20] MEDS: ASPIRIN 81MG CHEW TAB PO SCH (09:03)
[2021-09-20 13:52] VITALS: BP 127/77
[2021-09-20] MEDS: GUAIFENESIN-DM 200/20 MG 10 ML PO PRN (16:03)
[2021-09-20] MEDS: HYDROXYZINE 25 MG TABLET PO PRN ×2 (16:04→23:48)
[2021-09-20 17:20] VITALS: BP 154/90
[2021-09-20 19:24] VITALS: BP 128/77
[2021-09-20] MEDS: POTASSIUM CHLORIDE 10% ELIXIR 20 MEQ/15 ML UDCUP PO PRN (23:49)
[2021-09-21] VITALS: BP 137/84
[2021-09-21 03:59] VITALS: BP 133/85
[2021-09-21 07:25] VITALS: BP 118/67
[2021-09-21] MEDS: CLONAZEPAM 1MG TAB PO SCH ×2 (09:36→20:16)
[2021-09-21] MEDS: APIXABAN 5 MG TABLET PO SCH ×2 (09:36→20:15)
[2021-09-21] MEDS: METOCLOPRAMIDE 10 MG TABLET PO SCH ×3 (09:36→17:11)
[2021-09-21] MEDS: GABAPENTIN 300 MG CAPSULE PO SCH ×3 (09:36→21:07)
[2021-09-21] MEDS: METOPROLOL TARTRATE 25 MG TAB PO SCH ×3 (09:36→21:07)
[2021-09-21] MEDS: SERTRALINE HCL 50 MG TABLET PO SCH (09:37)
[2021-09-21] MEDS: ASPIRIN 81MG CHEW TAB PO SCH (09:37)
[2021-09-21 11:20] VITALS: BP 112/65
[2021-09-21 15:15] VITALS: BP 139/76
[2021-09-21] MEDS: HYDROXYZINE 25 MG TABLET PO PRN (17:11)
[2021-09-21 20:00] VITALS: BP 117/74
[2021-09-22] MEDS: GABAPENTIN 300 MG CAPSULE PO SCH ×2 (06:09→12:08)
[2021-09-22] MEDS: METOPROLOL TARTRATE 25 MG TAB PO SCH ×2 (06:09→12:07)
[2021-09-22 09:38] VITALS: BP 161/83
[2021-09-22] MEDS: SERTRALINE HCL 50 MG TABLET PO SCH (09:46)
[2021-09-22] MEDS: METOCLOPRAMIDE 10 MG TABLET PO SCH ×2 (09:47→12:08)
[2021-09-22] MEDS: APIXABAN 5 MG TABLET PO SCH ×2 (09:47→19:59)
[2021-09-22] MEDS: CLONAZEPAM 1MG TAB PO SCH ×2 (09:47→19:59)
[2021-09-22] MEDS: ASPIRIN 81MG CHEW TAB PO SCH (09:48)
[2021-09-22] MEDS ORDERED: ACETAMINOPHEN 325 MG TAB PO PRN (11:30)
[2021-09-22] MEDS ORDERED: GUAIFENESIN-DM 200/20 MG 10 ML PO PRN (11:30)
[2021-09-22 13:29] VITALS: BP 119/72
[2021-09-22 16:47] VITALS: BP 148/86
== END 2021-09-22 21:00 | DRG 4 ==
LOC: EDH 10:59 → EDHIP 11:00 → 2AH 04-21 11:30 → 2CV 05-06 13:00 → 2BH 06-05 03:45 → 2DH 08-02 18:30 → 2CH 08-13 05:59 → 2DH 08-26 16:23 → 4CH 09-20 08:49
PROVIDERS: ADMIT Hospitalist; ATTEND Hospitalist
PROC: XW033E5 Introduction of Remdesivir Anti-infective into Peripheral Vein, Percutaneous Approach, New Technology Group 5 (ICD-10-PCS; 2021-04-19)
PROC: XW0DXM6 Introduction of Baricitinib into Mouth and Pharynx, External Approach, New Technology Group 6 (ICD-10-PCS; 2021-04-20)
PROC: 5A0935A Assistance with Respiratory Ventilation, Less than 24 Consecutive Hours, High Flow/Velocity Cannula (ICD-10-PCS; 2021-04-27)
PROC: 5A0935A Assistance with Respiratory Ventilation, Less than 24 Consecutive Hours, High Flow/Velocity Cannula (ICD-10-PCS; 2021-04-28)
PROC: 5A0935A Assistance with Respiratory Ventilation, Less than 24 Consecutive Hours, High Flow/Velocity Cannula (ICD-10-PCS; 2021-04-29)
PROC: 5A0935A Assistance with Respiratory Ventilation, Less than 24 Consecutive Hours, High Flow/Velocity Cannula (ICD-10-PCS; 2021-05-01)
PROC: 5A0935A Assistance with Respiratory Ventilation, Less than 24 Consecutive Hours, High Flow/Velocity Cannula (ICD-10-PCS; 2021-05-02)
PROC: 5A09457 Assistance with Respiratory Ventilation, 24-96 Consecutive Hours, Continuous Positive Airway Pressure (ICD-10-PCS; 2021-05-05)
PROC: 5A12012 Performance of Cardiac Output, Single, Manual (ICD-10-PCS; 2021-05-06)
PROC: 05HM33Z Insertion of Infusion Device into Right Internal Jugular Vein, Percutaneous Approach (ICD-10-PCS; 2021-05-06)
PROC: B543ZZA Ultrasonography of Right Jugular Veins, Guidance (ICD-10-PCS; 2021-05-06)
PROC: 5A1955Z Respiratory Ventilation, Greater than 96 Consecutive Hours (ICD-10-PCS; 2021-05-06)
PROC: 0BH17EZ Insertion of Endotracheal Airway into Trachea, Via Natural or Artificial Opening (ICD-10-PCS; 2021-05-06)
PROC: 0BJ08ZZ Inspection of Tracheobronchial Tree, Via Natural or Artificial Opening Endoscopic (ICD-10-PCS; 2021-05-22)
PROC: 03HY32Z Insertion of Monitoring Device into Upper Artery, Percutaneous Approach (ICD-10-PCS; 2021-05-22)
PROC: 02HV33Z Insertion of Infusion Device into Superior Vena Cava, Percutaneous Approach (ICD-10-PCS; 2021-05-24)
PROC: B548ZZA Ultrasonography of Superior Vena Cava, Guidance (ICD-10-PCS; 2021-05-24)
PROC: 0DH63UZ Insertion of Feeding Device into Stomach, Percutaneous Approach (ICD-10-PCS; 2021-06-07)
PROC: 0B21XFZ Change Tracheostomy Device in Trachea, External Approach (ICD-10-PCS; 2021-06-07)
PROC: 0B110F4 Bypass Trachea to Cutaneous with Tracheostomy Device, Open Approach (ICD-10-PCS; principal; 2021-06-07 07:51)
PROC: 5A1955Z Respiratory Ventilation, Greater than 96 Consecutive Hours (ICD-10-PCS; 2021-06-22)
PROC: 5A1955Z Respiratory Ventilation, Greater than 96 Consecutive Hours (ICD-10-PCS; 2021-08-12)
PROC: 5A1945Z Respiratory Ventilation, 24-96 Consecutive Hours (ICD-10-PCS; 2021-08-22)
PROC: 5A1935Z Respiratory Ventilation, Less than 24 Consecutive Hours (ICD-10-PCS; 2021-08-26)
PROC: 5A1935Z Respiratory Ventilation, Less than 24 Consecutive Hours (ICD-10-PCS; 2021-08-27)
PROC: 5A1935Z Respiratory Ventilation, Less than 24 Consecutive Hours (ICD-10-PCS; 2021-08-28)
PROC: 5A1935Z Respiratory Ventilation, Less than 24 Consecutive Hours (ICD-10-PCS; 2021-08-29)
PROC: 5A1935Z Respiratory Ventilation, Less than 24 Consecutive Hours (ICD-10-PCS; 2021-08-30)
PROC: 5A09357 Assistance with Respiratory Ventilation, Less than 24 Consecutive Hours, Continuous Positive Airway Pressure (ICD-10-PCS; 2021-08-31)
PROC: 5A09357 Assistance with Respiratory Ventilation, Less than 24 Consecutive Hours, Continuous Positive Airway Pressure (ICD-10-PCS; 2021-09-02)
DX: U07.1 COVID-19 (principal); J12.82 Pneumonia due to coronavirus disease 2019; R53.2 Functional quadriplegia; I63.511 Cerebral infarction due to unspecified occlusion or stenosis of right middle cerebral artery; J80 Acute respiratory distress syndrome; E87.1 Hypo-osmolality and hyponatremia; N17.9 Acute kidney failure, unspecified; D68.59 Other primary thrombophilia; B37.0 Candidal stomatitis; L03.90 Cellulitis, unspecified; J95.851 Ventilator associated pneumonia; G72.81 Critical illness myopathy; D68.8 Other specified coagulation defects; G62.81 Critical illness polyneuropathy; G93.40 Encephalopathy, unspecified; I48.92 Unspecified atrial flutter; I82.622 Acute embolism and thrombosis of deep veins of left upper extremity; K56.7 Ileus, unspecified; Z16.23 Resistance to quinolones and fluoroquinolones; Z99.11 Dependence on respirator [ventilator] status; N39.0 Urinary tract infection, site not specified; R78.81 Bacteremia; T17.590A Other foreign object in bronchus causing asphyxiation, initial encounter; E44.0 Moderate protein-calorie malnutrition; E11.65 Type 2 diabetes mellitus with hyperglycemia; E87.6 Hypokalemia; E66.9 Obesity, unspecified; E87.8 Other disorders of electrolyte and fluid balance, not elsewhere classified; B96.20 Unspecified Escherichia coli [E. coli] as the cause of diseases classified elsewhere; B95.2 Enterococcus as the cause of diseases classified elsewhere; B96.1 Klebsiella pneumoniae [K. pneumoniae] as the cause of diseases classified elsewhere; L89.152 Pressure ulcer of sacral region, stage 2; G47.00 Insomnia, unspecified; F32.9 Major depressive disorder, single episode, unspecified; F41.9 Anxiety disorder, unspecified; R13.12 Dysphagia, oropharyngeal phase; Z68.26 Body mass index [BMI] 26.0-26.9, adult; B96.89 Other specified bacterial agents as the cause of diseases classified elsewhere; D50.9 Iron deficiency anemia, unspecified; I10 Essential (primary) hypertension; K71.9 Toxic liver disease, unspecified; K74.60 Unspecified cirrhosis of liver; K76.0 Fatty (change of) liver, not elsewhere classified; R13.10 Dysphagia, unspecified; Y92.238 Other place in hospital as the place of occurrence of the external cause; B96.5 Pseudomonas (aeruginosa) (mallei) (pseudomallei) as the cause of diseases classified elsewhere; Y84.8 Other medical procedures as the cause of abnormal reaction of the patient, or of later complication, without mention of misadventure at the time of the procedure; Y93.89 Activity, other specified; Y99.8 Other external cause status; Z74.01 Bed confinement status; Z79.4 Long term (current) use of insulin; Z79.84 Long term (current) use of oral hypoglycemic drugs; Z79.899 Other long term (current) drug therapy; Z90.49 Acquired absence of other specified parts of digestive tract; Z88.8 Allergy status to other drugs, medicaments and biological substances; Z86.73 Personal history of transient ischemic attack (TIA), and cerebral infarction without residual deficits
CPT/HCPCS: 31500; 31502; 36415; 36600; 43246; 70450; 70496; 70498; 71045; 72125; 74018; 74230; 76705; 80048; 80051; 80053; 80061; 80076; 80202; 80305; 81001; 82140; 82150; 82306; 82435; 82533; 82550; 82570; 82607; 82728; 82746; 82803; 82947; 82948; 82977; 83036; 83540; 83550; 83605; 83690; 83735; 83874; 83880; 83930; 83935; 84100; 84132; 84145; 84156; 84295; 84300; 84425; 84439; 84443; 84478; 84481; 84484; 84550; 84630; 85018; 85025; 85027; 85045; 85378; 85610; 85651; 85730; 86140; 86606; 87040; 87046; 87070; 87071; 87076; 87077; 87088; 87186; 87205; 87324; 87426; 87486; 87581; 87633; 87635; 87798; 92507; 92522; 92597; 92610; 92611; 92950; 93005; 93970; 93971; 94002; 94003; 94640; 94660; 94770; 97039; A4344; C1751; C1894; C9113; G0378; J0330; J0692; J0696; J1100; J1120; J1450; J1650; J1756; J1815; J1885; J1940; J2060; J2185; J2250; J2405; J2543; J2550; J2704; J2765; J2920; J2997; J3010; J3370; J3475; J3480; J3490; J7030; J7040; J7050; J7608; Q0167; Q9963; Q9967

== ENCOUNTER 2025-06-14 12:46 | Inpatient (IN) | payer MEDICARE ==
[~2025-06-14] VITALS: Ht 154.9 cm; Wt 84.8 kg
--- NOTE | 2025-06-14 13:04 | ERN ---
ED Note History of Present Illness Stated Complaint: COUGH, LUNG PAIN W/ COUGH Chief Complaint: Cough Time Seen by MD: 12:48 Dictation: PATIENT IS A 60-YEAR-OLD FEMALE COMING IN TODAY WITH COMPLAINTS OF SHORTNESS A BREATH ON EXERTION WITH CHEST PAIN SHE HAS HAD FOR SEVERAL DAYS. NO FEVER NO CHILLS NO NAUSEA VOMITING. 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 ON APPROACH, SHE REQUESTED A CAT SCAN OF HER LUNGS. Allergies: Coded Allergies: meropenem (Verified Adverse Reaction, Mild, 07/09/21) Acute DILI Home Meds No Active Prescriptions or Reported Meds Past Medical History Past Medical History: COPD, Hypertension Additional Past Medical Hx: NON COMPLAINT WITH HTN MEDICATIONS, obesity Surgical History: Appendectomy, Cholecystectomy, Surgical History Other: HX OF INTUBATION, TRACH, PEG TUBE Family History: Negative Social History: Negative History: Not Applicable RN Note Reviewed/Agreed w/PFSH: Yes Review of System Dictation CONSTITUTIONAL: NEGATIVE EXCEPT FOR HPI HEAD/FACE: NEGATIVE EXCEPT FOR HPI EENT: NEGATIVE EXCEPT FOR HPI RESPIRATORY: NEGATIVE EXCEPT FOR HPI SHORTNESS A BREATH/COUGH GASTROINTESTINAL/ABDOMINAL: NEGATIVE EXCEPT FOR HPI GENITOURINARY: NEGATIVE EXCEPT FOR HPI MUSCULOSKELETAL: NEGATIVE EXCEPT FOR HPI INTEGUMENTARY: NEGATIVE EXCEPT FOR HPI NEUROLOGICAL/PSYCH: NEGATIVE EXCEPT FOR HPI HEMATOLOGIC/LYMPHATIC: NEGATIVE EXCEPT FOR HPI ALL SYSTEMS NEGATIVE, EXCEPT NOTED ABOVE. 13 POINT REVIEW OF SYSTEMS ASSESSED AND ALL NEGATIVE EXCEPT FOR ABOVE. Initial Vital Sign VS Vital Signs Date Time Temp Pulse Resp B/P (MAP) Pulse Ox O2 Delivery O2 Flow Rate FiO2 06/14/25 12:47 98.1 92 22 136/40 95 Room Air 0 06/14/25 17:15 21 Physical Exam Dictation VITAL SIGNS REVIEWED GENERAL APPEARANCE: ALERT, ORIENTED X 3, MILD ACUTE DISTRESS, WELL DEVELOPED, NOURISHED. HEAD AND FACE: NON-TRAUMATIC. EYES: PERRL, PINK CONJUNCTIVAS, EYELID NO TRAUMA, ANTERIOR CHAMBER WITH ARCUS SENILIS. EARS: PINNAS INTACT AND NO SIGNS OF TRAUMA OR ERYTHEMA EAR CANALS CLEAR AND NO DISCHARGE TM NO ERYTHEMA NOSE: NO DISCHARGE, NO BLEEDING. OROPHARYNX: MOUTH NORMAL, TONGUE PINK, PHARYNX CLEAR,NO ERYTHEMA, TONSILS NO EXUDATES, NO ABSCESSES NOTED, MUCOUS MEMBRANE MOIST NECK: SUPPLE, NON-TENDER, NO THYROMEGALY, NO MASSES, NO JVD, NO BRUITS BREAST:DEFERRED CHEST:NO TENDERNESS, NO CREPITUS, NO PARADOXICAL MOVEMENT, NO RETRACTIONS LUNGS:CLEAR, VERY DIMINISHED IN THE BASES. MILD TACHYPNEA HEART: REGULAR RATE, REGULAR RHYTHM, NO MURMUR, NO GALLOPS VASCULAR: NO PERIPHERAL EDEMA, ABDOMEN: SOFT, POSITIVE BOWEL SOUNDS, NONDISTENDED, NO GUARDING, NONTENDER, NO REBOUND, NO MASSES NO HEPATOMEGALY, NO SPLENOMEGALY, NO VAUGHN'S SIGN, NO HERNIAS. RECTAL: DEFERRED GENITAL: DEFERRED NEUROLOGICAL: NORMAL SPEECH, MOTOR FUNCTION INTACT, SENSORY FUNCTION INTACT MUSCULOSKELETAL: NECK NONTENDER, FULL RANGE OF MOTION, BACK NONTENDER, FULL RANGE OF MOTION, EXTREMITIES: NONTENDER, FULL RANGE OF MOTION SKIN: COLOR PINK, DRY, NO TURGOR, NO RASH, NO LACERATIONS, NO ABRASIONS, NO CONTUSIONS. LYMPHATIC: DEFERRED Results (Laboratory/Radiology) Laboratory/Radiology Laboratory Tests Test 06/14/25 13:13 06/14/25 14:28 06/14/25 16:41 White Blood Count 13.4 K/uL (4.8-10.8) H Red Blood Count 5.83 MIL/uL (4.00-5.50) H Hemoglobin 14.0 g/dL (12.0-16.0) Hematocrit 47.2 % (36-48) Mean Corpuscular Volume 81.0 fL (79-99) Mean Corpuscular Hemoglobin 24.0 pg (27.0-33.0) L Mean Corpuscular Hemoglobin Concent 29.7 g/dL (32.0-36.0) L Red Cell Distribution Width 16.5 % (11.0-15.5) H Platelet Count 329 K/uL (130-400) Mean Platelet Volume 8.9 fL (7.5-10.5) Immature Granulocyte % (Auto) 0.4 % (0-1) Neutrophils (%) (Auto) 77.7 % (40.0-77.0) H Lymphocytes (%) (Auto) 12.8 % (21.0-51.0) L Monocytes (%) (Auto) 3.8 % (3.0-13.0) Eosinophils (%) (Auto) 4.8 % (0.0-8.0) Basophils (%) (Auto) 0.5 % (0.0-5.0) Neutrophils # (Auto) 10.4 K/uL (1.8-7.7) H Lymphocytes # (Auto) 1.7 K/uL (1.0-4.8) Monocytes # (Auto) 0.5 K/uL (0.1-1.0) Eosinophils # (Auto) 0.64 K/uL (0.00-0.70) Basophils # (Auto) 0.07 K/uL (0.00-0.20) Absolute Immature Granulocyte (auto 0.06 K/uL (0-1) Nucleated Red Blood Cells 0.0 % (0.0-0.19) Red Blood Cell Morphology See comments Sodium Level 139 mmol/L (136-145) Potassium Level 4.3 mmol/L (3.5-5.1) Chloride Level 101 mmol/L (101-111) Carbon Dioxide Level 31 mmol/L (21-32) Blood Urea Nitrogen 14 mg/dL (7-18) Creatinine 0.6 mg/dL (0.5-1.0) Glomerular Filtration Rate Calc 101 mL/min (>90) Random Glucose 184 mg/dL (70-105) H Lactic Acid Level 2.5 mmol/L (0.8-2.5) 1.8 mmol/L (0.8-2.5) Total Calcium 8.2 mg/dL (8.5-10.1) L Magnesium Level 2.20 mg/dL (1.80-2.40) Troponin I High Sensitivity 6 ng/L (4-50) B-Type Natriuretic Peptide 30 pg/mL (0-100) Urine Color YELLOW (YELLOW) Urine Appearance CLEAR (CLEAR) Urine pH 6.0 (5.0-8.0) Urine Specific [place] 1.024 (1.001-1.031) Urine Protein NEGATIVE mg/dL (NEGATIVE) Urine Glucose (UA) NEGATIVE mg/dL (NEGATIVE) Urine Ketones NEGATIVE mg/dL (NEGATIVE) Urine Occult Blood NEGATIVE (NEGATIVE) Urine Nitrate NEGATIVE (NEGATIVE) Urine Bilirubin NEGATIVE mg/dL (NEGATIVE) Urine Urobilinogen 0.2 mg/dL (0.2-1.0) Urine Leukocyte Esterase NEGATIVE Francis/uL 1405/BILATERAL LOWER LOBE PNEUMONIA Labs Reviewed?: Yes EKG Comment: 1251/EKGS SINUS RHYTHM/HEART RATE 98/AXIS NORMAL/T-WAVE INVERSION IN LEADS V4 V5 ED Course ED Course Orders Procedure Category Date Status Time Blood Cult ISIDRA 06/14/25 In Process 13:01 Lactic Acid LAB 06/14/25 Complete 13:01 Cbc With Differential LAB 06/14/25 Complete 13:01 Chest 1vw RAD 06/14/25 Resulted 13:01 12 Lead Ekg Tracing- EKG 06/14/25 Complete Technical 13:01 Magnesium LAB 06/14/25 Complete 13:01 Troponin I High LAB 06/14/25 Complete Sensitivity 13:01 Basic Metabolic Panel LAB 06/14/25 Complete 13:01 B-Type Natriuretic LAB 06/14/25 Complete Peptide 13:02 Methylprednisolone PHA 06/14/25 Complete Succ 125mg (Solu-Medr 13:30 Azithromycin 500mg+Ns PHA 06/14/25 Complete 250ml (Azithromyci 14:05 Ceftriaxone 2gm Vial PHA 06/14/25 Complete (Rocephin 2gm Inj) 14:30 Albuterol 0.083% PHA 06/14/25 Complete 2.5mg/3ml (Proventil 14:30 Lactic Acid (Removed) LAB 06/14/25 Complete 16:21 Urinalysis Profile LAB 06/14/25 Complete 17:47 Current Medications Medications (Trade) Dose Ordered Sig/Lester Route PRN Reason Start Time Stop Time Status Last Admin Dose Admin Albuterol Sulfate (Proventil 0.083% 2.5mg/3ml) 2.5MG ONCE ONCE IH 06/14/25 14:30 06/14/25 14:31 DC 06/14/25 14:28 Azithromycin 250 ml @ 250 mls/hr ONCE STAT IVPB 06/14/25 14:05 06/14/25 15:04 DC 06/14/25 15:12 Ceftriaxone Sodium (Rocephin 2gm Inj) 2 gm ONCE ONCE IVPB 06/14/25 14:30 06/14/25 14:31 DC 06/14/25 14:30 Methylprednisolone Sodium Succinate (Solu-medROL 125MG) 125 mg ONCE ONCE IVP 06/14/25 13:30 06/14/25 13:31 DC 06/14/25 14:30 Vital Signs Date Time Temp Pulse Resp B/P (MAP) Pulse Ox O2 Delivery O2 Flow Rate FiO2 06/14/25 18:35 98.2 100 20 90/65 94 Nasal Cannula* 4 36 06/14/25 17:15 98.2 80 18 135/87 98 Room Air* 0 21 06/14/25 14:31 91 28 06/14/25 12:47 98.1 92 22 136/40 95 Room Air 0 1840/SPOKE WITH ROSA BRIE HOSPITALIST REVIEWED EKG LABS CHEST X-RAY AND INTERVENTIONS FOR SEPSIS AND PNEUMONIA SHE AGREED TO ADMIT PATIENT HEART Score Response (Comments) Value EKG: Repolarization changes 1 Age: 45-65yrs (+1) 1 Risk Factors: 1-2 risk factors (+1) 1 Initial Troponin: Normal limit (0) 0 Total 3 Medical Decision Making MDM MDM: DIFFERENTIAL DIAGNOSIS: PNEUMONIA/BRONCHITIS/ELECTROLYTE IMBALANCE/HEAT DEHYDRATION//PNEUMONIA/BRONCHITIS/POST COVID SYNDROME RATIONALE: TESTS CONSIDERED AND ORDERED SECONDARY TO SHARED DECISION MAKING INCLUDE: LABS, ECG AND RADIOLOGY PREVIOUS OUTSIDE RECORDS REVIEWED: OLD ER VISITS. RISK OF COMPLICATION AND/OR MORBIDITY OR MORTALITY OF PATIENT MANAGEMENT: NONE MEDICATIONS-PER MEDICATION RECONCILIATION NEED FOR HOSPITALIZATION: PATIENT DOES MEET CRITERIA FOR HOSPITALIZATION. PATIENT WILL NEED BE ADMITTED FOR BILATERAL PNEUMONITIS RESPIRATORY SUPPORT ANTIBIOTICS. NEED FOR EMERGENCY MAJOR/MINOR SURGERY: NO THERE ARE NO SOCIAL CONCERNS WITH THIS PATIENT. PRESCRIPTION DRUG MANAGEMENT PRESCRIPTIONS WILL INCLUDE SYMPTOMATIC CARE PATIENT'S PRIOR EXTERNAL MEDICAL RECORDS FROM OTHER ER VISITS WERE REVIEWED BY ME INDICATED. PRIOR TESTING AND RESULTS FROM PREVIOUS VISITS WERE REVIEWED. PRIOR TESTS WERE TAKEN INTO ACCOUNT WITH MEDICAL DECISION MAKING AND RESOURCE UTILIZATION, INDEPENDENT HISTORIAN/HISTORIANS WERE USED TO OBTAIN COMPLETE MEDICAL HISTORY. I INDEPENDENTLY INTERPRETED THE TEST THAT WERE PERFORMED, RESULTS WERE REVIEWED BY ME AND CONSIDERED FINDINGS ON RADIOLOGY IF ORDERED. MEDICAL MANAGEMENT AND EXAMINATION INTERPRETATION DISCUSSIONS WERE HAD BY ME WITH OTHER QUALIFIED HEALTHCARE PROFESSIONALS INDICATED FOR THE PATIENT'S CARE. DX & DISP Disposition: Inpatient Decision to Admit Time: 18:16 Departure Impression: Primary Impression: Bilateral pneumonia Additional Impressions: Post-COVID syndrome, Uncontrolled diabetes mellitus, Hypocalcemia, Sepsis Condition: Stable Scripts No Active Prescriptions or Reported Meds Referrals: SELF,REFERRAL (PCP) Time of Disposition: 18:16 I have reviewed the case, and I agree with, Diagnosis and Plan JONAH MONAE NP Jun 14, 2025 13:03
[2025-06-14 13:20] LABS: IMMATURE GRANULOCYTE ABSOLUTE 0.06 K/uL (0-1); NUCLEATED RED BLOOD CELLS 0.0 % (0.0-0.19); PLATELET COUNT (AUTO) 329 K/uL (130-400); RED BLOOD CELL COUNT(AUTO) 5.83 MIL/uL (4.00-5.50); RED CELL DISTRIBUTION WIDTH 16.5 % (11.0-15.5); WHITE BLOOD COUNT (AUTO) 13.4 K/uL (4.8-10.8)
[2025-06-14 13:29] LABS: CREATININE 0.6 mg/dL (0.5-1.0); GLOMERULAR FILTR. RATE CALC 101.0 mL/min (>90); GLUCOSE,RANDOM 184.0 mg/dL (70-105); SODIUM SERUM 139.0 mmol/L (136-145); UREA NITROGEN, BLOOD 14.0 mg/dL (7-18)
--- NOTE | 2025-06-14 14:27 | NUR ---
ASSUMED CARE AT THIS TIME PT MOVED FORM LOBBY INTO ER ROOM 10
[2025-06-14] MEDS: ALBUTEROL 0.083% 2.5 MG/3 ML INH IH ONE (14:28)
[2025-06-14 14:31] VITALS: PULSE 91; RESP 28
--- NOTE | 2025-06-14 14:40 | HMCIMG ---
Frontal chest. Comparison: No prior Findings: There is cardiac enlargement with pulmonary venous congestion. There is no acute fracture or pneumothorax. Impression: Moderate congestive heart failure. /[place]
[2025-06-14] MEDS: AZITHROMYCIN 500MG+NS 250ML 250 ML IVPB STA (15:12)
[2025-06-14 17:54] LABS: APPEARANCE,URINE CLEAR (CLEAR); GLUCOSE, URINE (UA) NEGATIVE (NEGATIVE); LEUKOCYTE ESTERASE ,URINE NEGATIVE Leu/uL (NEGATIVE); NITRATE,URINE NEGATIVE (NEGATIVE); OCCULT BLOOD,URINE NEGATIVE (NEGATIVE)
[2025-06-14 17:57] LABS: ADD UA MICROSCOPIC NO
--- NOTE | 2025-06-14 18:23 | EKG ---
[facility] Test Date: 2025-06-14 Test Time: 12:51:49 Pat Name: TOM BUTTS Department: ED Room: 203 Gender: F Human Resources Specialist: [id number] : [id number] Requested By: JONAH MONAE Order Number: [id number] Reading MD: Kassy Lewis Measurements Intervals [place] Rate: 98 P: 29 IL: 132 QRS: 31 QRSD: 84 T: 3 QT: 368 QTc: 470 Interpretive Statements Sinus rhythm Nonspecific T abnrm, anterolateral leads Compared to ECG 08/15/2021 14:02:14 No significant changes Electronically Signed On 06-15-2025 16:11:22 CDT by Kassy Lewis Please click the below link to view image of tracing.
--- NOTE | 2025-06-14 19:51 | HP ---
[facility] Date of Service: Jun 14, 2025 Time of Service: 19:31 PCP: Wes Gaytan HISTORY OF PRESENT ILLNESS: This is a 60-year-old female with past medical history of hypertension, obesity, Chronic obstructive pulmonary disease and chronic respiratory failure on home O2 who presents to the ED with complaints of worsening shortness of breaths on exertion and productive cough.Patient states she was admitted before and had Covid pneumonia and got intubated and had a tracheostomy and eventually she weaned off the trache and was sent home on Home O2 that was in 2020 and eversince then she was dependent with oxygen at home at all times.Patient reports she has ongoing problem with shortness of breath and cough however it started to gradually worsened over the last 2 weeks and usually more worse at night night.Patient reports last night was really the worst because she was having persistent cough and hurts her chest from frequent coughing so she waited until today to come to the Ed for evaluation.Patient reports she has increased production of white thick phlegm. On examination,patient is wake ,alert and coherent .Patient reports she used to ambulate in short distances without problem ,recently she noticed she gets very short of breath by just merely talking.Patient denies fever,chill,chest pain,palpitation,nausea,vomiting and abdominal pain. Vital signs temperature 98.2, heart rate 100, blood pressure 90/65 saturation 94% at 4 L nasal cannula. Labs: WBC 13 with negative left shift of neutrophils 77, hemoglobin 14, hematocrit 47 platelet count 329. Glucose 184, lactic acid 2.5-1.8 troponin six, BNP 30. Urinalysis is normal. ECG result revealed sinus rhythm heart rate 98. Chest x-ray result revealed moderate congestive heart failure. While in the ER patient received Solu-Medrol 125 mg IV, azithromycin IV Rocephin IV and albuterol neb treatment. We will admit patient for further medical management. REVIEW OF SYSTEMS CONSTITUTIONAL: Denies fevers, chills, or night sweats. No unintentional weight loss reported. NEUROLOGICAL: Denies headache, amaurosis fugax, motor weakness, sensory deficit, vertigo/spinning sensation, gait abnormalities, or tremors. ENT: No hearing loss, otalgia, otorrhea, rhinitis, rhinorrhea, hoarseness, or sore throat. CARDIOVASCULAR: Denies any exertional angina, dyspnea on exertion, orthopnea, paroxysmal nocturnal dyspnea, palpitations, life-threatening arrhythmias, claudication. PULMONARY: Complaints for shortness of breaths, and productive cough with pleuritic chest pain Denies, hemoptysis SLEEP: Denies morning headaches, daytime somnolence or napping. Denies difficulty falling asleep, staying asleep, waking from sleep. Denies knowledge of snoring. GASTROINTESTINAL: Denies any type of dysphagia to either liquids or solids. Denies nausea, vomiting, pyrosis, early satiety, abdominal pain, diarrhea, constipation, or changes in stool consistency or caliber. Denies coffee-ground emesis, hematemesis, hematochezia, or melanotic stools. GENITOURINARY: Denies frequency, urgency, nocturia, hematuria or incontinence (Storage/Irritative symptoms.) Low urinary stream, straining to void, urinary intermittency or hesitancy, splitting of the voiding stream, terminal dribbling. ENDOCRINOLOGIC: Denies polyuria, polydipsia, polyphagia or heat/cold intolerances. HEMATOLOGIC: Denies thrombophilia/previous clots, or coagulopathy/bleeding di sorders. ONCOLOGIC: Denies personal history of malignancy. DERMATOLOGIC: Denies rashes or pruritus. PSYCHIATRIC: Denies any suicidal or homicidal ideation. Denies hallucinations. PAST MEDICAL HISTORY: [ obesity, COVID intubated and was on trache , chronic respiratory failure on home O2 at 2.5 L per nasal cannula hypertension, anxiety, depression, anemia and GERD ] PAST SURGICAL HISTORY: [Previous Tracheostomy , PEG tube, Appendectomy, cholecystectomy, x4 and BTL, ] PAST SOCIAL HISTORY: [Patient lives with Richard Carlin. Patient denies alcohol tobacco and recreational drug use. ] FAMILY HISTORY: [Hypertension and diabetes ] Coded Allergies: gabapentin (Unverified Allergy, Severe, AMS. ANXIETY, 06/14/25) meropenem (Verified Adverse Reaction, Mild, 07/09/21) Acute DILI PHYSICAL EXAM GENERAL APPEARANCE: The patient is awake, alert, and oriented, in no acute cardiopulmonary distress. NEUROLOGICAL: Cranial nerves II-XII grossly intact. Motor is 5/5 in bilateral upper and lower extremities proximal to distal. No sensory deficits. HEENT: Face is symmetric. Pupils are equal and reactive. Extraocular movements are intact. NECK: Supple. No JVD. No thyromegaly. No submental, submandibular, pre- /postauricular, occipital or supraclavicular lymphadenopathy. CHEST: Normal chest expansion. No Telemetry. LUNGS: Diminished breath sounds on bilateral lung bases per auscultation CARDIOVASCULAR: Regular. S1 and S2 normal. No appreciable rubs, murmurs or gallops. ABDOMEN: obese Soft, nontender, and nondistended. There is no rebound, voluntary guarding, or rigidity. : Deferred. No Posey. EXTREMITIES: Non-edematous and not cyanotic. No clubbing. Good capillary refill. SKIN: No skin breakdown. Vital Sign (Last 24 Hours) 06/14/25 18:35 Temp 98.2 Pulse 100 Resp 20 B/P (MAP) 90/65 Pulse Ox 94 O2 Delivery Nasal Cannula* O2 Flow Rate 4 FiO2 36 LABS: Laboratory: Test 06/14/25 16:41 06/14/25 14:28 06/14/25 13:13 Range/Units Lactic Acid Level 1.8 0.8-2.5 mmol/L Urine Color YELLOW YELLOW Urine Appearance CLEAR CLEAR Urine pH 6.0 5.0-8.0 Urine Specific [place] 1.024 1.001-1.031 Urine Protein NEGATIVE NEGATIVE mg/dL Urine Glucose (UA) NEGATIVE NEGATIVE mg/dL Urine Ketones NEGATIVE NEGATIVE mg/dL Urine Occult Blood NEGATIVE NEGATIVE Urine Nitrate NEGATIVE NEGATIVE Urine Bilirubin NEGATIVE NEGATIVE mg/dL Urine Urobilinogen 0.2 0.2-1.0 mg/dL Urine Leukocyte Esterase NEGATIVE NEGATIVE Francis/uL White Blood Count 13.4 H 4.8-10.8 K/uL Red Blood Count 5.83 H 4.00-5.50 MIL/uL Hemoglobin 14.0 12.0-16.0 g/dL Hematocrit 47.2 36-48 % Mean Corpuscular Volume 81.0 79-99 fL Mean Corpuscular Hemoglobin 24.0 L 27.0-33.0 pg Mean Corpuscular Hemoglobin Concent 29.7 L 32.0-36.0 g/dL Red Cell Distribution Width 16.5 H 11.0-15.5 % Platelet Count 329 130-400 K/uL Mean Platelet Volume 8.9 7.5-10.5 fL Immature Granulocyte % (Auto) 0.4 0-1 % Neutrophils (%) (Auto) 77.7 H 40.0-77.0 % Lymphocytes (%) (Auto) 12.8 L 21.0-51.0 % Monocytes (%) (Auto) 3.8 3.0-13.0 % Eosinophils (%) (Auto) 4.8 0.0-8.0 % Basophils (%) (Auto) 0.5 0.0-5.0 % Neutrophils # (Auto) 10.4 H 1.8-7.7 K/uL Lymphocytes # (Auto) 1.7 1.0-4.8 K/uL Monocytes # (Auto) 0.5 0.1-1.0 K/uL Eosinophils # (Auto) 0.64 0.00-0.70 K/uL Basophils # (Auto) 0.07 0.00-0.20 K/uL Absolute Immature Granulocyte (auto 0.06 0-1 K/uL Nucleated Red Blood Cells 0.0 0.0-0.19 % Red Blood Cell Morphology See comments Sodium Level 139 136-145 mmol/L Potassium Level 4.3 3.5-5.1 mmol/L Chloride Level 101 101-111 mmol/L Carbon Dioxide Level 31 21-32 mmol/L Blood Urea Nitrogen 14 7-18 mg/dL Creatinine 0.6 0.5-1.0 mg/dL Glomerular Filtration Rate Calc 101 >90 mL/min Random Glucose 184 H 70-105 mg/dL Total Calcium 8.2 L 8.5-10.1 mg/dL Magnesium Level 2.20 1.80-2.40 mg/dL Troponin I High Sensitivity 6 4-50 ng/L B-Type Natriuretic Peptide 30 0-100 pg/mL Current Medications Medications (Trade) Dose Ordered Sig/Lester Route PRN Reason Start Time Stop Time Status Last Admin Dose Admin Azithromycin 250 ml @ 250 mls/hr ONCE STAT IVPB 06/14/25 14:05 06/14/25 15:04 DC 06/14/25 15:12 250 MLS/HR DIAGNOSTICS / RADIOLOGY: [ ] ASSESSMENT: Acute on chronic respiratory failure on home O2 POA Post COVID syndrome POA Suspected bilateral pneumonia POA Sepsis POA Hyperglycemia POA Obesity POA Hypertension POA PLAN: We will admit patient in PCCU We will start on heart healthy diet We will continue Rocephin and azithromycin for broad-spectrum coverage We will start Solu-Medrol 40 mg IV b.i.d. x2 doses and re-evaluate We will start on famotidine 20 mg p.o. b.i.d. for GI prophylaxis We will replace electrolytes as needed per protocol We will start on insulin sliding scale AC & HS with hypoglycemia protocol We will add prn medication for fever,pain,cough , nausea and vomiting We will reconcile home meds once medlist available We will continue oxygen supplementation and neb treatment to keep saturation above 92% We will request for respiratory culture and blood culture follow-up result We will obtain CT chest without contrast and follow-up result We will seek pulmonology consultation We will request labs in am Further orders to follow depending on above results Case discussed with attending physician and came up with above treatment and plan of care. ADVANCED CARE PLANNING 1. Which of the following were discussed? Hospice Care - No Therapeutic options - Yes Advance Directives - No Other discussions - 2. Discussed with who? Patient and Gwyn Carlin 3. Voluntary nature of this service was explained to the patient? Yes 4. Amount of time spent - ___24 min____ 5. Reviewed by Physician? (if this service was performed by NPP) Yes Patient seen and examined by me. Agree with note by LOOP CUTTER SEE ADDITIONAL ORDERS PER CHART DISCUSSED WITH NURSING STAFF ART JOHANSEN PHYSICIAN CODER Jun 14, 2025 19:51
[2025-06-14] MEDS ORDERED: MONT-39 PO (20:45)
[2025-06-14] MEDS ORDERED: HYDR-3421 PO (20:45)
[2025-06-14] MEDS ORDERED: ASPI-1197 PO (20:45)
[2025-06-14] MEDS: FAMOTIDINE 20MG TAB PO SCH (20:55)
[2025-06-14 21:10] VITALS: BP 131/61; PULSE 104; RESP 30; TEMP 98
[2025-06-14 21:14] VITALS: PULSE 98; RESP 26; O2SAT 98
[2025-06-14] MEDS: SODIUM CHLORIDE 3% FOR INHALATION 4 ML/AMP VIAL.NEB IH ONE (21:26)
--- NOTE | 2025-06-14 21:37 | HMCIMG ---
EXAM: CT Chest Without Intravenous Contrast. CLINICAL HISTORY: 60-year-old female with shortness of breath. TECHNIQUE: Axial computed tomography images of the chest without intravenous contrast. Dose reduction technique was used including one or more of the following: automated exposure control, adjustment of mA and kV according to patient size, and/or iterative reconstruction. CONTRAST: Without; COMPARISON: None provided. FINDINGS: LUNGS: Atelectasis and scarring at the lung bases. Question interstitial pneumonitis, correlate clinically. No pulmonary mass. No focal airspace consolidation. PLEURAL SPACES: No pleural effusion. No pneumothorax. HEART AND MEDIASTINUM: No cardiomegaly. No significant pericardial effusion. LYMPH NODES: No lymphadenopathy. CHEST WALL AND UPPER ABDOMEN: Small hiatal hernia. The upper abdominal solid organs are unremarkable. The chest wall is unremarkable. BONES: Mild degenerative changes of the thoracic spine. IMPRESSION: 1. Question interstitial pneumonitis, correlate clinically. 2. Atelectasis and scarring at the lung bases. /[place]
--- NOTE | 2025-06-14 22:17 | NUR ---
AT THIS TIME RECEIVED REPORT FROM ANDRA WASHBURN RN. PATIENT COMING TO ROOM 203. PER REPORT PATIENT ON OXYGEN AT 4L PER MINUTE VIA NASAL CANULA. [id number].
[2025-06-14 23:35] VITALS: BP 143/78; PULSE 107; RESP 18; TEMP 98.4
[2025-06-15] VITALS (17 sets, daily range): BP systolic 121–140; BP diastolic 68–78; PULSE 90–108; RESP 18–24; TEMP 98–98.2; O2SAT 92–100
[2025-06-15] MEDS: guaiFENesin-DM 200/20MG 10ML PO PRN (00:22)
[2025-06-15 05:18] LABS: IMMATURE GRANULOCYTE ABSOLUTE 0.07 K/uL (0-1); NUCLEATED RED BLOOD CELLS 0.0 % (0.0-0.19); PLATELET COUNT (AUTO) 310 K/uL (130-400); RED BLOOD CELL COUNT(AUTO) 5.61 MIL/uL (4.00-5.50); RED CELL DISTRIBUTION WIDTH 16.1 % (11.0-15.5); WHITE BLOOD COUNT (AUTO) 12.0 K/uL (4.8-10.8)
[2025-06-15 05:46] LABS: ASPARTATE AMINOTRANSFERASE 15.0 U/L (10-37); CREATININE 0.7 mg/dL (0.5-1.0); GLOMERULAR FILTR. RATE CALC 98.0 mL/min (>90); GLUCOSE,RANDOM 203.0 mg/dL (70-105); SODIUM SERUM 139.0 mmol/L (136-145); TOTAL PROTEIN, SERUM 8.4 g/dL (6.0-8.3); UREA NITROGEN, BLOOD 13.0 mg/dL (7-18)
[2025-06-15] MEDS: Solu-medROL 40MG VIAL IVP SCH ×2 (08:57→09:00)
--- NOTE | 2025-06-15 09:02 | CONS ---
[facility] CONSULTATION NOTE Date Patient Seen: Jun 15, 2025 Time of Visit: 09:02 Supervising Physician: CHRISTA IRVIN MD Reason for Consultation: SOB AND DYSPNEA Primary Care Physician: JESSICA CANTOR MD Outpatient Specialists: Inpatient Consults: MEÑO PROBLEM LIST: Acute on chronic hypoxemic respiratory failure on home O2 POA post covid pulmonary fibrosis POA Bilateral CAP, POA Sepsis POA Hyperglycemia POA Hypertension POA Obesity BMI 35.5 HPI: This is a 60-year-old obese female with a past medical history of hypertension, obesity, BLE neuropathy, post COVID pulmonary fibrosis, and chronic hypoxemic respiratory failure on home O2 at 1.5 L who presented to the ED for worsening shortness of breaths on exertion and a productive cough. Per pt she reports prior history of covid pneumonia in nd spent approximately 45 days in the hospital and ICU setting. She reports prior history of intubation and a prior trachestomy now post closure. She was admitted by the hospitalist team for suspected community-acquired pneumonia and we are consulted for worsening hypoxemic respiratory failure. On assessment patient is awake alert and oriented x3. Currently on 3 L via nasal cannula in no apparent distress. Patient reports she usually uses 1.5 L at home. White count trending down 12.0 today hemoglobin and hematocrit are stable platelet count within normal limit neutrophils are elevated 88.8. Chemistry does show good kidneys with a creatinine of 0.7 GFR of 98 glucose of 203 mg/dL CRP of 26.70 initial troponin was normal procalcitonin less than 0.05. Influenza and COVID are negative. Urinalysis unremarkable. Sputum culture growing Gram-positive cocci in chains and clusters. CT of the chest shows questionable interstitial pneumonitis, correlate clinically. Atelectasis and scarring of the lung bases. RECOMMENDATIONS: -change Rocephin to Cefepime and add vancomycin -continue azithromycin -continue nebs with atrovent -no need for inhaled steroids at this time. -continue with systemic steroids solu-medrol 40mg IVP q 8H -continue Singulair - ABG - chest XR in am -IS q 2 hrs while awake - acapella with neb Treatment -Arrange outpatient pulmonology appt for sleep study, PFT and follow-up management upon discharge -Continue PT/OT -Continue GI and DVT prophylaxis -Full Resuscitation -dispo per primary team Other: Total patient care time exceeds 35 minutes excluding all procedures. PAST MEDICAL HX: see above PAST SURGICAL HX: noncontributory SOCIAL HISTORY: No tobacco, ETOH, or illicit drug use Coded Allergies: gabapentin (Unverified Allergy, Severe, AMS. ANXIETY, 06/14/25) meropenem (Verified Adverse Reaction, Mild, 07/09/21) Acute DILI REVIEW OF SYSTEMS: 12 point ROS reviewed with patient. Pertinent positives mentioned above. Otherwise negative. PHYSICAL EXAM: GENERAL: alert, weak, awake oriented x 3 HEENT: EOMI, Sclera non icteric, moist mucosa NECK: Supple, no JVD, trachea midline LUNGS: Diminished breath sounds bilaterally. No wheezes HEART: Regular rate and rhythm. Normal S1 and S2, without murmurs ABD: Abdomen soft, nontender. Bowel sounds present EXT: No clubbing cyanosis or edema NEURO: Alert and oriented to person, follows commands Vital Signs (last 8hr) Date Time Temp Pulse Resp B/P (MAP) Pulse Ox O2 Delivery O2 Flow Rate FiO2 06/15/25 07:00 98.1 102 20 121/68 100 Nasal Cannula 4.0 06/15/25 06:44 90 24 N/Cannula Low lpm 3.0 32 06/15/25 06:41 90 24 06/15/25 04:00 98.1 108 18 126/77 98 Nasal Cannula 4.0 06/15/25 01:34 94 22 N/Cannula Low lpm 4.0 36 06/15/25 01:34 94 22 LABS: Hematology Labs: Test 06/15/25 04:30 06/14/25 13:13 Range/Units White Blood Count 12.0 H 4.8-10.8 K/uL Red Blood Count 5.61 H 4.00-5.50 MIL/uL Hemoglobin 13.4 12.0-16.0 g/dL Hematocrit 45.2 36-48 % Mean Corpuscular Volume 80.6 79-99 fL Mean Corpuscular Hemoglobin 23.9 L 27.0-33.0 pg Mean Corpuscular Hemoglobin Concent 29.6 L 32.0-36.0 g/dL Red Cell Distribution Width 16.1 H 11.0-15.5 % Platelet Count 310 130-400 K/uL Mean Platelet Volume 8.9 7.5-10.5 fL Immature Granulocyte % (Auto) 0.6 0-1 % Neutrophils (%) (Auto) 88.8 H 40.0-77.0 % Lymphocytes (%) (Auto) 7.6 L 21.0-51.0 % Monocytes (%) (Auto) 2.8 L 3.0-13.0 % Eosinophils (%) (Auto) 0.0 0.0-8.0 % Basophils (%) (Auto) 0.2 0.0-5.0 % Neutrophils # (Auto) 10.6 H 1.8-7.7 K/uL Lymphocytes # (Auto) 0.9 L 1.0-4.8 K/uL Monocytes # (Auto) 0.3 0.1-1.0 K/uL Eosinophils # (Auto) 0.00 0.00-0.70 K/uL Basophils # (Auto) 0.02 0.00-0.20 K/uL Absolute Immature Granulocyte (auto 0.07 0-1 K/uL Nucleated Red Blood Cells 0.0 0.0-0.19 % White Cell Morphology Comment See comments Red Blood Cell Morphology See comments Chemistry Labs: Test 06/15/25 04:30 06/14/25 16:41 06/14/25 13:13 Range/Units Sodium Level 139 136-145 mmol/L Potassium Level 5.1 3.5-5.1 mmol/L Chloride Level 101 101-111 mmol/L Carbon Dioxide Level 29 21-32 mmol/L Blood Urea Nitrogen 13 7-18 mg/dL Creatinine 0.7 0.5-1.0 mg/dL Glomerular Filtration Rate Calc 98 >90 mL/min Random Glucose 203 H 70-105 mg/dL Total Calcium 8.8 8.5-10.1 mg/dL Magnesium Level 2.50 H 1.80-2.40 mg/dL Total Bilirubin 0.4 0.2-1.0 mg/dL Aspartate Amino Transf (AST/SGOT) 15 10-37 U/L Alanine Aminotransferase (ALT/SGPT) 14 12-78 U/L Alkaline Phosphatase 88 50-136 U/L Troponin I High Sensitivity 5 4-50 ng/L C-Reactive Protein, Quantitative 26.70 H 0.5-3.0 mg/L Total Protein 8.4 H 6.0-8.3 g/dL Albumin 3.1 L 3.5-5.0 g/dL Procalcitonin < 0.05 L 0.05-0.5 ng/mL Lactic Acid Level 1.8 0.8-2.5 mmol/L Hemoglobin A1c 6.4 H 4.0-6.0 % Estimated Average Glucose (eAG) 137 H 70-126 mg/dL B-Type Natriuretic Peptide 30 0-100 pg/mL DIAGNOSTICS / RADIOLOGY RESULTS: [[facility] [address] [place] [address] IMAGING REPORT Addendum PATIENT: TOM BUTTS MR#: [id number] : 1965 SEX: F AGE: 60 LOCATION: [facility] ORDER 50 STATUS: ADM IN REPORT#: [id number] SERVICE 34 REASON: sob ORDERING PHYSICIAN: RAIN JOHANSEN [employer] PROCEDURE: CHEST WO - CT CHEST W/O CONTRAST ADDENDUM REPORT ADDENDUM: Results were shared by telephone at 10:46 pm on 06-14-25 and acknowledged by Nurse Practitioner Rain Johansen. /[place] EXAM: CT Chest Without Intravenous Contrast. CLINICAL HISTORY: 60-year-old female with shortness of breath. TECHNIQUE: Axial computed tomography images of the chest without intravenous contrast. Dose reduction technique was used including one or more of the following: automated exposure control, adjustment of mA and kV according to patient size, and/or iterative reconstruction. CONTRAST: Without; COMPARISON: None provided. FINDINGS: LUNGS: Atelectasis and scarring at the lung bases. Question interstitial pneumonitis, correlate clinically. No pulmonary mass. No focal airspace consolidation. PLEURAL SPACES: No pleural effusion. No pneumothorax. HEART AND MEDIASTINUM: No cardiomegaly. No significant pericardial effusion. LYMPH NODES: No lymphadenopathy. CHEST WALL AND UPPER ABDOMEN: Small hiatal hernia. The upper abdominal solid organs are unremarkable. The chest wall is unremarkable. BONES: Mild degenerative changes of the thoracic spine. IMPRESSION: 1. Question interstitial pneumonitis, correlate clinically. 2. Atelectasis and scarring at the lung bases. /[place] DICTATED BY: DEWAYNE TORRES MD DATE: 06/14/252247 ELECTRONICALLY SIGNED BY: DATE: EXAM: CT Chest Without Intravenous Contrast. CLINICAL HISTORY: 60-year-old female with shortness of breath. TECHNIQUE: Axial computed tomography images of the chest without intravenous contrast. Dose reduction technique was used including one or more of the following: automated exposure control, adjustment of mA and kV according to patient size, and/or iterative reconstruction. CONTRAST: Without; COMPARISON: None provided. FINDINGS: LUNGS: Atelectasis and scarring at the lung bases. Question interstitial pneumonitis, correlate clinically. No pulmonary mass. No focal airspace consolidation. PLEURAL SPACES: No pleural effusion. No pneumothorax. HEART AND MEDIASTINUM: No cardiomegaly. No significant pericardial effusion. LYMPH NODES: No lymphadenopathy. CHEST WALL AND UPPER ABDOMEN: Small hiatal hernia. The upper abdominal solid organs are unremarkable. The chest wall is unremarkable. BONES: Mild degenerative changes of the thoracic spine. IMPRESSION: 1. Question interstitial pneumonitis, correlate clinically. 2. Atelectasis and scarring at the lung bases. /[place] DICTATED BY: DEWAYNE TORRES MD DATE: 06/14/252235 ELECTRONICALLY SIGNED BY: DEWAYNE TORRES MD DATE: 06/14/252235 ] ATTESTATION BY PHYSICIAN The patient has been seen and evaluated, the case has been discussed with the UNIX SYSTEM ADMINISTRATOR, I agree with the clinical findings and plan of care. HONG FINN MD Jun 15, 2025 09:02
[2025-06-15 09:16] LABS: ABG BASE EXCESS -2.1 mmol/L (-2.0-3.0); ABG HCO3 22.8 mmol/L (21.0-28.0); ABG OXYGEN SATURATION 94.0 % (94.0-98.0); ABG PCO2 40 mmHg (32-45); ABG PH 7.379 (7.350-7.450); DEVICE COMMENT LR NELLY NP; PO2, ARTERIAL BG 71.0 mmHg (83.0-108.0); TEMPERATURE, CELSIUS BG 37.0 CELSIUS (35.5-37.0); VENT MODE, BG 3LNC (ROOM AIR)
[2025-06-15 11:09] LABS: COVID19 (SARS ANTIGEN RAPID) PRESUMPTIVE NEGATIVE (NEGATIVE); INFLUENZA TYPE A Negative For Type A (NEGATIVE); INFLUENZA TYPE B Negative For Type B (NEGATIVE)
--- NOTE | 2025-06-15 13:25 | NUR ---
DCP: HOME sw met with pt who is on SSD, lives with her Gwyn Carlin [phone]. Pt is O2 dependent, has O2 concentrator, portable concentrator, portable tanks thru [facility]. Pt states she is able o complete self care on her own, family assist with home care and meal prep as needed. Pt also has elevated toilet seat and w/c she uses. No provider, HH or HD services. PCP is Lukas Harvey and uses [facility]ta for rx. DCP is home, family will transport Addendum: 06/15/25 at 1334 by EDVORA MUJICA Amended: Links added.
[2025-06-15] MEDS: AZITHROMYCIN 500MG+NS 250ML 250 ML IV SCH (14:22)
--- NOTE | 2025-06-15 16:01 | PN ---
[facility] PROGRESS NOTE Date of Service: Jun 15, 2025 Time of Service: 9:20 SUBJECTIVE: This is a 60-year-old female with past medical history of hypertension, obesity, Chronic obstructive pulmonary disease and chronic respiratory failure on home O2 who presents to the ED with complaints of worsening shortness of breaths on exertion and productive cough.Patient states she was admitted before and had Covid pneumonia and got intubated and had a tracheostomy and eventually she weaned off the trache and was sent home on Home O2 that was in 2020 and eversince then she was dependent with oxygen at home at all times.Patient reports she has ongoing problem with shortness of breath and cough however it started to gradually worsened over the last 2 weeks and usually more worse at night night.Patient reports last night was really the worst because she was having persistent cough and hurts her chest from frequent coughing so she waited until today to come to the Ed for evaluation.Patient reports she has increased production of white thick phlegm. On examination,patient is wake ,alert and coherent .Patient reports she used to ambulate in short distances without problem ,recently she noticed she gets very short of breath by just merely talking.Patient denies fever,chill,chest p ain,palpitation,nausea,vomiting and abdominal pain. Vital signs temperature 98.2, heart rate 100, blood pressure 90/65 saturation 94% at 4 L nasal cannula. Labs: WBC 13 with negative left shift of neutrophils 77, hemoglobin 14, hematocrit 47 platelet count 329. Glucose 184, lactic acid 2.5-1.8 troponin six, BNP 30. Urinalysis is normal. ECG result revealed sinus rhythm heart rate 98. Chest x-ray result revealed moderate congestive heart failure. While in the ER patient received Solu-Medrol 125 mg IV, azithromycin IV Rocephin IV and albuterol neb treatment. We will admit patient for further medical management. 06/15/2025 Patient was seen and examined at bedside. She is currently on 3 L oxygen nasal cannula. She has been tachycardic with heart rate 108, tachypneic (24) with WBC 12K, 88.8% neutrophil count. CRP was 26.70. She fulfills SIRS criteria (3/4). CT chest without contrast showed suspected interstitial pneumonitis with Atelectasis and scarring at the lung bases. Lung auscultation revealed dry crackles. She complained of pain in her teeth which could be due to post COVID syndrome or infection. Facial x-ray has been ordered. Patient is currently receiving Rocephin and azithromycin for coverage of community-acquired pneumonia. She has also been started on Solu-Medrol and albuterol, ipratropium. We are pending sputum culture with gram stain as well as blood culture. COVID and influenza have been negative. Pulmonology consult is on board. REVIEW OF SYSTEMS CONSTITUTIONAL: Denies fevers, chills, or night sweats. No unintentional weight loss reported. NEUROLOGICAL: Denies headache, amaurosis fugax, motor weakness, sensory deficit, vertigo/spinning sensation, gait abnormalities, or tremors. ENT: Pain in mouth around mandible. No hearing loss, otalgia, otorrhea, rhinitis, rhinorrhea, hoarseness, or sore throat. CARDIOVASCULAR: Denies any exertional angina, dyspnea on exertion, orthopnea, paroxysmal nocturnal dyspnea, palpitations, life-threatening arrhythmias, claudication. PULMONARY: Complaints for shortness of breaths, and productive cough with pleuritic chest pain Denies hemoptysis SLEEP: Denies morning headaches, daytime somnolence or napping. Denies difficulty falling asleep, staying asleep, waking from sleep. Denies knowledge of snoring. GASTROINTESTINAL: Denies any type of dysphagia to either liquids or solids. Denies nausea, vomiting, pyrosis, early satiety, abdominal pain, diarrhea, con stipation, or changes in stool consistency or caliber. Denies coffee-ground emesis, hematemesis, hematochezia, or melanotic stools. GENITOURINARY: Denies frequency, urgency, nocturia, hematuria or incontinence (Storage/Irritative symptoms.) Low urinary stream, straining to void, urinary intermittency or hesitancy, splitting of the voiding stream, terminal dribbling. ENDOCRINOLOGIC: Denies polyuria, polydipsia, polyphagia or heat/cold intolerances. HEMATOLOGIC: Denies thrombophilia/previous clots, or coagulopathy/bleeding disorders. DERMATOLOGIC: Denies rashes or pruritus. PSYCHIATRIC: Denies any suicidal or homicidal ideation. Denies hallucinations. PHYSICAL EXAM GENERAL APPEARANCE: Patient is awake alert oriented on3 L oxygen nasal cannula. NEUROLOGICAL: Cranial nerve grossly intact. Motor and sensation grossly intact HEENT: Face is symmetric. Pupils are equal and reactive. Extraocular movements are intact. NECK: Supple. No JVD. No thyromegaly. No submental, submandibular, pre- /postauricular, occipital or supraclavicular lymphadenopathy. CHEST: Normal chest expansion. LUNGS: Dry crackles at lung bases per auscultation CARDIOVASCULAR: Regular. S1 and S2 normal. ABDOMEN: obese Soft, nontender, and nondistended. There is no rebound, voluntary guarding, or rigidity. : Deferred. EXTREMITIES: Pain in the lower extremities with palpation. Patient attributes it to post COVID syndrome. Non-edematous and not cyanotic. SKIN: No skin breakdown. Vital Signs (last 8hr) Date Time Temp Pulse Resp B/P (MAP) Pulse Ox O2 Delivery O2 Flow Rate FiO2 06/15/25 13:30 107 22 N/Cannula Low lpm 3.0 32 06/15/25 13:27 107 24 06/15/25 11:00 98.1 95 20 128/74 94 Nasal Cannula 2.0 06/15/25 09:49 92 22 LABS: Laboratory: Test 06/15/25 10:45 06/15/25 09:14 06/15/25 04:30 06/14/25 16:41 Range/Units Influenza Type A Antigen Negative For Type A NEGATIVE Influenza Type B Antigen Negative For Type B NEGATIVE SARS-CoV-2 Antigen (Rapid) PRESUMPTIVE NEGATIVE NEGATIVE Blood Gas Specimen Type Arterial Arterial Blood pH 7.379 7.350-7.450 Arterial Blood Partial Pressure CO2 40 32-45 mmHg Arterial Blood Partial Pressure O2 71.0 L 83.0-108.0 mmHg Arterial Blood HCO3 22.8 21.0-28.0 mmol/L Arterial Blood Oxygen Saturation 94.0 94.0-98.0 % Arterial Blood Base Excess -2.1 L -2.0-3.0 mmol/L Blood Gas Temperature 37.0 35.5-37.0 CELSIUS Blood Gas Flow-by 3.00 0.00-15.00 L/min Blood Gas Vent Mode 3LNC ROOM AIR FiO2 32.0 % Blood Gas Specimen Comment LR [employer] White Blood Count 12.0 H 4.8-10.8 K/uL Red Blood Count 5.61 H 4.00-5.50 MIL/uL Hemoglobin 13.4 12.0-16.0 g/dL Hematocrit 45.2 36-48 % Mean Corpuscular Volume 80.6 79-99 fL Mean Corpuscular Hemoglobin 23.9 L 27.0-33.0 pg Mean Corpuscular Hemoglobin Concent 29.6 L 32.0-36.0 g/dL Red Cell Distribution Width 16.1 H 11.0-15.5 % Platelet Count 310 130-400 K/uL Mean Platelet Volume 8.9 7.5-10.5 fL Immature Granulocyte % (Auto) 0.6 0-1 % Neutrophils (%) (Auto) 88.8 H 40.0-77.0 % Lymphocytes (%) (Auto) 7.6 L 21.0-51.0 % Monocytes (%) (Auto) 2.8 L 3.0-13.0 % Eosinophils (%) (Auto) 0.0 0.0-8.0 % Basophils (%) (Auto) 0.2 0.0-5.0 % Neutrophils # (Auto) 10.6 H 1.8-7.7 K/uL Lymphocytes # (Auto) 0.9 L 1.0-4.8 K/uL Monocytes # (Auto) 0.3 0.1-1.0 K/uL Eosinophils # (Auto) 0.00 0.00-0.70 K/uL Basophils # (Auto) 0.02 0.00-0.20 K/uL Absolute Immature Granulocyte (auto 0.07 0-1 K/uL Nucleated Red Blood Cells 0.0 0.0-0.19 % White Cell Morphology Comment See comments Sodium Level 139 136-145 mmol/L Potassium Level 5.1 3.5-5.1 mmol/L Chloride Level 101 101-111 mmol/L Carbon Dioxide Level 29 21-32 mmol/L Blood Urea Nitrogen 13 7-18 mg/dL Creatinine 0.7 0.5-1.0 mg/dL Glomerular Filtration Rate Calc 98 >90 mL/min Random Glucose 203 H 70-105 mg/dL Total Calcium 8.8 8.5-10.1 mg/dL Magnesium Level 2.50 H 1.80-2.40 mg/dL Total Bilirubin 0.4 0.2-1.0 mg/dL Aspartate Amino Transf (AST/SGOT) 15 10-37 U/L Alanine Aminotransferase (ALT/SGPT) 14 12-78 U/L Alkaline Phosphatase 88 50-136 U/L Troponin I High Sensitivity 5 4-50 ng/L C-Reactive Protein, Quantitative 26.70 H 0.5-3.0 mg/L Total Protein 8.4 H 6.0-8.3 g/dL Albumin 3.1 L 3.5-5.0 g/dL Procalcitonin < 0.05 L 0.05-0.5 ng/mL Lactic Acid Level 1.8 0.8-2.5 mmol/L Test 06/14/25 14:28 06/14/25 13:13 Range/Units Urine Color YELLOW YELLOW Urine Appearance CLEAR CLEAR Urine pH 6.0 5.0-8.0 Urine Specific [place] 1.024 1.001-1.031 Urine Protein NEGATIVE NEGATIVE mg/dL Urine Glucose (UA) NEGATIVE NEGATIVE mg/dL Urine Ketones NEGATIVE NEGATIVE mg/dL Urine Occult Blood NEGATIVE NEGATIVE Urine Nitrate NEGATIVE NEGATIVE Urine Bilirubin NEGATIVE NEGATIVE mg/dL Urine Urobilinogen 0.2 0.2-1.0 mg/dL Urine Leukocyte Esterase NEGATIVE NEGATIVE Francis/uL Red Blood Cell Morphology See comments Hemoglobin A1c 6.4 H 4.0-6.0 % Estimated Average Glucose (eAG) 137 H 70-126 mg/dL B-Type Natriuretic Peptide 30 0-100 pg/mL Current Medications Medications (Trade) Dose Ordered Sig/Lester Route PRN Reason Start Time Stop Time Status Last Admin Dose Admin Acetaminophen (TYLenol 325MG TAB) 650 mg Q4H PRN PO MILD PAIN (1-3) 06/14/25 20:00 07/14/25 19:59 06/15/25 14:23 650 MG Acetaminophen (TYLenol 325MG TAB) 650 mg Q6H PRN PO TEMPERATURE GREATER THAN 101.5 06/14/25 20:00 07/14/25 19:59 Albuterol (DUOneb) 1 udvial [id number] IH 06/14/25 22:00 06/15/25 14:42 DC 06/15/25 09:48 1 UDVIAL Albuterol (DUOneb) 1 udvial [id number] PRN IH SHORTNESS OF BREATH 06/15/25 15:00 07/14/25 21:59 Azithromycin 250 ml @ 250 mls/hr ONCE STAT IVPB 06/14/25 14:05 06/14/25 15:04 DC 06/14/25 15:12 250 MLS/HR Azithromycin 250 ml @ 250 mls/hr Q24H IV 06/15/25 14:00 06/25/25 13:59 06/15/25 14:22 250 MLS/HR Budesonide (Pulmicort 0.25mg/2ml) 0.25 mg BIDRESP IH 06/15/25 18:00 06/15/25 11:37 DC Ceftriaxone Sodium 1 gm/ Sodium Chloride 50 ml @ 100 mls/hr Q24H IV 06/14/25 20:00 06/14/25 20:19 DC Ceftriaxone Sodium (ROCEphine 1G INJ) 1 gm Q24H IVPB 06/15/25 14:00 06/15/25 09:01 DC Ceftriaxone Sodium (Rocephin 2gm Inj) 2 gm Q24H IVPB 06/15/25 14:00 06/25/25 13:59 06/15/25 14:22 2 GM Famotidine (Pepcid 20mg Tab) 20 mg BID PO 06/14/25 21:00 07/14/25 20:59 06/15/25 08:57 20 MG Guaifenesin/ Dextromethorphan (RobiTUSSin DM 200/20MG 10ML) 10 ml Q4H PRN PO COUGH 06/14/25 20:00 07/14/25 19:59 06/15/25 04:52 10 ML Hydroxyzine HCl (ATArax 25MG TAB) 25 mg BID PRN PO ANXIETY 06/14/25 22:00 07/14/25 21:59 06/15/25 14:25 25 MG Ipratropium [place] (AtrovENT UD) 0.5 MG [id number] IH 06/15/25 18:00 07/15/25 13:59 Ipratropium [place] (AtrovENT UD) 0.5 MG [id number] IH 06/15/25 14:00 06/15/25 14:42 DC 06/15/25 13:26 0.5 MG Methylprednisolone Sodium Succinate (Solu-medROL 40MG) 40 mg BID IVP 06/15/25 09:00 06/15/25 08:58 DC 06/15/25 08:57 40 MG Methylprednisolone Sodium Succinate (Solu-medROL 40MG) 40 mg Q8H IVP 06/15/25 09:00 06/15/25 21:01 Montelukast Sodium (SinguLAIR) 10 mg DAILY PO 06/15/25 09:00 07/15/25 08:59 06/15/25 08:57 10 MG Ondansetron HCl (zoFRAN 4MG INJ) 4 mg Q6H PRN IV NAUSEA/VOMITING 06/14/25 20:00 07/14/25 19:59 DIAGNOSTICS / RADIOLOGY: [ ]PATIENT: TOM BUTTS MR#: [id number] : 1965 SEX: F AGE: 60 LOCATION: [facility] ORDER 01 STATUS: REG ER REPORT#: [id number] SERVICE 00 REASON: CHEST PAIN/SOB ORDERING PHYSICIAN: JONAH MONAE [employer] PROCEDURE: CXR1VW - CHEST 1VW Frontal chest. Comparison: No prior Findings: There is cardiac enlargement with pulmonary venous congestion. There is no acute fracture or pneumothorax. Impression: Moderate congestive heart failure. /[place] DICTATED BY: LARISSA COE MD DATE: 06/14/251538 ELECTRONICALLY SIGNED BY: LARISSA COE MD DATE: 06/14/251538 PATIENT: TOM BUTTS MR#: [id number] : 1965 SEX: F AGE: 60 LOCATION: [facility] ORDER 50 STATUS: ADM IN REPORT#: [id number] SERVICE 34 REASON: sob ORDERING PHYSICIAN: RAIN JOHANSEN [employer] PROCEDURE: CHEST WO - CT CHEST W/O CONTRAST ADDENDUM REPORT ADDENDUM: Results were shared by telephone at 10:46 pm on 06-14-25 and acknowledged by Nurse Practitioner Rain Johansen. /[place] EXAM: CT Chest Without Intravenous Contrast. CLINICAL HISTORY: 60-year-old female with shortness of breath. TECHNIQUE: Axial computed tomography images of the chest without intravenous contrast. Dose reduction technique was used including one or more of the following: automated exposure control, adjustment of mA and kV according to patient size, and/or iterative reconstruction. CONTRAST: Without; COMPARISON: None provided. FINDINGS: LUNGS: Atelectasis and scarring at the lung bases. Question interstitial pneumonitis, correlate clinically. No pulmonary mass. No focal airspace consolidation. PLEURAL SPACES: No pleural effusion. No pneumothorax. HEART AND MEDIASTINUM: No cardiomegaly. No significant pericardial effusion. LYMPH NODES: No lymphadenopathy. CHEST WALL AND UPPER ABDOMEN: Small hiatal hernia. The upper abdominal solid organs are unremarkable. The chest wall is unremarkable. BONES: Mild degenerative changes of the thoracic spine. IMPRESSION: 1. Question interstitial pneumonitis, correlate clinically. 2. Atelectasis and scarring at the lung bases. /[place] DICTATED BY: DEWAYNE TORRES MD DATE: 06/14/252247 ELECTRONICALLY SIGNED BY: DATE: EXAM: CT Chest Without Intravenous Contrast. CLINICAL HISTORY: 60-year-old female with shortness of breath. TECHNIQUE: Axial computed tomography images of the chest without intravenous contrast. Dose reduction technique was used including one or more of the following: automated exposure control, adjustment of mA and kV according to patient size, and/or iterative reconstruction. CONTRAST: Without; COMPARISON: None provided. FINDINGS: LUNGS: Atelectasis and scarring at the lung bases. Question interstitial pneumonitis, correlate clinically. No pulmonary mass. No focal airspace consolidation. PLEURAL SPACES: No pleural effusion. No pneumothorax. HEART AND MEDIASTINUM: No cardiomegaly. No significant pericardial effusion. LYMPH NODES: No lymphadenopathy. CHEST WALL AND UPPER ABDOMEN: Small hiatal hernia. The upper abdominal solid organs are unremarkable. The chest wall is unremarkable. BONES: Mild degenerative changes of the thoracic spine. IMPRESSION: 1. Question interstitial pneumonitis, correlate clinically. 2. Atelectasis and scarring at the lung bases. /[place] DICTATED BY: DEWAYNE TORRES MD DATE: 06/14/252235 ELECTRONICALLY SIGNED BY: DEWAYNE TORRES MD DATE: 06/14/252235 ASSESSMENT: Acute on chronic respiratory failure - on home O2, POA Suspected bacterial pneumonia POA Sepsis POA Interstitial pneumonitis as per CT Leukocytosis POA Post COVID syndrome POA Hyperglycemia POA Obesity POA Hypertension POA Moderate congestive heart failure as per chest x-ray PLAN: Acute on chronic respiratory failure - Patient presented with increased dyspnea and increased sputum production despite on 2 L home oxygen therapy. - She has been started on Solu-Medrol 40 mg b.i.d. as well as IH albuterol, ipr atropium and montelukast for exacerbation of her respiratory symptom. - Due to suspected bacterial cause of exacerbation, we are pending sputum culture with g stain and blood culture results. COVID and influenza test have been negative. - CT chest on 06/14/25 showed Question interstitial pneumonitis, correlate clinically. Atelectasis and scarring at the lung bases. - She is receiving empiric Rocephin1 g Q24 H and azithromycin Q 24 H for coverage of community-acquired pneumonia. - Patient is currently receiving 3 L oxygen nasal cannula. Monitor patient's saturation and adjust nasal cannula accordingly - Pulmonology consult is on board. Follow up with their recommendations Suspected bacterial pneumonia and sepsis - Patient is tachycardic with heart rate 108, tachypneic with respiratory rate 24, WBC 12 K with 88% neutrophils (06/15/2025). She meets SIRS criteria. - Lactic acid on presentation was 2.5. Repeat values showed it is 1.8, Procalcitonin is less than 0.05, CRP 26.70. (06/15/25) - CT chest on 06/14/25 showed Question interstitial pneumonitis, correlate clinically. Atelectasis and scarring at the lung bases. - She is receiving empiric Rocephin1 g Q24 H and azithromycin Q 24 H for coverage of community-acquired pneumonia. - Due to suspected bacterial cause of exacerbation, we are pending sputum culture with g stain and blood culture results. COVID and influenza test have been negative. - Continue inhaled albuterol and ipratropium - For cough, patient is receiving guaifenesin/dextromethorphan. - Follow up with the pulmonology consult. Leukocytosis - Patient is receiving empiric Rocephin and azithromycin for suspected bacterial pneumonia. - Follow up with the sputum culture with g stain as well as blood culture results. - Lactic acid decreased from 2.5-1.8. CRP is elevated at 26.70 (06/15/25) - Repeat CBC with differential in the morning and follow up with it. ATTESTATION BY PHYSICIAN I have seen and examined the patient. I reviewed the documentation, medical decision making, and treatment plan as noted by the resident physician above. I agree with the findings and plan of care. BETH SCHWARZ MD, MUHAMMAD H MD Jun 15, 2025 16:01
[2025-06-15] MEDS ORDERED: VANCOMYCIN PROTOCOL PER PHARMACY IV SCH (18:00)
[2025-06-15] MEDS ORDERED: BUDESONIDE 0.25 MG/2 ML INH IH SCH (18:00)
[2025-06-15] MEDS: VANCOMYCIN 1.75 GM/250 ML BAG 250 ML IV ONE (20:02)
[2025-06-16] VITALS (17 sets, daily range): BP systolic 122–141; BP diastolic 57–95; PULSE 83–99; RESP 16–22; TEMP 97.5–98.5; O2SAT 94–96
[2025-06-16 04:36] LABS: IMMATURE GRANULOCYTE ABSOLUTE 0.07 K/uL (0-1); NUCLEATED RED BLOOD CELLS 0.0 % (0.0-0.19); PLATELET COUNT (AUTO) 316 K/uL (130-400); RED BLOOD CELL COUNT(AUTO) 5.67 MIL/uL (4.00-5.50); RED CELL DISTRIBUTION WIDTH 16.2 % (11.0-15.5); WHITE BLOOD COUNT (AUTO) 14.4 K/uL (4.8-10.8)
[2025-06-16 05:09] LABS: CREATININE 0.5 mg/dL (0.5-1.0); GLOMERULAR FILTR. RATE CALC 106.0 mL/min (>90); GLUCOSE,RANDOM 140.0 mg/dL (70-105); SODIUM SERUM 139.0 mmol/L (136-145); UREA NITROGEN, BLOOD 18.0 mg/dL (7-18)
--- NOTE | 2025-06-16 07:08 | HMCIMG ---
EXAM: CR Paranasal Sinuses, 3 views. CLINICAL HISTORY: Sinusitis. COMPARISON: None provided. FINDINGS: No acute fracture or aggressive appearing osseous lesion. The paranasal sinuses are grossly clear. No air-fluid level or paranasal opacification. Unremarkable soft tissues. IMPRESSION: 1. No acute osseous abnormality. /[place]
[2025-06-16] MEDS: VANCOMYCIN 1G/250ML KIT 250 ML IV SCH (09:11)
--- NOTE | 2025-06-16 10:54 | PN ---
[facility] PROGRESS NOTE Date Patient Seen: Jun 16, 2025 Time of Visit: 10:54 Supervising Physician: Brissa Olson MD Primary Care Physician: JESSICA CANTOR MD Outpatient Specialists: Inpatient Consults: MEÑO PROBLEM LIST: Acute on chronic hypoxemic respiratory failure on home O2 POA post covid pulmonary fibrosis POA Bilateral CAP, POA Sepsis POA Hyperglycemia POA Hypertension POA Obesity BMI 35.5 INTERVAL HISTORY: Chart reviewed including all laboratory and imaging results. Patient assessed at bedside. Patient continues with cough, shortness for breath, denies palpitations or chest pain at this time. She continues anxious about disease process. She is Hemodynamically stable. Blood pressure 134/95 heart rate in the 80s respiratory rate of 16 unlabored saturating 96% only on 2 L via nasal cannula and afebrile. No major overnight events reported. White count 14.4 likely reactive from increased steroids platelet count of 316 K neutrophils trended down 75.7 today. Kidneys are doing well with a creatinine 0.5 GFR of 106 glucose 140 mg/dL. Hemoglobin A1c 6.5. We will repeat ABG in a.m.. RECOMMENDATIONS: -one time dose Lasix 20 mg IV -ABG in a.m. -continue empiric antibiotics with azithromycin, cefepime and vanco -continue nebs with atrovent -no need for inhaled steroids at this time. -continue with systemic steroids solu-medrol 40mg IVP q.12 hours -continue Singulair -IS q 2 hrs while awake - acapella with neb Treatment -Arrange outpatient pulmonology appt for sleep study, PFT and follow-up management upon discharge -Continue PT/OT -Continue GI and DVT prophylaxis -Full Resuscitation -dispo per primary team REVIEW OF SYSTEMS: 12 point ROS reviewed with patient. Pertinent positives mentioned above. Other mohamud negative. PHYSICAL EXAM: GENERAL: alert, weak, awake oriented x 3 HEENT: EOMI, Sclera non icteric, moist mucosa NECK: Supple, no JVD, trachea midline LUNGS: Diminished breath sounds bilaterally. No wheezes HEART: Regular rate and rhythm. Normal S1 and S2, without murmurs ABD: Abdomen soft, nontender. Bowel sounds present EXT: No clubbing cyanosis or edema NEURO: Alert and oriented to person, follows commands Vital Signs (last 8hr) Date Time Temp Pulse Resp B/P (MAP) Pulse Ox O2 Delivery O2 Flow Rate FiO2 10/8/25 09:50 86 18 06/16/25 09:49 86 20 N/Cannula Low lpm 3.0 32 06/16/25 07:55 97.5 83 16 128/64 95 Nasal Cannula 2.0 06/16/25 06:52 83 18 06/16/25 06:51 83 18 N/Cannula Low lpm 3.0 32 06/16/25 03:53 98.4 86 18 134/82 96 Nasal Cannula 2.0 LABS: Hematology Labs: Test 06/16/25 04:24 06/15/25 04:30 06/14/25 13:13 Range/Units White Blood Count 14.4 H 4.8-10.8 K/uL Red Blood Count 5.67 H 4.00-5.50 MIL/uL Hemoglobin 13.8 12.0-16.0 g/dL Hematocrit 45.2 36-48 % Mean Corpuscular Volume 79.7 79-99 fL Mean Corpuscular Hemoglobin 24.3 L 27.0-33.0 pg Mean Corpuscular Hemoglobin Concent 30.5 L 32.0-36.0 g/dL Red Cell Distribution Width 16.2 H 11.0-15.5 % Platelet Count 316 130-400 K/uL Mean Platelet Volume 8.9 7.5-10.5 fL Immature Granulocyte % (Auto) 0.5 0-1 % Neutrophils (%) (Auto) 75.7 40.0-77.0 % Lymphocytes (%) (Auto) 15.4 L 21.0-51.0 % Monocytes (%) (Auto) 6.7 3.0-13.0 % Eosinophils (%) (Auto) 1.2 0.0-8.0 % Basophils (%) (Auto) 0.5 0.0-5.0 % Neutrophils # (Auto) 10.9 H 1.8-7.7 K/uL Lymphocytes # (Auto) 2.2 1.0-4.8 K/uL Monocytes # (Auto) 1.0 0.1-1.0 K/uL Eosinophils # (Auto) 0.17 0.00-0.70 K/uL Basophils # (Auto) 0.07 0.00-0.20 K/uL Absolute Immature Granulocyte (auto 0.07 0-1 K/uL Nucleated Red Blood Cells 0.0 0.0-0.19 % White Cell Morphology Comment See comments Red Blood Cell Morphology See comments Chemistry Labs: Test 06/16/25 04:24 06/15/25 04:30 06/14/25 13:13 Range/Units Sodium Level 139 136-145 mmol/L Potassium Level 4.4 3.5-5.1 mmol/L Chloride Level 104 101-111 mmol/L Carbon Dioxide Level 27 21-32 mmol/L Blood Urea Nitrogen 18 7-18 mg/dL Creatinine 0.5 0.5-1.0 mg/dL Glomerular Filtration Rate Calc 106 >90 mL/min Random Glucose 140 H 70-105 mg/dL Hemoglobin A1c 6.5 H 4.0-6.0 % Estimated Average Glucose (eAG) 140 H 70-126 mg/dL Lactic Acid Level 1.6 0.8-2.5 mmol/L Total Calcium 8.5 8.5-10.1 mg/dL Magnesium Level 2.50 H 1.80-2.40 mg/dL Total Bilirubin 0.4 0.2-1.0 mg/dL Aspartate Amino Transf (AST/SGOT) 15 10-37 U/L Alanine Aminotransferase (ALT/SGPT) 14 12-78 U/L Alkaline Phosphatase 88 50-136 U/L Troponin I High Sensitivity 5 4-50 ng/L C-Reactive Protein, Quantitative 26.70 H 0.5-3.0 mg/L Total Protein 8.4 H 6.0-8.3 g/dL Albumin 3.1 L 3.5-5.0 g/dL Procalcitonin < 0.05 L 0.05-0.5 ng/mL B-Type Natriuretic Peptide 30 0-100 pg/mL DIAGNOSTICS / RADIOLOGY RESULTS: [[place] [address] [address] IMAGING REPORT Signed PATIENT: TOM BUTTS MR#: [id number] : 1965 SEX: F AGE: 60 LOCATION: 2AH ORDER 2300 STATUS: ADM IN REPORT#: [id number] SERVICE 0600 REASON: RESP FAILURE ORDERING PHYSICIAN: HONG SANTIAGO PROCEDURE: CXR1VW - CHEST 1VW Frontal chest. Comparison: June 14, 2025 Findings: There is cardiac enlargement with pulmonary venous congestion. There is no acute fracture or pneumothorax. Impression: Moderate congestive heart failure. /[place] DICTATED BY: LARISSA COE MD DATE: 06/16/251514 ELECTRONICALLY SIGNED BY: LARISSA COE MD DATE: 06/16/251514 ] ATTESTATION BY PHYSICIAN I attest that I reviewed and discussed the case with the Physician Facilities Locator as well as agree with the Physician Facilities Locator's findings, plans of care, and documentation above. Misha Ron MD, NELLY J AGACNP Jun 16, 2025 10:54
--- NOTE | 2025-06-16 14:15 | HMCIMG ---
Frontal chest. Comparison: June 14, 2025 Findings: There is cardiac enlargement with pulmonary venous congestion. There is no acute fracture or pneumothorax. Impression: Moderate congestive heart failure. /[place]
[2025-06-16] MEDS ORDERED: Solu-medROL 40MG VIAL IVP SCH (15:30)
--- NOTE | 2025-06-16 16:03 | PN ---
[facility] PROGRESS NOTE Date of Service: Jun 16, 2025 Time of Service: 9:15 SUBJECTIVE: This is a 60-year-old female with past medical history of hypertension, obesity, Chronic obstructive pulmonary disease and chronic respiratory failure on home O2 who presents to the ED with complaints of worsening shortness of breaths on exertion and productive cough.Patient states she was admitted before and had Covid pneumonia and got intubated and had a tracheostomy and eventually she weaned off the trache and was sent home on Home O2 that was in 2020 and eversince then she was dependent with oxygen at home at all times.Patient reports she has ongoing problem with shortness of breath and cough however it started to gradually worsened over the last 2 weeks and usually more worse at night night.Patient reports last night was really the worst because she was having persistent cough and hurts her chest from frequent coughing so she waited until today to come to the Ed for evaluation.Patient reports she has increased production of white thick phlegm. On examination,patient is wake ,alert and coherent .Patient reports she used to ambulate in short distances without problem ,recently she noticed she gets very short of breath by just merely talking.Patient denies fever,chill,chest p ain,palpitation,nausea,vomiting and abdominal pain. Vital signs temperature 98.2, heart rate 100, blood pressure 90/65 saturation 94% at 4 L nasal cannula. Labs: WBC 13 with negative left shift of neutrophils 77, hemoglobin 14, hematocrit 47 platelet count 329. Glucose 184, lactic acid 2.5-1.8 troponin six, BNP 30. Urinalysis is normal. ECG result revealed sinus rhythm heart rate 98. Chest x-ray result revealed moderate congestive heart failure. While in the ER patient received Solu-Medrol 125 mg IV, azithromycin IV Rocephin IV and albuterol neb treatment. We will admit patient for further medical management. 06/15/2025 Patient was seen and examined at bedside. She is currently on 3 L oxygen nasal cannula. She has been tachycardic with heart rate 108, tachypneic (24) with WBC 12K, 88.8% neutrophil count. CRP was 26.70. She fulfills SIRS criteria (3/4). CT chest without contrast showed suspected interstitial pneumonitis with Atelectasis and scarring at the lung bases. Lung auscultation revealed dry crackles. She complained of pain in her teeth which could be due to post COVID syndrome or infection. Facial x-ray has been ordered. Patient is currently receiving Rocephin and azithromycin for coverage of community-acquired pneumonia. She has also been started on Solu-Medrol and albuterol, ipratropium. We are pending sputum culture with gram stain as well as blood culture. COVID and influenza have been negative. Pulmonology consult is on board. 06/16/2025 Patient was seen and examined at bedside. She continues on 3 L oxygen nasal cannula. She was started on vancomycin and cefepime today while continuing on azithromycin. Her WBCs trended upwards to 14.4 K with 75% differential neutrophil. CRP was elevated 26.70. Blood cultures continue to show no growth so far. Otherwise she is vitally stable with blood pressure 134/82. Her tachypnea has also improved to 16 respiratory rate. CRP from yesterday was elevated 26.70. Pulmonology consult is on board. REVIEW OF SYSTEMS CONSTITUTIONAL: Denies fevers, chills, or night sweats. No unintentional weight loss reported. NEUROLOGICAL: Denies headache, amaurosis fugax, motor weakness, sensory deficit, vertigo/spinning sensation, gait abnormalities, or tremors. ENT: Pain in mouth around mandible. No hearing loss, otalgia, otorrhea, rhinitis, rhinorrhea, hoarseness, or sore throat. CARDIOVASCULAR: Denies any exertional angina, dyspnea on exertion, orthopnea, paroxysmal nocturnal dyspnea, palpitations, life-threatening arrhythmias, claudication. PULMONARY: Complaints for shortness of breaths, and productive cough with pleuritic chest pain Denies hemoptysis SLEEP: Denies morning headaches, daytime somnolence or napping. Denies difficulty falling asleep, staying asleep, waking from sleep. Denies knowledge of snoring. GASTROINTESTINAL: Denies any type of dysphagia to either liquids or solids. Denies nausea, vomiting, pyrosis, early satiety, abdominal pain, diarrhea, constipation, or changes in stool consistency or caliber. Denies coffee-ground emesis, hematemesis, hematochezia, or melanotic stools. GENITOURINARY: Denies frequency, urgency, nocturia, hematuria or incontinence (Storage/Irritative symptoms.) Low urinary stream, straining to void, urinary intermittency or hesitancy, splitting of the voiding stream, terminal dribbling. ENDOCRINOLOGIC: Denies polyuria, polydipsia, polyphagia or heat/cold intolerances. HEMATOLOGIC: Denies thrombophilia/previous clots, or coagulopathy/bleeding disorders. DERMATOLOGIC: Denies rashes or pruritus. PSYCHIATRIC: Denies any suicidal or homicidal ideation. Denies hallucinations. PHYSICAL EXAM GENERAL APPEARANCE: Patient is awake alert oriented on3 L oxygen nasal cannula. NEUROLOGICAL: Cranial nerve grossly intact. Motor and sensation grossly intact HEENT: Face is symmetric. Pupils are equal and reactive. Extraocular movements are intact. NECK: Supple. No JVD. No thyromegaly. No submental, submandibular, pre- /postauricular, occipital or supraclavicular lymphadenopathy. CHEST: Normal chest expansion. LUNGS: Dry crackles at lung bases per auscultation CARDIOVASCULAR: Regular. S1 and S2 normal. ABDOMEN: obese Soft, nontender, and nondistended. There is no rebound, voluntary guarding, or rigidity. : Deferred. EXTREMITIES: Pain in the lower extremities with palpation. Patient attributes it to post COVID syndrome. Non-edematous and not cyanotic. SKIN: No skin breakdown. Vital Signs (last 8hr) Date Time Temp Pulse Resp B/P (MAP) Pulse Ox O2 Delivery O2 Flow Rate FiO2 06/16/25 11:58 98.1 83 16 134/95 96 Nasal Cannula 2.0 06/16/25 09:50 86 18 06/16/25 09:49 86 20 N/Cannula Low lpm 3.0 32 06/16/25 07:55 97.5 83 16 128/64 95 Nasal Cannula 2.0 LABS: Laboratory: Test 06/16/25 04:24 06/15/25 10:45 06/15/25 09:14 06/15/25 04:30 Range/Units White Blood Count 14.4 H 4.8-10.8 K/uL Red Blood Count 5.67 H 4.00-5.50 MIL/uL Hemoglobin 13.8 12.0-16.0 g/dL Hematocrit 45.2 36-48 % Mean Corpuscular Volume 79.7 79-99 fL Mean Corpuscular Hemoglobin 24.3 L 27.0-33.0 pg Mean Corpuscular Hemoglobin Concent 30.5 L 32.0-36.0 g/dL Red Cell Distribution Width 16.2 H 11.0-15.5 % Platelet Count 316 130-400 K/uL Mean Platelet Volume 8.9 7.5-10.5 fL Immature Granulocyte % (Auto) 0.5 0-1 % Neutrophils (%) (Auto) 75.7 40.0-77.0 % Lymphocytes (%) (Auto) 15.4 L 21.0-51.0 % Monocytes (%) (Auto) 6.7 3.0-13.0 % Eosinophils (%) (Auto) 1.2 0.0-8.0 % Basophils (%) (Auto) 0.5 0.0-5.0 % Neutrophils # (Auto) 10.9 H 1.8-7.7 K/uL Lymphocytes # (Auto) 2.2 1.0-4.8 K/uL Monocytes # (Auto) 1.0 0.1-1.0 K/uL Eosinophils # (Auto) 0.17 0.00-0.70 K/uL Basophils # (Auto) 0.07 0.00-0.20 K/uL Absolute Immature Granulocyte (auto 0.07 0-1 K/uL Nucleated Red Blood Cells 0.0 0.0-0.19 % Sodium Level 139 136-145 mmol/L Potassium Level 4.4 3.5-5.1 mmol/L Chloride Level 104 101-111 mmol/L Carbon Dioxide Level 27 21-32 mmol/L Blood Urea Nitrogen 18 7-18 mg/dL Creatinine 0.5 0.5-1.0 mg/dL Glomerular Filtration Rate Calc 106 >90 mL/min Random Glucose 140 H 70-105 mg/dL Hemoglobin A1c 6.5 H 4.0-6.0 % Estimated Average Glucose (eAG) 140 H 70-126 mg/dL Lactic Acid Level 1.6 0.8-2.5 mmol/L Total Calcium 8.5 8.5-10.1 mg/dL Influenza Type A Antigen Negative For Type A NEGATIVE Influenza Type B Antigen Negative For Type B NEGATIVE SARS-CoV-2 Antigen (Rapid) PRESUMPTIVE NEGATIVE NEGATIVE Blood Gas Specimen Type Arterial Arterial Blood pH 7.379 7.350-7.450 Arterial Blood Partial Pressure CO2 40 32-45 mmHg Arterial Blood Partial Pressure O2 71.0 L 83.0-108.0 mmHg Arterial Blood HCO3 22.8 21.0-28.0 mmol/L Arterial Blood Oxygen Saturation 94.0 94.0-98.0 % Arterial Blood Base Excess -2.1 L -2.0-3.0 mmol/L Blood Gas Temperature 37.0 35.5-37.0 CELSIUS Blood Gas Flow-by 3.00 0.00-15.00 L/min Blood Gas Vent Mode 3LNC ROOM AIR FiO2 32.0 % Blood Gas Specimen Comment LR HONG [employer] White Cell Morphology Comment See comments Magnesium Level 2.50 H 1.80-2.40 mg/dL Total Bilirubin 0.4 0.2-1.0 mg/dL Aspartate Amino Transf (AST/SGOT) 15 10-37 U/L Alanine Aminotransferase (ALT/SGPT) 14 12-78 U/L Alkaline Phosphatase 88 50-136 U/L Troponin I High Sensitivity 5 4-50 ng/L C-Reactive Protein, Quantitative 26.70 H 0.5-3.0 mg/L Total Protein 8.4 H 6.0-8.3 g/dL Albumin 3.1 L 3.5-5.0 g/dL Procalcitonin < 0.05 L 0.05-0.5 ng/mL Current Medications Medications (Trade) Dose Ordered Sig/Lester Route PRN Reason Start Time Stop Time Status Last Admin Dose Admin Acetaminophen (TYLenol 325MG TAB) 650 mg Q4H PRN PO MILD PAIN (1-3) 06/14/25 20:00 07/14/25 19:59 06/15/25 20:06 650 MG Acetaminophen (TYLenol 325MG TAB) 650 mg Q6H PRN PO TEMPERATURE GREATER THAN 101.5 06/14/25 20:00 07/14/25 19:59 Albuterol (DUOneb) 1 udvial [id number] IH 06/14/25 22:00 06/15/25 14:42 DC 06/15/25 09:48 1 UDVIAL Albuterol (DUOneb) 1 udvial [id number] PRN IH SHORTNESS OF BREATH 06/15/25 15:00 07/14/25 21:59 Azithromycin 250 ml @ 250 mls/hr ONCE STAT IVPB 06/14/25 14:05 06/14/25 15:04 DC 06/14/25 15:12 250 MLS/HR Azithromycin 250 ml @ 250 mls/hr Q24H IV 06/15/25 14:00 06/25/25 13:59 06/16/25 13:15 250 MLS/HR Budesonide (Pulmicort 0.25mg/2ml) 0.25 mg BIDRESP IH 06/15/25 18:00 06/15/25 11:37 DC Cefepime HCl (MAXipime 2 gm vial) 2 gm Q8H IVPB 06/15/25 18:00 06/25/25 17:59 06/16/25 01:44 2 GM Ceftriaxone Sodium 1 gm/ Sodium Chloride 50 ml @ 100 mls/hr Q24H IV 06/14/25 20:00 06/14/25 20:19 DC Ceftriaxone Sodium (ROCEphine 1G INJ) 1 gm Q24H IVPB 06/15/25 14:00 06/15/25 09:01 DC Ceftriaxone Sodium (Rocephin 2gm Inj) 2 gm Q24H IVPB 06/15/25 14:00 06/15/25 17:52 DC 06/15/25 14:22 2 GM Enoxaparin Sodium (Lovenox) 40 mg DAILY SQ 06/17/25 09:00 07/17/25 08:59 Famotidine (Pepcid 20mg Tab) 20 mg BID PO 06/14/25 21:00 07/14/25 20:59 06/16/25 09:11 20 MG Guaifenesin/ Dextromethorphan (RobiTUSSin DM 200/20MG 10ML) 10 ml Q4H PRN PO COUGH 06/14/25 20:00 07/14/25 19:59 06/16/25 13:15 10 ML Hydroxyzine HCl (ATArax 25MG TAB) 25 mg BID PRN PO ANXIETY 06/14/25 22:00 07/14/25 21:59 06/16/25 14:35 25 MG Ipratropium Guston (AtrovENT UD) 0.5 MG [id number] IH 06/15/25 18:00 06/16/25 11:28 DC 06/16/25 09:49 0.5 MG Ipratropium Guston (AtrovENT UD) 0.5 MG [id number] IH 06/16/25 18:00 07/15/25 13:59 Ipratropium Guston (AtrovENT UD) 0.5 MG [id number] IH 06/15/25 14:00 06/15/25 14:42 DC 06/15/25 13:26 0.5 MG Methylprednisolone Sodium Succinate (Solu-medROL 40MG) 40 mg BID IVP 06/15/25 09:00 06/15/25 08:58 DC 06/15/25 08:57 40 MG Methylprednisolone Sodium Succinate (Solu-medROL 40MG) 40 mg Q8H IVP 06/15/25 09:00 06/15/25 21:01 DC 06/15/25 17:37 40 MG Montelukast Sodium (SinguLAIR) 10 mg DAILY PO 06/15/25 09:00 07/15/25 08:59 06/16/25 09:11 10 MG Ondansetron HCl (zoFRAN 4MG INJ) 4 mg Q6H PRN IV NAUSEA/VOMITING 06/14/25 20:00 07/14/25 19:59 Vancomycin HCl 250 ml @ 125 mls/hr Q12H IV 06/16/25 08:00 06/26/25 07:59 06/16/25 09:11 125 MLS/HR Vancomycin HCl (Vancomycin Protocol) 1 each AD IV 06/15/25 18:00 06/25/25 17:59 DIAGNOSTICS / RADIOLOGY: PATIENT: TOM BUTTS MR#: [id number] : 1965 SEX: F AGE: 60 LOCATION: [facility] ORDER 1302 STATUS: [facility] REPORT#: [id number] SERVICE 1301 REASON: CHEST PAIN/SOB ORDERING PHYSICIAN: JONAH MONAE NP PROCEDURE: CXR1VW - CHEST 1VW Frontal chest. Comparison: No prior Findings: There is cardiac enlargement with pulmonary venous congestion. There is no acute fracture or pneumothorax. Impression: Moderate congestive heart failure. /[place] DICTATED BY: LARISSA COE MD DATE: 06/14/251538 ELECTRONICALLY SIGNED BY: LARISSA COE MD DATE: 06/14/251538 PATIENT: TOM BUTTS MR#: [id number] : 1965 SEX: F AGE: 60 LOCATION: [facility] ORDER 50 STATUS: ADM IN REPORT#: [id number] SERVICE 34 REASON: sob ORDERING PHYSICIAN: RAIN JOHANSEN FUSING MACHINE TENDER PROCEDURE: CHEST WO - CT CHEST W/O CONTRAST ADDENDUM REPORT ADDENDUM: Results were shared by telephone at 10:46 pm on 06-14-25 and acknowledged by Nurse Practitioner Rain Johansen. /[place] EXAM: CT Chest Without Intravenous Contrast. CLINICAL HISTORY: 60-year-old female with shortness of breath. TECHNIQUE: Axial computed tomography images of the chest without intravenous contrast. Dose reduction technique was used including one or more of the following: automated exposure control, adjustment of mA and kV according to patient size, and/or iterative reconstruction. CONTRAST: Without; COMPARISON: None provided. FINDINGS: LUNGS: Atelectasis and scarring at the lung bases. Question interstitial pneumonitis, correlate clinically. No pulmonary mass. No focal airspace consolidation. PLEURAL SPACES: No pleural effusion. No pneumothorax. HEART AND MEDIASTINUM: No cardiomegaly. No significant pericardial effusion. LYMPH NODES: No lymphadenopathy. CHEST WALL AND UPPER ABDOMEN: Small hiatal hernia. The upper abdominal solid organs are unremarkable. The chest wall is unremarkable. BONES: Mild degenerative changes of the thoracic spine. IMPRESSION: 1. Question interstitial pneumonitis, correlate clinically. 2. Atelectasis and scarring at the lung bases. /[place] DICTATED BY: DEWAYNE TORRES MD DATE: 06/14/252247 ELECTRONICALLY SIGNED BY: DATE: EXAM: CT Chest Without Intravenous Contrast. CLINICAL HISTORY: 60-year-old female with shortness of breath. TECHNIQUE: Axial computed tomography images of the chest without intravenous contrast. Dose reduction technique was used including one or more of the following: automated exposure control, adjustment of mA and kV according to patient size, and/or iterative reconstruction. CONTRAST: Without; COMPARISON: None provided. FINDINGS: LUNGS: Atelectasis and scarring at the lung bases. Question interstitial pneumonitis, correlate clinically. No pulmonary mass. No focal airspace consolidation. PLEURAL SPACES: No pleural effusion. No pneumothorax. HEART AND MEDIASTINUM: No cardiomegaly. No significant pericardial effusion. LYMPH NODES: No lymphadenopathy. CHEST WALL AND UPPER ABDOMEN: Small hiatal hernia. The upper abdominal solid organs are unremarkable. The chest wall is unremarkable. BONES: Mild degenerative changes of the thoracic spine. IMPRESSION: 1. Question interstitial pneumonitis, correlate clinically. 2. Atelectasis and scarring at the lung bases. /[place] DICTATED BY: DEWAYNE TORRES MD DATE: 06/14/252235 ELECTRONICALLY SIGNED BY: DEWAYNE TORRES MD DATE: 06/14/252235 PATIENT: TOM BUTTS MR#: [id number] : 1965 SEX: F AGE: 60 LOCATION: 2AH ORDER 1116 STATUS: ADM IN REPORT#: [id number] SERVICE 1108 REASON: Pain around left lower mandible ORDERING PHYSICIAN: GUSTAVO HALL MD PROCEDURE: FACE 1 2VW - FACIAL BONES 1-2VWS EXAM: CR Paranasal Sinuses, 3 views. CLINICAL HISTORY: Sinusitis. COMPARISON: None provided. FINDINGS: No acute fracture or aggressive appearing osseous lesion. The paranasal sinuses are grossly clear. No air-fluid level or paranasal opacification. Unremarkable soft tissues. IMPRESSION: 1. No acute osseous abnormality. /[place] DICTATED BY: AIDA LEA MD DATE: 06/16/25806 ELECTRONICALLY SIGNED BY: AIDA LEA MD DATE: 06/16/25806 PATIENT: TOM BUTTS MR#: [id number] : 1965 SEX: F AGE: 60 LOCATION: 2AH ORDER 230 STATUS: ADM IN REPORT#: [id number] SERVICE 0600 REASON: RESP FAILURE ORDERING PHYSICIAN: HONG SANTIAGO PROCEDURE: CXR1VW - CHEST 1VW Frontal chest. Comparison: June 14, 2025 Findings: There is cardiac enlargement with pulmonary venous congestion. There is no acute fracture or pneumothorax. Impression: Moderate congestive heart failure. /[place] DICTATED BY: LARISSA COE MD DATE: 06/16/251514 ELECTRONICALLY SIGNED BY: LARISSA COE MD DATE: 06/16/251514 ASSESSMENT: Acute on chronic respiratory failure - on home O2, POA Suspected bacterial pneumonia POA Sepsis POA Interstitial pneumonitis as per CT Leukocytosis POA Post COVID lung fibrosis POA Hyperglycemia POA Obesity POA Hypertension POA Moderate congestive heart failure as per chest x-ray PLAN: Acute on chronic respiratory failure - Patient presented with increased dyspnea and increased sputum production despite on 2 L home oxygen therapy. - She was started on Solu-Medrol 40 mg b.i.d. as well as IH albuterol, ipratropium and montelukast for exacerbation of her respiratory symptom. - Due to suspected bacterial cause of exacerbation, we are pending sputum culture with g stain and blood culture results. COVID and influenza test have been negative. - CT chest on 06/14/25 showed Question interstitial pneumonitis, correlate clinically. Atelectasis and scarring at the lung bases. - Start patient on cefepime (day 1) and vancomycin (day 1) while continue azithromycin (day 2). - Patient is currently receiving 3 L oxygen nasal cannula. Monitor patient's saturation and adjust nasal cannula accordingly - Pulmonology consult is on board. Follow up with their recommendations Suspected bacterial pneumonia and sepsis - On 06/15/2025, Patient was tachycardic with heart rate 108, tachypneic with respiratory rate 24, WBC 12 K with 88% neutrophils. She met SIRS criteria. - Lactic acid on presentation was 2.5. Repeat values showed it is 1.8, Procalcitonin is less than 0.05, CRP 26.70. (06/15/25) - CT chest on 06/14/25 showed Question interstitial pneumonitis, correlate clinically. Atelectasis and scarring at the lung bases. - She was started on empiric Rocephin1 g Q24 H and azithromycin Q 24 H for coverage of community-acquired pneumonia. Rocephin has been switched to cefepime (day 1) and vancomycin (day 1) has been added in addition to continuat ion of azithromycin (day 2). - Due to suspected bacterial cause of exacerbation, we are pending sputum culture with g stain and blood culture results. COVID and influenza test have been negative. - Continue inhaled albuterol and ipratropium - For cough, patient is receiving guaifenesin/dextromethorphan. - Follow up with the pulmonology consult. Leukocytosis - Patient's WBCs today is 14.4 K with 75% differential neutrophil. - She is receiving empiric cefepime, vancomycin and azithromycin for suspected bacterial pneumonia. - She was also started on Solu-Medrol which could be the cause of leukocytosis. - Follow up with the sputum culture and g stain as well as blood culture results. - Lactic acid decreased from 2.5-1.8. CRP is elevated at 26.70 (06/15/25). - Repeat CBC with differential in the morning and follow up with it. - Follow up with the morning CRP. DVT prophylaxis: Enoxaparin, SCDs GI prophylaxis: famotidine 20 mg b.i.d. ATTESTATION BY PHYSICIAN I have seen and examined the patient. I reviewed the documentation, medical decision making, and treatment plan as noted by the resident physician above. I agree with the findings and plan of care. BETH SCHWARZ MD, MUHAMMAD H MD Jun 16, 2025 16:03
[2025-06-17] VITALS (13 sets, daily range): BP systolic 108–126; BP diastolic 59–76; PULSE 83–105; RESP 17–20; TEMP 98.1–98.8; O2SAT 95–96
[2025-06-17 03:07] LABS: ABG BASE EXCESS 1.3 mmol/L (-2.0-3.0); ABG HCO3 25.7 mmol/L (21.0-28.0); ABG OXYGEN SATURATION 94.5 % (94.0-98.0); ABG PCO2 40 mmHg (32-45); ABG PH 7.423 (7.350-7.450); CARBON MONOXIDE 1.8 % (0.5-1.5); DEVICE COMMENT RR RN; PO2, ARTERIAL BG 64.9 mmHg (83.0-108.0); TEMPERATURE, CELSIUS BG 37.0 CELSIUS (35.5-37.0); VENT MODE, BG 3LNC (ROOM AIR)
[2025-06-17] MEDS: Solu-medROL 40MG VIAL IVP SCH (03:57)
[2025-06-17 07:23] LABS: IMMATURE GRANULOCYTE ABSOLUTE 0.04 K/uL (0-1); NUCLEATED RED BLOOD CELLS 0.0 % (0.0-0.19); PLATELET COUNT (AUTO) 319 K/uL (130-400); RED BLOOD CELL COUNT(AUTO) 6.08 MIL/uL (4.00-5.50); RED CELL DISTRIBUTION WIDTH 16.5 % (11.0-15.5); WHITE BLOOD COUNT (AUTO) 13.7 K/uL (4.8-10.8)
[2025-06-17 07:34] LABS: CREATININE 0.7 mg/dL (0.5-1.0); GLOMERULAR FILTR. RATE CALC 98.0 mL/min (>90); GLUCOSE,RANDOM 181.0 mg/dL (70-105); SODIUM SERUM 137.0 mmol/L (136-145); UREA NITROGEN, BLOOD 19.0 mg/dL (7-18)
[2025-06-17] MEDS: ENOXAPARIN SODIUM 40 MG/0.4 ML SYRINGE SQ SCH (08:58)
--- NOTE | 2025-06-17 11:11 | HMCIMG ---
CHEST 1VW REASON: RESP FAILURE COMPARISON: Chest radiograph from 06/16/2025 is available. FINDINGS: Single view of the chest was obtained. There is cardiomegaly with mild diffuse interstitial pulmonary edema which was seen before and appears to be unchanged.. There is no pulmonary vascular congestion. Mediastinum and bony thorax appear unremarkable. IMPRESSION: 1. Cardiomegaly with interstitial pulmonary edema which is unchanged from prior study..
--- NOTE | 2025-06-17 13:41 | PN ---
[facility] PROGRESS NOTE Date of Service: Jun 17, 2025 Time of Service: 8:40 SUBJECTIVE: This is a 60-year-old female with past medical history of hypertension, obesity, Chronic obstructive pulmonary disease and chronic respiratory failure on home O2 who presents to the ED with complaints of worsening shortness of breaths on exertion and productive cough.Patient states she was admitted before and had Covid pneumonia and got intubated and had a tracheostomy and eventually she weaned off the trache and was sent home on Home O2 that was in 2020 and eversince then she was dependent with oxygen at home at all times.Patient reports she has ongoing problem with shortness of breath and cough however it started to gradually worsened over the last 2 weeks and usually more worse at night night.Patient reports last night was really the worst because she was having persistent cough and hurts her chest from frequent coughing so she waited until today to come to the Ed for evaluation.Patient reports she has increased production of white thick phlegm. On examination,patient is wake ,alert and coherent .Patient reports she used to ambulate in short distances without problem ,recently she noticed she gets very short of breath by just merely talking.Patient denies fever,chill,chest p ain,palpitation,nausea,vomiting and abdominal pain. Vital signs temperature 98.2, heart rate 100, blood pressure 90/65 saturation 94% at 4 L nasal cannula. Labs: WBC 13 with negative left shift of neutrophils 77, hemoglobin 14, hematocrit 47 platelet count 329. Glucose 184, lactic acid 2.5-1.8 troponin six, BNP 30. Urinalysis is normal. ECG result revealed sinus rhythm heart rate 98. Chest x-ray result revealed moderate congestive heart failure. While in the ER patient received Solu-Medrol 125 mg IV, azithromycin IV Rocephin IV and albuterol neb treatment. We will admit patient for further medical management. 06/15/2025 Patient was seen and examined at bedside. She is currently on 3 L oxygen nasal cannula. She has been tachycardic with heart rate 108, tachypneic (24) with WBC 12K, 88.8% neutrophil count. CRP was 26.70. She fulfills SIRS criteria (3/4). CT chest without contrast showed suspected interstitial pneumonitis with Atelectasis and scarring at the lung bases. Lung auscultation revealed dry crackles. She complained of pain in her teeth which could be due to post COVID syndrome or infection. Facial x-ray has been ordered. Patient is currently receiving Rocephin and azithromycin for coverage of community-acquired pneumonia. She has also been started on Solu-Medrol and albuterol, ipratropium. We are pending sputum culture with gram stain as well as blood culture. COVID and influenza have been negative. Pulmonology consult is on board. 06/16/2025 Patient was seen and examined at bedside. She continues on 3 L oxygen nasal cannula. She was started on vancomycin and cefepime today while continuing on azithromycin. Her WBCs trended upwards to 14.4 K with 75% differential neutrophil. CRP was elevated 26.70. Blood cultures continue to show no growth so far. Otherwise she is vitally stable with blood pressure 134/82. Her tachypnea has also improved to 16 respiratory rate. CRP from yesterday was elevated 26.70. Pulmonology consult is on board. 06/17/2025 Patient was seen and evaluated at bedside this morning. She continues on 3L nasal cannula but states that her overall breathing has improved, sputum has decreased in consistency as well. Her coughing has also improved. She is vitally stable with blood pressure 110/62, respiratory rate 17, HR 83. Repeat CRP measured today came back consistently elevated, 28. Her WBC has decreased slightly as compared to yesterday, 14.4 -> 13.7. Based on crackles on auscultation and CXR results showing infiltrates in lungs, 2D Echo has been placed to evaluate heart function. Our plan is to continue current antibiotic therapy and follow up with critical care team. REVIEW OF SYSTEMS CONSTITUTIONAL: Denies fevers, chills, or night sweats. No unintentional weight loss reported. NEUROLOGICAL: Denies headache, amaurosis fugax, motor weakness, sensory deficit, vertigo/spinning sensation, gait abnormalities, or tremors. ENT: Pain in mouth around mandible. No hearing loss, otalgia, otorrhea, rhinitis, rhinorrhea, hoarseness, or sore throat. CARDIOVASCULAR: Denies any exertional angina, dyspnea on exertion, orthopnea, paroxysmal nocturnal dyspnea, palpitations, life-threatening arrhythmias, claudication. PULMONARY: Complaints for shortness of breaths, and productive cough with pleuritic chest pain Denies hemoptysis SLEEP: Denies morning headaches, daytime somnolence or napping. Denies difficulty falling asleep, staying asleep, waking from sleep. Denies knowledge of snoring. GASTROINTESTINAL: Denies any type of dysphagia to either liquids or solids. Denies nausea, vomiting, pyrosis, early satiety, abdominal pain, diarrhea, constipation, or changes in stool consistency or caliber. Denies coffee-ground emesis, hematemesis, hematochezia, or melanotic stools. GENITOURINARY: Denies frequency, urgency, nocturia, hematuria or incontinence (Storage/Irritative symptoms.) Low urinary stream, straining to void, urinary intermittency or hesitancy, splitting of the voiding stream, terminal dribbling. ENDOCRINOLOGIC: Denies polyuria, polydipsia, polyphagia or heat/cold intolerances. HEMATOLOGIC: Denies thrombophilia/previous clots, or coagulopathy/bleeding disorders. DERMATOLOGIC: Denies rashes or pruritus. PSYCHIATRIC: Denies any suicidal or homicidal ideation. Denies hallucinations. PHYSICAL EXAM GENERAL APPEARANCE: Patient is awake alert oriented on3 L oxygen nasal cannula. NEUROLOGICAL: Cranial nerve grossly intact. Motor and sensation grossly intact HEENT: Face is symmetric. Pupils are equal and reactive. Extraocular movements are intact. NECK: Supple. No JVD. No thyromegaly. No submental, submandibular, pre- /postauricular, occipital or supraclavicular lymphadenopathy. CHEST: Normal chest expansion. LUNGS: Dry crackles at lung bases per auscultation CARDIOVASCULAR: Regular. S1 and S2 normal. ABDOMEN: obese Soft, nontender, and nondistended. There is no rebound, voluntary guarding, or rigidity. : Deferred. EXTREMITIES: Pain in the lower extremities with palpation. Patient attributes it to post COVID syndrome. Non-edematous and not cyanotic. SKIN: No skin breakdown. Vital Signs (last 8hr) Date Time Temp Pulse Resp B/P (MAP) Pulse Ox O2 Delivery O2 Flow Rate FiO2 06/17/25 12:00 98.8 87 20 120/69 96 Nasal Cannula 3.0 06/17/25 11:04 20 N/Cannula Low lpm 2.0 28 06/17/25 11:04 99 18 06/17/25 08:30 96 Nasal Cannula* 3 32 06/17/25 07:59 98.6 83 20 108/59 96 Nasal Cannula 3.0 06/17/25 06:41 18 N/Cannula Low lpm 3.0 32 06/17/25 06:26 88 18 LABS: Laboratory: Test 06/17/25 06:57 06/17/25 03:06 06/16/25 04:24 Range/Units White Blood Count 13.7 H 4.8-10.8 K/uL Red Blood Count 6.08 H 4.00-5.50 MIL/uL Hemoglobin 14.6 12.0-16.0 g/dL Hematocrit 48.8 H 36-48 % Mean Corpuscular Volume 80.3 79-99 fL Mean Corpuscular Hemoglobin 24.0 L 27.0-33.0 pg Mean Corpuscular Hemoglobin Concent 29.9 L 32.0-36.0 g/dL Red Cell Distribution Width 16.5 H 11.0-15.5 % Platelet Count 319 130-400 K/uL Mean Platelet Volume 9.0 7.5-10.5 fL Immature Granulocyte % (Auto) 0.3 0-1 % Neutrophils (%) (Auto) 88.8 H 40.0-77.0 % Lymphocytes (%) (Auto) 6.6 L 21.0-51.0 % Monocytes (%) (Auto) 1.1 L 3.0-13.0 % Eosinophils (%) (Auto) 2.7 0.0-8.0 % Basophils (%) (Auto) 0.5 0.0-5.0 % Neutrophils # (Auto) 12.2 H 1.8-7.7 K/uL Lymphocytes # (Auto) 0.9 L 1.0-4.8 K/uL Monocytes # (Auto) 0.2 0.1-1.0 K/uL Eosinophils # (Auto) 0.37 0.00-0.70 K/uL Basophils # (Auto) 0.07 0.00-0.20 K/uL Absolute Immature Granulocyte (auto 0.04 0-1 K/uL Nucleated Red Blood Cells 0.0 0.0-0.19 % Sodium Level 137 136-145 mmol/L Potassium Level 4.9 3.5-5.1 mmol/L Chloride Level 101 101-111 mmol/L Carbon Dioxide Level 33 H 21-32 mmol/L Blood Urea Nitrogen 19 H 7-18 mg/dL Creatinine 0.7 0.5-1.0 mg/dL Glomerular Filtration Rate Calc 98 >90 mL/min Random Glucose 181 H 70-105 mg/dL Total Calcium 8.6 8.5-10.1 mg/dL C-Reactive Protein, Quantitative 28.00 H 0.5-3.0 mg/L Vancomycin Level Trough 13.6 # 10.0-20.0 UG/ML Blood Gas Specimen Type Arterial Arterial Blood pH 7.423 7.350-7.450 Arterial Blood Partial Pressure CO2 40 32-45 mmHg Arterial Blood Partial Pressure O2 64.9 L 83.0-108.0 mmHg Arterial Blood HCO3 25.7 21.0-28.0 mmol/L Arterial Blood Oxygen Saturation 94.5 94.0-98.0 % Arterial Blood Base Excess 1.3 -2.0-3.0 mmol/L Hemoglobin (Blood Gas) 14.6 12.0-16.0 g/dL Sodium (Blood Gas) 135 L 136-145 MMOL/L Bedside Potassium (Blood Gas) 4.4 3.4-4.5 MMOL/L Bedside Chloride (Blood Gas) 101 98-107 MMOL/L Bedside Glucose (Blood Gas) 135 H 65-95 MG/DL Bedside Ionized Calcium (Blood Gas) 1.14 L 1.15-1.33 MMOL/L Bedside Lactic Acid (Blood Gas) 1.37 H 0.36-0.75 MMOL/L Blood Gas Temperature 37.0 35.5-37.0 CELSIUS Blood Gas Flow-by 3.00 0.00-15.00 L/min Blood Gas Vent Mode 3LNC ROOM AIR FiO2 32.0 % Blood Gas Specimen Comment RR RN Hemoglobin A1c 6.5 H 4.0-6.0 % Estimated Average Glucose (eAG) 140 H 70-126 mg/dL Lactic Acid Level 1.6 0.8-2.5 mmol/L Current Medications Medications (Trade) Dose Ordered Sig/Lester Route PRN Reason Start Time Stop Time Status Last Admin Dose Admin Acetaminophen (TYLenol 325MG TAB) 650 mg Q4H PRN PO MILD PAIN (1-3) 06/14/25 20:00 07/14/25 19:59 06/15/25 20:06 650 MG Acetaminophen (TYLenol 325MG TAB) 650 mg Q6H PRN PO TEMPERATURE GREATER THAN 101.5 06/14/25 20:00 07/14/25 19:59 Albuterol (DUOneb) 1 udvial [id number] IH 06/14/25 22:00 06/15/25 14:42 DC 06/15/25 09:48 1 UDVIAL Albuterol (DUOneb) 1 udvial [id number] PRN IH SHORTNESS OF BREATH 06/15/25 15:00 07/14/25 21:59 Azithromycin 250 ml @ 250 mls/hr ONCE STAT IVPB 06/14/25 14:05 06/14/25 15:04 DC 06/14/25 15:12 250 MLS/HR Azithromycin 250 ml @ 250 mls/hr Q24H IV 06/15/25 14:00 06/25/25 13:59 06/16/25 13:15 250 MLS/HR Budesonide (Pulmicort 0.25mg/2ml) 0.25 mg BIDRESP IH 06/15/25 18:00 06/15/25 11:37 DC Cefepime HCl (MAXipime 2 gm vial) 2 gm Q8H IVPB 06/15/25 18:00 06/25/25 17:59 06/17/25 12:36 2 GM Ceftriaxone Sodium 1 gm/ Sodium Chloride 50 ml @ 100 mls/hr Q24H IV 06/14/25 20:00 06/14/25 20:19 DC Ceftriaxone Sodium (ROCEphine 1G INJ) 1 gm Q24H IVPB 06/15/25 14:00 06/15/25 09:01 DC Ceftriaxone Sodium (Rocephin 2gm Inj) 2 gm Q24H IVPB 06/15/25 14:00 06/15/25 17:52 DC 06/15/25 14:22 2 GM Enoxaparin Sodium (Lovenox) 40 mg DAILY SQ 06/17/25 09:00 07/17/25 08:59 06/17/25 08:58 40 MG Famotidine (Pepcid 20mg Tab) 20 mg BID PO 06/14/25 21:00 07/14/25 20:59 06/17/25 08:57 20 MG Guaifenesin/ Dextromethorphan (RobiTUSSin DM 200/20MG 10ML) 10 ml Q4H PRN PO COUGH 06/14/25 20:00 07/14/25 19:59 06/17/25 12:40 10 ML Hydroxyzine HCl (ATArax 25MG TAB) 25 mg BID PRN PO ANXIETY 06/14/25 22:00 07/14/25 21:59 06/16/25 20:55 25 MG Ipratropium [place] (AtrovENT UD) 0.5 MG [id number] IH 06/15/25 18:00 06/16/25 11:28 DC 06/16/25 09:49 0.5 MG Ipratropium [place] (AtrovENT UD) 0.5 MG [id number] IH 06/16/25 18:00 07/15/25 13:59 06/17/25 10:59 0.5 MG Ipratropium [place] (AtrovENT UD) 0.5 MG [id number] IH 06/15/25 14:00 06/15/25 14:42 DC 06/15/25 13:26 0.5 MG Methylprednisolone Sodium Succinate (Solu-medROL 40MG) 40 mg BID IVP 06/15/25 09:00 06/15/25 08:58 DC 06/15/25 08:57 40 MG Methylprednisolone Sodium Succinate (Solu-medROL 40MG) 40 mg Q12H IVP 06/17/25 03:30 07/16/25 15:29 06/17/25 03:57 40 MG Methylprednisolone Sodium Succinate (Solu-medROL 40MG) 40 mg Q6H IVP 06/16/25 15:30 06/16/25 15:31 DC Methylprednisolone Sodium Succinate (Solu-medROL 40MG) 40 mg Q8H IVP 06/15/25 09:00 06/15/25 21:01 DC 06/15/25 17:37 40 MG Montelukast Sodium (SinguLAIR) 10 mg DAILY PO 06/15/25 09:00 07/15/25 08:59 06/17/25 08:57 10 MG Ondansetron HCl (zoFRAN 4MG INJ) 4 mg Q6H PRN IV NAUSEA/VOMITING 06/14/25 20:00 07/14/25 19:59 Vancomycin HCl 250 ml @ 125 mls/hr Q12H IV 06/16/25 08:00 06/26/25 07:59 06/17/25 08:57 125 MLS/HR Vancomycin HCl (Vancomycin Protocol) 1 each AD IV 06/15/25 18:00 06/25/25 17:59 DIAGNOSTICS / RADIOLOGY: [ ] PATIENT: TOM BUTTS MR#: [id number] : 1965 SEX: F AGE: 60 LOCATION: [facility] ORDER 1302 STATUS: REG ER REPORT#: [id number] SERVICE 1301 REASON: CHEST PAIN/SOB ORDERING PHYSICIAN: JONAH MONAE SET RIDER PROCEDURE: CXR1VW - CHEST 1VW Frontal chest. Comparison: No prior Findings: There is cardiac enlargement with pulmonary venous congestion. There is no acute fracture or pneumothorax. Impression: Moderate congestive heart failure. /[place] DICTATED BY: LARISSA COE MD DATE: 06/14/251538 ELECTRONICALLY SIGNED BY: LARISSA COE MD DATE: 06/14/251538 PATIENT: TOM BUTTS MR#: [id number] : 1965 SEX: F AGE: 60 [facility] STATUS: ADM IN REPORT#: [id number] SERVICE 193 REASON: sob ORDERING PHYSICIAN: RAIN JOHANSEN FIELD ENGINEER PROCEDURE: CHEST WO - CT CHEST W/O CONTRAST ADDENDUM REPORT ADDENDUM: Results were shared by telephone at 10:46 pm on 06-14-25 and acknowledged by Nurse Practitioner Rain Johansen. /[place] EXAM: CT Chest Without Intravenous Contrast. CLINICAL HISTORY: 60-year-old female with shortness of breath. TECHNIQUE: Axial computed tomography images of the chest without intravenous contrast. Dose reduction technique was used including one or more of the following: automated exposure control, adjustment of mA and kV according to patient size, and/or iterative reconstruction. CONTRAST: Without; COMPARISON: None provided. FINDINGS: LUNGS: Atelectasis and scarring at the lung bases. Question interstitial pneumonitis, correlate clinically. No pulmonary mass. No focal airspace consolidation. PLEURAL SPACES: No pleural effusion. No pneumothorax. HEART AND MEDIASTINUM: No cardiomegaly. No significant pericardial effusion. LYMPH NODES: No lymphadenopathy. CHEST WALL AND UPPER ABDOMEN: Small hiatal hernia. The upper abdominal solid organs are unremarkable. The chest wall is unremarkable. BONES: Mild degenerative changes of the thoracic spine. IMPRESSION: 1. Question interstitial pneumonitis, correlate clinically. 2. Atelectasis and scarring at the lung bases. /[place] DICTATED BY: DEWAYNE TORRES MD DATE: 06/14/252247 ELECTRONICALLY SIGNED BY: DATE: EXAM: CT Chest Without Intravenous Contrast. CLINICAL HISTORY: 60-year-old female with shortness of breath. TECHNIQUE: Axial computed tomography images of the chest without intravenous contrast. Dose reduction technique was used including one or more of the following: automated exposure control, adjustment of mA and kV according to patient size, and/or iterative reconstruction. CONTRAST: Without; COMPARISON: None provided. FINDINGS: LUNGS: Atelectasis and scarring at the lung bases. Question interstitial pneumonitis, correlate clinically. No pulmonary mass. No focal airspace consolidation. PLEURAL SPACES: No pleural effusion. No pneumothorax. HEART AND MEDIASTINUM: No cardiomegaly. No significant pericardial effusion. LYMPH NODES: No lymphadenopathy. CHEST WALL AND UPPER ABDOMEN: Small hiatal hernia. The upper abdominal solid organs are unremarkable. The chest wall is unremarkable. BONES: Mild degenerative changes of the thoracic spine. IMPRESSION: 1. Question interstitial pneumonitis, correlate clinically. 2. Atelectasis and scarring at the lung bases. /[place] DICTATED BY: DEWAYNE TORRES MD DATE: 06/14/252235 ELECTRONICALLY SIGNED BY: DEWAYNE TORRES MD DATE: 06/14/252235 PATIENT: TOM BUTTS MR#: [id number] : 1965 SEX: F AGE: 60 LOCATION: [facility] ORDER 1116 STATUS: ADM IN REPORT#: [id number] SERVICE 1108 REASON: Pain around left lower mandible ORDERING PHYSICIAN: GUSTAVO HALL MD PROCEDURE: FACE 1 2VW - FACIAL BONES 1-2VWS EXAM: CR Paranasal Sinuses, 3 views. CLINICAL HISTORY: Sinusitis. COMPARISON: None provided. FINDINGS: No acute fracture or aggressive appearing osseous lesion. The paranasal sinuses are grossly clear. No air-fluid level or paranasal opacification. Unremarkable soft tissues. IMPRESSION: 1. No acute osseous abnormality. /[place] DICTATED BY: AIDA LEA MD DATE: 06/16/25806 ELECTRONICALLY SIGNED BY: AIDA LEA MD DATE: 06/16/25806 PATIENT: TOM BUTTS MR#: [id number] : 1965 SEX: F AGE: 60 LOCATION: [facility] ORDER 99 STATUS: ADM IN REPORT#: [id number] SERVICE 06 REASON: RESP FAILURE ORDERING PHYSICIAN: HONG SANTIAGO PROCEDURE: CXR1VW - CHEST 1VW Frontal chest. Comparison: June 14, 2025 Findings: There is cardiac enlargement with pulmonary venous congestion. There is no acute fracture or pneumothorax. Impression: Moderate congestive heart failure. /[place] DICTATED BY: LARISSA COE MD DATE: 06/16/251514 ELECTRONICALLY SIGNED BY: LARISSA COE MD DATE: 06/16/251514 PATIENT: TOM BUTTS MR#: [id number] : 1965 SEX: F AGE: 60 LOCATION: [facility] ORDER 2300 STATUS: ADM IN REPORT#: [id number] SERVICE 0600 REASON: RESP FAILURE ORDERING PHYSICIAN: HONG SANTIAGO PROCEDURE: CXR1VW - CHEST 1VW CHEST 1VW REASON: RESP FAILURE COMPARISON: Chest radiograph from 06/16/2025 is available. FINDINGS: Single view of the chest was obtained. There is cardiomegaly with mild diffuse interstitial pulmonary edema which was seen before and appears to be unchanged.. There is no pulmonary vascular congestion. Mediastinum and bony thorax appear unremarkable. IMPRESSION: 1. Cardiomegaly with interstitial pulmonary edema which is unchanged from prior study.. DICTATED BY: ANGELICA DOMÍNGUEZ MD DATE: 06/17/251107 ELECTRONICALLY SIGNED BY: ANGELICA DOMÍNGUEZ MD DATE: 06/17/251110 PATIENT: TOM BUTTS MR#: [id number] : 1965 SEX: F AGE: 60 LOCATION: [facility] ORDER 1105 STATUS: ADM IN REPORT#: [id number] SERVICE 1104 REASON: Crackles in heart, evaluate for CHF ORDERING PHYSICIAN: GUSTAVO HALL MD PROCEDURE: ECHO CMP - ECHO 2-D COMPLETE APPROVED REPORT EXAM: Two-dimensional and M-mode echocardiogram with Doppler and color Doppler. INDICATION ICD: Crackles in the heart, evaluate in congestive heart failure 2D Dimensions RVDd 4.0 cm LVEF(%) 76.6 (>50%) LA ESV INDEX (BP) 16.39 mL/m2 IVSd 0.8 (0.7-1.1cm) FS(%) 45 % LVDd 3.9 (3.8-5.6cm) LA (2D) 3.4 (1.6-4.0cm) PWd 0.8 (0.7-1.1cm) Ao Root(2D) 2.9 (2.0-3.7cm) IVSs 1.2 cm LVOT diam 1.9 (1.8-2.4cm) LVDs 2.2 (2.5-4.0cm) PWs 1.3 cm Deformation Strain Apical 4 -20.0 % Apical 2 -21.3 % Apical 3 -15.8 % Global Strain -19.0 % M-Mode Dimensions EPSS 0.6 cm LA (MM) 4.1 (1.6-4.0cm) Ao Root(MM) 2.7 (2.0-3.7cm) Aortic Valve AoV Vmax 2.1 m/s Ao Peak GR 17.5 mmHg LVOT Vmax 1.3 m/s AoV VTI 0.3 m Ao Mean GR 9.0 mmHg LVOT VTI 0.18 m NAZARIO (VMAX) 1.77 cm2 NAZARIO (VTI) 1.6 cm2 Mitral Valve MV E Vmax 52.5 cm/s DECEL Time 137 ms MV A Vmax 67.9 cm/s P 1/2 T 58 ms E/A ratio 0.8 MVA (PHT) 3.8 cm2 TDI E/E' Medial 10.2 E/E' Lateral 6.0 Medial E' Peak V 5.14 cm/s Lateral E' Peak V 8.74 cm/s Pulmonary Valve PV Vmax 1.2 m/s PV Peak GR 5.9 mmHg Tricuspid Valve TR Vmax 1.2 m/s RAP (EST) 3 mmHg RVSP 9.2 mmHg TR Peak GR 6.2 mmHg Left Ventricle The left ventricle is normal size. GLS -19.0% Septal bounce is present. There is normal left ventricular wall thickness. LVEF is 60-65%. The left ventricular diastolic function is normal. Right Ventricle The right ventricle is normal size. The right ventricular systolic function is normal. Atria The left atrium size is normal. The right atrium size is normal. Aortic Valve Aortic valve is trileaflet and opens well. Non coronary cusp leaflet has mild nodular calcification. No aortic regurgitation is present. There is no aortic valvular stenosis. Mitral Valve The mitral valve is normal in structure. There is no mitral valve regurgitation noted. There is no mitral valve stenosis. Tricuspid Valve The tricuspid valve is normal in structure. There is trace of tricuspid valve regurgitation noted. Estimated pulmonary pressures are normal. Pulmonic Valve The pulmonary valve is normal in structure. There is no pulmonic valvular regur gitation. Great Vessels The aortic root is normal in size. The IVC is normal in size and collapses >50% with inspiration. Pericardium There is no pericardial effusion. Other Information Quality : Technically difficult study due to body habitus Rhythm : NSR Conclusion LVEF is 60-65%. Septal bounce is present. The left ventricular diastolic function is normal. Aortic valve is trileaflet and opens well. Non coronary cusp leaflet has mild nodular calcification. DICTATED BY: TRISTAN SALAZAR DO DATE: 06/17/25 1113 ELECTRONICALLY SIGNED BY: TRISTAN SALAZAR DO DATE: 06/17/25 1628 ASSESSMENT: Acute on chronic respiratory failure - on home O2, POA Suspected bacterial pneumonia POA Sepsis POA Interstitial pneumonitis as per CT Leukocytosis POA Post COVID lung fibrosis POA Hyperglycemia POA Obesity POA Hypertension POA Moderate congestive heart failure as per chest x-ray PLAN: Acute on chronic respiratory failure - Patient presented with increased dyspnea and increased sputum production despite on 2 L home oxygen therapy. - continue IV Solu-Medrol 40 mg b.i.d. as well as IH albuterol, ipratropium and montelukast for exacerbation of her respiratory symptom. - Due to suspected bacterial cause of exacerbation, we are pending sputum culture with g stain and blood culture results. COVID and influenza test have been negative. - CT chest on 06/14/25 showed Question interstitial pneumonitis, correlate clinically. Atelectasis and scarring at the lung bases. - continue cefepime (day 2), vancomycin (day 2) and azithromycin (day 3). - Patient is currently receiving 3 L oxygen nasal cannula. Monitor patient's saturation and adjust nasal cannula accordingly. Patient's baseline is 2 L. - Pulmonology consult is on board. Follow up with their recommendations Suspected bacterial pneumonia and sepsis - On 06/15/2025, Patient was tachycardic with heart rate 108, tachypneic with respiratory rate 24, WBC 12 K with 88% neutrophils. She met SIRS criteria. - Lactic acid on presentation was 2.5. Repeat values showed it is 1.8, Procalcitonin is less than 0.05, CRP 26.70. (06/15/25). - On 06/17, CRP is 26.70 - CT chest on 06/14/25 showed Question interstitial pneumonitis, correlate clinically. Atelectasis and scarring at the lung bases. - She was started on empiric Rocephin1 g Q24 H and azithromycin Q 24 H for coverage of community-acquired pneumonia. Rocephin has been switched to cefepime (day 2) and vancomycin (day 2) has been added in addition to continuation of azithromycin (day 3). - Due to suspected bacterial cause of exacerbation, we are pending sputum culture with g stain and blood culture results. COVID and influenza test have been negative. - Continue inhaled albuterol and ipratropium - For cough, patient is receiving guaifenesin/dextromethorphan. - Follow up with the pulmonology consult. Leukocytosis - Patient's WBCs today is 13.7 K with 88% differential neutrophil. WBCs have gone down as compared to yesterday. - She is receiving empiric cefepime, vancomycin and azithromycin for suspected bacterial pneumonia. - She was also started on Solu-Medrol which could be the cause of leukocytosis. - Follow up with the sputum culture and g stain as well as blood culture results. - Lactic acid decreased from 2.5-1.8. CRP is elevated at 26.70 (06/15/25). - Repeat CBC with differential in the morning and follow up with it. - Follow up with the morning CRP. DVT prophylaxis: Enoxaparin, SCDs GI prophylaxis: famotidine 20 mg b.i.d. ATTESTATION BY PHYSICIAN I have seen and examined the patient. I reviewed the documentation, medical decision making, and treatment plan as noted by the resident provider above. I agree with the findings and plan of care. BETH SCHWARZ MD, MUHAMMAD H MD Jun 17, 2025 13:41
--- NOTE | 2025-06-17 14:28 | PN ---
[facility] PROGRESS NOTE Date Patient Seen: Jun 17, 2025 Time of Visit: 1029 Supervising Physician: Dr. Finn Primary Care Physician: JESISCA CANTOR MD Outpatient Specialists: Inpatient Consults: MEÑO PROBLEM LIST: Acute on chronic hypoxemic respiratory failure on home O2 POA post covid pulmonary fibrosis POA Bilateral CAP, POA Sepsis POA Hyperglycemia POA Hypertension POA Obesity BMI 35.5 INTERVAL HISTORY: Chart reviewed including all laboratory and imaging results. Patient assessed at bedside. Patient continues with cough, shortness for breath, denies palpitations or chest pain at this time. She continues anxious about disease process. She is Hemodynamically stable. Blood pressure 134/95 heart rate in the 80s respiratory rate of 16 unlabored saturating 96% only on 2 L via nasal cannula and afebrile. No major overnight events reported. White count 14.4 likely reactive from increased steroids platelet count of 316 K neutrophils trended down 75.7 today. Kidneys are doing well with a creatinine 0.5 GFR of 106 glucose 140 mg/dL. Hemoglobin A1c 6.5. We will repeat ABG in a.m.. 06/17 patient was seen and examined by bedside with no family present. Patient currently on3 L nasal cannula appears to be tolerating well. Patient does use home oxygen, however states her baseline is2 L. when patient gets back to her baseline we will then consider switching from IV steroids to p.o. steroids. But at this time patient will continue with IV Solu-Medrol. Patient to continue with current IV antibiotics. We will continue to monitor patient's respiratory status closely. Dispo per primary team. Patient's ABGs this a.m. unremarkable RECOMMENDATIONS: -continue empiric antibiotics with azithromycin, cefepime and vanco -continue nebs with atrovent -no need for inhaled steroids at this time. -continue with systemic steroids solu-medrol 40mg IVP q.12 hours -continue Singulair -IS q 2 hrs while awake - acapella with neb Treatment -Arrange outpatient pulmonology appt for sleep study, PFT and follow-up m anagement upon discharge -Continue PT/OT -Continue GI and DVT prophylaxis -Full Resuscitation -dispo per primary team REVIEW OF SYSTEMS: 12 point ROS reviewed with patient. Pertinent positives mentioned above. Otherwise negative. PHYSICAL EXAM: GENERAL: alert, weak, awake oriented x 3 HEENT: EOMI, Sclera non icteric, moist mucosa NECK: Supple, no JVD, trachea midline LUNGS: Diminished breath sounds bilaterally. No wheezes HEART: Regular rate and rhythm. Normal S1 and S2, without murmurs ABD: Abdomen soft, nontender. Bowel sounds present EXT: No clubbing cyanosis or edema NEURO: Alert and oriented to person, follows commands Vital Signs (last 8hr) Date Time Temp Pulse Resp B/P (MAP) Pulse Ox O2 Delivery O2 Flow Rate FiO2 06/17/25 12:00 98.8 87 20 120/69 96 Nasal Cannula 3.0 06/17/25 11:04 20 N/Cannula Low lpm 2.0 28 06/17/25 11:04 99 18 06/17/25 08:30 96 Nasal Cannula* 3 32 06/17/25 07:59 98.6 83 20 108/59 96 Nasal Cannula 3.0 06/17/25 06:41 18 N/Cannula Low lpm 3.0 32 06/17/25 06:26 88 18 LABS: Hematology Labs: Test 06/17/25 06:57 Range/Units White Blood Count 13.7 H 4.8-10.8 K/uL Red Blood Count 6.08 H 4.00-5.50 MIL/uL Hemoglobin 14.6 12.0-16.0 g/dL Hematocrit 48.8 H 36-48 % Mean Corpuscular Volume 80.3 79-99 fL Mean Corpuscular Hemoglobin 24.0 L 27.0-33.0 pg Mean Corpuscular Hemoglobin Concent 29.9 L 32.0-36.0 g/dL Red Cell Distribution Width 16.5 H 11.0-15.5 % Platelet Count 319 130-400 K/uL Mean Platelet Volume 9.0 7.5-10.5 fL Immature Granulocyte % (Auto) 0.3 0-1 % Neutrophils (%) (Auto) 88.8 H 40.0-77.0 % Lymphocytes (%) (Auto) 6.6 L 21.0-51.0 % Monocytes (%) (Auto) 1.1 L 3.0-13.0 % Eosinophils (%) (Auto) 2.7 0.0-8.0 % Basophils (%) (Auto) 0.5 0.0-5.0 % Neutrophils # (Auto) 12.2 H 1.8-7.7 K/uL Lymphocytes # (Auto) 0.9 L 1.0-4.8 K/uL Monocytes # (Auto) 0.2 0.1-1.0 K/uL Eosinophils # (Auto) 0.37 0.00-0.70 K/uL Basophils # (Auto) 0.07 0.00-0.20 K/uL Absolute Immature Granulocyte (auto 0.04 0-1 K/uL Nucleated Red Blood Cells 0.0 0.0-0.19 % Chemistry Labs: Test 06/17/25 06:57 06/16/25 04:24 Range/Units Sodium Level 137 136-145 mmol/L Potassium Level 4.9 3.5-5.1 mmol/L Chloride Level 101 101-111 mmol/L Carbon Dioxide Level 33 H 21-32 mmol/L Blood Urea Nitrogen 19 H 7-18 mg/dL Creatinine 0.7 0.5-1.0 mg/dL Glomerular Filtration Rate Calc 98 >90 mL/min Random Glucose 181 H 70-105 mg/dL Total Calcium 8.6 8.5-10.1 mg/dL C-Reactive Protein, Quantitative 28.00 H 0.5-3.0 mg/L Hemoglobin A1c 6.5 H 4.0-6.0 % Estimated Average Glucose (eAG) 140 H 70-126 mg/dL Lactic Acid Level 1.6 0.8-2.5 mmol/L DIAGNOSTICS / RADIOLOGY RESULTS: GENESIS Gonzales [facility] Jun 17, 2025 14:28
--- NOTE | 2025-06-17 16:00 | NUR ---
PATIENT REQUESTING IV ANTIBIOTICS TO BE GIVEN SLOWLY OVER 3-4 HOURS. INFORMED PATIENT WE WILL DO THAT , KEEPING IN IND THAT SHE IS ON THREE ANTIBIOTICS AND REFUSES TO HAVE MORE THAN ONE IV SITE DUE TO HER SAYING THAT SHE WILL BE GOING HOME TOMORROW.
--- NOTE | 2025-06-17 16:28 | HMCSR ---
APPROVED REPORT EXAM: Two-dimensional and M-mode echocardiogram with Doppler and color Doppler. INDICATION ICD: Crackles in the heart, evaluate in congestive heart failure 2D Dimensions RVDd4.0 cmLVEF(%)76.6 (>50%)LA ESV INDEX (BP)16.39 mL/m2 IVSd0.8 (0.7-1.1cm)FS(%)45 % LVDd3.9 (3.8-5.6cm)LA (2D)3.4 (1.6-4.0cm) PWd0.8 (0.7-1.1cm)Ao Root(2D)2.9 (2.0-3.7cm) IVSs1.2 cmLVOT diam1.9 (1.8-2.4cm) LVDs2.2 (2.5-4.0cm) PWs1.3 cm Deformation Strain Apical 4-20.0 % Apical 2-21.3 % Apical 3-15.8 % Global Strain-19.0 % M-Mode Dimensions EPSS0.6 cm LA (MM)4.1 (1.6-4.0cm) Ao Root(MM)2.7 (2.0-3.7cm) Aortic Valve AoV Vmax2.1 m/Shania Peak GR17.5 mmHgLVOT Vmax1.3 m/s AoV VTI0.3 mAo Mean GR9.0 mmHgLVOT VTI0.18 m NAZARIO (VMAX)1.77 cm2AVA (VTI) 1.6 cm2 Mitral Valve MV E Vmax52.5 cm/sDECEL Bypc915 ms MV A Vmax67.9 cm/sP 1/2 T58 ms E/A ratio0.8MVA (PHT)3.8 cm2 TDI E/E' Kvzwjo90.2E/E' Lateral6.0 Medial E' Peak V5.14 cm/sLateral E' Peak V8.74 cm/s Pulmonary Valve PV Vmax1.2 m/s PV Peak GR5.9 mmHg Tricuspid Valve TR Vmax1.2 m/sRAP (EST) 3 mmHgRVSP9.2 mmHg TR Peak GR6.2 mmHg Left Ventricle The left ventricle is normal size. GLS -19.0% Septal bounce is present. There is normal left ventricu lar wall thickness. LVEF is 60-65%. The left ventricular diastolic function is normal. Right Ventricle The right ventricle is normal size. The right ventricular systolic function is normal. Atria The left atrium size is normal. The right atrium size is normal. Aortic Valve Aortic valve is trileaflet and opens well. Non coronary cusp leaflet has mild nodular calcification. No aortic regurgitation is present. There is no aortic valvular stenosis. Mitral Valve The mitral valve is normal in structure. There is no mitral valve regurgitation noted. There is no mi tral valve stenosis. Tricuspid Valve The tricuspid valve is normal in structure. There is trace of tricuspid valve regurgitation noted. Es timated pulmonary pressures are normal. Pulmonic Valve The pulmonary valve is normal in structure. There is no pulmonic valvular regurgitation. Great Vessels The aortic root is normal in size. The IVC is normal in size and collapses >50% with inspiration. Pericardium There is no pericardial effusion. Other Information Quality : Technically difficult study due to body habitus Rhythm : NSR Conclusion LVEF is 60-65%. Septal bounce is present. The left ventricular diastolic function is normal. Aortic valve is trileaflet and opens well. Non coronary cusp leaflet has mild nodular calcification.
[2025-06-18] VITALS (7 sets, daily range): BP systolic 126–147; BP diastolic 73–79; PULSE 80–92; RESP 18–20; TEMP 97.6–98.7; O2SAT 96
[2025-06-18 04:08] LABS: IMMATURE GRANULOCYTE ABSOLUTE 0.05 K/uL (0-1); NUCLEATED RED BLOOD CELLS 0.0 % (0.0-0.19); PLATELET COUNT (AUTO) 304 K/uL (130-400); RED BLOOD CELL COUNT(AUTO) 5.46 MIL/uL (4.00-5.50); RED CELL DISTRIBUTION WIDTH 15.8 % (11.0-15.5); WHITE BLOOD COUNT (AUTO) 14.0 K/uL (4.8-10.8)
[2025-06-18 04:17] LABS: CREATININE 0.5 mg/dL (0.5-1.0); GLOMERULAR FILTR. RATE CALC 106.0 mL/min (>90); GLUCOSE,RANDOM 122.0 mg/dL (70-105); SODIUM SERUM 140.0 mmol/L (136-145); UREA NITROGEN, BLOOD 20.0 mg/dL (7-18)
--- NOTE | 2025-06-18 11:22 | HMCIMG ---
CHEST 1VW REASON: RESP FAILURE COMPARISON: Prior chest radiograph from 06/17/2025 is available. FINDINGS: Single view of the chest was obtained. There is cardiomegaly with interstitial pulmonary edema which is unchanged from prior study. There is no evidence of any airspace consolidation.. Mediastinum and bony thorax appear unremarkable. There are surgical clips in the right upper quadrant from prior cholecystectomy. IMPRESSION: 1. Unchanged cardiomegaly with interstitial pulmonary edema.
--- NOTE | 2025-06-18 13:57 | PN ---
[facility] PROGRESS NOTE Date Patient Seen: Jun 18, 2025 Time of Visit: 0951 Supervising Physician: Dr. Finn Primary Care Physician: JESSICA CANTOR MD Outpatient Specialists: Inpatient Consults: MEÑO PROBLEM LIST: Acute on chronic hypoxemic respiratory failure on home O2 POA post covid pulmonary fibrosis POA Bilateral CAP, POA Sepsis POA Hyperglycemia POA Hypertension POA Obesity BMI 35.5 INTERVAL HISTORY: Chart reviewed including all laboratory and imaging results. Patient assessed at bedside. Patient continues with cough, shortness for breath, denies palpitations or chest pain at this time. She continues anxious about disease process. She is Hemodynamically stable. Blood pressure 134/95 heart rate in the 80s respiratory rate of 16 unlabored saturating 96% only on 2 L via nasal cannula and afebrile. No major overnight events reported. White count 14.4 likely reactive from increased steroids platelet count of 316 K neutrophils trended down 75.7 today. Kidneys are doing well with a creatinine 0.5 GFR of 106 glucose 140 mg/dL. Hemoglobin A1c 6.5. We will repeat ABG in a.m.. 06/17 patient was seen and examined by bedside with no family present. Patient currently on3 L nasal cannula appears to be tolerating well. Patient does use home oxygen, however states her baseline is2 L. when patient gets back to her baseline we will then consider switching from IV steroids to p.o. steroids. But at this time patient will continue with IV Solu-Medrol. Patient to continue with current IV antibiotics. We will continue to monitor patient's respiratory status closely. Dispo per primary team. Patient's ABGs this a.m. unremarkable 06/18 patient was seen and examined at bedside with no family present. Patient has been weaned down to 2.5 L nasal cannula, patient reports feeling much better and shortness of breadth has improved significantly. Patient denies any chest pain. Patient being comes back to baseline patient states her baseline at home is 2 L. patient denies any nausea vomiting or abdominal pain. From a pulmonary standpoint patient may be cleared for discharge with a Medrol Dosepak and to continue azithromycin for two more days. Dispo per primary team RECOMMENDATIONS: -patient is cleared for discharge from a pulmonary standpoint -should be discharged on a Medrol Dosepak follow up appointment with Dr. Short insurance advisor within 3-5 days, and continue azithromycin for two more days -continue empiric antibiotics with azithromycin, cefepime and vanco -continue nebs with atrovent -no need for inhaled steroids at this time. -continue with systemic steroids solu-medrol 40mg IVP q.12 hours -continue Singulair -IS q 2 hrs while awake - acapella with neb Treatment -Arrange outpatient pulmonology appt for sleep study, PFT and follow-up management upon discharge -Continue PT/OT -Continue GI and DVT prophylaxis -Full Resuscitation -dispo per primary team REVIEW OF SYSTEMS: 12 point ROS reviewed with patient. Pertinent positives mentioned above. Otherwise negative. PHYSICAL EXAM: GENERAL: alert, weak, awake oriented x 3 HEENT: EOMI, Sclera non icteric, moist mucosa NECK: Supple, no JVD, trachea midline LUNGS: Diminished breath sounds bilaterally. No wheezes HEART: Regular rate and rhythm. Normal S1 and S2, without murmurs ABD: Abdomen soft, nontender. Bowel sounds present EXT: No clubbing cyanosis or edema NEURO: Alert and oriented to person, follows commands Vital Signs (last 8hr) Date Time Temp Pulse Resp B/P (MAP) Pulse Ox O2 Delivery O2 Flow Rate FiO2 06/18/25 11:30 97.5 85 20 130/75 100 Nasal Cannula 3.0 06/18/25 11:24 89 18 06/18/25 07:32 98.8 87 20 147/79 100 Nasal Cannula 3.0 06/18/25 06:59 87 20 N/Cannula Low lpm 2.0 28 06/18/25 06:56 87 18 LABS: Hematology Labs: Test 06/18/25 03:45 Range/Units White Blood Count 14.0 H 4.8-10.8 K/uL Red Blood Count 5.46 4.00-5.50 MIL/uL Hemoglobin 13.1 12.0-16.0 g/dL Hematocrit 43.7 36-48 % Mean Corpuscular Volume 80.0 79-99 fL Mean Corpuscular Hemoglobin 24.0 L 27.0-33.0 pg Mean Corpuscular Hemoglobin Concent 30.0 L 32.0-36.0 g/dL Red Cell Distribution Width 15.8 H 11.0-15.5 % Platelet Count 304 130-400 K/uL Mean Platelet Volume 9.2 7.5-10.5 fL Immature Granulocyte % (Auto) 0.4 0-1 % Neutrophils (%) (Auto) 73.9 40.0-77.0 % Lymphocytes (%) (Auto) 15.6 L 21.0-51.0 % Monocytes (%) (Auto) 6.4 3.0-13.0 % Eosinophils (%) (Auto) 3.2 0.0-8.0 % Basophils (%) (Auto) 0.5 0.0-5.0 % Neutrophils # (Auto) 10.3 H 1.8-7.7 K/uL Lymphocytes # (Auto) 2.2 1.0-4.8 K/uL Monocytes # (Auto) 0.9 0.1-1.0 K/uL Eosinophils # (Auto) 0.45 0.00-0.70 K/uL Basophils # (Auto) 0.07 0.00-0.20 K/uL Absolute Immature Granulocyte (auto 0.05 0-1 K/uL Nucleated Red Blood Cells 0.0 0.0-0.19 % Chemistry Labs: Test 06/18/25 03:45 06/17/25 06:57 Range/Units Sodium Level 140 136-145 mmol/L Potassium Level 4.0 3.5-5.1 mmol/L Chloride Level 103 101-111 mmol/L Carbon Dioxide Level 30 21-32 mmol/L Blood Urea Nitrogen 20 H 7-18 mg/dL Creatinine 0.5 0.5-1.0 mg/dL Glomerular Filtration Rate Calc 106 >90 mL/min Random Glucose 122 H 70-105 mg/dL Total Calcium 8.2 L 8.5-10.1 mg/dL Magnesium Level 2.50 H 1.80-2.40 mg/dL C-Reactive Protein, Quantitative 28.00 H 0.5-3.0 mg/L DIAGNOSTICS / RADIOLOGY RESULTS: GENESIS Gonzales [facility] Jun 18, 2025 13:57
[2025-06-18] MEDS ORDERED: METH4TAB3 PO (14:09)
[2025-06-18] MEDS ORDERED: AZIT250T9 PO (14:13)
[2025-06-18] MEDS ORDERED: IPRA3AMP24 IH (14:13)
[2025-06-18] MEDS ORDERED: AMOX-426 PO (14:15)
--- NOTE | 2025-06-18 17:24 | NUR ---
Patient was discharged, all discharge documentation and personal items taken by patient and spouse. Patient informed to follow up with primary care provider in 3-5 days, and with Dr. Brad Short on 07/01/2025 at 9:00A.M. New scripts sent to [facility] on [facility] in [place], [place]. IV and telemetry pack were removed, patient transported out of facility via personal wheelchair by spouse.
--- NOTE | 2025-06-18 17:38 | DS ---
Discharge Summary Hospital Course Summary: This patient is a 60-year-old female with a significant history of chronic obstructive pulmonary disease, hypertension, obesity and chronic respiratory failure on home oxygen 2 L nasal cannula baseline, who presented with worsening shortness of breath and productive cough for 2 weeks. On admission, she was tachycardic and tachypneic and chest x-ray showed findings consistent with moderate congestive heart failure. Laboratory results revealed leukocytosis with neutrophil predominance and CT chest demonstrated interstitial pneumonitis with atelectasis and scarring at the lung bases. Initial management in the ED included Solu-Medrol, azithromycin, ceftriaxone and nebulized bronchodilators. She was admitted for further management of acute on chronic respiratory failure and suspected bacterial pneumonia. During hospitalization, the patient's antibiotics were escalated to cefepime and vancomycin in addition to azithromycin for broader coverage of community- acquired pneumonia. Sputum and blood cultures remained without growth and board COVID-19 and influenza testing were negative. She continued on IV Solu-Medrol, bronchodilator therapy with albuterol, ipratropium and supportive measures included incentive spirometry and pulmonary hygiene. Her WBC count trended down from 14.4 K to 13.7 K, lactic acid normalized from 2.5-1.8, and oxygen requirements improved from 4 L to 2.5 L to 2 L. clinically, her dyspnea and cough gradually improved, with sputum becoming less thick and less frequent. By the time of discharge, the patient was hemodynamically stable, afebrile and saturating well on 2 L nasal cannula consistent with her home baseline. From a pulmonary standpoint, she was deemed stable for discharge with a Medrol Dosepak, continuation of azithromycin for 2 additional days, and outpatient follow up with her product marketing consultant, Dr. Short within 3-5 days. She was instructed to continue home oxygen therapy, nebulized bronchodilators, Singulair along with physical and occupational therapy. Travograph Operator(s): [facility] CONSULTATION NOTE Date Patient Seen: Jun 15, 2025 Time of Visit: 09:02 Supervising Physician: CHRISTA IRVIN MD Reason for Consultation: SOB AND DYSPNEA PROBLEM LIST: Acute on chronic hypoxemic respiratory failure on home O2 POA post covid pulmonary fibrosis POA Bilateral CAP, POA Sepsis POA Hyperglycemia POA Hypertension POA Obesity BMI 35.5 HPI: This is a 60-year-old obese female with a past medical history of hypertension, obesity, BLE neuropathy, post COVID pulmonary fibrosis, and chronic hypoxemic respiratory failure on home O2 at 1.5 L who presented to the ED for worsening shortness of breaths on exertion and a productive cough. Per pt she reports prior history of covid pneumonia in nd spent approximately 45 days in the hospital and ICU setting. She reports prior history of intubation and a prior trachestomy now post closure. She was admitted by the hospitalist team for suspected community-acquired pneumonia and we are consulted for worsening hypoxemic respiratory failure. On assessment patient is awake alert and oriented x3. Currently on 3 L via nasal cannula in no apparent distress. Patient reports she usually uses 1.5 L at home. White count trending down 12.0 today hemoglobin and hematocrit are stable platelet count within normal limit neutrophils are elevated 88.8. Chemistry does show good kidneys with a creatinine of 0.7 GFR of 98 glucose of 203 mg/dL CRP of 26.70 initial troponin was normal procalcitonin less than 0.05. Influenza and COVID are negative. Urinalysis unremarkable. Sputum culture growing Gram-positive cocci in chains and clusters. CT of the chest shows questionable interstitial pneumonitis, correlate clinically. Atelectasis and scarring of the lung bases. RECOMMENDATIONS: -change Rocephin to Cefepime and add vancomycin -continue azithromycin -continue nebs with atrovent -no need for inhaled steroids at this time. -continue with systemic steroids solu-medrol 40mg IVP q 8H -continue Singulair - ABG - chest XR in am -IS q 2 hrs while awake - acapella with neb Treatment -Arrange outpatient pulmonology appt for sleep study, PFT and follow-up management upon discharge -Continue PT/OT -Continue GI and DVT prophylaxis -Full Resuscitation -dispo per primary team HONG SANTIAGO Jun 15, 2025 09:02 Electronically Signed by: HONG SANTIAGO [id number]/07/25 1805 Electronically Co-Signed by: CHRISTA IRVIN MD06/18/25 1537 [facility] PROGRESS NOTE Date Patient Seen: Jun 18, 2025 Time of Visit: 0951 Supervising Physician: Dr. Finn PROBLEM LIST: Acute on chronic hypoxemic respiratory failure on home O2 POA post covid pulmonary fibrosis POA Bilateral CAP, POA Sepsis POA Hyperglycemia POA Hypertension POA Obesity BMI 35.5 INTERVAL HISTORY: Chart reviewed including all laboratory and imaging results. Patient assessed at bedside. Patient continues with cough, shortness for breath, denies palpitations or chest pain at this time. She continues anxious about disease process. She is Hemodynamically stable. Blood pressure 134/95 heart rate in the 80s respiratory rate of 16 unlabored saturating 96% only on 2 L via nasal cannula and afebrile. No major overnight events reported. White count 14.4 likely reactive from increased steroids platelet count of 316 K neutrophils trended down 75.7 today. Kidneys are doing well with a creatinine 0.5 GFR of 106 glucose 140 mg/dL. Hemoglobin A1c 6.5. We will repeat ABG in a.m.. 06/17 patient was seen and examined by bedside with no family present. Patient currently on3 L nasal cannula appears to be tolerating well. Patient does use home oxygen, however states her baseline is2 L. when patient gets back to her baseline we will then consider switching from IV steroids to p.o. steroids. But at this time patient will continue with IV Solu-Medrol. Patient to continue with current IV antibiotics. We will continue to monitor patient's respiratory status closely. Dispo per primary team. Patient's ABGs this a.m. unremarkable 06/18 patient was seen and examined at bedside with no family present. Patient has been weaned down to 2.5 L nasal cannula, patient reports feeling much better and shortness of breadth has improved significantly. Patient denies any chest pain. Patient being comes back to baseline patient states her baseline at home is 2 L. patient denies any nausea vomiting or abdominal pain. From a pulmonary standpoint patient may be cleared for discharge with a Medrol Dosepak and to continue azithromycin for two more days. Dispo per primary team RECOMMENDATIONS: -patient is cleared for discharge from a pulmonary standpoint -should be discharged on a Medrol Dosepak follow up appointment with Dr. Short product marketing consultant within 3-5 days, and continue azithromycin for two more days -continue empiric antibiotics with azithromycin, cefepime and vanco -continue nebs with atrovent -no need for inhaled steroids at this time. -continue with systemic steroids solu-medrol 40mg IVP q.12 hours -continue Singulair -IS q 2 hrs while awake - acapella with neb Treatment -Arrange outpatient pulmonology appt for sleep study, PFT and follow-up management upon discharge -Continue PT/OT -Continue GI and DVT prophylaxis -Full Resuscitation -dispo per primary team GENESIS CHEWP Jun 18, 2025 13:57 Electronically Signed by: GENESIS CHEW [id number] Electronically Co-Signed by: BLAISE HOOD MD06/19/25 0732 Procedure(s): PATIENT: TOM BUTTS ACCT: [id number] LOC: [facility] U: [id number] AGE/SX: 60/F ROOM: 203 RE06/14/[address]: NAVA JOHNSON MD : 1965 BED: 1 DIS: STATUS: ADM IN TLOC: SPEC: [id number] ALICE: 06/14/25 STATUS: COMP REQ: [id number] RECD: 06/14/[address]: RAIN ROSALES SOURCE: SPUTUM ENTR: 06/14/[address]: SHMUEL WYATT MD SPDESC: YASMANI BELTRE MD, ANTONIO MD RODRIGUEZ, JAIRO P MD ORDERED: RESP CULTURE Procedure Result [place] Date-Time GRAM STAIN Final 06/15/25-1137 MRL GRAM STAIN RESULT: MODERATELY FAIR SPECIMEN [ >10SEC's/LPF AND >25 PMN's/LPF ] 1+ GRAM POSITIVE COCCI IN CHAINS AND CLUSTERS RARE GRAM POSITIVE RODS RARE YEAST RESPIRATORY CULTURE Final 06/17/25-0740 MRL COLONY DESCRIPTION: REPORT 1: 2+ ORAL OSMANI ; STUDIES TO CONTINUE REPORT 2: 1+ YEAST, MARIBETH ALBICANS NO FURTHER WORK-UP DONE MARIBETH ALBICANS Test(s) performed by: [facility] [address] [place] [address] PATIENT: TOM BUTTS ACCT: [id number] LOC: [facility] U: [id number] AGE/SX: 60/F ROOM: [facility] RE06/14/[address]: NAVA JOHNSON MD : 1965 BED: 1 DIS: 06/18/25 STATUS: DIS IN TLOC: SPEC: [id number] ALICE: 06/14/25 STATUS: COMP REQ: [id number] RECD: 06/14/[address]: JONAH MONAE SOURCE: BLOOD ENTR: 06/14/25-[address] [facility] [address]: YASMANI CRUZ MD [facility]: SELF,REFERRAL ORDERED: BLOOD CULTURE COMMENTS: What is the Source? BLOOD Procedure Result [place] Date-Time BLOOD CULT Final 06/19/25-1344 PATIENT: TOM BUTTS MR#: [id number] : 1965 SEX: F AGE: 60 LOCATION: 2AH ORDER 2300 STATUS: ADM IN REPORT#: [id number] SERVICE 0600 REASON: RESP FAILURE ORDERING PHYSICIAN: HONG SANTIAGO PROCEDURE: CXR1VW - CHEST 1VW CHEST 1VW REASON: RESP FAILURE COMPARISON: Prior chest radiograph from 06/17/2025 is available. FINDINGS: Single view of the chest was obtained. There is cardiomegaly with interstitial pulmonary edema which is unchanged from prior study. There is no evidence of any airspace consolidation.. Mediastinum and bony thorax appear unremarkable. There are surgical clips in the right upper quadrant from prior cholecystectomy. IMPRESSION: 1. Unchanged cardiomegaly with interstitial pulmonary edema. DICTATED BY: ANGELICA DOMÍNGUEZ MD DATE: 06/18/25 1118 ELECTRONICALLY SIGNED BY: ANGELICA DOMÍNGUEZ MD DATE: 06/18/25 1122 PATIENT: TOM BUTTS MR#: [id number] : 1965 SEX: F AGE: 60 LOCATION: 2AH ORDER 1105 STATUS: ADM IN REPORT#: [id number] SERVICE 1104 REASON: Crackles in heart, evaluate for CHF ORDERING PHYSICIAN: GUSTAVO HALL MD PROCEDURE: ECHO CMP - ECHO 2-D COMPLETE APPROVED REPORT EXAM: Two-dimensional and M-mode echocardiogram with Doppler and color Doppler. INDICATION ICD: Crackles in the heart, evaluate in congestive heart failure 2D Dimensions RVDd 4.0 cm LVEF(%) 76.6 (>50%) LA ESV INDEX (BP) 16.39 mL/m2 IVSd 0.8 (0.7-1.1cm) FS(%) 45 % LVDd 3.9 (3.8-5.6cm) LA (2D) 3.4 (1.6-4.0cm) PWd 0.8 (0.7-1.1cm) Ao Root(2D) 2.9 (2.0-3.7cm) IVSs 1.2 cm LVOT diam 1.9 (1.8-2.4cm) LVDs 2.2 (2.5-4.0cm) PWs 1.3 cm Deformation Strain Apical 4 -20.0 % Apical 2 -21.3 % Apical 3 -15.8 % Global Strain -19.0 % M-Mode Dimensions EPSS 0.6 cm LA (MM) 4.1 (1.6-4.0cm) Ao Root(MM) 2.7 (2.0-3.7cm) Aortic Valve AoV Vmax 2.1 m/s Ao Peak GR 17.5 mmHg LVOT Vmax 1.3 m/s AoV VTI 0.3 m Ao Mean GR 9.0 mmHg LVOT VTI 0.18 m NAZARIO (VMAX) 1.77 cm2 NAZARIO (VTI) 1.6 cm2 Mitral Valve MV E Vmax 52.5 cm/s DECEL Time 137 ms MV A Vmax 67.9 cm/s P 1/2 T 58 ms E/A ratio 0.8 MVA (PHT) 3.8 cm2 TDI E/E' Medial 10.2 E/E' Lateral 6.0 Medial E' Peak V 5.14 cm/s Lateral E' Peak V 8.74 cm/s Pulmonary Valve PV Vmax 1.2 m/s PV Peak GR 5.9 mmHg Tricuspid Valve TR Vmax 1.2 m/s RAP (EST) 3 mmHg RVSP 9.2 mmHg TR Peak GR 6.2 mmHg Left Ventricle The left ventricle is normal size. GLS -19.0% Septal bounce is present. There is normal left ventricular wall thickness. LVEF is 60-65%. The left ventricular diastolic function is normal. Right Ventricle The right ventricle is normal size. The right ventricular systolic function is normal. Atria The left atrium size is normal. The right atrium size is normal. Aortic Valve Aortic valve is trileaflet and opens well. Non coronary cusp leaflet has mild nodular calcification. No aortic regurgitation is present. There is no aortic valvular stenosis. Mitral Valve The mitral valve is normal in structure. There is no mitral valve regurgitation noted. There is no mitral valve stenosis. Tricuspid Valve The tricuspid valve is normal in structure. There is trace of tricuspid valve regurgitation noted. Estimated pulmonary pressures are normal. Pulmonic Valve The pulmonary valve is normal in structure. There is no pulmonic valvular regurgitation. Great Vessels The aortic root is normal in size. The IVC is normal in size and collapses >50% with inspiration. Pericardium There is no pericardial effusion. Other Information Quality : Technically difficult study due to body habitus Rhythm : NSR Conclusion LVEF is 60-65%. Septal bounce is present. The left ventricular diastolic function is normal. Aortic valve is trileaflet and opens well. Non coronary cusp leaflet has mild nodular calcification. DICTATED BY: TRISTAN SALAZAR DO DATE: 06/17/25 1113 ELECTRONICALLY SIGNED BY: TRISTAN SALAZAR DO DATE: 06/17/25 1628 PATIENT: TOM BUTTS MR#: [id number] : 1965 SEX: F AGE: 60 LOCATION: 2AH ORDER 2300 STATUS: ADM IN REPORT#: [id number] SERVICE 0600 REASON: RESP FAILURE ORDERING PHYSICIAN: HONG SANTIAGO PROCEDURE: CXR1VW - CHEST 1VW CHEST 1VW REASON: RESP FAILURE COMPARISON: Chest radiograph from 06/16/2025 is available. FINDINGS: Single view of the chest was obtained. There is cardiomegaly with mild diffuse interstitial pulmonary edema which was seen before and appears to be unchanged.. There is no pulmonary vascular congestion. Mediastinum and bony thorax appear unremarkable. IMPRESSION: 1. Cardiomegaly with interstitial pulmonary edema which is unchanged from prior study.. DICTATED BY: ANGELICA DOMÍNGUEZ MD DATE: 06/17/25 1108 ELECTRONICALLY SIGNED BY: ANGELICA DOMÍNGUEZ MD DATE: 06/17/25 1111 PATIENT: TOM BUTTS MR#: [id number] : 1965 SEX: F AGE: 60 LOCATION: 2AH ORDER 2300 STATUS: ADM IN REPORT#: [id number] SERVICE 0600 REASON: RESP FAILURE ORDERING PHYSICIAN: HONG SANTIAGO PROCEDURE: CXR1VW - CHEST 1VW Frontal chest. Comparison: June 14, 2025 Findings: There is cardiac enlargement with pulmonary venous congestion. There is no acute fracture or pneumothorax. Impression: Moderate congestive heart failure. /[place] DICTATED BY: LARISSA COE MD DATE: 06/16/251514 ELECTRONICALLY SIGNED BY: LARISSA COE MD DATE: 06/16/25 151 PATIENT: TOM BUTTS MR#: [id number] : 1965 SEX: F AGE: 60 LOCATION: 2AH ORDER 1116 STATUS: ADM IN REPORT#: [id number] SERVICE 1108 REASON: Pain around left lower mandible ORDERING PHYSICIAN: GUSTAVO HALL MD PROCEDURE: FACE 1 2VW - FACIAL BONES 1-2VWS EXAM: CR Paranasal Sinuses, 3 views. CLINICAL HISTORY: Sinusitis. COMPARISON: None provided. FINDINGS: No acute fracture or aggressive appearing osseous lesion. The paranasal sinuses are grossly clear. No air-fluid level or paranasal opacification. Unremarkable soft tissues. IMPRESSION: 1. No acute osseous abnormality. /[place] DICTATED BY: AIDA LEA MD DATE: 06/16/25806 PATIENT: TOM BUTTS MR#: [id number] : 1965 SEX: F AGE: 60 LOCATION: EDHIP ORDER 50 STATUS: ADM IN REPORT#: [id number] SERVICE 34 REASON: sob ORDERING PHYSICIAN: RAIN ROSALES OUTREACH ASSOCIATE PROCEDURE: CHEST WO - CT CHEST W/O CONTRAST ADDENDUM REPORT ADDENDUM: Results were shared by telephone at 10:46 pm on 06-14-25 and acknowledged by Nurse Practitioner Rain Rosales. /[place] EXAM: CT Chest Without Intravenous Contrast. CLINICAL HISTORY: 60-year-old female with shortness of breath. TECHNIQUE: Axial computed tomography images of the chest without intravenous contrast. Dose reduction technique was used including one or more of the following: automated exposure control, adjustment of mA and kV according to patient size, and/or iterative reconstruction. CONTRAST: Without; COMPARISON: None provided. FINDINGS: LUNGS: Atelectasis and scarring at the lung bases. Question interstitial pneumonitis, correlate clinically. No pulmonary mass. No focal airspace consolidation. PLEURAL SPACES: No pleural effusion. No pneumothorax. HEART AND MEDIASTINUM: No cardiomegaly. No significant pericardial effusion. LYMPH NODES: No lymphadenopathy. CHEST WALL AND UPPER ABDOMEN: Small hiatal hernia. The upper abdominal solid organs are unremarkable. The chest wall is unremarkable. BONES: Mild degenerative changes of the thoracic spine. IMPRESSION: 1. Question interstitial pneumonitis, correlate clinically. 2. Atelectasis and scarring at the lung bases. /[place] PATIENT: TOM BUTTS MR#: [id number] : 1965 SEX: F AGE: 60 LOCATION: EDH ORDER 1302 STATUS: REG ER REPORT#: [id number] SERVICE 1301 REASON: CHEST PAIN/SOB ORDERING PHYSICIAN: JONAH MONAE [employer] PROCEDURE: CXR1VW - CHEST 1VW Frontal chest. Comparison: No prior Findings: There is cardiac enlargement with pulmonary venous congestion. There is no acute fracture or pneumothorax. Impression: Moderate congestive heart failure. /[place] DICTATED BY: LARISSA COE MD DATE: 06/14/251538 ELECTRONICALLY SIGNED BY: LARISSA COE MD DATE: 06/14/251538 Assessment/Plan: ASSESSMENT: Acute on chronic respiratory failure - on home O2, POA Suspected bacterial pneumonia POA Sepsis POA Interstitial pneumonitis as per CT Leukocytosis POA Post COVID lung fibrosis POA Hyperglycemia POA Obesity POA Hypertension POA Moderate congestive heart failure as per chest x-ray Discharge Instructions: Continue azithromycin 250mg for 2 days and augmentin for next 5 days. Do as dircted duoneb nebs for your respiratory symptoms. Take medrol dose pack. Follow up with Dr. Short on 07/01/2025 at 2:15P.M. for further evaluation of chronic respiratory failure. Follow up with your primary care physician in 2-3 days after discharge. Home Medications: Active Scripts Amoxicillin/Potassium Clav (Augmentin 500-125 Tablet) 500 Mg-125 Mg Tablet, 1 TAB PO BID for 5 Days, #10 TAB 0 Refills Prov:VIRI GILBERT MD 06/18/25 Azithromycin (Azithromycin) 250 Mg Tablet, 1 TAB PO AD for 2 Days, #2 TAB 0 Refills 2 the first day followed by 1 for days 2-5 Prov:VIRI GILBERT MD 06/18/25 Ipratropium/Albuterol Sulfate (Iprat-Albut 0.5-3(2.5) mg/3 ml) 0.5 Mg-3 Mg (2.5 Mg Base)/3 Ml Ampul.neb, 1 UDVIAL IH [id number] PRN for SHORTNESS OF BREATH, #1 VIAL 0 Refills Prov:VIRI GILBERT MD 06/18/25 Methylprednisolone (Medrol) 4 Mg Tab.ds.pk, 1 TAB PO AD for 6 Days, #21 TAB 0 Refills 6 on day 1 then reduce by one tablet daily until gone Prov:VIRI GILBERT MD 06/18/25 Reported Medications Aspirin (Aspirin) 81 Mg Tab.chew, 81 MG PO DAILY, TAB.CHEW 06/14/25 Hydroxyzine HCl (Hydroxyzine HCl) 25 Mg Tablet, 1 TAB PO BID for anxiety for 30 Days, #60 TAB 0 Refills 06/14/25 Montelukast Sodium (Montelukast Sodium) 10 Mg Tablet, 1 TAB PO DAILY for 30 Days, #30 TAB 0 Refills 06/14/25 New Medications: Amoxicillin/Potassium Clav (Augmentin 500-125 Tablet) 500 Mg-125 Mg Tablet 1 TAB PO BID for 5 Days, #10 TAB 0 Refills Azithromycin (Azithromycin) 250 Mg Tablet 1 TAB PO AD for 2 Days, #2 TAB 0 Refills 2 the first day followed by 1 for days 2-5 Methylprednisolone (Medrol) 4 Mg Tab.ds.pk 1 TAB PO AD for 6 Days, #21 TAB 0 Refills 6 on day 1 then reduce by one tablet daily until gone Ipratropium/Albuterol Sulfate (Iprat-Albut 0.5-3(2.5) mg/3 ml) 0.5 Mg-3 Mg (2.5 Mg Base)/3 Ml Ampul.neb 1 UDVIAL IH [id number] PRN for SHORTNESS OF BREATH, #1 VIAL 0 Refills Continued Medications: Aspirin (Aspirin) 81 Mg Tab.chew 81 MG PO DAILY, TAB.CHEW Hydroxyzine HCl (Hydroxyzine HCl) 25 Mg Tablet 1 TAB PO BID for anxiety for 30 Days, #60 TAB 0 Refills Montelukast Sodium (Montelukast Sodium) 10 Mg Tablet 1 TAB PO DAILY for 30 Days, #30 TAB 0 Refills Time spent arranging discharge: 31-60 minutes ATTESTATION BY PHYSICIAN I have seen and examined the patient. I reviewed the documentation, medical decision making, and treatment plan as noted by the resident provider above. I agree with the findings and plan of care. BETH SCHWARZ MD, MUHAMMAD H MD Jun 18, 2025 17:38
== END 2025-06-18 17:25 | disposition home or self-care (01) | DRG 871 ==
LOC: EDH 12:46 → EDHIP 19:35 → 2AH 22:45
PROVIDERS: ADMIT Internal Medicine; ATTEND Internal Medicine
DX: A41.9 Sepsis, unspecified organism (principal); J18.9 Pneumonia, unspecified organism; J96.21 Acute and chronic respiratory failure with hypoxia; J98.11 Atelectasis; E66.9 Obesity, unspecified; E11.65 Type 2 diabetes mellitus with hyperglycemia; I11.0 Hypertensive heart disease with heart failure; F32.A Depression, unspecified; K21.9 Gastro-esophageal reflux disease without esophagitis; F41.9 Anxiety disorder, unspecified; I50.9 Heart failure, unspecified; J84.10 Pulmonary fibrosis, unspecified; J84.89 Other specified interstitial pulmonary diseases; Z68.35 Body mass index [BMI] 35.0-35.9, adult; Z82.49 Family history of ischemic heart disease and other diseases of the circulatory system; Z83.3 Family history of diabetes mellitus; Z87.01 Personal history of pneumonia (recurrent); Z99.81 Dependence on supplemental oxygen; U09.9 Post COVID-19 condition, unspecified
CPT/HCPCS: 36415; 36600; 70140; 71045; 71250; 80048; 80053; 80202; 81003; 82435; 82803; 82947; 83036; 83605; 83735; 83880; 84132; 84145; 84295; 84484; 85018; 85025; 86140; 87040; 87071; 87205; 87426; 87804; 93005; 93306; 93356; 94640; 94664; 94667; 94668; 96365; 96366; 96368; 99285; G0378; J0456; J0692; J0696; J1650; J1938; J2919; J3373; J3370